=== PATIENT | female | born 1950 | race Caucasian/White ===

== ENCOUNTER 2018-05-26 11:31 | Inpatient (IN) | payer MEDICARE, SELFPAY ==
[2018-05-26] VITALS (50 sets, daily range): BP systolic 70–136; BP diastolic 34–89; PULSE 75–126; RESP 10–103; TEMP 35–36.6; O2SAT 93–100; BMI 30.7; BMI 31.6
--- NOTE | 2018-05-26 11:57 | RAD_ITS ---
STUDY: X-RAY CHEST REASON FOR EXAM: Female, 67 years old. Cough and fever TECHNIQUE: Single AP portable view of the chest. COMPARISON: 09/08/16 FINDINGS: EKG leads overlie the chest. Stable appearance of a tracheostomy tube. Left subclavian central venous catheter tip in the mid SVC. The lungs are clear and expanded. There is no demonstrated pleural abnormality. Normal size heart. Normal mediastinum and al. Normal visualized pulmonary arteries. Normal visualized aortic arch and descending thoracic aorta. There are diffuse degenerative changes of the visualized thoracic spine. Normal visualized ribs, clavicles, and shoulders. There is no demonstrated abnormality of the visualized soft tissue structures of the upper abdomen. RAD/Chest 1 View (Portable) IMPRESSION: No acute pulmonary process Electronically Signed: Brian Faye MD at 13:37 EDT , Service support ,
--- NOTE | 2018-05-26 11:57 | EKG12_ITS ---
Test Reason : ALTERED LOC Blood Pressure : / mmHG Vent. Rate : 109 BPM Atrial Rate : 109 BPM P-R Int : 160 ms QRS Dur : 080 ms QT Int : 332 ms P-R-T Axes : 041 035 033 degrees QTc Int : 447 ms Sinus tachycardia Otherwise normal ECG Confirmed by CAS CARCAMO, ZULEIKA ([id number]), senior technical editor KYLE SLATER ([id number] on 05/28/2018 1:26:43 PM Referred By: STEFAN Confirmed By:ZULEIKA CARDOZO MD
--- NOTE | 2018-05-26 12:06 | ED.DCSUM_ITS ---
- ER Visit Summary Date of Service: 05/26/18 Chief Complaint: Altered mental status History of Present Illness: The patient is a 67 F with history of spinal cord injury with trach in place who presents for 1 month of worsening confusion, acutely worse today. Patient was being evaluated for ringing in her ears at Dr. Ruby's office, and daughter noted the patient could not sign her name. She is normally able to do this without any difficulty. She was brought in for evaluation. Patient denies any specific complaints other than chronic cough and shortness of breath. Patient is currently on 2 antibiotics for a UTI, but daughter forgot the medication list and is unsure exactly what they are. Physical Examination: Vital signs: hypothermic at 95, hypotensive at 85/35, no hypoxia on room air General: well nourished, ill-appearing, laying in bed, trach in place Skin: Cool, dry, dependent mottling, skin breakdown on buttocks and upper legs HEENT: normocephalic and atraumatic; PERRL, EOMI, dry mucous membranes Cardiovascular: regular rate and rhythm without murmurs, no significant pitting peripheral edema Respiratory: Mild increased work of breathing, diffuse mild coarseness bilaterally, trach in place Abdominal: Abdomen is soft, nontender with normoactive bowel sounds, no guarding or rebound, no masses, suprapubic catheter in place, dark brown soft stool in adult diaper MSK: generalized weakness, no deformities Neuro: somnolent, answers questions appropriately. Paraplegic Test Results: Abnormal Lab Results 05/26/18 05/26/18 05/26/18 12:15 12:25 12:25 WBC 27.1 H RBC 5.99 H Hgb 16.8 H Hct 49.8 H MCV 83.1 MCH 28.0 MCHC 33.7 RDW 16.3 H RDW Differential 49.0 H Plt Count 516 H MPV 10.8 Immature Gran % (Auto) 0.900 Neut % (Auto) 91.6 H Lymph % (Auto) 3.2 L [place] % (Auto) 4.1 Eos % (Auto) 0.1 Baso % (Auto) 0.1 Absolute Neuts (auto) 24.8 H Absolute Lymphs (auto) 0.88 Total Counted Not Reportable Differential Comment SCANNED Platelet Estimate MOD INC Plt Morphology Comment LARGE PT INR APTT Specimen Type Sample Site O2 % VBG pH VBG pO2 VBG O2 Sat (Calc) VBG O2 Content VBG Base Excess POC Mix VBG pCO2 Pt Tmp Respiration Rate O2 Delivery Device Tidal Volume POC PEEP Blood Gas Notified Whom Blood Gas Notified Time Sodium 133 L Potassium 3.5 Chloride 90 L Carbon Dioxide 27.0 Anion Gap 16 H BUN 113 H* Creatinine 1.96 H Estim Creat Clear Calc 23.72 Est GFR (MDRD) Af Amer 33 L Est GFR (MDRD) Non-Af 27 L BUN/Creatinine Ratio 57.7 H Glucose 187 H Lactic Acid Calcium 8.9 Total Bilirubin 0.80 AST 15 ALT 19 Alkaline Phosphatase 306 H Total Creatine Kinase 17 L Troponin I < 0.015 Total Protein 6.9 Albumin 2.2 L Globulin 4.7 H Albumin/Globulin Ratio 0.5 L TSH 2.60 Cortisol Urine Color Urine Clarity Urine pH Ur Specific [place] Urine Protein Urine Glucose (UA) Urine Ketones Urine Occult Blood Urine Nitrite Urine Bilirubin Urine Urobilinogen Ur Leukocyte Esterase Urine RBC Urine WBC Ur Squamous Epith Cells Ur Transition Epith Cell Urine Bacteria Hyaline Casts Urine Mucus POC Glucose 213 H 05/26/18 05/26/18 05/26/18 12:25 12:25 12:25 WBC RBC Hgb Hct MCV MCH MCHC RDW RDW Differential Plt Count MPV Immature Gran % (Auto) Neut % (Auto) Lymph % (Auto) [place] % (Auto) Eos % (Auto) Baso % (Auto) Absolute Neuts (auto) Absolute Lymphs (auto) Total Counted Differential Comment Platelet Estimate Plt Morphology Comment PT 15.8 H INR 1.3 APTT 31.6 Specimen Type Sample Site O2 % VBG pH VBG pO2 VBG O2 Sat (Calc) VBG O2 Content VBG Base Excess POC Mix VBG pCO2 Pt Tmp Respiration Rate O2 Delivery Device Tidal Volume POC PEEP Blood Gas Notified Whom Blood Gas Notified Time Sodium Potassium Chloride Carbon Dioxide Anion Gap BUN Creatinine Estim Creat Clear Calc Est GFR (MDRD) Af Amer Est GFR (MDRD) Non-Af BUN/Creatinine Ratio Glucose Lactic Acid 5.6 H* Calcium Total Bilirubin AST ALT Alkaline Phosphatase Total Creatine Kinase Troponin I Total Protein Albumin Globulin Albumin/Globulin Ratio TSH Cortisol 51.90 H Urine Color Urine Clarity Urine pH Ur Specific [place] Urine Protein Urine Glucose (UA) Urine Ketones Urine Occult Blood Urine Nitrite Urine Bilirubin Urine Urobilinogen Ur Leukocyte Esterase Urine RBC Urine WBC Ur Squamous Epith Cells Ur Transition Epith Cell Urine Bacteria Hyaline Casts Urine Mucus POC Glucose 05/26/18 05/26/18 12:29 14:04 WBC RBC Hgb Hct MCV MCH MCHC RDW RDW Differential Plt Count MPV Immature Gran % (Auto) Neut % (Auto) Lymph % (Auto) [place] % (Auto) Eos % (Auto) Baso % (Auto) Absolute Neuts (auto) Absolute Lymphs (auto) Total Counted Differential Comment Platelet Estimate Plt Morphology Comment PT INR APTT Specimen Type HARPREET Sample Site L Radial O2 % 50 VBG pH 7.30 L VBG pO2 23 L VBG O2 Sat (Calc) 32 L VBG O2 Content 28 VBG Base Excess 0 POC Mix VBG pCO2 Pt Tmp 53.3 H Respiration Rate 12 O2 Delivery Device Vent Tidal Volume 500 POC PEEP 5 Blood Gas Notified Whom ED Blood Gas Notified Time 1220 Sodium Potassium Chloride Carbon Dioxide Anion Gap BUN Creatinine Estim Creat Clear Calc Est GFR (MDRD) Af Amer Est GFR (MDRD) Non-Af BUN/Creatinine Ratio Glucose Lactic Acid Calcium Total Bilirubin AST ALT Alkaline Phosphatase Total Creatine Kinase Troponin I Total Protein Albumin Globulin Albumin/Globulin Ratio TSH Cortisol Urine Color [place] Urine Clarity Cloudy Urine pH 6.0 Ur Specific [place] 1.015 Urine Protein 100 H Urine Glucose (UA) Normal Urine Ketones Negative Urine Occult Blood 250 H Urine Nitrite Negative Urine Bilirubin 3 H Urine Urobilinogen 1 H Ur Leukocyte Esterase 500 H Urine RBC 10-25 SEEN Urine WBC 25-50 SEEN Ur Squamous Epith Cells 0-5 SEEN Ur Transition Epith Cell 0-5 SEEN Urine Bacteria 2+ Hyaline Casts 0-5 SEEN Urine Mucus 0 SEEN POC Glucose Clinical Impression(s) from Imaging Studies Chest X-Ray 05/26/18 11:57 IMPRESSION: No acute pulmonary process Electronically Signed: Brian Faye MD at 13:37 EDT , Service support , Emergency Department Course and Treatment: Patient presents ill-appearing, hypotensive, hypothermic on initial temperature, concerning for sepsis. Rectal temperature was obtained and was 96.6. Lab work obtained, including sepsis workup, TSH and baseline cortisol in case of underlying endocrine insufficiency requiring stress dose steroids. Patient was started empirically on vancomycin and Zosyn. She was given 30ml/kg of IV fluids secondary to septic shock. She initially had responsiveness to IV fluids but became hypotensive again, and thus was given the full 30 ml/kg of fluid. Labs remarkable for leukocytosis of 27, creatinine of 1.96 and elevated BUN and, consistent with prerenal azotemia. Lactate elevated at 5.6. Venous blood gas showed CO2 of 53, making hypercarbic narcosis very unlikely as the patient's because of altered mental status. Chest x-ray showed no pneumonia. Urine was positive for infection. Patient required levophed for return of hypotension. Patient did not have sufficient peripheral access to start levaphed peripherally. Central line was placed after obtaining verbal consent in this emergent situation from daughter and patient. Timeout was performed. Using sterile te chnique, attempted to start a right subclavian --this site was chosen due to patient's trach with associated collar covering the IJ and patient's skin breakdown with infection in the femoral regions. Attempts were unsuccessful secondary to patient's anatomy with immobile shoulder joint not allowing proper positioning for cannulation of the subclavian. The internal jugular was the only accessible site, and thus patient's trach collar was removed and her trach was closely monitored and manually kept in place by an assistant to the president. Using ultrasound guidance, there was successful placement of a right internal jugular central line on the first attempt. Placement was confirmed with chest x-ray and there was no pneumothorax evident. Levophed was started through the central line. Patient was admitted to the ICU after discussion with Dr. Hale and Dr. Jordan. Critical care time of 45 minutes exclusive of separately billable procedures for emergent evaluation and stabilization, coordination of care, frequent reassessments, interpretations of chest x-ray, blood gas, EKG, lab work, and discussions with family, specialist and hospitalist. Treatment Plan: [] Disposition: [] Impression: Septic shock, altered mental status, UTI, central line placement, acute renal insufficiency This note was generated with [employer] dictation software. It may contain incorrect words, spelling, and punctuation that were not noted in review of the chart prior to signing ED Disposition - Plan for ED Patient: Disposition: Acute Care Hospital [facility] Chief Complaint: Alt LOC
[2018-05-26 12:35] LABS: Blood Gas Specimen Type VEN; FI02 50; O2 Delivery Device Vent; PEEP 5; RR 12; SITE L Radial; Time Given 1220; VBG BASE EXCESS 0 mmol/L (-1.0-3.5); VBG Bicarbonate 26 mmol/L (22-26); VBG Oxygen Content 28 mmol/L (23-33); VBG PO2 23 mmHg (25-40); VBG SO2 32 % (50-70); VBG pCO2 53.3 mmHg (41-51); Vt 500
--- NOTE | 2018-05-26 12:38 | CPS ---
unable to obtain a quality pulse ox waveform at this time.
[2018-05-26] MEDS: 0.9% Normal Saline 1,000 ML IV.SOLN. 1000 ML IV (12:45)
--- NOTE | 2018-05-26 12:49 | ED.RN ---
trach upon arrival
[2018-05-26 12:51] LABS: International Normalized Ratio 1.3; Prothrombin Time (Protime)PT. 15.8 SECONDS (11.7-14.9)
[2018-05-26 12:52] LABS: Absolute Lymphocyte Count 0.88 X10^3/ul (0.83-4.51); Absolute Neutrophil Count 24.8 X10^3/uL (2.0-7.7); Basophil# 0.04 X10^3/uL; Basophil% 0.1 % (0-1); Eosinophil# 0.03 X10^3/uL; Eosinophils% 0.1 % (0-5); Hematocrit 49.8 % (37-47); Hemoglobin 16.8 g/dl (12.0-15.0); Lymphocyte # 0.88 X10^3/ul (4.0); Lymphocyte % 3.2 % (19-41); Mean Corp Hgb Conc 33.7 g/gl (32-36); Mean Corpuscular Volume 83.1 fL (81-99); Mean Platelet Vol. 10.8 fl (6.2-12.0); Monocyte# 1.11 X10^3/uL; Monocyte% 4.1 % (0-10); Neutrophil # 24.82 X10^3/uL (2.7-7.7); Neutrophil % 91.6 % (47-70); Partial Thromboplast Time 31.6 Seconds (24.1-36.2); Platelet Count 516 K/mm3 (150-450); RBC Distribution Width CV 16.3 % (11.6-14.6); Red Blood Count 5.99 M/mm3 (4.2-5.4); White Blood Count 27.1 K/mm3 (4.4-11.0)
[2018-05-26 12:53] LABS: Differential Indicated SCAN CRITERIA MET; POSITIVE COUNT NO; POSITIVE DIFFERENTIAL YES; POSITIVE MORPHOLOGY NO
[2018-05-26 13:12] LABS: Differential Comment SCANNED; Lactic Acid 5.6 mmol/L (0.4-2.0); Platelet Estimate MOD INC (ADEQ); Platelet Morphology LARGE
[2018-05-26 13:15] LABS: Bedside Glucose 213 mg/dL (70-110)
[2018-05-26 13:22] LABS: ALB/GLOB Ratio 0.5 RATIO (0.9-2.4); AST(SGOT) 15 U/L (15-37); Alanine Aminotransfer ALT/SGPT 19 U/L (13-56); Albumin, Serum 2.2 g/dL (3.2-5.0); Alkaline Phosphatase 306 U/L (45-117); Anion Gap 16 (5-15); BUN 113 mg/dL (7-18); BUN/Creat Ratio 57.7 RATIO (10-20); CPK Total, Creatine Kinase 17 U/L (26-192); Calcium,Total 8.9 mg/dL (8.5-10.1); Chloride 90 mmol/L (98-107); Creatinine, Serum 1.96 mg/dL (0.55-1.02); EST Glomerular Filtration Rate 27 mL/min (>60); Est Glom Filt Rate - Afr Amer 33 mL/min (>60); Estimated Creatinine Clearance 23.72 ml/min; Globulin 4.7 g/dL (2.2-4.2); Glucose 187 mg/dL (74-106); Potassium 3.5 mmol/L (3.5-5.1); Protein, Total 6.9 g/dL (6.4-8.2); Sodium Level 133 mmol/L (136-145)
--- NOTE | 2018-05-26 13:27 | ED.RN ---
LACTIC 5.[address] CALL[address] FROM THE LAB. DR AVILES AWARE
[2018-05-26] MEDS: 0.9% Normal Saline 1,000 ML 500 ML IV ×2 (13:49→15:10)
[2018-05-26 14:08] LABS: Mucous, Urine 0 SEEN /hpf (<or=2+)
[2018-05-26 14:11] LABS: Color, Urine Amber (Yellow); Glucose, Dipstick Normal (Normal); Ketone-Dipstick Negative (Negative); Leukocyte Esterase-Dipstick 500 /ul (Negative); Nitrite-Dipstick Negative (Negative); Occult Blood-Urine 250 /ul (Negative); Protein-Dipstick 100 mg/dl (Negative); Specific Gravity, Urine 1.015 (1.002-1.030); Urine Bilirubin Dipstick 3 mg/dL (Negative); Urine Clarity Cloudy (Clear); Urine Urobilinogen 1 mg/dl (Normal)
[2018-05-26 14:18] LABS: Red Blood Cells-Urine 10-25 SEEN /hpf (0-5); Squamous Epithelial Cells - UA 0-5 SEEN /hpf (5-10); Transitional Epithelial - Ur 0-5 SEEN /hpf (0-5); White Blood Cells 25-50 SEEN /hpf (0-5)
[2018-05-26 14:19] LABS: Bacteria 2+ /hpf (None Seen); Hyaline Cast 0-5 SEEN /lpf (0-5)
--- NOTE | 2018-05-26 14:20 | HP.PCM_ITS ---
Problem List (1) Altered mental status Status: Acute History of Present Illness Date of Admission: 05/26/18 Chief Complaint: Altered mental status The patient is a 67 year old F with an extensive past medical history as listed below. She is a [facility] of a [facility]. She was admitted on 05/26/2018 by the ED with a complaint of altered mental status for the past month. According to her daughter, patient has had repeated UTIs and has been on 2 antibiotics recently. She does not know the name of these antibiotics. Mother has been confused over the past month and is gradually worsened until today when she could even sign her name on her documents. Daughter therefore decided to bring her in. She could not tell with her mother had had any fever or chills, any cough or chest pain, shortness of breath, abdominal pain, any diarrhea vomiting. Patient was a bit confused but was able to attest to the fact that she did not have any fever, any chills, any shortness of breath or chest pain, any abdominal pain, diarrhea vomiting. Patient has a venting placed on account of chronic respiratory failure because of which is likely due to pulmonary fibrosis from [facility] documentation. She is on trach collar during the day and on the vent at night. On admission in the ED, she was found to have a low temperature with temperature of 95 Fahrenheit and blood pressure was 84/34 with respiratory rate of 36 and 6 pulse rate was 89. Labs done shows sodium of 133, BUN of 113 and creatinine of 1.96. Anion gap was 16 and lactic acid was 5.6. CBC showed white cell count of 27.1 and hemoglobin of 16.8 and platelets of 516. Chest x- ray showed lungs clear and expanded with no acute cardiopulmonary process. She is being admitted to be managed for septic shock likely due to UTI. [] Past Medical History Past Medical History (Chronic Problems): Chronic Problems Left ischial pressure sore (Chronic) Benign essential hypertension (Chronic) Depression (Chronic) Hypertension (Chronic) Chronic acquired lymphedema (Chronic) Paraplegia (Chronic) History of ulcer of lower limb (Chronic) Right ischial pressure sore, stage 4 (Chronic) Patient needs follow at [facility]-two years ago she was supposed to follow up with Dr. Zheng- if patient wants agressive treatment with resolution of the wound, she needs to go there combined respiratory failure (Chronic) Dysphagia (Chronic) Restrictive airway disease (Chronic) ADHD (attention deficit hyperactivity disorder) (Chronic) Sleep apnea (Chronic) Leg muscle spasm (Chronic) Incontinence of feces (Chronic) Incontinence of urine (Chronic) History of benign neoplasm of spinal cord (Chronic) Hypercholesterolemia (Chronic) Paraplegia following spinal cord injury (Chronic) Pulmonary fibrosis (Chronic) Acute respiratory failure (Chronic) Allergies methylphenidate HCl [From Concerta] Allergy (Verified 05/26/18 11:35) Anaphylaxis WHEN COMBINED WITH ALBUTERAL SULFATE CAUSES DELERIUM. oxycodone HCl [From Percocet] Allergy (Verified 05/26/18 11:35) Other delerium zolpidem tartrate [From Ambien] Allergy (Verified 05/26/18 11:35) Other delerium WITH PERCOCET. ciprofloxacin [From Cipro] Adverse Reaction (Verified 05/26/18 11:35) Low blood pressure BAD INTERACTION WITH TIZANIDINE fluticasone propionate [From Advair Diskus] Adverse Reaction (Verified 05/26/18 11:35) Other DROWSY methylphenidate [From Concerta] Adverse Reaction (Verified 05/26/18 11:35) Other piroxicam [From Feldene] Adverse Reaction (Verified 05/26/18 11:35) Nausea salmeterol xinafoate [From Advair Diskus] Adverse Reaction (Verified 05/26/18 11:35) Other DROWSY Home Medications: Ambulatory Orders Medication Instructions Recorded Bisacodyl [Bisac-Evac] 10 mg RC DAILY PRN 08/31/16 Albuterol Aerosols [Ventolin 2.5 mg INHALATION Q4H PRN PRN 05/26/18 Aerosols] Apixaban [Eliquis] 2.5 mg PO BID 05/26/18 Aripiprazole [Abilify] 1 mg PO DAILY 05/26/18 Aspirin [Aspirin, Baby] 81 mg PO DAILY@0800 05/26/18 Baclofen [Lioresal] 20 mg PO TID 05/26/18 Calcium Carbonate/Vitamin D3 1 tab PO DAILY 05/26/18 [Calcium 500-Vit D3 200 Tablet] Chlorhexidine 15 ml PO BID 05/26/18 Enoxaparin [Lovenox] 40 mg SC DAILY@1000 05/26/18 Ferrous Sulfate 325 mg PO DAILY 05/26/18 Furosemide [Lasix] 80 mg PO BID 05/26/18 Guaifenesin [Guaifenesin ER] 1,200 mg PO BID 05/26/18 Ipratropium/Albuterol Sulfate 3 ml INHALATION Q6H 05/26/18 [Duoneb] Lactobacillus Acidophilus 1 each PO BID 05/26/18 [Acidophilus Lactobacilli] Metolazone [Zaroxolyn] 2.5 mg PO DAILY 05/26/18 Mirtazapine [Remeron] 7.5 mg PO QHS 05/26/18 Multivit-Min/Iron Fum/Folic AC 1 tab PO DAILY 05/26/18 [Geuux-Hatbdtd-Efumhvqo Tablet] Omeprazole 20 mg PO DAILY 05/26/18 Polyethylene Glycol 3350 [Miralax] 17 gm PO BID 05/26/18 Potassium Chloride [K-Dur] 20 meq PO DAILY 05/26/18 Sennosides/Docusate Sodium 1 each PO DAILY 05/26/18 [Sennosides-Docusate Sodium Tab] Venlafaxine XR [Effexor Xr] 150 mg PO BID 05/26/18 Surgical History: appendectomy, - - Lumbar back surgery ?2. Excision right ischial pressure sore with partial ostectomy for osteomyelitis - 01/13. placement of suprapubic catheter. Psychiatric History: No pertinent psych hx [employer] History: No pertinent [employer] history Lives: Jail Smoking Status: Never smoker Tobacco Use: Non-smoker Alcohol: None Drugs: None - *Family History Paternal History Items: No pertinent history, - - No pulmonary disease Maternal History Items: No pertinent history, - - No pulmonary disease Review of Systems Constitutional: Reports: Weight Change - daughter says she has lost ~ 20 pounds over the past month. Denies: Chills, Fever, Malaise, Weakness Eyes: Denies: Blurred vision HEENT: Denies: Head Aches, Sinus Congestion, Sinus Drainage Cardiovascular: Denies: Chest Pain, Palpitations Respiratory: Denies: Cough, Shortness of Breath, Shortness of breath at rest, Sputum production Gastrointestinal: Denies: Abdominal Pain, Nausea, Vomiting Genitourinary: Reports: - - has a suprapubic catheter. Denies: Dysuria Musculoskeletal: Denies: Joint Pain, Joint Tenderness Skin: Denies: Rash, Wounds Neurological: Reports: Balance problems, Confusion Psychiatric: Reports: Depression. Denies: Anxiety Hematologic/ Lymphatic: Denies: Easy Bruising, Easy Bleeding VTE Information - Inpt Only VTE Present on Admission: No VTE Mechan Device Prophylaxis: SCD's Patient Problems: Active and Suspected Problems Altered mental status (Acute) - Physical Exam General: Confused, Lethargic HEENT: Atraumatic, PERRLA, EOMI, Normocephalic Oral: Dry Mucosa Neck: Supple, No JVD, Negative Carotid Bruits, - - has a tracheostomy in place, attached to ventilator Lungs: - - lung bases are clear to auscultation Cardiovascular: Normal S1, Normal S2, No murmurs, Tachycardic Abdomen: Bowel Sounds Present, Soft, Non Tender, Non-Distended, Obese, - - suprapubic catheter in place; very offensive odour at catheter site, and it is oozing urine and some slight pus. Skin: - - Erythema over suprapubic area, and under abdominal pannus Musculoskeletal: No Tenderness to Palpation of Joints or Extremities Lymphatic: No Cervical, Supraclavicular, or Inguinal Adenopathy Neurological: - - patient confused, able to nod in response to questions, but cannot verbalise. Psych/Mental Status: - - confused Vital Signs Temp Pulse Resp BP Pulse Ox 96.6 F L 85 16 85/61 L 99 05/26/18 12:09 05/26/18 14:00 05/26/18 14:00 05/26/18 14:00 05/26/18 14:00 Oxygen Flow Rate (L/min) 6 Oxygen Delivery Method Mechanical Ventilator Weight: 179 lb Body Mass Index (BMI) 30.7 Finger Stick Blood Glucose 213 Laboratory Tests Past 24 Hrs 05/26/18 05/26/18 05/26/18 12:25 12:25 12:25 WBC 27.1 H RBC 5.99 H Hgb 16.8 H Hct 49.8 H MCV 83.1 MCH 28.0 MCHC 33.7 RDW 16.3 H RDW Differential 49.0 H Plt Count 516 H MPV 10.8 Immature Gran % (Auto) 0.900 Neut % (Auto) 91.6 H Lymph % (Auto) 3.2 L [place] % (Auto) 4.1 Eos % (Auto) 0.1 Baso % (Auto) 0.1 Absolute Neuts (auto) 24.8 H Absolute Lymphs (auto) 0.88 Total Counted Not Reportable Differential Comment SCANNED Platelet Estimate MOD INC Plt Morphology Comment LARGE PT 15.8 H INR 1.3 APTT 31.6 Specimen Type Sample Site O2 % VBG pH VBG pO2 VBG O2 Sat (Calc) VBG O2 Content VBG Base Excess POC Mix VBG pCO2 Pt Tmp Respiration Rate O2 Delivery Device Tidal Volume POC PEEP Blood Gas Notified Whom Blood Gas Notified Time Sodium 133 L Potassium 3.5 Chloride 90 L Carbon Dioxide 27.0 Anion Gap 16 H BUN 113 H* Creatinine 1.96 H Estim Creat Clear Calc 23.72 Est GFR (MDRD) Af Amer 33 L Est GFR (MDRD) Non-Af 27 L BUN/Creatinine Ratio 57.7 H Glucose 187 H Lactic Acid Calcium 8.9 Total Bilirubin 0.80 AST 15 ALT 19 Alkaline Phosphatase 306 H Total Creatine Kinase 17 L Troponin I < 0.015 Total Protein 6.9 Albumin 2.2 L Globulin 4.7 H Albumin/Globulin Ratio 0.5 L TSH 2.60 Cortisol Urine Color Urine Clarity Urine pH Ur Specific Rice Urine Protein Urine Glucose (UA) Urine Ketones Urine Occult Blood Urine Nitrite Urine Bilirubin Urine Urobilinogen Ur Leukocyte Esterase Urine RBC Urine WBC Ur Squamous Epith Cells Ur Transition Epith Cell Urine Bacteria Hyaline Casts Urine Mucus 05/26/18 05/26/18 05/26/18 12:25 12:25 12:29 WBC RBC Hgb Hct MCV MCH MCHC RDW RDW Differential Plt Count MPV Immature Gran % (Auto) Neut % (Auto) Lymph % (Auto) Independence % (Auto) Eos % (Auto) Baso % (Auto) Absolute Neuts (auto) Absolute Lymphs (auto) Total Counted Differential Comment Platelet Estimate Plt Morphology Comment PT INR APTT Specimen Type HARPREET Sample Site L Radial O2 % 50 VBG pH 7.30 L VBG pO2 23 L VBG O2 Sat (Calc) 32 L VBG O2 Content 28 VBG Base Excess 0 POC Mix VBG pCO2 Pt Tmp 53.3 H Respiration Rate 12 O2 Delivery Device Vent Tidal Volume 500 POC PEEP 5 Blood Gas Notified Whom ED Blood Gas Notified Time 1220 Sodium Potassium Chloride Carbon Dioxide Anion Gap BUN Creatinine Estim Creat Clear Calc Est GFR (MDRD) Af Amer Est GFR (MDRD) Non-Af BUN/Creatinine Ratio Glucose Lactic Acid 5.6 H* Calcium Total Bilirubin AST ALT Alkaline Phosphatase Total Creatine Kinase Troponin I Total Protein Albumin Globulin Albumin/Globulin Ratio TSH Cortisol 51.90 H Urine Color Urine Clarity Urine pH Ur Specific Rice Urine Protein Urine Glucose (UA) Urine Ketones Urine Occult Blood Urine Nitrite Urine Bilirubin Urine Urobilinogen Ur Leukocyte Esterase Urine RBC Urine WBC Ur Squamous Epith Cells Ur Transition Epith Cell Urine Bacteria Hyaline Casts Urine Mucus 05/26/18 14:04 WBC RBC Hgb Hct MCV MCH MCHC RDW RDW Differential Plt Count MPV Immature Gran % (Auto) Neut % (Auto) Lymph % (Auto) Independence % (Auto) Eos % (Auto) Baso % (Auto) Absolute Neuts (auto) Absolute Lymphs (auto) Total Counted Differential Comment Platelet Estimate Plt Morphology Comment PT INR APTT Specimen Type Sample Site O2 % VBG pH VBG pO2 VBG O2 Sat (Calc) VBG O2 Content VBG Base Excess POC Mix VBG pCO2 Pt Tmp Respiration Rate O2 Delivery Device Tidal Volume POC PEEP Blood Gas Notified Whom Blood Gas Notified Time Sodium Potassium Chloride Carbon Dioxide Anion Gap BUN Creatinine Estim Creat Clear Calc Est GFR (MDRD) Af Amer Est GFR (MDRD) Non-Af BUN/Creatinine Ratio Glucose Lactic Acid Calcium Total Bilirubin AST ALT Alkaline Phosphatase Total Creatine Kinase Troponin I Total Protein Albumin Globulin Albumin/Globulin Ratio TSH Cortisol Urine Color Elysia Urine Clarity Cloudy Urine pH 6.0 Ur Specific Rice 1.015 Urine Protein 100 H Urine Glucose (UA) Normal Urine Ketones Negative Urine Occult Blood 250 H Urine Nitrite Negative Urine Bilirubin 3 H Urine Urobilinogen 1 H Ur Leukocyte Esterase 500 H Urine RBC 10-25 SEEN Urine WBC 25-50 SEEN Ur Squamous Epith Cells 0-5 SEEN Ur Transition Epith Cell 0-5 SEEN Urine Bacteria 2+ Hyaline Casts 0-5 SEEN Urine Mucus 0 SEEN POC Glucose 05/26/18 12:15 POC Glucose 213 H Diagnostic Data Chest X-Ray 05/26/18 11:57 IMPRESSION: No acute pulmonary process Electronically Signed: Brian Faye MD at 13:37 EDT , Service support , Assessment/Plan All Active Problems Altered mental status (Acute) Aspiration pneumonia (Acute) Pseudomonas urinary tract infection (Acute) MRSA pneumonia (Acute) Sepsis (Acute) Shortness of breath (Acute) Ulcer of heel (Acute) Fever (Acute) Acute and chronic respiratory failure (Acute) 67-year-old female admitted from the [facility] with complaint of worsening confusion for 1 month and recurrent UTIs. 1. Acute metabolic encephalopathy due to septic shock from UTI * Getting confused for over a month and is progressively worsened. * Will hold baclofen. * Management as per 2. * 2. Septic shock due to UTI * blood pressure went down into 60s on review in ED; right hand was cold to touch and blue. * SIRS criteria is 3/4 (tachypnea, leucocytosis, hypothermia) * elevated lactic acid of 5.6; UA pending at time of review * subclavian line passed in ED * Patient was rehydrated in the ED with 30 cc/kg report according to sepsis protocol but still remained hypotensive. She was started on IV Levophed in the ED. * To ICU. Category Development Analyst consult. * Continue Levophed and IV fluids. 2D echo. * Start IV vancomycin and IV Zosyn. * blood cultures ordered; will order urine culture also * will get ABG * 3. MANUEL likely prerenal due to septic shock * Cr is 1.96, BUN ias 116 * Sinus less than 1. * Will monitor for resolution with hydration. * 4. Lactic acidosis: Likely due to hypoperfusion from septic shock. will repeat per sepsis protocol 5. Hyponatremia: Na is 133; likely a hypotonic, hypovolemic hyponatremia due to dehydration. Hydrate with IVF and monitor 6. Chronic respiratory failure: tracheostomy In Place. Currently on the Ventilator. Pulmonology and Category Development Analyst Consulted. On breathing treatments with albuterol. * 7. Thrombocytosis: 516. This is likely reactive from sepsis. Will monitor. 8. Depression:on mirtazapine 9. HF; EF unknown * on lasix 80mg bid and metolazone at home; held o/a of septic shock. * 2D echo ordered DVT prophylaxis: On apixaban. GI Prophylaxis: PPI Code status: Full code * Daughter was asked extensively about patient's CODE STATUS in light of her debilitated state and comorbidities.She insists the mother is full code. There is a focal documented in the [facility] papers that indicates patient was to be full code. This was clarified with patient again and she stated that she wanted to be full code. Total [id number] time 18 minutes. Code Visit Inpatient E&M: 17336 Init Hosp L3 Procedures: 88464 Advncd Care Plan 30 Min
--- NOTE | 2018-05-26 14:34 | ED.RN ---
Addendum entered by Elizabeth Perez 05/26/18 14:38: PT'S DAUGHTER IS IN THE ROOM AND REPORTED THAT PT HAS HISTORY OF RAYNAUD'S. RIGHT HAND IS LESS PURPLE AND RESOLVING, STILL COLD TO THE TOUCH. DR. AVILES INFORMED OF SAME. Original Note: DR. AVILES INFORMED THIS NURSE THAT NEW ORDERS IN MAR AND PT'S FINGERS ARE NOW COLD & PURPLE, DR. AVILES DISCUSSED WITH PT THE PLACEMENT OF CENTRAL LINE.
--- NOTE | 2018-05-26 15:09 | ECHOD_ITS ---
[id number] ECHO^ECHOD^Echo Complete [id number] TAG_START [facility] Echocardiogram [address] [place], [place] [address] Ordering Physician: Brittney Jordan TAG_ENDED TAG_START Name: SHELLEY HILTON Study Date: 05/27/2018 10:42 AM BP: 85/61 mmHg Patient Location: ICU^ICU03^1 BSA: 1.9 m2 : 1950 Gender: Female Height: 64 in Age: 67 yrs Weight: 179 lb History: HTN, Congenital lymphedema, Paraplegia, BETITO, Neoplasm of spinal cord, HLD, Pulmonary fibrosis, Acute Resp Failure, MRSA Pneumonia TAG_ENDED Reason For Study: PALPITATIONS Procedure This was a 2D Doppler, Color Flow transthoracic echocardiogram. Poor image quality due to pt in supine position and breathing issues due to respiratory failure and pulmonary disease. The study was technically difficult. Limited views were obtained. Exam performed portable in ICU/CCU. Left Ventricle Based upon the 2D echocardiographic images obtained there appears to be normal left ventricular size, wall motion, and hyperdynamic systolic function. Unable to assess diastolic dysfunction. TAG_START TAG_ENDED Right Ventricle Based upon the 2D echocardiographic images obtained there appears to be grossly normal right ventricular size and systolic function. Atria Normal left atrium. Normal right atrium. No doppler evidence for ASD. Mitral Valve Mitral valve not well visualized. Tricuspid Valve The tricuspid valve is not well visualized. Aortic Valve The aortic valve is not well visualized. Mild focal aortic valve calcification. Pulmonic Valve The pulmonic valve is not well visualized. Trivial pulmonic valve insufficiency. Great Vessels The aortic root is not well visualized. Pericardium/Pleural No pericardial effusion. MMode/2D Measurements & Calculations Ao root diam: 3.6 cm Doppler Measurements & Calculations PA V2 max: 88.4 cm/sec Interpretation Summary The study was technically difficult. Limited views were obtained. Based upon the 2D echocardiographic images obtained there appears to be normal left ventricular size, wall motion, and hyperdynamic systolic function. Mild focal aortic valve calcification. Trivial pulmonic valve insufficiency. Unable to assess diastolic dysfunction. TAG_START TAG_ENDED Ordering Physician: Brittney Jordan Performed By: Dania Yu RDCS, RVT
--- NOTE | 2018-05-26 16:20 | RAD_ITS ---
STUDY: X-RAY CHEST REASON FOR EXAM: Female, 67 years old. Line placement TECHNIQUE: Single AP portable view of the chest. COMPARISON: 05/26/2018 FINDINGS: Since the previous study, a right IJ central venous catheter is in place, tip is in the distal SVC. EKG leads overlie the chest. Stable appearance of a tracheostomy tube. Chronic interstitial changes noted in both lung sheets with stable blunting of the right costophrenic angle. There is no demonstrated pleural abnormality. Normal size heart. Normal mediastinum and al. Normal visualized pulmonary arteries. Normal visualized aortic arch and descending thoracic aorta. There are diffuse degenerative changes of the visualized thoracic spine. There is degenerative osteoarthritis of the bilateral shoulders. There is no demonstrated abnormality of the visualized soft tissue structures of the upper abdomen. RAD/Chest 1 View (Portable) IMPRESSION: Right IJ central venous catheter tip in the distal SVC. Lung sheets show no interval change since the previous study. Electronically Signed: Brian Faye MD at 17:03 EDT , Service support ,
[2018-05-26 16:33] LABS: Reflex Lactate? Y
[2018-05-26 16:56] LABS: Lactic Acid 2.7 mmol/L (0.4-2.0)
--- NOTE | 2018-05-26 16:57 | ED.RN ---
lactic 2.7 called from the lab dr escalante aware
--- NOTE | 2018-05-26 19:00 | NURSING ---
admitted to icu #3 from ed, non-verbal ,trach to vent %50 fio2, supra pubic catheter draining foul smelling luci urine with sediment, drainage bag changed, incont mod amt soft brown stool coccyx extremely reddened with multi open areas,
[2018-05-26] MEDS: 0.9% Normal Saline 1,000 ML 150 ML IV (19:35)
--- NOTE | 2018-05-26 20:13 | PCM.RX.CS ---
Consult Pharmacy has been consulted to manage selected antiobiotic: Vancomycin Type of Consult: New start Suspected Infection: Sepsis Prior Doses of Antibiotics Received/Current Regimen: VANCOMYCIN 1500MG IV X1 IN ED 05/26 @1349 Labs: Sodium 133 mmol/L (136-145) L 05/26/18 12:25 Potassium 3.5 mmol/L (3.5-5.1) 05/26/18 12:25 Chloride 90 mmol/L (98-107) L 05/26/18 12:25 Carbon Dioxide 27.0 mmol/L (21.0-32.0) 05/26/18 12:25 Anion Gap 16 (5-15) H 05/26/18 12:25 BUN 113 mg/dL (7-18) H* 05/26/18 12:25 Creatinine 1.96 mg/dL (0.55-1.02) H 05/26/18 12:25 Est GFR (MDRD) Af Amer 33 mL/min (>60) L 05/26/18 12:25 Est GFR (MDRD) Non-Af 27 mL/min (>60) L 05/26/18 12:25 BUN/Creatinine Ratio 57.7 RATIO (10-20) H 05/26/18 12:25 Glucose 187 mg/dL (74-106) H 05/26/18 12:25 Weight used for dosin.6 kg Estimated Creatinine Clearance: 24 ML/MIN Goal Trough: 15-20 mcg/mL Pharmacy Plan for Drug Dosing: PLAN/RECOMMENDATIONS 1. vancomycin 750mg IV Q24hr to start 05/27 @1400 2. Trough scheduled 05/28/18 @1330, prior to 3rd total dose of vancomycin 3. Pharmacy Service will continue to monitor and adjust dosing as required.
[2018-05-26 20:14] LABS: Reflex Lactate? Y
[2018-05-26 21:26] LABS: Allen Test POS; Base Excess -1 mmol/L (-2 to +2); Bicarbonate 24.4 mmol/L (22-26); Blood Gas Specimen Type ART; FI02 50; Mode A-C; O2 Delivery Device Vent; PEEP 5; PO2 24 mmHG (75-100); RR 40; SITE R Radial; SO2 41 % (95-99); Time Given 2115; Total Carbon Dioxide 26 mmol/L; Vt 400; pCO2 42.5 mmHg (35-45); pH 7.37 (7.35-7.45)
[2018-05-26] MEDS: Chlorhexidine 15 ML PO (21:40)
[2018-05-26 22:43] LABS: Absolute Lymphocyte Count 0.55 X10^3/ul (0.83-4.51); Absolute Neutrophil Count 26.8 X10^3/uL (2.0-7.7); Basophil# 0.03 X10^3/uL; Basophil% 0.1 % (0-1); Eosinophil# 0.01 X10^3/uL; Hematocrit 44.2 % (37-47); Hemoglobin 15.2 g/dl (12.0-15.0); Lymphocyte # 0.55 X10^3/ul (4.0); Lymphocyte % 1.9 % (19-41); Mean Corp Hgb Conc 34.4 g/gl (32-36); Mean Corpuscular Hgb 27.9 pg (27.0-32.0); Mean Corpuscular Volume 81.3 fL (81-99); Mean Platelet Vol. 11.1 fl (6.2-12.0); Monocyte# 1.37 X10^3/uL; Monocyte% 4.7 % (0-10); Neutrophil # 26.81 X10^3/uL (2.7-7.7); Neutrophil % 92.8 % (47-70); Platelet Count 537 K/mm3 (150-450); RBC Distribution Width CV 16.3 % (11.6-14.6); RBC Distribution Width SD 48.3 fl (35.1-43.9); Red Blood Count 5.44 M/mm3 (4.2-5.4); White Blood Count 28.9 K/mm3 (4.4-11.0)
[2018-05-26 22:44] LABS: Differential Indicated SCAN CRITERIA MET; POSITIVE COUNT NO; POSITIVE DIFFERENTIAL YES; POSITIVE MORPHOLOGY NO
[2018-05-26 22:45] LABS: International Normalized Ratio 1.3; Prothrombin Time (Protime)PT. 16.1 SECONDS (11.7-14.9)
[2018-05-26 22:46] LABS: Partial Thromboplast Time 36.3 Seconds (24.1-36.2)
[2018-05-26 22:59] LABS: Anion Gap 13 (5-15); BUN 99 mg/dL (7-18); BUN/Creat Ratio 66.9 RATIO (10-20); Calcium,Total 7.7 mg/dL (8.5-10.1); Chloride 98 mmol/L (98-107); Creatinine, Serum 1.48 mg/dL (0.55-1.02); EST Glomerular Filtration Rate 37 mL/min (>60); Est Glom Filt Rate - Afr Amer 45 mL/min (>60); Estimated Creatinine Clearance 28.77 ml/min; Glucose 189 mg/dL (74-106); Potassium 2.5 mmol/L (3.5-5.1); Sodium Level 135 mmol/L (136-145)
[2018-05-26 23:04] LABS: Differential Comment SCANNED
[2018-05-26] MEDS: Heparin Injection (Vial) 5,000 UNIT/ML VIAL 5000 UNIT IV (23:25)
[2018-05-26] MEDS: HEPARIN/D5w 25,000 UNITS 25,000 UNITS/250 ML IV.SOLN. 11 UNITS IV (23:25)
[2018-05-27] VITALS (61 sets, daily range): BP systolic 78–136; BP diastolic 39–96; PULSE 100–122; RESP 10–39; TEMP 36–36.7; O2SAT 92–100
[2018-05-27 00:06] LABS: Magnesium 2.1 mg/dL (1.6-2.6)
[2018-05-27] MEDS: Ipratropium/Albuterol Sulfate 3 ML AMPUL.NEB INHALATION ×3 (01:03→13:09)
[2018-05-27] MEDS: LORazepam 2 MG/ML Syringe 0.5 MG IV (04:05)
[2018-05-27] MEDS: 0.9% Normal Saline 1,000 ML 150 ML IV (04:10)
[2018-05-27 05:06] LABS: Absolute Lymphocyte Count 0.41 X10^3/ul (0.83-4.51); Absolute Neutrophil Count 28.9 X10^3/uL (2.0-7.7); Basophil# 0.02 X10^3/uL; Basophil% 0.1 % (0-1); Eosinophil# 0.01 X10^3/uL; Hematocrit 42.8 % (37-47); Hemoglobin 14.8 g/dl (12.0-15.0); Lymphocyte # 0.41 X10^3/ul (4.0); Lymphocyte % 1.3 % (19-41); Mean Corp Hgb Conc 34.6 g/gl (32-36); Mean Corpuscular Hgb 27.5 pg (27.0-32.0); Mean Corpuscular Volume 79.4 fL (81-99); Mean Platelet Vol. 10.6 fl (6.2-12.0); Monocyte% 4.5 % (0-10); Neutrophil # 28.86 X10^3/uL (2.7-7.7); Neutrophil % 93.5 % (47-70); Platelet Count 523 K/mm3 (150-450); RBC Distribution Width CV 16.2 % (11.6-14.6); RBC Distribution Width SD 46.3 fl (35.1-43.9); Red Blood Count 5.39 M/mm3 (4.2-5.4)
[2018-05-27 05:10] LABS: Anion Gap 14 (5-15); BUN 102 mg/dL (7-18); BUN/Creat Ratio 66.7 RATIO (10-20); Calcium,Total 7.5 mg/dL (8.5-10.1); Chloride 101 mmol/L (98-107); Creatinine, Serum 1.53 mg/dL (0.55-1.02); EST Glomerular Filtration Rate 36 mL/min (>60); Est Glom Filt Rate - Afr Amer 43 mL/min (>60); Estimated Creatinine Clearance 27.83 ml/min; Glucose 173 mg/dL (74-106); Potassium 3.2 mmol/L (3.5-5.1); Sodium Level 137 mmol/L (136-145)
[2018-05-27 05:28] LABS: Differential Indicated SCAN CRITERIA MET; POSITIVE COUNT YES; POSITIVE DIFFERENTIAL YES; POSITIVE MORPHOLOGY NO; White Blood Count 30.9 K/mm3 (4.4-11.0)
[2018-05-27 05:42] LABS: Differential Comment SCANNED
[2018-05-27 06:13] LABS: Partial Thromboplast Time > 250.0 Seconds (24.1-36.2)
[2018-05-27] MEDS: CHLORHEXIDINE GLUC 2% CLOTH 1 EACH TOWELETTE TOPICAL (06:20)
--- NOTE | 2018-05-27 07:13 | PCM.CON.CC ---
Reason for Consult Date of Consultation: 05/27/18 Reason for Consultation: Septic shock History of Present Illness: The patient is a 67-year-old female, with a history as outlined below, who presented to the emergency department on May 26 with gradually worsening encephalopathy. The patient was admitted to the hospital in September 2016 for prolonged period with acute on chronic respiratory failure. During that hospitalization, the patient underwent trach and PEG tube placement. The patient has baseline paraplegia secondary to syrinx, along with diaphragmatic weakness, chronic respiratory failure and issues with recurrent aspiration. Prior surface echocardiogram dated October 2015 revealed normal LV size and function with an ejection fraction of 65%. Agitated saline contrast study did reveal the presence of a small right to left interatrial shunt. Right ventricular systolic pressure was estimated to be 38 mmHg. On presentation to the emergency department, the patient was noted to be hypothermic and hypotensive. Laboratory evaluation revealed a hemoconcentrated CBC with an elevated white blood cell count to 27,000, hemoglobin of 16 and platelet count of 516,000. Chemistry profile revealed a sodium of 133, chloride of 90, elevated anion gap of 16 and a BUN and creatinine of 113 and 1.96, respectively. Serum lactate was elevated 5.6. Alkaline phosphatase was increased to 306. TSH was within normal limits. Troponin was negative. Urinalysis revealed positive leukocyte esterase, negative nitrites, 25-50 white blood cells and 2+ urine bacteria. Initial plain film chest x-ray revealed no acute cardiopulmonary process. Due to the patient's hemodynamic instability, a central venous catheter was placed. The patient received supplemental IV fluid hydration and was started on broad-spectrum antibiotics. She was subsequently transferred to the medical intensive care unit for ongoing management. Following admission to the ICU, the patient was initiated on levophed to maintain hemodynamic stability. She remains on vancomycin and cefepime. It does appear that the patient is on Eliquis as an outpatient. However, given her current n.p.o. status, she was transitioned to a heparin drip last evening. She remains on Levophed at 8 mcg. The patient currently resides at [facility]. A sputum culture collected on May 11 from the nursing facility was positive for pseudomonas aeruginosa and normal upper respiratory fabricio. The Pseudomonas species was noted to be multidrug-resistant. She also had a urine culture collected on May 11 which was positive for greater than 100,000 colony-forming units of E. coli, which was an ESBL organism. Per infectious diseases documentation received from [facility] [place], the patient was admitted in December 2017 with a nonhealing pressure ulcer with tunneling over the left hip and sacrococcygeal area. Subsequent MRI revealed evidence of acute osteomyelitis of the left ischial tuberosity. It is unclear what treatment was undertaken at that time. Nursing staff did call and speak with the patient senior care facility. They reported, that for reasons unclear to me, the patient's PEG tube was removed sometime in April. She has lost approximately 20 pounds unintentionally over the last several months due to poor p.o. intake. She was treated recently with Levaquin for presumptive pneumonia and Macrobid for a urinary tract infection. A nurse practitioner at her senior care facility is the only individual following the patient for her underlying wounds. She is not actively being followed by wound care clinic. Past Medical History Past Medical History (Chronic Problems): Chronic Problems Left ischial pressure sore (Chronic) Benign essential hypertension (Chronic) Depression (Chronic) Hypertension (Chronic) Chronic acquired lymphedema (Chronic) Paraplegia (Chronic) History of ulcer of lower limb (Chronic) Right ischial pressure sore, stage 4 (Chronic) Patient needs follow at [facility]-two years ago she was supposed to follow up with Dr. Zheng- if patient wants agressive treatment with resolution of the wound, she needs to go there combined respiratory failure (Chronic) Dysphagia (Chronic) Restrictive airway disease (Chronic) ADHD (attention deficit hyperactivity disorder) (Chronic) Sleep apnea (Chronic) Leg muscle spasm (Chronic) Incontinence of feces (Chronic) Incontinence of urine (Chronic) History of benign neoplasm of spinal cord (Chronic) Hypercholesterolemia (Chronic) Paraplegia following spinal cord injury (Chronic) Pulmonary fibrosis (Chronic) Acute respiratory failure (Chronic) Allergies methylphenidate HCl [From Concerta] Allergy (Verified 05/26/18 11:35) Anaphylaxis WHEN COMBINED WITH ALBUTERAL SULFATE CAUSES DELERIUM. oxycodone HCl [From Percocet] Allergy (Verified 05/26/18 11:35) Other delerium piperacillin Allergy (Verified 05/26/18 21:07) Other tazobactam [From Zosyn] Allergy (Verified 05/26/18 21:07) Other zolpidem tartrate [From Ambien] Allergy (Verified 05/26/18 11:35) Other delerium WITH PERCOCET. ciprofloxacin [From Cipro] Adverse Reaction (Verified 05/26/18 11:35) Low blood pressure BAD INTERACTION WITH TIZANIDINE fluticasone propionate [From Advair Diskus] Adverse Reaction (Verified 05/26/18 11:35) Other DROWSY methylphenidate [From Concerta] Adverse Reaction (Verified 05/26/18 11:35) Other piroxicam [From Feldene] Adverse Reaction (Verified 05/26/18 11:35) Nausea salmeterol xinafoate [From Advair Diskus] Adverse Reaction (Verified 05/26/18 11:35) Other DROWSY Home Medications: Ambulatory Orders Medication Instructions Recorded Bisacodyl [Bisac-Evac] 10 mg RC DAILY PRN 08/31/16 Albuterol Aerosols [Ventolin 2.5 mg INHALATION Q4H PRN PRN 05/26/18 Aerosols] Apixaban [Eliquis] 2.5 mg PO BID 05/26/18 Aripiprazole [Abilify] 1 mg PO DAILY 05/26/18 Aspirin [Aspirin, Baby] 81 mg PO DAILY@0800 05/26/18 Baclofen [Lioresal] 20 mg PO TID 05/26/18 Calcium Carbonate/Vitamin D3 1 tab PO DAILY 05/26/18 [Calcium 500-Vit D3 200 Tablet] Chlorhexidine 15 ml PO BID 05/26/18 Enoxaparin [Lovenox] 40 mg SC DAILY@1000 05/26/18 Ferrous Sulfate 325 mg PO DAILY 05/26/18 Furosemide [Lasix] 80 mg PO BID 05/26/18 Guaifenesin [Guaifenesin ER] 1,200 mg PO BID 05/26/18 Ipratropium/Albuterol Sulfate 3 ml INHALATION Q6H 05/26/18 [Duoneb] Lactobacillus Acidophilus 1 each PO BID 05/26/18 [Acidophilus Lactobacilli] Metolazone [Zaroxolyn] 2.5 mg PO DAILY 05/26/18 Mirtazapine [Remeron] 7.5 mg PO QHS 05/26/18 Multivit-Min/Iron Fum/Folic AC 1 tab PO DAILY 05/26/18 [Ywjox-Lurkyxa-Tpwofhzb Tablet] Omeprazole 20 mg PO DAILY 05/26/18 Polyethylene Glycol 3350 [Miralax] 17 gm PO BID 05/26/18 Potassium Chloride [K-Dur] 20 meq PO DAILY 05/26/18 Sennosides/Docusate Sodium 1 each PO DAILY 05/26/18 [Sennosides-Docusate Sodium Tab] Venlafaxine XR [Effexor Xr] 150 mg PO BID 05/26/18 Surgical History: appendectomy, - - Lumbar back surgery ?2. Excision right ischial pressure sore with partial ostectomy for osteomyelitis - 01/13. placement of suprapubic catheter. 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 Patient Problems: Active and Suspected Problems Septic shock (Acute) Chronic anticoagulation (Acute) MANUEL (acute kidney injury) (Acute) Altered mental status (Acute) Hypokalemia (Acute) Objective: The patient's most recent lab work, culture data and imaging studies have all been personally reviewed. Blood and urine cultures are currently pending. - Physical Exam General: Alert, - - Chronically ill and debilitated in appearance. HEENT: Atraumatic, PERRLA, Normocephalic Oral: Dry Mucosa Neck: Supple, No Nodes, Trachea Midline, - - Cuffed Shiley tracheostomy tube in place Lungs: No wheeze, No rales, Diminished, Rhonchi, Tachypneic Cardiovascular: Normal S1, Normal S2, No murmurs, Tachycardic Abdomen: Soft, Non Tender, Hypoactive Bowel Sounds, - - Scabbing noted over prior PEG tube site. Extremities: No clubbing, Cool, Diminished Peripheral Pulses, Edema, - - Cyanotic appearing digits Skin: - - Significant decubitus ulceration and skin breakdown, present on admission. Musculoskeletal: Muscle Wasting Lymphatic: No Cervical, Supraclavicular, or Inguinal Adenopathy Neurological: - - Baseline paraplegia Psych/Mental Status: Agitated, Anxious, Restless Vital Signs Temp Pulse Resp BP Pulse Ox 96.8 F L 121 H 12 94/56 L 98 05/27/18 07:00 05/27/18 07:00 05/27/18 07:00 05/27/18 07:00 05/27/18 07:00 Oxygen Flow Rate (L/min) 6 Oxygen Delivery Method Mechanical Ventilator Weight: 172 lb 9.951 oz Body Mass Index (BMI) 31.6 Finger Stick Blood Glucose 213 Intake and Output for Last 24 Hours 05/25/18 05/26/18 05/27/18 23:59 23:59 23:59 Intake Total 820 / 820 912 / 912 Output Total 1150 / 1150 250 / 250 Balance -330 / -330 662 / 662 Laboratory Tests Past 24 Hrs 05/26/18 05/26/18 05/26/18 12:25 12:25 12:25 WBC 27.1 H RBC 5.99 H Hgb 16.8 H Hct 49.8 H MCV 83.1 MCH 28.0 MCHC 33.7 RDW 16.3 H RDW Differential 49.0 H Plt Count 516 H MPV 10.8 Immature Gran % (Auto) 0.900 Neut % (Auto) 91.6 H Lymph % (Auto) 3.2 L [place] % (Auto) 4.1 Eos % (Auto) 0.1 Baso % (Auto) 0.1 Absolute Neuts (auto) 24.8 H Absolute Lymphs (auto) 0.88 Total Counted Not Reportable Differential Comment SCANNED Diff Path Review Platelet Estimate MOD INC Plt Morphology Comment LARGE PT 15.8 H INR 1.3 APTT 31.6 Specimen Type Sample Site pH Bicarbonate Actual POC Total CO2 Base Excess O2 Saturation O2 % ABG pCO2 ABG pO2 Eloy Test VBG pH VBG pO2 VBG O2 Sat (Calc) VBG O2 Content VBG Base Excess POC Mix VBG pCO2 Pt Tmp Respiration Rate O2 Delivery Device Vent Mode Tidal Volume POC PEEP Blood Gas Notified Whom Blood Gas Notified Time Sodium 133 L Potassium 3.5 Chloride 90 L Carbon Dioxide 27.0 Anion Gap 16 H BUN 113 H* Creatinine 1.96 H Estim Creat Clear Calc 23.72 Est GFR (MDRD) Af Amer 33 L Est GFR (MDRD) Non-Af 27 L BUN/Creatinine Ratio 57.7 H Glucose 187 H Lactic Acid Calcium 8.9 Magnesium Total Bilirubin 0.80 AST 15 ALT 19 Alkaline Phosphatase 306 H Total Creatine Kinase 17 L Troponin I < 0.015 Total Protein 6.9 Albumin 2.2 L Globulin 4.7 H Albumin/Globulin Ratio 0.5 L TSH 2.60 Cortisol Urine Color Urine Clarity Urine pH Ur Specific [place] Urine Protein Urine Glucose (UA) Urine Ketones Urine Occult Blood Urine Nitrite Urine Bilirubin Urine Urobilinogen Ur Leukocyte Esterase Urine RBC Urine WBC Ur Squamous Epith Cells Ur Transition Epith Cell Urine Bacteria Hyaline Casts Urine Mucus 05/26/18 05/26/18 05/26/18 12:25 12:25 12:29 WBC RBC Hgb Hct MCV MCH MCHC RDW RDW Differential Plt Count MPV Immature Gran % (Auto) Neut % (Auto) Lymph % (Auto) [place] % (Auto) Eos % (Auto) Baso % (Auto) Absolute Neuts (auto) Absolute Lymphs (auto) Total Counted Differential Comment Diff Path Review Platelet Estimate Plt Morphology Comment PT INR APTT Specimen Type HARPREET Sample Site L Radial pH Bicarbonate Actual POC Total CO2 Base Excess O2 Saturation O2 % 50 ABG pCO2 ABG pO2 Eloy Test VBG pH 7.30 L VBG pO2 23 L VBG O2 Sat (Calc) 32 L VBG O2 Content 28 VBG Base Excess 0 POC Mix VBG pCO2 Pt Tmp 53.3 H Respiration Rate 12 O2 Delivery Device Vent Vent Mode Tidal Volume 500 POC PEEP 5 Blood Gas Notified Whom ED Blood Gas Notified Time 1220 Sodium Potassium Chloride Carbon Dioxide Anion Gap BUN Creatinine Estim Creat Clear Calc Est GFR (MDRD) Af Amer Est GFR (MDRD) Non-Af BUN/Creatinine Ratio Glucose Lactic Acid 5.6 H* Calcium Magnesium Total Bilirubin AST ALT Alkaline Phosphatase Total Creatine Kinase Troponin I Total Protein Albumin Globulin Albumin/Globulin Ratio TSH Cortisol 51.90 H Urine Color Urine Clarity Urine pH Ur Specific [place] Urine Protein Urine Glucose (UA) Urine Ketones Urine Occult Blood Urine Nitrite Urine Bilirubin Urine Urobilinogen Ur Leukocyte Esterase Urine RBC Urine WBC Ur Squamous Epith Cells Ur Transition Epith Cell Urine Bacteria Hyaline Casts Urine Mucus 05/26/18 05/26/18 05/26/18 14:04 16:10 21:20 WBC RBC Hgb Hct MCV MCH MCHC RDW RDW Differential Plt Count MPV Immature Gran % (Auto) Neut % (Auto) Lymph % (Auto) [place] % (Auto) Eos % (Auto) Baso % (Auto) Absolute Neuts (auto) Absolute Lymphs (auto) Total Counted Differential Comment Diff Path Review Platelet Estimate Plt Morphology Comment PT INR APTT Specimen Type ART Sample Site R Radial pH 7.37 Bicarbonate Actual 24.4 POC Total CO2 26 Base Excess -1 O2 Saturation 41 L O2 % 50 ABG pCO2 42.5 ABG pO2 24 L* Eloy Test POS VBG pH VBG pO2 VBG O2 Sat (Calc) VBG O2 Content VBG Base Excess POC Mix VBG pCO2 Pt Tmp Respiration Rate 40 O2 Delivery Device Vent Vent Mode A-C Tidal Volume 400 POC PEEP 5 Blood Gas Notified Whom HOSP Blood Gas Notified Time 2114 Sodium Potassium Chloride Carbon Dioxide Anion Gap BUN Creatinine Estim Creat Clear Calc Est GFR (MDRD) Af Amer Est GFR (MDRD) Non-Af BUN/Creatinine Ratio Glucose Lactic Acid 2.7 H Calcium Magnesium Total Bilirubin AST ALT Alkaline Phosphatase Total Creatine Kinase Troponin I Total Protein Albumin Globulin Albumin/Globulin Ratio TSH Cortisol Urine Color Elysia Urine Clarity Cloudy Urine pH 6.0 Ur Specific [place] 1.015 Urine Protein 100 H Urine Glucose (UA) Normal Urine Ketones Negative Urine Occult Blood 250 H Urine Nitrite Negative Urine Bilirubin 3 H Urine Urobilinogen 1 H Ur Leukocyte Esterase 500 H Urine RBC 10-25 SEEN Urine WBC 25-50 SEEN Ur Squamous Epith Cells 0-5 SEEN Ur Transition Epith Cell 0-5 SEEN Urine Bacteria 2+ Hyaline Casts 0-5 SEEN Urine Mucus 0 SEEN 05/26/18 05/26/18 05/26/18 21:38 22:10 22:10 WBC 28.9 H RBC 5.44 H Hgb 15.2 H Hct 44.2 MCV 81.3 MCH 27.9 MCHC 34.4 RDW 16.3 H RDW Differential 48.3 H Plt Count 537 H MPV 11.1 Immature Gran % (Auto) 0.500 Neut % (Auto) 92.8 H Lymph % (Auto) 1.9 L [place] % (Auto) 4.7 Eos % (Auto) 0.0 Baso % (Auto) 0.1 Absolute Neuts (auto) 26.8 H Absolute Lymphs (auto) 0.55 L Total Counted Not Reportable Differential Comment SCANNED Diff Path Review Platelet Estimate Plt Morphology Comment PT INR APTT Specimen Type ART Sample Site R Brachial pH Bicarbonate Actual POC Total CO2 Base Excess O2 Saturation O2 % 50 ABG pCO2 ABG pO2 Eloy Test VBG pH 7.37 VBG pO2 24 L VBG O2 Sat (Calc) 41 L VBG O2 Content 26 VBG Base Excess -1 POC Mix VBG pCO2 Pt Tmp 43.0 Respiration Rate 10 O2 Delivery Device Vent Vent Mode Tidal Volume 400 POC PEEP 5 Blood Gas Notified Whom [facility] Blood Gas Notified Time 2130 Sodium 135 L Potassium 2.5 L* Chloride 98 Carbon Dioxide 24.0 Anion Gap 13 BUN 99 H Creatinine 1.48 H Estim Creat Clear Calc 28.77 Est GFR (MDRD) Af Amer 45 L Est GFR (MDRD) Non-Af 37 L BUN/Creatinine Ratio 66.9 H Glucose 189 H Lactic Acid Calcium 7.7 L Magnesium Total Bilirubin AST ALT Alkaline Phosphatase Total Creatine Kinase Troponin I Total Protein Albumin Globulin Albumin/Globulin Ratio TSH Cortisol Urine Color Urine Clarity Urine pH Ur Specific [place] Urine Protein Urine Glucose (UA) Urine Ketones Urine Occult Blood Urine Nitrite Urine Bilirubin Urine Urobilinogen Ur Leukocyte Esterase Urine RBC Urine WBC Ur Squamous Epith Cells Ur Transition Epith Cell Urine Bacteria Hyaline Casts Urine Mucus 05/26/18 05/26/18 05/27/18 22:10 22:10 04:45 WBC 30.9 H* RBC 5.39 Hgb 14.8 Hct 42.8 MCV 79.4 L MCH 27.5 MCHC 34.6 RDW 16.2 H RDW Differential 46.3 H Plt Count 523 H MPV 10.6 Immature Gran % (Auto) 0.600 Neut % (Auto) 93.5 H Lymph % (Auto) 1.3 L [place] % (Auto) 4.5 Eos % (Auto) 0.0 Baso % (Auto) 0.1 Absolute Neuts (auto) 28.9 H Absolute Lymphs (auto) 0.41 L Total Counted Not Reportable Differential Comment SCANNED Diff Path Review May foll Platelet Estimate Plt Morphology Comment PT 16.1 H INR 1.3 APTT 36.3 H Specimen Type Sample Site pH Bicarbonate Actual POC Total CO2 Base Excess O2 Saturation O2 % ABG pCO2 ABG pO2 Eloy Test VBG pH VBG pO2 VBG O2 Sat (Calc) VBG O2 Content VBG Base Excess POC Mix VBG pCO2 Pt Tmp Respiration Rate O2 Delivery Device Vent Mode Tidal Volume POC PEEP Blood Gas Notified Whom Blood Gas Notified Time Sodium Potassium Chloride Carbon Dioxide Anion Gap BUN Creatinine Estim Creat Clear Calc Est GFR (MDRD) Af Amer Est GFR (MDRD) Non-Af BUN/Creatinine Ratio Glucose Lactic Acid Calcium Magnesium 2.1 Total Bilirubin AST ALT Alkaline Phosphatase Total Creatine Kinase Troponin I Total Protein Albumin Globulin Albumin/Globulin Ratio TSH Cortisol Urine Color Urine Clarity Urine pH Ur Specific [place] Urine Protein Urine Glucose (UA) Urine Ketones Urine Occult Blood Urine Nitrite Urine Bilirubin Urine Urobilinogen Ur Leukocyte Esterase Urine RBC Urine WBC Ur Squamous Epith Cells Ur Transition Epith Cell Urine Bacteria Hyaline Casts Urine Mucus 05/27/18 05/27/18 05/27/18 04:45 04:45 05:30 WBC RBC Hgb Hct MCV MCH MCHC RDW RDW Differential Plt Count MPV Immature Gran % (Auto) Neut % (Auto) Lymph % (Auto) [place] % (Auto) Eos % (Auto) Baso % (Auto) Absolute Neuts (auto) Absolute Lymphs (auto) Total Counted Differential Comment Diff Path Review Platelet Estimate Plt Morphology Comment PT INR APTT Cancelled > 250.0 H* Specimen Type Sample Site pH Bicarbonate Actual POC Total CO2 Base Excess O2 Saturation O2 % ABG pCO2 ABG pO2 [place]oy Test VBG pH VBG pO2 VBG O2 Sat (Calc) VBG O2 Content VBG Base Excess POC Mix VBG pCO2 Pt Tmp Respiration Rate O2 Delivery Device Vent Mode Tidal Volume POC PEEP Blood Gas Notified Whom Blood Gas Notified Time Sodium 137 Potassium 3.2 L Chloride 101 Carbon Dioxide 22.0 Anion Gap 14 BUN 102 H* Creatinine 1.53 H Estim Creat Clear Calc 27.83 Est GFR (MDRD) Af Amer 43 L Est GFR (MDRD) Non-Af 36 L BUN/Creatinine Ratio 66.7 H Glucose 173 H Lactic Acid Calcium 7.5 L Magnesium Total Bilirubin AST ALT Alkaline Phosphatase Total Creatine Kinase Troponin I Total Protein Albumin Globulin Albumin/Globulin Ratio TSH Cortisol Urine Color Urine Clarity Urine pH Ur Specific [place] Urine Protein Urine Glucose (UA) Urine Ketones Urine Occult Blood Urine Nitrite Urine Bilirubin Urine Urobilinogen Ur Leukocyte Esterase Urine RBC Urine WBC Ur Squamous Epith Cells Ur Transition Epith Cell Urine Bacteria Hyaline Casts Urine Mucus POC Glucose 05/26/18 12:15 POC Glucose 213 H Clinical Impression(s) from Imaging Studies Chest X-Ray 05/26/18 11:57 IMPRESSION: No acute pulmonary process Electronically Signed: Brian Faye MD at 13:37 EDT , Service support , Chest X-Ray 05/26/18 16:20 IMPRESSION: Right IJ central venous catheter tip in the distal SVC. Lung sheets show no interval change since the previous study. Electronically Signed: Brian Faye MD at 17:03 EDT , Service support , Assessment/Plan Active and Suspected Problems Septic shock (Acute) Chronic anticoagulation (Acute) MANUEL (acute kidney injury) (Acute) Altered mental status (Acute) Hypokalemia (Acute) RECOMMENDATIONS: 1. Continue Levophed to maintain a mean arterial pressure at or above 65 mmHg. 2. Continue trach collar during the day and placed on ventilator nightly. Utilize outpatient trilogy settings with a Vt of 450 and rate of 14. 3. Obtain blood, urine and sputum cultures. 4. Continue broad-spectrum antimicrobials for now. 5. Place patient in contact precautions, given recent ESBL E. coli 6. Obtain infectious diseases consultation. 7. Wound care consultation is pending. 8. Discontinue heparin drip, as the patient was on Eliquis only for prophylaxis at the nursing facility. 9. Start subcutaneous heparin for DVT prophylaxis 10. Electrolyte repletion as needed. 11. Patient to remain NPO, pending evaluation by speech therapy. IMPRESSIONS: 1. Septic shock Multiple potential sources of infection, including urine, sputum and soft tissue. Recommend continuing broad-spectrum antibiotics at this time. Cultures to be collected. The patient also requires placement and contact precautions, given recent ESBL E. coli culture. The patient also had a sputum culture completed at the beginning of May which was positive for multidrug resistant Pseudomonas. We will plan to continue gentle supplemental IV fluid hydration with half-normal saline plus potassium, given n.p.o. status. Levophed will be continued to maintain a mean arterial pressure at or above 65 mmHg. 2. Acute kidney injury Likely prerenal in etiology in the setting of #1. Anticipate improvement with volume expansion and stabilization of hemodynamics. The patient currently has a suprapubic catheter in place. Continue to monitor urine output. No current indication for renal replacement therapy at this time. 3. Hypokalemia Continue with electrolyte repletion as ordered. We will continue potassium containing supplemental IV fluids as well. 4. Chronic respiratory failure The patient has chronic respiratory failure. Per discussion with the nursing facility, the patient is on a trach collar throughout the day and is ventilated at night. She utilizes a trilogy with a tidal volume of 450 and a rate of 14 with the equivalent of a 6 L/min supplemental oxygen bleed. Changes will be made to the patient's current ventilator orders to reflect what she utilizes as an outpatient. Would hold off on placing [place] valve at this time. 5. History of obstructive sleep apnea/alveolar hypoventilation with prior BiPAP noncompliance Continue current supportive measures as noted above with trach collar throughout the day and full ventilatory support at night. Would also recommend that the patient be placed on full mechanical ventilatory support with any naps throughout the day. 6. Baseline diaphragmatic weakness/restrictive airway disease/paraplegia/muscle spasms/paraplegia/history of Raynaud's/unintentional weight loss Complicates care, management, recovery and prognosis. It is unclear to me as to why the patient's PEG tube was removed in the first place. Her senior care facility reports that she has lost approximately 20 pounds over the last several months. Nutrition is currently following. Would recommend that speech therapy evaluate the patient prior to even considering advancement of her diet. TIME: 80 minutes of critical care time, independent of procedures, was spent addressing the patient's septic shock, acute kidney injury, hypokalemia, chronic respiratory failure, significant decubitus ulcerations, review of all data and collaboration with the care team. ([id number]) Code Visit Procedures: 17641 Critial Care Addl 30 Min 9xxxx: [id number] Critical care first hour
--- NOTE | 2018-05-27 07:23 | CON.PCM_ITS ---
Reason for Consult Date of Consultation: 05/27/18 Reason for Consultation: Septic shock History of Present Illness: The patient is a 67-year-old female, with a history as outlined below, who presented to the emergency department on May 26 with gradually worsening encephalopathy. The patient was admitted to the hospital in September 2016 for prolonged period with acute on chronic respiratory failure. During that hospitalization, the patient underwent trach and PEG tube placement. The patient has baseline paraplegia secondary to syrinx, along with diaphragmatic weakness, chronic respiratory failure and issues with recurrent aspiration. Prior surface echocardiogram dated October 2015 revealed normal LV size and function with an ejection fraction of 65%. Agitated saline contrast study did reveal the presence of a small right to left interatrial shunt. Right ventricular systolic pressure was estimated to be 38 mmHg. On presentation to the emergency department, the patient was noted to be hypothermic and hypotensive. Laboratory evaluation revealed a hemoconcentrated CBC with an elevated white blood cell count to 27,000, hemoglobin of 16 and platelet count of 516,000. Chemistry profile revealed a sodium of 133, chloride of 90, elevated anion gap of 16 and a BUN and creatinine of 113 and 1.96, respectively. Serum lactate was elevated 5.6. Alkaline phosphatase was increased to 306. TSH was within normal limits. Troponin was negative. Urinalysis revealed positive leukocyte esterase, negative nitrites, 25-50 white blood cells and 2+ urine bacteria. Initial plain film chest x-ray revealed no acute cardiopulmonary process. Due to the patient's hemodynamic instability, a central venous catheter was placed. The patient received supplemental IV fluid hydration and was started on broad-spectrum antibiotics. She was subsequently transferred to the medical intensive care unit for ongoing management. Following admission to the ICU, the patient was initiated on levophed to maintain hemodynamic stability. She remains on vancomycin and cefepime. It does appear that the patient is on Eliquis as an outpatient. However, given her current n.p.o. status, she was transitioned to a heparin drip last evening. She remains on Levophed at 8 mcg. The patient currently resides at [facility]. A sputum culture collected on May 11 from the nursing facility was positive for pseudomonas aeruginosa and normal upper respiratory fabricio. The Pseudomonas species was noted to be multidrug-resistant. She also had a urine culture collected on May 11 which was positive for greater than 100,000 colony- forming units of E. coli, which was an ESBL organism. Per infectious diseases documentation received from [facility], the patient was admitted in December 2017 with a nonhealing pressure ulcer with tunneling over the left hip and sacrococcygeal area. Subsequent MRI revealed evidence of acute osteomyelitis of the left ischial tuberosity. It is unclear what treatment was undertaken at that time. Nursing staff did call and speak with the patient [facility] facility. They reported, that for reasons unclear to me, the patient's PEG tube was removed sometime in April. She has lost approximately 20 pounds unintentionally over the last several months due to poor p.o. intake. She was treated recently with Levaquin for presumptive pneumonia and Macrobid for a urinary tract infection. A nurse practitioner at her [facility] facility is the only individual following the patient for her underlying wounds. She is not actively being followed by wound care clinic. Past Medical History Past Medical History (Chronic Problems): Chronic Problems Left ischial pressure sore (Chronic) Benign essential hypertension (Chronic) Depression (Chronic) Hypertension (Chronic) Chronic acquired lymphedema (Chronic) Paraplegia (Chronic) History of ulcer of lower limb (Chronic) Right ischial pressure sore, stage 4 (Chronic) Patient needs follow at [facility]-two years ago she was supposed to follow up with Dr. Zheng- if patient wants agressive treatment with resolution of the wound, she needs to go there combined respiratory failure (Chronic) Dysphagia (Chronic) Restrictive airway disease (Chronic) ADHD (attention deficit hyperactivity disorder) (Chronic) Sleep apnea (Chronic) Leg muscle spasm (Chronic) Incontinence of feces (Chronic) Incontinence of urine (Chronic) History of benign neoplasm of spinal cord (Chronic) Hypercholesterolemia (Chronic) Paraplegia following spinal cord injury (Chronic) Pulmonary fibrosis (Chronic) Acute respiratory failure (Chronic) Allergies methylphenidate HCl [From Concerta] Allergy (Verified 05/26/18 11:35) Anaphylaxis WHEN COMBINED WITH ALBUTERAL SULFATE CAUSES DELERIUM. oxycodone HCl [From Percocet] Allergy (Verified 05/26/18 11:35) Other delerium piperacillin Allergy (Verified 05/26/18 21:07) Other tazobactam [From Zosyn] Allergy (Verified 05/26/18 21:07) Other zolpidem tartrate [From Ambien] Allergy (Verified 05/26/18 11:35) Other delerium WITH PERCOCET. ciprofloxacin [From Cipro] Adverse Reaction (Verified 05/26/18 11:35) Low blood pressure BAD INTERACTION WITH TIZANIDINE fluticasone propionate [From Advair Diskus] Adverse Reaction (Verified 05/26/18 11:35) Other DROWSY methylphenidate [From Concerta] Adverse Reaction (Verified 05/26/18 11:35) Other piroxicam [From Feldene] Adverse Reaction (Verified 05/26/18 11:35) Nausea salmeterol xinafoate [From Advair Diskus] Adverse Reaction (Verified 05/26/18 11:35) Other DROWSY Home Medications: Ambulatory Orders Medication Instructions Recorded Bisacodyl [Bisac-Evac] 10 mg RC DAILY PRN 08/31/16 Albuterol Aerosols [Ventolin 2.5 mg INHALATION Q4H PRN PRN 05/26/18 Aerosols] Apixaban [Eliquis] 2.5 mg PO BID 05/26/18 Aripiprazole [Abilify] 1 mg PO DAILY 05/26/18 Aspirin [Aspirin, Baby] 81 mg PO DAILY@0800 05/26/18 Baclofen [Lioresal] 20 mg PO TID 05/26/18 Calcium Carbonate/Vitamin D3 1 tab PO DAILY 05/26/18 [Calcium 500-Vit D3 200 Tablet] Chlorhexidine 15 ml PO BID 05/26/18 Enoxaparin [Lovenox] 40 mg SC DAILY@1000 05/26/18 Ferrous Sulfate 325 mg PO DAILY 05/26/18 Furosemide [Lasix] 80 mg PO BID 05/26/18 Guaifenesin [Guaifenesin ER] 1,200 mg PO BID 05/26/18 Ipratropium/Albuterol Sulfate 3 ml INHALATION Q6H 05/26/18 [Duoneb] Lactobacillus Acidophilus 1 each PO BID 05/26/18 [Acidophilus Lactobacilli] Metolazone [Zaroxolyn] 2.5 mg PO DAILY 05/26/18 Mirtazapine [Remeron] 7.5 mg PO QHS 05/26/18 Multivit-Min/Iron Fum/Folic AC 1 tab PO DAILY 05/26/18 [Pdryf-Cjathab-Havxgpgq Tablet] Omeprazole 20 mg PO DAILY 05/26/18 Polyethylene Glycol 3350 [Miralax] 17 gm PO BID 05/26/18 Potassium Chloride [K-Dur] 20 meq PO DAILY 05/26/18 Sennosides/Docusate Sodium 1 each PO DAILY 05/26/18 [Sennosides-Docusate Sodium Tab] Venlafaxine XR [Effexor Xr] 150 mg PO BID 05/26/18 Surgical History: appendectomy, - - Lumbar back surgery ?2. Excision right ischial pressure sore with partial ostectomy for osteomyelitis - 01/13. placement of suprapubic catheter. 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 Patient Problems: Active and Suspected Problems Septic shock (Acute) Chronic anticoagulation (Acute) MANUEL (acute kidney injury) (Acute) Altered mental status (Acute) Hypokalemia (Acute) Objective: The patient's most recent lab work, culture data and imaging studies have all been personally reviewed. Blood and urine cultures are currently pending. - Physical Exam General: Alert, - - Chronically ill and debilitated in appearance. HEENT: Atraumatic, PERRLA, Normocephalic Oral: Dry Mucosa Neck: Supple, No Nodes, Trachea Midline, - - Cuffed Shiley tracheostomy tube in place Lungs: No wheeze, No rales, Diminished, Rhonchi, Tachypneic Cardiovascular: Normal S1, Normal S2, No murmurs, Tachycardic Abdomen: Soft, Non Tender, Hypoactive Bowel Sounds, - - Scabbing noted over prior PEG tube site. Extremities: No clubbing, Cool, Diminished Peripheral Pulses, Edema, - - Cyanotic appearing digits Skin: - - Significant decubitus ulceration and skin breakdown, present on admission. Musculoskeletal: Muscle Wasting Lymphatic: No Cervical, Supraclavicular, or Inguinal Adenopathy Neurological: - - Baseline paraplegia Psych/Mental Status: Agitated, Anxious, Restless Vital Signs Temp Pulse Resp BP Pulse Ox 96.8 F L 121 H 12 94/56 L 98 05/27/18 07:00 05/27/18 07:00 05/27/18 07:00 05/27/18 07:00 05/27/18 07:00 Oxygen Flow Rate (L/min) 6 Oxygen Delivery Method Mechanical Ventilator Weight: 172 lb 9.951 oz Body Mass Index (BMI) 31.6 Finger Stick Blood Glucose 213 Intake and Output for Last 24 Hours 05/25/18 05/26/18 05/27/18 23:59 23:59 23:59 Intake Total 820 / 820 912 / 912 Output Total 1150 / 1150 250 / 250 Balance -330 / -330 662 / 662 Laboratory Tests Past 24 Hrs 05/26/18 05/26/18 05/26/18 12:25 12:25 12:25 WBC 27.1 H RBC 5.99 H Hgb 16.8 H Hct 49.8 H MCV 83.1 MCH 28.0 MCHC 33.7 RDW 16.3 H RDW Differential 49.0 H Plt Count 516 H MPV 10.8 Immature Gran % (Auto) 0.900 Neut % (Auto) 91.6 H Lymph % (Auto) 3.2 L [place] % (Auto) 4.1 Eos % (Auto) 0.1 Baso % (Auto) 0.1 Absolute Neuts (auto) 24.8 H Absolute Lymphs (auto) 0.88 Total Counted Not Reportable Differential Comment SCANNED Diff Path Review Platelet Estimate MOD INC Plt Morphology Comment LARGE PT 15.8 H INR 1.3 APTT 31.6 Specimen Type Sample Site pH Bicarbonate Actual POC Total CO2 Base Excess O2 Saturation O2 % ABG pCO2 ABG pO2 Eloy Test VBG pH VBG pO2 VBG O2 Sat (Calc) VBG O2 Content VBG Base Excess POC Mix VBG pCO2 Pt Tmp Respiration Rate O2 Delivery Device Vent Mode Tidal Volume POC PEEP Blood Gas Notified Whom Blood Gas Notified Time Sodium 133 L Potassium 3.5 Chloride 90 L Carbon Dioxide 27.0 Anion Gap 16 H BUN 113 H* Creatinine 1.96 H Estim Creat Clear Calc 23.72 Est GFR (MDRD) Af Amer 33 L Est GFR (MDRD) Non-Af 27 L BUN/Creatinine Ratio 57.7 H Glucose 187 H Lactic Acid Calcium 8.9 Magnesium Total Bilirubin 0.80 AST 15 ALT 19 Alkaline Phosphatase 306 H Total Creatine Kinase 17 L Troponin I < 0.015 Total Protein 6.9 Albumin 2.2 L Globulin 4.7 H Albumin/Globulin Ratio 0.5 L TSH 2.60 Cortisol Urine Color Urine Clarity Urine pH Ur Specific [place] Urine Protein Urine Glucose (UA) Urine Ketones Urine Occult Blood Urine Nitrite Urine Bilirubin Urine Urobilinogen Ur Leukocyte Esterase Urine RBC Urine WBC Ur Squamous Epith Cells Ur Transition Epith Cell Urine Bacteria Hyaline Casts Urine Mucus 05/26/18 05/26/18 05/26/18 12:25 12:25 12:29 WBC RBC Hgb Hct MCV MCH MCHC RDW RDW Differential Plt Count MPV Immature Gran % (Auto) Neut % (Auto) Lymph % (Auto) [place] % (Auto) Eos % (Auto) Baso % (Auto) Absolute Neuts (auto) Absolute Lymphs (auto) Total Counted Differential Comment Diff Path Review Platelet Estimate Plt Morphology Comment PT INR APTT Specimen Type HARPREET Sample Site L Radial pH Bicarbonate Actual POC Total CO2 Base Excess O2 Saturation O2 % 50 ABG pCO2 ABG pO2 Eloy Test VBG pH 7.30 L VBG pO2 23 L VBG O2 Sat (Calc) 32 L VBG O2 Content 28 VBG Base Excess 0 POC Mix VBG pCO2 Pt Tmp 53.3 H Respiration Rate 12 O2 Delivery Device Vent Vent Mode Tidal Volume 500 POC PEEP 5 Blood Gas Notified Whom ED Blood Gas Notified Time 1220 Sodium Potassium Chloride Carbon Dioxide Anion Gap BUN Creatinine Estim Creat Clear Calc Est GFR (MDRD) Af Amer Est GFR (MDRD) Non-Af BUN/Creatinine Ratio Glucose Lactic Acid 5.6 H* Calcium Magnesium Total Bilirubin AST ALT Alkaline Phosphatase Total Creatine Kinase Troponin I Total Protein Albumin Globulin Albumin/Globulin Ratio TSH Cortisol 51.90 H Urine Color Urine Clarity Urine pH Ur Specific [place] Urine Protein Urine Glucose (UA) Urine Ketones Urine Occult Blood Urine Nitrite Urine Bilirubin Urine Urobilinogen Ur Leukocyte Esterase Urine RBC Urine WBC Ur Squamous Epith Cells Ur Transition Epith Cell Urine Bacteria Hyaline Casts Urine Mucus 05/26/18 05/26/18 05/26/18 14:04 16:10 21:20 WBC RBC Hgb Hct MCV MCH MCHC RDW RDW Differential Plt Count MPV Immature Gran % (Auto) Neut % (Auto) Lymph % (Auto) [place] % (Auto) Eos % (Auto) Baso % (Auto) Absolute Neuts (auto) Absolute Lymphs (auto) Total Counted Differential Comment Diff Path Review Platelet Estimate Plt Morphology Comment PT INR APTT Specimen Type ART Sample Site R Radial pH 7.37 Bicarbonate Actual 24.4 POC Total CO2 26 Base Excess -1 O2 Saturation 41 L O2 % 50 ABG pCO2 42.5 ABG pO2 24 L* Eloy Test POS VBG pH VBG pO2 VBG O2 Sat (Calc) VBG O2 Content VBG Base Excess POC Mix VBG pCO2 Pt Tmp Respiration Rate 40 O2 Delivery Device Vent Vent Mode A-C Tidal Volume 400 POC PEEP 5 Blood Gas Notified Whom HOSP Blood Gas Notified Time 2114 Sodium Potassium Chloride Carbon Dioxide Anion Gap BUN Creatinine Estim Creat Clear Calc Est GFR (MDRD) Af Amer Est GFR (MDRD) Non-Af BUN/Creatinine Ratio Glucose Lactic Acid 2.7 H Calcium Magnesium Total Bilirubin AST ALT Alkaline Phosphatase Total Creatine Kinase Troponin I Total Protein Albumin Globulin Albumin/Globulin Ratio TSH Cortisol Urine Color Elysia Urine Clarity Cloudy Urine pH 6.0 Ur Specific [place] 1.015 Urine Protein 100 H Urine Glucose (UA) Normal Urine Ketones Negative Urine Occult Blood 250 H Urine Nitrite Negative Urine Bilirubin 3 H Urine Urobilinogen 1 H Ur Leukocyte Esterase 500 H Urine RBC 10-25 SEEN Urine WBC 25-50 SEEN Ur Squamous Epith Cells 0-5 SEEN Ur Transition Epith Cell 0-5 SEEN Urine Bacteria 2+ Hyaline Casts 0-5 SEEN Urine Mucus 0 SEEN 05/26/18 05/26/18 05/26/18 21:38 22:10 22:10 WBC 28.9 H RBC 5.44 H Hgb 15.2 H Hct 44.2 MCV 81.3 MCH 27.9 MCHC 34.4 RDW 16.3 H RDW Differential 48.3 H Plt Count 537 H MPV 11.1 Immature Gran % (Auto) 0.500 Neut % (Auto) 92.8 H Lymph % (Auto) 1.9 L [place] % (Auto) 4.7 Eos % (Auto) 0.0 Baso % (Auto) 0.1 Absolute Neuts (auto) 26.8 H Absolute Lymphs (auto) 0.55 L Total Counted Not Reportable Differential Comment SCANNED Diff Path Review Platelet Estimate Plt Morphology Comment PT INR APTT Specimen Type ART Sample Site R Brachial pH Bicarbonate Actual POC Total CO2 Base Excess O2 Saturation O2 % 50 ABG pCO2 ABG pO2 Eloy Test VBG pH 7.37 VBG pO2 24 L VBG O2 Sat (Calc) 41 L VBG O2 Content 26 VBG Base Excess -1 POC Mix VBG pCO2 Pt Tmp 43.0 Respiration Rate 10 O2 Delivery Device Vent Vent Mode Tidal Volume 400 POC PEEP 5 Blood Gas Notified Whom [facility] Blood Gas Notified Time 2130 Sodium 135 L Potassium 2.5 L* Chloride 98 Carbon Dioxide 24.0 Anion Gap 13 BUN 99 H Creatinine 1.48 H Estim Creat Clear Calc 28.77 Est GFR (MDRD) Af Amer 45 L Est GFR (MDRD) Non-Af 37 L BUN/Creatinine Ratio 66.9 H Glucose 189 H Lactic Acid Calcium 7.7 L Magnesium Total Bilirubin AST ALT Alkaline Phosphatase Total Creatine Kinase Troponin I Total Protein Albumin Globulin Albumin/Globulin Ratio TSH Cortisol Urine Color Urine Clarity Urine pH Ur Specific [place] Urine Protein Urine Glucose (UA) Urine Ketones Urine Occult Blood Urine Nitrite Urine Bilirubin Urine Urobilinogen Ur Leukocyte Esterase Urine RBC Urine WBC Ur Squamous Epith Cells Ur Transition Epith Cell Urine Bacteria Hyaline Casts Urine Mucus 05/26/18 05/26/18 05/27/18 22:10 22:10 04:45 WBC 30.9 H* RBC 5.39 Hgb 14.8 Hct 42.8 MCV 79.4 L MCH 27.5 MCHC 34.6 RDW 16.2 H RDW Differential 46.3 H Plt Count 523 H MPV 10.6 Immature Gran % (Auto) 0.600 Neut % (Auto) 93.5 H Lymph % (Auto) 1.3 L [place] % (Auto) 4.5 Eos % (Auto) 0.0 Baso % (Auto) 0.1 Absolute Neuts (auto) 28.9 H Absolute Lymphs (auto) 0.41 L Total Counted Not Reportable Differential Comment SCANNED Diff Path Review May foll Platelet Estimate Plt Morphology Comment PT 16.1 H INR 1.3 APTT 36.3 H Specimen Type Sample Site pH Bicarbonate Actual POC Total CO2 Base Excess O2 Saturation O2 % ABG pCO2 ABG pO2 Eloy Test VBG pH VBG pO2 VBG O2 Sat (Calc) VBG O2 Content VBG Base Excess POC Mix VBG pCO2 Pt Tmp Respiration Rate O2 Delivery Device Vent Mode Tidal Volume POC PEEP Blood Gas Notified Whom Blood Gas Notified Time Sodium Potassium Chloride Carbon Dioxide Anion Gap BUN Creatinine Estim Creat Clear Calc Est GFR (MDRD) Af Amer Est GFR (MDRD) Non-Af BUN/Creatinine Ratio Glucose Lactic Acid Calcium Magnesium 2.1 Total Bilirubin AST ALT Alkaline Phosphatase Total Creatine Kinase Troponin I Total Protein Albumin Globulin Albumin/Globulin Ratio TSH Cortisol Urine Color Urine Clarity Urine pH Ur Specific [place] Urine Protein Urine Glucose (UA) Urine Ketones Urine Occult Blood Urine Nitrite Urine Bilirubin Urine Urobilinogen Ur Leukocyte Esterase Urine RBC Urine WBC Ur Squamous Epith Cells Ur Transition Epith Cell Urine Bacteria Hyaline Casts Urine Mucus 05/27/18 05/27/18 05/27/18 04:45 04:45 05:30 WBC RBC Hgb Hct MCV MCH MCHC RDW RDW Differential Plt Count MPV Immature Gran % (Auto) Neut % (Auto) Lymph % (Auto) [place] % (Auto) Eos % (Auto) Baso % (Auto) Absolute Neuts (auto) Absolute Lymphs (auto) Total Counted Differential Comment Diff Path Review Platelet Estimate Plt Morphology Comment PT INR APTT Cancelled > 250.0 H* Specimen Type Sample Site pH Bicarbonate Actual POC Total CO2 Base Excess O2 Saturation O2 % ABG pCO2 ABG pO2 [place] Test VBG pH VBG pO2 VBG O2 Sat (Calc) VBG O2 Content VBG Base Excess POC Mix VBG pCO2 Pt Tmp Respiration Rate O2 Delivery Device Vent Mode Tidal Volume POC PEEP Blood Gas Notified Whom Blood Gas Notified Time Sodium 137 Potassium 3.2 L Chloride 101 Carbon Dioxide 22.0 Anion Gap 14 BUN 102 H* Creatinine 1.53 H Estim Creat Clear Calc 27.83 Est GFR (MDRD) Af Amer 43 L Est GFR (MDRD) Non-Af 36 L BUN/Creatinine Ratio 66.7 H Glucose 173 H Lactic Acid Calcium 7.5 L Magnesium Total Bilirubin AST ALT Alkaline Phosphatase Total Creatine Kinase Troponin I Total Protein Albumin Globulin Albumin/Globulin Ratio TSH Cortisol Urine Color Urine Clarity Urine pH Ur Specific [place] Urine Protein Urine Glucose (UA) Urine Ketones Urine Occult Blood Urine Nitrite Urine Bilirubin Urine Urobilinogen Ur Leukocyte Esterase Urine RBC Urine WBC Ur Squamous Epith Cells Ur Transition Epith Cell Urine Bacteria Hyaline Casts Urine Mucus POC Glucose 05/26/18 12:15 POC Glucose 213 H Clinical Impression(s) from Imaging Studies Chest X-Ray 05/26/18 11:57 IMPRESSION: No acute pulmonary process Electronically Signed: Brian Faye MD at 13:37 EDT , Service support , Chest X-Ray 05/26/18 16:20 IMPRESSION: Right IJ central venous catheter tip in the distal SVC. Lung sheets show no interval change since the previous study. Electronically Signed: Brian Faye MD at 17:03 EDT , Service support , Assessment/Plan Active and Suspected Problems Septic shock (Acute) Chronic anticoagulation (Acute) MANUEL (acute kidney injury) (Acute) Altered mental status (Acute) Hypokalemia (Acute) RECOMMENDATIONS: 1. Continue Levophed to maintain a mean arterial pressure at or above 65 mmHg. 2. Continue trach collar during the day and placed on ventilator nightly. Utilize outpatient trilogy settings with a Vt of 450 and rate of 14. 3. Obtain blood, urine and sputum cultures. 4. Continue broad-spectrum antimicrobials for now. 5. Place patient in contact precautions, given recent ESBL E. coli 6. Obtain infectious diseases consultation. 7. Wound care consultation is pending. 8. Discontinue heparin drip, as the patient was on Eliquis only for prophylaxis at the nursing facility. 9. Start subcutaneous heparin for DVT prophylaxis 10. Electrolyte repletion as needed. 11. Patient to remain NPO, pending evaluation by speech therapy. IMPRESSIONS: 1. Septic shock Multiple potential sources of infection, including urine, sputum and soft tissue. Recommend continuing broad-spectrum antibiotics at this time. Cultures to be collected. The patient also requires placement and contact precautions, given recent ESBL E. coli culture. The patient also had a sputum culture completed at the beginning of May which was positive for multidrug resistant Pseudomonas. We will plan to continue gentle supplemental IV fluid hydration with half-normal saline plus potassium, given n.p.o. status. Levophed will be continued to maintain a mean arterial pressure at or above 65 mmHg. 2. Acute kidney injury Likely prerenal in etiology in the setting of #1. Anticipate improvement with volume expansion and stabilization of hemodynamics. The patient currently has a suprapubic catheter in place. Continue to monitor urine output. No current indication for renal replacement therapy at this time. 3. Hypokalemia Continue with electrolyte repletion as ordered. We will continue potassium containing supplemental IV fluids as well. 4. Chronic respiratory failure The patient has chronic respiratory failure. Per discussion with the nursing facility, the patient is on a trach collar throughout the day and is ventilated at night. She utilizes a trilogy with a tidal volume of 450 and a rate of 14 with the equivalent of a 6 L/min supplemental oxygen bleed. Changes will be made to the patient's current ventilator orders to reflect what she utilizes as an outpatient. Would hold off on placing Passy-Shelia valve at this time. 5. History of obstructive sleep apnea/alveolar hypoventilation with prior BiPAP noncompliance Continue current supportive measures as noted above with trach collar throughout the day and full ventilatory support at night. Would also recommend that the patient be placed on full mechanical ventilatory support with any naps throughout the day. 6. Baseline diaphragmatic weakness/restrictive airway disease/paraplegia/muscle spasms/paraplegia/history of Raynaud's/unintentional weight loss Complicates care, management, recovery and prognosis. It is unclear to me as to why the patient's PEG tube was removed in the first place. Her [facility] facility reports that she has lost approximately 20 pounds over the last several months. Nutrition is currently following. Would recommend that speech therapy evaluate the patient prior to even considering advancement of her diet. TIME: 80 minutes of critical care time, independent of procedures, was spent addressing the patient's septic shock, acute kidney injury, hypokalemia, chronic respiratory failure, significant decubitus ulcerations, review of all data and collaboration with the care team. ([id number]) Code Visit Procedures: 04439 Critial Care Addl 30 Min 9xxxx: [id number] Critical care first hour
--- NOTE | 2018-05-27 08:07 | PCM.PN.HOSP ---
Patient Problems: Active and Suspected Problems Altered mental status (Acute) Hypokalemia (Acute) MANUEL (acute kidney injury) (Acute) Chronic anticoagulation (Acute) Subjective: Patient is a 67-year-old white female with known history of paraplegia secondary to syrinx, chronic respiratory failure with trach and PEG but has been reversed, recurrent aspirations previously on mechanical soft, suprapubic catheter, evidence of ulcer, chronic acquired lymphedema, restrictive airway disease, ADHD, sleep apnea, incontinence of feces in urine, hyperlipidemia, pulmonary fibrosis who presented to the hospital yesterday evening seem to be in sepsis secondary to urinary cause and was placed on Levophed Patient still has a leukocytosis lactic acid levels have come down, nurse reports patient being agitated overnight, and was given some Ativan. Review of the laboratory shows patient hypokalemic, still in acute renal failure. Patient is still confused and on vent currently and is unable to give any complaints. Still on Levophed drip Vitals/I&O's: Vital Signs Temp Pulse Resp BP Pulse Ox 96.8 F L 121 H 12 94/56 L 98 05/27/18 07:00 05/27/18 07:00 05/27/18 07:00 05/27/18 07:00 05/27/18 07:00 Oxygen Flow Rate (L/min) 6 Oxygen Delivery Method Mechanical Ventilator Weight: 78.3 kg Body Mass Index (BMI) 31.6 Finger Stick Blood Glucose 213 Intake and Output for Last 24 Hours 05/25/18 05/26/18 05/27/18 23:59 23:59 23:59 Intake Total 820 / 820 912 / 912 Output Total 1150 / 1150 250 / 250 Balance -330 / -330 662 / 662 General: Alert, Confused, Non-Cooperative HEENT: Atraumatic, PERRLA, EOMI - Tracking physician Oral: - - Visualize as patient will not open mouth Neck: No Nodes, Trachea Midline, - - Positive trach, vent, central line placed right side Lungs: Diminished - Inspiratory effort course breath sounds, Rhonchi, - - No use accessory muscles Cardiovascular: Normal S1, Normal S2, Murmur, Tachycardic Abdomen: Soft, Non Tender, Non-Distended, - - Old PEG scar of suprapubic catheter Extremities: Cool, Edema, - - Positive hemosiderin staining Skin: Ulcer/ Wound, - - There is reports decubitus ulcer Lymphatic: No Cervical, Supraclavicular, or Inguinal Adenopathy Neurological: Cranial nerves II-XII grossly intact - Fully assess patient seems to be this was talking earlier hospital stay Psych/Mental Status: - - Cannot fully assess Laboratory Results 05/26/18 12:15: POC Glucose 213 H 05/26/18 12:25: Sodium 133 L, Potassium 3.5, Chloride 90 L, Carbon Dioxide 27.0, Anion Gap 16 H, BUN 113 H*, Creatinine 1.96 H, Estim Creat Clear Calc 23.72, Est GFR (MDRD) Af Amer 33 L, Est GFR (MDRD) Non-Af 27 L, BUN/Creatinine Ratio 57.7 H, Glucose 187 H, Calcium 8.9, Total Bilirubin 0.80, AST 15, ALT 19, Alkaline Phosphatase 306 H, Total Creatine Kinase 17 L, Troponin I < 0.015, Total Protein 6.9, Albumin 2.2 L, Globulin 4.7 H, Albumin/Globulin Ratio 0.5 L, TSH 2.60 05/26/18 12:25: WBC 27.1 H, RBC 5.99 H, Hgb 16.8 H, Hct 49.8 H, MCV 83.1, MCH 28.0, MCHC 33.7, RDW 16.3 H, RDW Differential 49.0 H, Plt Count 516 H, MPV 10.8, Immature Gran % (Auto) 0.900, Neut % (Auto) 91.6 H, Lymph % (Auto) 3.2 L, [place] % (Auto) 4.1, Eos % (Auto) 0.1, Baso % (Auto) 0.1, Absolute Neuts (auto) 24.8 H, Absolute Lymphs (auto) 0.88, Total Counted Not Reportable, Differential Comment SCANNED, Platelet Estimate MOD INC, Plt Morphology Comment LARGE 05/26/18 12:25: PT 15.8 H, INR 1.3, APTT 31.6 05/26/18 12:25: Lactic Acid 5.6 H* 05/26/18 12:25: Cortisol 51.90 H 05/26/18 12:29: Specimen Type HARPREET, Sample Site L Radial, O2 % 50, VBG pH 7.30 L, VBG pO2 23 L, VBG O2 Sat (Calc) 32 L, VBG O2 Content 28, VBG Base Excess 0, POC Mix VBG pCO2 Pt Tmp 53.3 H, Respiration Rate 12, O2 Delivery Device Vent, Tidal Volume 500, POC PEEP 5, Blood Gas Notified Whom , Blood Gas Notified Time 12205/26/18 14:04: Urine Color Elysia, Urine Clarity Cloudy, Urine pH 6.0, Ur Specific [place] 1.015, Urine Protein 100 H, Urine Glucose (UA) Normal, Urine Ketones Negative, Urine Occult Blood 250 H, Urine Nitrite Negative, Urine Bilirubin 3 H, Urine Urobilinogen 1 H, Ur Leukocyte Esterase 500 H, Urine RBC 10-25 SEEN, Urine WBC 25-50 SEEN, Ur Squamous Epith Cells 0-5 SEEN, Ur Transition Epith Cell 0-5 SEEN, Urine Bacteria 2+, Hyaline Casts 0-5 SEEN, Urine Mucus 0 SEEN 05/26/18 16:10: Lactic Acid 2.7 H 05/26/18 21:20: Specimen Type ART, Sample Site R Radial, pH 7.37, Bicarbonate Actual 24.4, POC Total CO2 26, Base Excess -1, O2 Saturation 41 L, O2 % 50, ABG pCO2 42.5, ABG pO2 24 L*, [place]oy Test POS, Respiration Rate 40, O2 Delivery Device Vent, Vent Mode A-C, Tidal Volume 400, POC PEEP 5, Blood Gas Notified Whom [facility] , Blood Gas Notified Time 211405/26/18 21:38: Specimen Type ART, Sample Site R Brachial, O2 % 50, VBG pH 7.37, VBG pO2 24 L, VBG O2 Sat (Calc) 41 L, VBG O2 Content 26, VBG Base Excess -1, POC Mix VBG pCO2 Pt Tmp 43.0, Respiration Rate 10, O2 Delivery Device Vent, Tidal Volume 400, POC PEEP 5, Blood Gas Notified Whom [facility] , Blood Gas Notified Time 212905/26/18 22:10: Sodium 135 L, Potassium 2.5 L*, Chloride 98, Carbon Dioxide 24.0, Anion Gap 13, BUN 99 H, Creatinine 1.48 H, Estim Creat Clear Calc 28.77, Est GFR (MDRD) Af Amer 45 L, Est GFR (MDRD) Non-Af 37 L, BUN/Creatinine Ratio 66.9 H, Glucose 189 H, Calcium 7.7 L 05/26/18 22:10: WBC 28.9 H, RBC 5.44 H, Hgb 15.2 H, Hct 44.2, MCV 81.3, MCH 27.9, MCHC 34.4, RDW 16.3 H, RDW Differential 48.3 H, Plt Count 537 H, MPV 11.1, Immature Gran % (Auto) 0.500, Neut % (Auto) 92.8 H, Lymph % (Auto) 1.9 L, [place] % (Auto) 4.7, Eos % (Auto) 0.0, Baso % (Auto) 0.1, Absolute Neuts (auto) 26.8 H, Absolute Lymphs (auto) 0.55 L, Total Counted Not Reportable, Differential Comment SCANNED 05/26/18 22:10: PT 16.1 H, INR 1.3, APTT 36.3 H 05/26/18 22:10: Magnesium 2.1 05/27/18 04:45: WBC 30.9 H*, RBC 5.39, Hgb 14.8, Hct 42.8, MCV 79.4 L, MCH 27.5, MCHC 34.6, RDW 16.2 H, RDW Differential 46.3 H, Plt Count 523 H, MPV 10.6, Immature Gran % (Auto) 0.600, Neut % (Auto) 93.5 H, Lymph % (Auto) 1.3 L, [place] % (Auto) 4.5, Eos % (Auto) 0.0, Baso % (Auto) 0.1, Absolute Neuts (auto) 28.9 H, Absolute Lymphs (auto) 0.41 L, Total Counted Not Reportable, Differential Comment SCANNED, Diff Path Review December05/27/18 04:45: Sodium 137, Potassium 3.2 L, Chloride 101, Carbon Dioxide 22.0, Anion Gap 14, BUN 102 H*, Creatinine 1.53 H, Estim Creat Clear Calc 27.83, Est GFR (MDRD) Af Amer 43 L, Est GFR (MDRD) Non-Af 36 L, BUN/Creatinine Ratio 66.7 H, Glucose 173 H, Calcium 7.5 L 05/27/18 04:45: APTT Cancelled 05/27/18 05:30: APTT > 250.0 H* Current Medications Albuterol Sulfate (Ventolin Aerosols) 2.5 mg INHALATION Q4H PRN PRN PRN Reason: SOB &/OR WHEEZING Albuterol/Ipratropium (Duoneb) 3 ml INHALATION Q6HWA.RT [facility] Last Admin: 05/27/18 06:31 Dose: 3 ml Aripiprazole (Abilify) 1 mg PO DAILY [facility] Aspirin (Aspirin, Baby) 81 mg PO DAILY@0800 [facility] Bisacodyl (Dulcolax) 10 mg RECTAL DAILY PRN PRN Reason: Constipation Calcium/Vitamin D (Os-Eliot 500mg + D) [facility] Chlorhexidine Gluconate () 15 ml PO BID [facility] Last Admin: 05/26/18 21:40 Dose: 15 ml Chlorhexidine Gluconate () 1 each TOPICAL DAILY [facility] Last Admin: 05/27/18 06:20 Dose: 1 each Ferrous Sulfate (Ferrous Sulfate) [facility] Guaifenesin (Mucinex) 1,200 mg PO BID [facility] Last Admin: 05/26/18 21:42 Dose: Not Given Haloperidol Lactate (Haldol) 1 mg IM Q4H PRN PRN PRN Reason: AGITATION Heparin Sodium (Porcine) (Heparin Na) 0 unit IV UD PRN; Protocol Norepinephrine Bitartrate 8 mg (/ Dextrose) 258 mls @ 9.68 mls/hr IV .[id number] [facility] Last Admin: 05/27/18 06:20 Dose: 9.68 mls/hr Sodium Chloride () 1,000 mls @ 150 mls/hr IV .[id number] [facility] Last Admin: 05/27/18 04:10 Dose: 150 mls/hr Cefepime HCl 2 gm/ Sodium (Chloride) 100 mls @ 200 mls/hr IV DAILY [facility] Last Admin: 05/26/18 21:41 Dose: 200 mls/hr Vancomycin IV Pharmacy to Dose (1 ea/ Sodium Chloride) 500 mls @ 250 mls/hr IV PRN PRN; Protocol PRN Reason: Rx to Dose Vancomycin HCl 750 mg/ Sodium (Chloride) 265 mls @ 250 mls/hr IV Q24H [facility] Heparin Sodium/Dextrose () 25,000 units in 250 mls @ 11 mls/hr IV .[id number] [facility]; Protocol Last Admin: 05/26/18 23:25 Dose: 11 mls/hr Pantoprazole Sodium 40 mg/ (Sodium Chloride) 110 mls @ 330 mls/hr IV Q12 [facility] Magnesium Sulfate 2 gm/ Sodium (Chloride) 104 mls @ 52 mls/hr IV X1 ONE Stop: 05/27/18 09:56 Potassium Chloride (Kcl 10meq/100ml) 10 meq in 100 mls @ 100 mls/hr IV BOLUS Q1H [facility] Stop: 05/27/18 11:59 Lactobacillus Acidophilus (Acidophilus) 1 tablet PO BID [facility] Last Admin: 05/26/18 21:40 Dose: Not Given Magnesium Hydroxide (Milk Of Magnesia) 30 ml PO DAILY PRN PRN PRN Reason: Constipation Mirtazapine (Remeron) 7.5 mg PO QHS [facility] Last Admin: 05/26/18 21:41 Dose: Not Given Multivitamins/Minerals (Multivitamin With Minerals) 1 tablet PO DAILY@0800 [facility] Polyethylene Glycol (Miralax) 17 gm PO BID [facility] Last Admin: 05/26/18 21:40 Dose: Not Given Senna/Docusate Sodium (Senokot-S, Brit-Colace) 1 tablet PO DAILY [facility] Sodium Chloride () 5 - 30 ml IV UD PRN PRN Reason: SALINE FLUSH Venlafaxine HCl (Effexor Xr) 150 mg PO BID [facility] Last Admin: 05/26/18 22:01 Dose: Not Given Medical Necessity - Tobacco Use Smoking Status: Never smoker Tobacco Use: Non-smoker Assessment/Plan All Active Problems Altered mental status (Acute) Hypokalemia (Acute) MANUEL (acute kidney injury) (Acute) Chronic anticoagulation (Acute) Aspiration pneumonia (Acute) Pseudomonas urinary tract infection (Acute) MRSA pneumonia (Acute) Sepsis (Acute) Shortness of breath (Acute) Ulcer of heel (Acute) Fever (Acute) Acute and chronic respiratory failure (Acute) Altered mental status (Acute) There is a metabolic encephalopathy secondary medical conditions., Will give patient as needed Haldol for agitation and delirium however hopefully correcting underlying problems patient's mental status will return back to baseline. Hypokalemia (Acute) We will give 40 mEq of potassium IV with 2 g mag sulfate monitor repeat laboratories in the a.m. Sepsis (Acute) Patient seems to be in septic shock currently on Levophed, on vancomycin and Maxipime due to allergy with Zosyn. Monitor recommendations of pulmonary critical care. Still awaiting culture results the patient also has a large decubitus ulcer. We will have wound care evaluate. Acute and chronic respiratory failure (Acute) He has multiple reasons for shortness of breath including paraplegia, With diaphragmatic weakness and restrictive airway disease. Patient is currently on the vent will need to be monitored and will repeat chest x-ray in the a.m. Urinary tract infection Patient has had chronic urinary tract infection and seems to have a leaking suprapubic catheter, nurse will try to change, if not urology may need to be consulted. Continue vancomycin and Maxipime as patient has had a history of Pseudomonas and MRSA in the past Chronic anticoagulation Patient appears to be on Eliquis as an outpatient, currently on heparin, prior echocardiogram in October 2015 revealed normal ejection fraction of 65%, and small right to the left intra-atrial shunt with right ventricular pressures to be 38 mmHg. New echocardiogram is currently pending. Acute kidney injury Improving probably secondary to septic shock continue to monitor DVT prophylaxis currently on heparin CODE STATUS full GI prophylaxis on IV PPI Nutrition currently n.p.o., patient was previously on a soft mechanical diet according to nursing staff monitor may need to reconsider feeding tube temporarily or permanently palpation does. CODE STATUS full Disposition patient will be maintained in the ICU while on drips and vented Chart is dictated with automotive service manager software. Errors may occur in dictation that may change providers meaning. This note was generated with [employer] dictation software. It may contain incorrect words, spelling, and punctuation that were not noted in checking the note before signing. Code Visit Inpatient E&M: [id number] [facility] L3
--- NOTE | 2018-05-27 08:11 | PN_ITS ---
Patient Problems: Active and Suspected Problems Altered mental status (Acute) Hypokalemia (Acute) MANUEL (acute kidney injury) (Acute) Chronic anticoagulation (Acute) Subjective: Patient is a 67-year-old white female with known history of paraplegia secondary to syrinx, chronic respiratory failure with trach and PEG but has been reversed, recurrent aspirations previously on mechanical soft, suprapubic catheter, evidence of ulcer, chronic acquired lymphedema, restrictive airway disease, ADHD, sleep apnea, incontinence of feces in urine, hyperlipidemia, pulmonary fibrosis who presented to the hospital yesterday evening seem to be in sepsis secondary to urinary cause and was placed on Levophed Patient still has a leukocytosis lactic acid levels have come down, nurse reports patient being agitated overnight, and was given some Ativan. Review of the laboratory shows patient hypokalemic, still in acute renal failure. Patient is still confused and on vent currently and is unable to give any complaints. Still on Levophed drip Vitals/I&O's: Vital Signs Temp Pulse Resp BP Pulse Ox 96.8 F L 121 H 12 94/56 L 98 05/27/18 07:00 05/27/18 07:00 05/27/18 07:00 05/27/18 07:00 05/27/18 07:00 Oxygen Flow Rate (L/min) 6 Oxygen Delivery Method Mechanical Ventilator Weight: 78.3 kg Body Mass Index (BMI) 31.6 Finger Stick Blood Glucose 213 Intake and Output for Last 24 Hours 05/25/18 05/26/18 05/27/18 23:59 23:59 23:59 Intake Total 820 / 820 912 / 912 Output Total 1150 / 1150 250 / 250 Balance -330 / -330 662 / 662 General: Alert, Confused, Non-Cooperative HEENT: Atraumatic, PERRLA, EOMI - Tracking physician Oral: - - Visualize as patient will not open mouth Neck: No Nodes, Trachea Midline, - - Positive trach, vent, central line placed right side Lungs: Diminished - Inspiratory effort course breath sounds, Rhonchi, - - No use accessory muscles Cardiovascular: Normal S1, Normal S2, Murmur, Tachycardic Abdomen: Soft, Non Tender, Non-Distended, - - Old PEG scar of suprapubic catheter Extremities: Cool, Edema, - - Positive hemosiderin staining Skin: Ulcer/ Wound, - - There is reports decubitus ulcer Lymphatic: No Cervical, Supraclavicular, or Inguinal Adenopathy Neurological: Cranial nerves II-XII grossly intact - Fully assess patient seems to be this was talking earlier hospital stay Psych/Mental Status: - - Cannot fully assess Laboratory Results 05/26/18 12:15: POC Glucose 213 H 05/26/18 12:25: Sodium 133 L, Potassium 3.5, Chloride 90 L, Carbon Dioxide 27.0, Anion Gap 16 H, BUN 113 H*, Creatinine 1.96 H, Estim Creat Clear Calc 23.72, Est GFR (MDRD) Af Amer 33 L, Est GFR (MDRD) Non-Af 27 L, BUN/Creatinine Ratio 57.7 H , Glucose 187 H, Calcium 8.9, Total Bilirubin 0.80, AST 15, ALT 19, Alkaline Phosphatase 306 H, Total Creatine Kinase 17 L, Troponin I < 0.015, Total Protein 6.9, Albumin 2.2 L, Globulin 4.7 H, Albumin/Globulin Ratio 0.5 L, TSH 2.60 05/26/18 12:25: WBC 27.1 H, RBC 5.99 H, Hgb 16.8 H, Hct 49.8 H, MCV 83.1, MCH 28.0, MCHC 33.7, RDW 16.3 H, RDW Differential 49.0 H, Plt Count 516 H, MPV 10.8, Immature Gran % (Auto) 0.900, Neut % (Auto) 91.6 H, Lymph % (Auto) 3.2 L, [place] % (Auto) 4.1, Eos % (Auto) 0.1, Baso % (Auto) 0.1, Absolute Neuts (auto) 24.8 H, Absolute Lymphs (auto) 0.88, Total Counted Not Reportable, Differential Comment SCANNED, Platelet Estimate MOD INC, Plt Morphology Comment LARGE 05/26/18 12:25: PT 15.8 H, INR 1.3, APTT 31.6 05/26/18 12:25: Lactic Acid 5.6 H* 05/26/18 12:25: Cortisol 51.90 H 05/26/18 12:29: Specimen Type HARPREET, Sample Site L Radial, O2 % 50, VBG pH 7.30 L, VBG pO2 23 L, VBG O2 Sat (Calc) 32 L, VBG O2 Content 28, VBG Base Excess 0, POC Mix VBG pCO2 Pt Tmp 53.3 H, Respiration Rate 12, O2 Delivery Device Vent, Tidal Volume 500, POC PEEP 5, Blood Gas Notified Whom , Blood Gas Notified Time 12205/26/18 14:04: Urine Color Elysia, Urine Clarity Cloudy, Urine pH 6.0, Ur Specific [place] 1.015, Urine Protein 100 H, Urine Glucose (UA) Normal, Urine Ketones Negative, Urine Occult Blood 250 H, Urine Nitrite Negative, Urine Bilirubin 3 H, Urine Urobilinogen 1 H, Ur Leukocyte Esterase 500 H, Urine RBC 10-25 SEEN, Urine WBC 25-50 SEEN, Ur Squamous Epith Cells 0-5 SEEN, Ur Transition Epith Cell 0-5 SEEN, Urine Bacteria 2+, Hyaline Casts 0-5 SEEN, Urine Mucus 0 SEEN 05/26/18 16:10: Lactic Acid 2.7 H 05/26/18 21:20: Specimen Type ART, Sample Site R Radial, pH 7.37, Bicarbonate Actual 24.4, POC Total CO2 26, Base Excess -1, O2 Saturation 41 L, O2 % 50, ABG pCO2 42.5, ABG pO2 24 L*, [place] Test POS, Respiration Rate 40, O2 Delivery Device Vent, Vent Mode A-C, Tidal Volume 400, POC PEEP 5, Blood Gas Notified Whom [facility] , Blood Gas Notified Time 211405/26/18 21:38: Specimen Type ART, Sample Site R Brachial, O2 % 50, VBG pH 7.37, VBG pO2 24 L, VBG O2 Sat (Calc) 41 L, VBG O2 Content 26, VBG Base Excess -1, POC Mix VBG pCO2 Pt Tmp 43.0, Respiration Rate 10, O2 Delivery Device Vent, Tidal Volume 400, POC PEEP 5, Blood Gas Notified Whom [facility] , Blood Gas Notified Time 212905/26/18 22:10: Sodium 135 L, Potassium 2.5 L*, Chloride 98, Carbon Dioxide 24.0, Anion Gap 13, BUN 99 H, Creatinine 1.48 H, Estim Creat Clear Calc 28.77, Est GFR (MDRD) Af Amer 45 L, Est GFR (MDRD) Non-Af 37 L, BUN/Creatinine Ratio 66.9 H, Glucose 189 H, Calcium 7.7 L 05/26/18 22:10: WBC 28.9 H, RBC 5.44 H, Hgb 15.2 H, Hct 44.2, MCV 81.3, MCH 27.9, MCHC 34.4, RDW 16.3 H, RDW Differential 48.3 H, Plt Count 537 H, MPV 11.1, Immature Gran % (Auto) 0.500, Neut % (Auto) 92.8 H, Lymph % (Auto) 1.9 L, [place] % (Auto) 4.7, Eos % (Auto) 0.0, Baso % (Auto) 0.1, Absolute Neuts (auto) 26.8 H, Absolute Lymphs (auto) 0.55 L, Total Counted Not Reportable, Differential Comment SCANNED 05/26/18 22:10: PT 16.1 H, INR 1.3, APTT 36.3 H 05/26/18 22:10: Magnesium 2.1 05/27/18 04:45: WBC 30.9 H*, RBC 5.39, Hgb 14.8, Hct 42.8, MCV 79.4 L, MCH 27.5, MCHC 34.6, RDW 16.2 H, RDW Differential 46.3 H, Plt Count 523 H, MPV 10.6, Immature Gran % (Auto) 0.600, Neut % (Auto) 93.5 H, Lymph % (Auto) 1.3 L, [place] % (Auto) 4.5, Eos % (Auto) 0.0, Baso % (Auto) 0.1, Absolute Neuts (auto) 28.9 H, Absolute Lymphs (auto) 0.41 L, Total Counted Not Reportable, Differential Comment SCANNED, Diff Path Review December05/27/18 04:45: Sodium 137, Potassium 3.2 L, Chloride 101, Carbon Dioxide 22.0, Anion Gap 14, BUN 102 H*, Creatinine 1.53 H, Estim Creat Clear Calc 27.83, Est GFR (MDRD) Af Amer 43 L, Est GFR (MDRD) Non-Af 36 L, BUN/Creatinine Ratio 66.7 H , Glucose 173 H, Calcium 7.5 L 05/27/18 04:45: APTT Cancelled 05/27/18 05:30: APTT > 250.0 H* Current Medications Albuterol Sulfate (Ventolin Aerosols) 2.5 mg INHALATION Q4H PRN PRN PRN Reason: SOB &/OR WHEEZING Albuterol/Ipratropium (Duoneb) 3 ml INHALATION Q6HWA.RT [facility] Last Admin: 05/27/18 06:31 Dose: 3 ml Aripiprazole (Abilify) 1 mg PO DAILY [facility] Aspirin (Aspirin, Baby) 81 mg PO DAILY@0800 [facility] Bisacodyl (Dulcolax) 10 mg RECTAL DAILY PRN PRN Reason: Constipation Calcium/Vitamin D (Os-Eliot 500mg + D) [facility] Chlorhexidine Gluconate () 15 ml PO BID [facility] Last Admin: 05/26/18 21:40 Dose: 15 ml Chlorhexidine Gluconate () 1 each TOPICAL DAILY [facility] Last Admin: 05/27/18 06:20 Dose: 1 each Ferrous Sulfate (Ferrous Sulfate) [facility] Guaifenesin (Mucinex) 1,200 mg PO BID [facility] Last Admin: 05/26/18 21:42 Dose: Not Given Haloperidol Lactate (Haldol) 1 mg IM Q4H PRN PRN PRN Reason: AGITATION Heparin Sodium (Porcine) (Heparin Na) 0 unit IV UD PRN; Protocol Norepinephrine Bitartrate 8 mg (/ Dextrose) 258 mls @ 9.68 mls/hr IV .[id number] [facility] Last Admin: 05/27/18 06:20 Dose: 9.68 mls/hr Sodium Chloride () 1,000 mls @ 150 mls/hr IV .[id number] [facility] Last Admin: 05/27/18 04:10 Dose: 150 mls/hr Cefepime HCl 2 gm/ Sodium (Chloride) 100 mls @ 200 mls/hr IV DAILY [facility] Last Admin: 05/26/18 21:41 Dose: 200 mls/hr Vancomycin IV Pharmacy to Dose (1 ea/ Sodium Chloride) 500 mls @ 250 mls/hr IV PRN PRN; Protocol PRN Reason: Rx to Dose Vancomycin HCl 750 mg/ Sodium (Chloride) 265 mls @ 250 mls/hr IV Q24H [facility] Heparin Sodium/Dextrose () 25,000 units in 250 mls @ 11 mls/hr IV .[id number] [facility]; Protocol Last Admin: 05/26/18 23:25 Dose: 11 mls/hr Pantoprazole Sodium 40 mg/ (Sodium Chloride) 110 mls @ 330 mls/hr IV Q12 [facility] Magnesium Sulfate 2 gm/ Sodium (Chloride) 104 mls @ 52 mls/hr IV X1 ONE Stop: 05/27/18 09:56 Potassium Chloride (Kcl 10meq/100ml) 10 meq in 100 mls @ 100 mls/hr IV BOLUS Q1H [facility] Stop: 05/27/18 11:59 Lactobacillus Acidophilus (Acidophilus) 1 tablet PO BID [facility] Last Admin: 05/26/18 21:40 Dose: Not Given Magnesium Hydroxide (Milk Of Magnesia) 30 ml PO DAILY PRN PRN PRN Reason: Constipation Mirtazapine (Remeron) 7.5 mg PO QHS [facility] Last Admin: 05/26/18 21:41 Dose: Not Given Multivitamins/Minerals (Multivitamin With Minerals) 1 tablet PO DAILY@0800 [facility] Polyethylene Glycol (Miralax) 17 gm PO BID [facility] Last Admin: 05/26/18 21:40 Dose: Not Given Senna/Docusate Sodium (Senokot-S, Brit-Colace) 1 tablet PO DAILY [facility] Sodium Chloride () 5 - 30 ml IV UD PRN PRN Reason: SALINE FLUSH Venlafaxine HCl (Effexor Xr) 150 mg PO BID [facility] Last Admin: 05/26/18 22:01 Dose: Not Given Medical Necessity - Tobacco Use Smoking Status: Never smoker Tobacco Use: Non-smoker Assessment/Plan All Active Problems Altered mental status (Acute) Hypokalemia (Acute) MANUEL (acute kidney injury) (Acute) Chronic anticoagulation (Acute) Aspiration pneumonia (Acute) Pseudomonas urinary tract infection (Acute) MRSA pneumonia (Acute) Sepsis (Acute) Shortness of breath (Acute) Ulcer of heel (Acute) Fever (Acute) Acute and chronic respiratory failure (Acute) Altered mental status (Acute) There is a metabolic encephalopathy secondary medical conditions., Will give patient as needed Haldol for agitation and delirium however hopefully correcting underlying problems patient's mental status will return back to baseline. Hypokalemia (Acute) We will give 40 mEq of potassium IV with 2 g mag sulfate monitor repeat laboratories in the a.m. Sepsis (Acute) Patient seems to be in septic shock currently on Levophed, on vancomycin and Maxipime due to allergy with Zosyn. Monitor recommendations of pulmonary critical care. Still awaiting culture results the patient also has a large decubitus ulcer. We will have wound care evaluate. Acute and chronic respiratory failure (Acute) He has multiple reasons for shortness of breath including paraplegia, With diaphragmatic weakness and restrictive airway disease. Patient is currently on the vent will need to be monitored and will repeat chest x-ray in the a.m. Urinary tract infection Patient has had chronic urinary tract infection and seems to have a leaking suprapubic catheter, nurse will try to change, if not urology may need to be consulted. Continue vancomycin and Maxipime as patient has had a history of Pseudomonas and MRSA in the past Chronic anticoagulation Patient appears to be on Eliquis as an outpatient, currently on heparin, prior echocardiogram in October 2015 revealed normal ejection fraction of 65%, and small right to the left intra-atrial shunt with right ventricular pressures to be 38 mmHg. New echocardiogram is currently pending. Acute kidney injury Improving probably secondary to septic shock continue to monitor DVT prophylaxis currently on heparin CODE STATUS full GI prophylaxis on IV PPI Nutrition currently n.p.o., patient was previously on a soft mechanical diet according to nursing staff monitor may need to reconsider feeding tube temporarily or permanently palpation does. CODE STATUS full Disposition patient will be maintained in the ICU while on drips and vented Chart is dictated with veneer sample maker software. Errors may occur in dictation that may change providers meaning. This note was generated with Easia[employer] dictation software. It may contain incorrect words, spelling, and punctuation that were not noted in checking the note before signing. Code Visit Inpatient E&M: [id number] [facility] L3
--- NOTE | 2018-05-27 08:52 | CPS ---
Patient changed to 40% trach collar per Dr. Hale
--- NOTE | 2018-05-27 10:17 | NURSING ---
wound photo: sacrum
--- NOTE | 2018-05-27 10:17 | NURSING ---
wound photo: bilateral ischium/upper posterior thighs
--- NOTE | 2018-05-27 10:38 | CON.PCM_ITS ---
Problem List (1) Septic shock Status: Acute Reason for Consult: septic shock Consulted by: Dr. 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 Found to be in septic shock, admitted to icu on pressors. Vanc and cefepime started. 05/11 Ucx with ESBL ec jose francisco, treated with nitrofurantoin. 05/11 sputum cx with PsA, R to imipenem, treated with levaquin which it was sensitive to. Lactate improved, cr better. In icu, unable to answer questions. ROS unobtainable due to mental status. - Medical History Past Medical History (Chronic Problems): Chronic Problems Left ischial pressure sore (Chronic) Benign essential hypertension (Chronic) Depression (Chronic) Hypertension (Chronic) Chronic acquired lymphedema (Chronic) Paraplegia (Chronic) History of ulcer of lower limb (Chronic) Right ischial pressure sore, stage 4 (Chronic) Patient needs follow at [facility]-two years ago she was supposed to follow up with Dr. Zheng- if patient wants agressive treatment with resolution of the wound, she needs to go there combined respiratory failure (Chronic) Dysphagia (Chronic) Restrictive airway disease (Chronic) ADHD (attention deficit hyperactivity disorder) (Chronic) Sleep apnea (Chronic) Leg muscle spasm (Chronic) Incontinence of feces (Chronic) Incontinence of urine (Chronic) History of benign neoplasm of spinal cord (Chronic) Hypercholesterolemia (Chronic) Paraplegia following spinal cord injury (Chronic) Pulmonary fibrosis (Chronic) Acute respiratory failure (Chronic) Allergies/Adverse Reactions: Allergies methylphenidate HCl [From Concerta] Allergy (Verified 05/26/18 11:35) Anaphylaxis WHEN COMBINED WITH ALBUTERAL SULFATE CAUSES DELERIUM. oxycodone HCl [From Percocet] Allergy (Verified 05/26/18 11:35) Other delerium piperacillin Allergy (Verified 05/26/18 21:07) Other tazobactam [From Zosyn] Allergy (Verified 05/26/18 21:07) Other zolpidem tartrate [From Ambien] Allergy (Verified 05/26/18 11:35) Other delerium WITH PERCOCET. ciprofloxacin [From Cipro] Adverse Reaction (Verified 05/26/18 11:35) Low blood pressure BAD INTERACTION WITH TIZANIDINE fluticasone propionate [From Advair Diskus] Adverse Reaction (Verified 05/26/18 11:35) Other DROWSY methylphenidate [From Concerta] Adverse Reaction (Verified 05/26/18 11:35) Other piroxicam [From Feldene] Adverse Reaction (Verified 05/26/18 11:35) Nausea salmeterol xinafoate [From Advair Diskus] Adverse Reaction (Verified 05/26/18 11:35) Other DROWSY Home Medications: Ambulatory Orders Medication Instructions Recorded Bisacodyl [Bisac-Evac] 10 mg RC DAILY PRN 08/31/16 Albuterol Aerosols [Ventolin 2.5 mg INHALATION Q4H PRN PRN 05/26/18 Aerosols] Apixaban [Eliquis] 2.5 mg PO BID 05/26/18 Aripiprazole [Abilify] 1 mg PO DAILY 05/26/18 Aspirin [Aspirin, Baby] 81 mg PO DAILY@0800 05/26/18 Baclofen [Lioresal] 20 mg PO TID 05/26/18 Calcium Carbonate/Vitamin D3 1 tab PO DAILY 05/26/18 [Calcium 500-Vit D3 200 Tablet] Chlorhexidine 15 ml PO BID 05/26/18 Enoxaparin [Lovenox] 40 mg SC DAILY@1000 05/26/18 Ferrous Sulfate 325 mg PO DAILY 05/26/18 Furosemide [Lasix] 80 mg PO BID 05/26/18 Guaifenesin [Guaifenesin ER] 1,200 mg PO BID 05/26/18 Ipratropium/Albuterol Sulfate 3 ml INHALATION Q6H 05/26/18 [Duoneb] Lactobacillus Acidophilus 1 each PO BID 05/26/18 [Acidophilus Lactobacilli] Metolazone [Zaroxolyn] 2.5 mg PO DAILY 05/26/18 Mirtazapine [Remeron] 7.5 mg PO QHS 05/26/18 Multivit-Min/Iron Fum/Folic AC 1 tab PO DAILY 05/26/18 [Frilu-Rvxqyyo-Iplxtrto Tablet] Omeprazole 20 mg PO DAILY 05/26/18 Polyethylene Glycol 3350 [Miralax] 17 gm PO BID 05/26/18 Potassium Chloride [K-Dur] 20 meq PO DAILY 05/26/18 Sennosides/Docusate Sodium 1 each PO DAILY 05/26/18 [Sennosides-Docusate Sodium Tab] Venlafaxine XR [Effexor Xr] 150 mg PO BID 05/26/18 - Social History Tobacco Use: non-smoker Vital Signs Temp Pulse Resp BP Pulse Ox 96.8 F L 121 H 12 114/96 H 95 05/27/18 07:00 05/27/18 07:00 05/27/18 07:00 05/27/18 09:45 05/27/18 08:50 Oxygen Flow Rate (L/min) 6 Oxygen Delivery Method Trach Collar Weight: 78.3 kg Body Mass Index (BMI) 31.6 Finger Stick Blood Glucose 213 Laboratory Tests Past 24 Hrs 05/26/18 05/26/18 05/26/18 12:25 12:25 12:25 WBC 27.1 H RBC 5.99 H Hgb 16.8 H Hct 49.8 H MCV 83.1 MCH 28.0 MCHC 33.7 RDW 16.3 H RDW Differential 49.0 H Plt Count 516 H MPV 10.8 Immature Gran % (Auto) 0.900 Neut % (Auto) 91.6 H Lymph % (Auto) 3.2 L [place] % (Auto) 4.1 Eos % (Auto) 0.1 Baso % (Auto) 0.1 Absolute Neuts (auto) 24.8 H Absolute Lymphs (auto) 0.88 Total Counted Not Reportable Differential Comment SCANNED Diff Path Review Platelet Estimate MOD INC Plt Morphology Comment LARGE PT 15.8 H INR 1.3 APTT 31.6 Specimen Type Sample Site pH Bicarbonate Actual POC Total CO2 Base Excess O2 Saturation O2 % ABG pCO2 ABG pO2 Eloy Test VBG pH VBG pO2 VBG O2 Sat (Calc) VBG O2 Content VBG Base Excess POC Mix VBG pCO2 Pt Tmp Respiration Rate O2 Delivery Device Vent Mode Tidal Volume POC PEEP Blood Gas Notified Whom Blood Gas Notified Time Sodium 133 L Potassium 3.5 Chloride 90 L Carbon Dioxide 27.0 Anion Gap 16 H BUN 113 H* Creatinine 1.96 H Estim Creat Clear Calc 23.72 Est GFR (MDRD) Af Amer 33 L Est GFR (MDRD) Non-Af 27 L BUN/Creatinine Ratio 57.7 H Glucose 187 H Lactic Acid Calcium 8.9 Magnesium Total Bilirubin 0.80 AST 15 ALT 19 Alkaline Phosphatase 306 H Total Creatine Kinase 17 L Troponin I < 0.015 Total Protein 6.9 Albumin 2.2 L Globulin 4.7 H Albumin/Globulin Ratio 0.5 L TSH 2.60 Cortisol Urine Color Urine Clarity Urine pH Ur Specific [place] Urine Protein Urine Glucose (UA) Urine Ketones Urine Occult Blood Urine Nitrite Urine Bilirubin Urine Urobilinogen Ur Leukocyte Esterase Urine RBC Urine WBC Ur Squamous Epith Cells Ur Transition Epith Cell Urine Bacteria Hyaline Casts Urine Mucus S.aureus Protein A PCR MRSA (PCR) 05/26/18 05/26/18 05/26/18 12:25 12:25 12:29 WBC RBC Hgb Hct MCV MCH MCHC RDW RDW Differential Plt Count MPV Immature Gran % (Auto) Neut % (Auto) Lymph % (Auto) [place] % (Auto) Eos % (Auto) Baso % (Auto) Absolute Neuts (auto) Absolute Lymphs (auto) Total Counted Differential Comment Diff Path Review Platelet Estimate Plt Morphology Comment PT INR APTT Specimen Type HARPREET Sample Site L Radial pH Bicarbonate Actual POC Total CO2 Base Excess O2 Saturation O2 % 50 ABG pCO2 ABG pO2 Eloy Test VBG pH 7.30 L VBG pO2 23 L VBG O2 Sat (Calc) 32 L VBG O2 Content 28 VBG Base Excess 0 POC Mix VBG pCO2 Pt Tmp 53.3 H Respiration Rate 12 O2 Delivery Device Vent Vent Mode Tidal Volume 500 POC PEEP 5 Blood Gas Notified Whom ED Blood Gas Notified Time 1220 Sodium Potassium Chloride Carbon Dioxide Anion Gap BUN Creatinine Estim Creat Clear Calc Est GFR (MDRD) Af Amer Est GFR (MDRD) Non-Af BUN/Creatinine Ratio Glucose Lactic Acid 5.6 H* Calcium Magnesium Total Bilirubin AST ALT Alkaline Phosphatase Total Creatine Kinase Troponin I Total Protein Albumin Globulin Albumin/Globulin Ratio TSH Cortisol 51.90 H Urine Color Urine Clarity Urine pH Ur Specific [place] Urine Protein Urine Glucose (UA) Urine Ketones Urine Occult Blood Urine Nitrite Urine Bilirubin Urine Urobilinogen Ur Leukocyte Esterase Urine RBC Urine WBC Ur Squamous Epith Cells Ur Transition Epith Cell Urine Bacteria Hyaline Casts Urine Mucus S.aureus Protein A PCR MRSA (PCR) 05/26/18 05/26/18 05/26/18 14:04 16:10 21:20 WBC RBC Hgb Hct MCV MCH MCHC RDW RDW Differential Plt Count MPV Immature Gran % (Auto) Neut % (Auto) Lymph % (Auto) [place] % (Auto) Eos % (Auto) Baso % (Auto) Absolute Neuts (auto) Absolute Lymphs (auto) Total Counted Differential Comment Diff Path Review Platelet Estimate Plt Morphology Comment PT INR APTT Specimen Type ART Sample Site R Radial pH 7.37 Bicarbonate Actual 24.4 POC Total CO2 26 Base Excess -1 O2 Saturation 41 L O2 % 50 ABG pCO2 42.5 ABG pO2 24 L* Eloy Test POS VBG pH VBG pO2 VBG O2 Sat (Calc) VBG O2 Content VBG Base Excess POC Mix VBG pCO2 Pt Tmp Respiration Rate 40 O2 Delivery Device Vent Vent Mode A-C Tidal Volume 400 POC PEEP 5 Blood Gas Notified Whom [facility] Blood Gas Notified Time 2114 Sodium Potassium Chloride Carbon Dioxide Anion Gap BUN Creatinine Estim Creat Clear Calc Est GFR (MDRD) Af Amer Est GFR (MDRD) Non-Af BUN/Creatinine Ratio Glucose Lactic Acid 2.7 H Calcium Magnesium Total Bilirubin AST ALT Alkaline Phosphatase Total Creatine Kinase Troponin I Total Protein Albumin Globulin Albumin/Globulin Ratio TSH Cortisol Urine Color Elysia Urine Clarity Cloudy Urine pH 6.0 Ur Specific [place] 1.015 Urine Protein 100 H Urine Glucose (UA) Normal Urine Ketones Negative Urine Occult Blood 250 H Urine Nitrite Negative Urine Bilirubin 3 H Urine Urobilinogen 1 H Ur Leukocyte Esterase 500 H Urine RBC 10-25 SEEN Urine WBC 25-50 SEEN Ur Squamous Epith Cells 0-5 SEEN Ur Transition Epith Cell 0-5 SEEN Urine Bacteria 2+ Hyaline Casts 0-5 SEEN Urine Mucus 0 SEEN S.aureus Protein A PCR MRSA (PCR) 05/26/18 05/26/18 05/26/18 21:38 22:10 22:10 WBC 28.9 H RBC 5.44 H Hgb 15.2 H Hct 44.2 MCV 81.3 MCH 27.9 MCHC 34.4 RDW 16.3 H RDW Differential 48.3 H Plt Count 537 H MPV 11.1 Immature Gran % (Auto) 0.500 Neut % (Auto) 92.8 H Lymph % (Auto) 1.9 L [place] % (Auto) 4.7 Eos % (Auto) 0.0 Baso % (Auto) 0.1 Absolute Neuts (auto) 26.8 H Absolute Lymphs (auto) 0.55 L Total Counted Not Reportable Differential Comment SCANNED Diff Path Review Platelet Estimate Plt Morphology Comment PT INR APTT Specimen Type ART Sample Site R Brachial pH Bicarbonate Actual POC Total CO2 Base Excess O2 Saturation O2 % 50 ABG pCO2 ABG pO2 Eloy Test VBG pH 7.37 VBG pO2 24 L VBG O2 Sat (Calc) 41 L VBG O2 Content 26 VBG Base Excess -1 POC Mix VBG pCO2 Pt Tmp 43.0 Respiration Rate 10 O2 Delivery Device Vent Vent Mode Tidal Volume 400 POC PEEP 5 Blood Gas Notified Whom HOSP Blood Gas Notified Time 2130 Sodium 135 L Potassium 2.5 L* Chloride 98 Carbon Dioxide 24.0 Anion Gap 13 BUN 99 H Creatinine 1.48 H Estim Creat Clear Calc 28.77 Est GFR (MDRD) Af Amer 45 L Est GFR (MDRD) Non-Af 37 L BUN/Creatinine Ratio 66.9 H Glucose 189 H Lactic Acid Calcium 7.7 L Magnesium Total Bilirubin AST ALT Alkaline Phosphatase Total Creatine Kinase Troponin I Total Protein Albumin Globulin Albumin/Globulin Ratio TSH Cortisol Urine Color Urine Clarity Urine pH Ur Specific [place] Urine Protein Urine Glucose (UA) Urine Ketones Urine Occult Blood Urine Nitrite Urine Bilirubin Urine Urobilinogen Ur Leukocyte Esterase Urine RBC Urine WBC Ur Squamous Epith Cells Ur Transition Epith Cell Urine Bacteria Hyaline Casts Urine Mucus S.aureus Protein A PCR MRSA (PCR) 05/26/18 05/26/18 05/27/18 22:10 22:10 04:45 WBC 30.9 H* RBC 5.39 Hgb 14.8 Hct 42.8 MCV 79.4 L MCH 27.5 MCHC 34.6 RDW 16.2 H RDW Differential 46.3 H Plt Count 523 H MPV 10.6 Immature Gran % (Auto) 0.600 Neut % (Auto) 93.5 H Lymph % (Auto) 1.3 L [place] % (Auto) 4.5 Eos % (Auto) 0.0 Baso % (Auto) 0.1 Absolute Neuts (auto) 28.9 H Absolute Lymphs (auto) 0.41 L Total Counted Not Reportable Differential Comment SCANNED Diff Path Review May foll Platelet Estimate Plt Morphology Comment PT 16.1 H INR 1.3 APTT 36.3 H Specimen Type Sample Site pH Bicarbonate Actual POC Total CO2 Base Excess O2 Saturation O2 % ABG pCO2 ABG pO2 Eloy Test VBG pH VBG pO2 VBG O2 Sat (Calc) VBG O2 Content VBG Base Excess POC Mix VBG pCO2 Pt Tmp Respiration Rate O2 Delivery Device Vent Mode Tidal Volume POC PEEP Blood Gas Notified Whom Blood Gas Notified Time Sodium Potassium Chloride Carbon Dioxide Anion Gap BUN Creatinine Estim Creat Clear Calc Est GFR (MDRD) Af Amer Est GFR (MDRD) Non-Af BUN/Creatinine Ratio Glucose Lactic Acid Calcium Magnesium 2.1 Total Bilirubin AST ALT Alkaline Phosphatase Total Creatine Kinase Troponin I Total Protein Albumin Globulin Albumin/Globulin Ratio TSH Cortisol Urine Color Urine Clarity Urine pH Ur Specific [place] Urine Protein Urine Glucose (UA) Urine Ketones Urine Occult Blood Urine Nitrite Urine Bilirubin Urine Urobilinogen Ur Leukocyte Esterase Urine RBC Urine WBC Ur Squamous Epith Cells Ur Transition Epith Cell Urine Bacteria Hyaline Casts Urine Mucus S.aureus Protein A PCR MRSA (PCR) 05/27/18 05/27/18 05/27/18 04:45 04:45 05:30 WBC RBC Hgb Hct MCV MCH MCHC RDW RDW Differential Plt Count MPV Immature Gran % (Auto) Neut % (Auto) Lymph % (Auto) [place] % (Auto) Eos % (Auto) Baso % (Auto) Absolute Neuts (auto) Absolute Lymphs (auto) Total Counted Differential Comment Diff Path Review Platelet Estimate Plt Morphology Comment PT INR APTT Cancelled > 250.0 H* Specimen Type Sample Site pH Bicarbonate Actual POC Total CO2 Base Excess O2 Saturation O2 % ABG pCO2 ABG pO2 Eloy Test VBG pH VBG pO2 VBG O2 Sat (Calc) VBG O2 Content VBG Base Excess POC Mix VBG pCO2 Pt Tmp Respiration Rate O2 Delivery Device Vent Mode Tidal Volume POC PEEP Blood Gas Notified Whom Blood Gas Notified Time Sodium 137 Potassium 3.2 L Chloride 101 Carbon Dioxide 22.0 Anion Gap 14 BUN 102 H* Creatinine 1.53 H Estim Creat Clear Calc 27.83 Est GFR (MDRD) Af Amer 43 L Est GFR (MDRD) Non-Af 36 L BUN/Creatinine Ratio 66.7 H Glucose 173 H Lactic Acid Calcium 7.5 L Magnesium Total Bilirubin AST ALT Alkaline Phosphatase Total Creatine Kinase Troponin I Total Protein Albumin Globulin Albumin/Globulin Ratio TSH Cortisol Urine Color Urine Clarity Urine pH Ur Specific [place] Urine Protein Urine Glucose (UA) Urine Ketones Urine Occult Blood Urine Nitrite Urine Bilirubin Urine Urobilinogen Ur Leukocyte Esterase Urine RBC Urine WBC Ur Squamous Epith Cells Ur Transition Epith Cell Urine Bacteria Hyaline Casts Urine Mucus S.aureus Protein A PCR MRSA (PCR) 05/27/18 09:15 WBC RBC Hgb Hct MCV MCH MCHC RDW RDW Differential Plt Count MPV Immature Gran % (Auto) Neut % (Auto) Lymph % (Auto) [place] % (Auto) Eos % (Auto) Baso % (Auto) Absolute Neuts (auto) Absolute Lymphs (auto) Total Counted Differential Comment Diff Path Review Platelet Estimate Plt Morphology Comment PT INR APTT Specimen Type Sample Site pH Bicarbonate Actual POC Total CO2 Base Excess O2 Saturation O2 % ABG pCO2 ABG pO2 Eloy Test VBG pH VBG pO2 VBG O2 Sat (Calc) VBG O2 Content VBG Base Excess POC Mix VBG pCO2 Pt Tmp Respiration Rate O2 Delivery Device Vent Mode Tidal Volume POC PEEP Blood Gas Notified Whom Blood Gas Notified Time Sodium Potassium Chloride Carbon Dioxide Anion Gap BUN Creatinine Estim Creat Clear Calc Est GFR (MDRD) Af Amer Est GFR (MDRD) Non-Af BUN/Creatinine Ratio Glucose Lactic Acid Calcium Magnesium Total Bilirubin AST ALT Alkaline Phosphatase Total Creatine Kinase Troponin I Total Protein Albumin Globulin Albumin/Globulin Ratio TSH Cortisol Urine Color Urine Clarity Urine pH Ur Specific [place] Urine Protein Urine Glucose (UA) Urine Ketones Urine Occult Blood Urine Nitrite Urine Bilirubin Urine Urobilinogen Ur Leukocyte Esterase Urine RBC Urine WBC Ur Squamous Epith Cells Ur Transition Epith Cell Urine Bacteria Hyaline Casts Urine Mucus S.aureus Protein A PCR Pending MRSA (PCR) Pending - Other Studies Radiology: [] reviewed Other Studies: [] Route of nutrition/ use of supplements: [] Nutritional Intake: [] IV Site: [] Donahue Catheter: [] - Physical Exam General: - - ill appearing HEENT: Atraumatic, PERRLA, EOMI Neck: Supple, No Nodes, - - R neck temp cvc Lungs: Clear to auscultation, Normal air movement Cardiovascular: Tachycardic Abdomen: Soft, Non Tender, Non-Distended Extremities: Edema Skin: No rashes IV Site: Central Line, without redness Musculoskeletal: No Tenderness to Palpation of Joints or Extremities - Assessment/Plan Antibiotics: [] Assessment/Plan: [] Active and Suspected Problems Chronic anticoagulation (Acute) MANUEL (acute kidney injury) (Acute) Altered mental status (Acute) Hypokalemia (Acute) Septic shock with MANUEL - 05/11 Ucx with ESBL ecoli, treated with nitrofurantoin. 05/11 sputum cx with PsA, R to imipenem, treated with levaquin which it was sensitive to. CXR clear, low suspicion for pneumonia. Has sacral wounds, but no active purulence or redness per wound care nurse. Wound cx sent. Will continue vanc given h/o MRSA. Change cefepime to meropenem to cover for possible ESBL. If condition worsens, would give dose of gentamicin, but hop efully can avoid that given her MANUEL and overall improvement. Will follow, thank you, d/w Dr. Hale
[2018-05-27] MEDS: 0.9% NaCl Peripheral Flush Adult/Peds IV ×2 (11:07→11:11)
--- NOTE | 2018-05-27 11:43 | CASEMGMT ---
Addendum entered by Ruthann Malone 05/27/18 12:51: RUTH called daughter again, spoke w/her. She confirms the discharge plan is for pt to return to [facility] at discharge. RUTH faxed updates to [facility], will continue to follow. LORE Ring, PIEROGI MAKER Original Note: RUTH reviewed chart, pt is here from [facility]([phone]). RUTH called daughter, however her voicemail is full. RUTH called [facility], spoke w/Elizabeth, pt has been at [facility] since she left the [facility] in December 12, 2016. Precert would not be needed for pt to return, they will decide when pt returns if they want to skill her and get a precert. RUTH let Elizabeth know that once this RUTH is able to speak w/pt's daughter and confirms that pt will return there, will send updates. RUTH also asked about POA papers, as we do not have them here. Elizabeth will fax them here if she has them on file. RUTH will continue to follow, will continue to try the daughter and will let RN know if daughter comes in to let this SW know. LORE Ring, PIEROGI MAKER
--- NOTE | 2018-05-27 12:13 | CASEMGMT ---
LW/POA forms are not on the chart. SW spoke w/[place] [facility] [place] and asked them to fax the POA/LW forms here if they have them on file. LORE Ring, ASSOCIATE DRAFTER
[2018-05-27] MEDS: Chlorhexidine 15 ML PO ×2 (12:34→20:50)
[2018-05-27] MEDS: Potassium Chloride 40 MEQ in 0.45% Normal Saline 1,000 ML 150 MEQ IV ×2 (12:34→22:41)
--- NOTE | 2018-05-27 13:26 | CHAPLAIN ---
patient was sleeping; per request by RN this front end loader operator did not attempt visit at this time so patient could rest and remain calm; RN requested attempt to visit at a later time
[2018-05-27 13:33] LABS: Pathologist Review Reviewed
[2018-05-27 13:41] LABS: M R Staph aureus DNA By PCR POSITIVE (Negative); Probe Check PASS; Staph aureus DNA By PCR POSITIVE (Negative)
[2018-05-27] MEDS: Heparin Injection (Vial) 5,000 UNIT/ML VIAL 5000 UNIT SC ×2 (16:29→22:41)
[2018-05-27 18:36] LABS: Bedside Glucose 144 mg/dL (70-110)
[2018-05-27 22:56] LABS: Bedside Glucose 131 mg/dL (70-110)
[2018-05-28] VITALS (84 sets, daily range): BP systolic 75–249; BP diastolic 26–176; PULSE 92–112; RESP 14–32; TEMP 36.1–36.9; O2SAT 89–100
[2018-05-28] MEDS: Ipratropium/Albuterol Sulfate 3 ML AMPUL.NEB INHALATION ×4 (00:15→18:59)
[2018-05-28] MEDS: Haloperidol Lactate 5 MG/ML Vial 1 MG IV (03:22)
[2018-05-28] MEDS: CHLORHEXIDINE GLUC 2% CLOTH 1 EACH TOWELETTE TOPICAL (03:22)
[2018-05-28] MEDS: 0.9% NaCl Peripheral Flush Adult/Peds IV ×2 (03:22→18:33)
[2018-05-28 04:10] LABS: ALB/GLOB Ratio 0.4 RATIO (0.9-2.4); AST(SGOT) 19 U/L (15-37); Alanine Aminotransfer ALT/SGPT 11 U/L (13-56); Albumin, Serum 1.5 g/dL (3.2-5.0); Alkaline Phosphatase 136 U/L (45-117); Anion Gap 12 (5-15); BUN 100 mg/dL (7-18); BUN/Creat Ratio 71.4 RATIO (10-20); Calcium,Total 7.6 mg/dL (8.5-10.1); Chloride 104 mmol/L (98-107); EST Glomerular Filtration Rate 40 mL/min (>60); Est Glom Filt Rate - Afr Amer 48 mL/min (>60); Estimated Creatinine Clearance 30.42 ml/min; Globulin 3.6 g/dL (2.2-4.2); Glucose 104 mg/dL (74-106); Lactic Acid 1.4 mmol/L (0.4-2.0); Magnesium 2.6 mg/dL (1.6-2.6); Phosphorus 3.7 mg/dL (2.5-4.9); Potassium 4.3 mmol/L (3.5-5.1); Protein, Total 5.1 g/dL (6.4-8.2); Sodium Level 138 mmol/L (136-145)
[2018-05-28 04:18] LABS: Absolute Lymphocyte Count 0.62 X10^3/ul (0.83-4.51); Absolute Neutrophil Count 20.5 X10^3/uL (2.0-7.7); Basophil# 0.02 X10^3/uL; Basophil% 0.1 % (0-1); Eosinophil# 0.02 X10^3/uL; Eosinophils% 0.1 % (0-5); Hematocrit 38.8 % (37-47); Hemoglobin 13.1 g/dl (12.0-15.0); Lymphocyte # 0.62 X10^3/ul (4.0); Lymphocyte % 2.8 % (19-41); Mean Corp Hgb Conc 33.8 g/gl (32-36); Mean Corpuscular Hgb 27.4 pg (27.0-32.0); Mean Corpuscular Volume 81.2 fL (81-99); Mean Platelet Vol. 10.6 fl (6.2-12.0); Monocyte# 1.23 X10^3/uL; Monocyte% 5.5 % (0-10); Neutrophil # 20.47 X10^3/uL (2.7-7.7); Neutrophil % 90.9 % (47-70); Platelet Count 387 K/mm3 (150-450); RBC Distribution Width CV 16.6 % (11.6-14.6); RBC Distribution Width SD 48.8 fl (35.1-43.9); Red Blood Count 4.78 M/mm3 (4.2-5.4); White Blood Count 22.5 K/mm3 (4.4-11.0)
[2018-05-28 04:19] LABS: POSITIVE COUNT NO; POSITIVE DIFFERENTIAL YES; POSITIVE MORPHOLOGY NO
[2018-05-28 04:20] LABS: Differential Indicated SCAN CRITERIA MET
--- NOTE | 2018-05-28 05:20 | RAD_ITS ---
STUDY: X-RAY CHEST REASON FOR EXAM: Female, 67 years old. Respiratory distress. TECHNIQUE: Single AP portable view of the chest. COMPARISON: Comparison is made with prior study dated May 26, 2018. FINDINGS: A right-sided internal jugular venous catheter is seen with the tip at the junction of superior vena cava and right atrium. EKG electrodes are present. A tracheostomy tube is in situ. The tip is at 3.4 cm proximal to the aakash. Stable increased markings at the lung bases. Stable blunting of both costophrenic angles. Normal size heart. Normal mediastinum and al. Normal visualized pulmonary arteries. There is atherosclerotic tortuosity of the aortic arch and descending thoracic aorta. There are diffuse degenerative changes of the visualized thoracic spine. Normal visualized ribs, clavicles, and shoulders. There is no demonstrated abnormality of the visualized soft tissue structures of the upper abdomen. RAD/Chest 1 View (Portable) IMPRESSION: Stable examination. Electronically Signed: Delbert Moura MD at 9:29 EDT Tel [phone], Service support ,
--- NOTE | 2018-05-28 06:22 | PCM.PN.INT ---
Subjective: The patient was seen and examined at the bedside this morning. Events from the last 24 hours have been reviewed. The patient is currently afebrile, but remains tachycardic and still requiring Levophed to maintain hemodynamic stability. The patient was noted overnight to be relatively intolerant of ventilatory support. She was also noted at one point to become extremely agitated and anxious, with systolic blood pressures that exceeded 230 mmHg. Per nursing, the patient was administered IV Haldol, which led to improvement in the patients agitation, but led to a drop in the patient's hemodynamics. White blood cell count is improving. The patient is currently overall net +3.6 L for the admission. Objective: The patient's most recent lab work, culture data and imaging studies have all been personally reviewed. Sputum, sacral wound, blood and urine cultures are pending. The surface echocardiogram was technically difficult with limited views obtained. However, there does appear to be normal left ventricular size and function. General: No apparent distress, Lethargic HEENT: Atraumatic, PERRLA, Normocephalic Oral: Dry Mucosa Neck: Supple, No Nodes, Trachea Midline, - - Tracheostomy site is C/D/I Lungs: No wheeze, No rales, Diminished, Rhonchi Cardiovascular: Normal S1, Normal S2, No murmurs, Tachycardic Abdomen: Soft, Non Tender, - - Scabbing at prior PEG tube site Extremities: No clubbing, Cool, Diminished Peripheral Pulses, Edema, - - Dusky, cyanotic appearing distal extremities Skin: - - No significant change from that previously documented. Musculoskeletal: No Tenderness to Palpation of Joints or Extremities Lymphatic: No Cervical, Supraclavicular, or Inguinal Adenopathy Neurological: - - Baseline paraplegia Psych/Mental Status: Flat Affect Vital Signs Temp Pulse Resp BP Pulse Ox 98.2 F 109 H 25 H 107/40 L 93 05/28/18 06:00 05/28/18 06:00 05/28/18 06:00 05/28/18 06:00 05/28/18 06:00 Oxygen Flow Rate (L/min) 6 Oxygen Delivery Method Trach Collar Weight: 175 lb 11.335 oz Body Mass Index (BMI) 31.6 Finger Stick Blood Glucose 213 Intake and Output for Last 24 Hours 05/26/18 05/27/18 05/28/18 23:59 23:59 23:59 Intake Total 820 / 820 3208 / 3208 1293 / 1293 Output Total 1150 / 1150 575 / 575 200 / 200 Balance -330 / -330 2633 / 2633 1093 / 1093 Labs (Last 48 Hours) 05/26/18 05/26/18 05/26/18 12:15 12:25 12:25 WBC 27.1 H RBC 5.99 H Hgb 16.8 H Hct 49.8 H MCV 83.1 MCH 28.0 MCHC 33.7 RDW 16.3 H RDW Differential 49.0 H Plt Count 516 H MPV 10.8 Immature Gran % (Auto) 0.900 Neut % (Auto) 91.6 H Lymph % (Auto) 3.2 L Nance % (Auto) 4.1 Eos % (Auto) 0.1 Baso % (Auto) 0.1 Absolute Neuts (auto) 24.8 H Absolute Lymphs (auto) 0.88 Total Counted Not Reportable Differential Comment SCANNED Diff Path Review Platelet Estimate MOD INC Plt Morphology Comment LARGE PT INR APTT Specimen Type Sample Site pH Bicarbonate Actual POC Total CO2 Base Excess O2 Saturation O2 % ABG pCO2 ABG pO2 Eloy Test VBG pH VBG pO2 VBG O2 Sat (Calc) VBG O2 Content VBG Base Excess POC Mix VBG pCO2 Pt Tmp Respiration Rate O2 Delivery Device Vent Mode Tidal Volume POC PEEP Blood Gas Notified Whom Blood Gas Notified Time Sodium 133 L Potassium 3.5 Chloride 90 L Carbon Dioxide 27.0 Anion Gap 16 H BUN 113 H* Creatinine 1.96 H Estim Creat Clear Calc 23.72 Est GFR (MDRD) Af Amer 33 L Est GFR (MDRD) Non-Af 27 L BUN/Creatinine Ratio 57.7 H Glucose 187 H Lactic Acid Calcium 8.9 Ionized Calcium Phosphorus Magnesium Total Bilirubin 0.80 AST 15 ALT 19 Alkaline Phosphatase 306 H Total Creatine Kinase 17 L Troponin I < 0.015 Total Protein 6.9 Albumin 2.2 L Globulin 4.7 H Albumin/Globulin Ratio 0.5 L TSH 2.60 Cortisol Urine Color Urine Clarity Urine pH Ur Specific [place] Urine Protein Urine Glucose (UA) Urine Ketones Urine Occult Blood Urine Nitrite Urine Bilirubin Urine Urobilinogen Ur Leukocyte Esterase Urine RBC Urine WBC Ur Squamous Epith Cells Ur Transition Epith Cell Urine Bacteria Hyaline Casts Urine Mucus S.aureus Protein A PCR MRSA (PCR) POC Glucose 213 H 10/24/18 10/24/18 10/24/18 12:25 12:25 12:25 WBC RBC Hgb Hct MCV MCH MCHC RDW RDW Differential Plt Count MPV Immature Gran % (Auto) Neut % (Auto) Lymph % (Auto) Nance % (Auto) Eos % (Auto) Baso % (Auto) Absolute Neuts (auto) Absolute Lymphs (auto) Total Counted Differential Comment Diff Path Review Platelet Estimate Plt Morphology Comment PT 15.8 H INR 1.3 APTT 31.6 Specimen Type Sample Site pH Bicarbonate Actual POC Total CO2 Base Excess O2 Saturation O2 % ABG pCO2 ABG pO2 Eloy Test VBG pH VBG pO2 VBG O2 Sat (Calc) VBG O2 Content VBG Base Excess POC Mix VBG pCO2 Pt Tmp Respiration Rate O2 Delivery Device Vent Mode Tidal Volume POC PEEP Blood Gas Notified Whom Blood Gas Notified Time Sodium Potassium Chloride Carbon Dioxide Anion Gap BUN Creatinine Estim Creat Clear Calc Est GFR (MDRD) Af Amer Est GFR (MDRD) Non-Af BUN/Creatinine Ratio Glucose Lactic Acid 5.6 H* Calcium Ionized Calcium Phosphorus Magnesium Total Bilirubin AST ALT Alkaline Phosphatase Total Creatine Kinase Troponin I Total Protein Albumin Globulin Albumin/Globulin Ratio TSH Cortisol 51.90 H Urine Color Urine Clarity Urine pH Ur Specific [place] Urine Protein Urine Glucose (UA) Urine Ketones Urine Occult Blood Urine Nitrite Urine Bilirubin Urine Urobilinogen Ur Leukocyte Esterase Urine RBC Urine WBC Ur Squamous Epith Cells Ur Transition Epith Cell Urine Bacteria Hyaline Casts Urine Mucus S.aureus Protein A PCR MRSA (PCR) POC Glucose 05/26/18 05/26/18 05/26/18 12:29 14:04 16:10 WBC RBC Hgb Hct MCV MCH MCHC RDW RDW Differential Plt Count MPV Immature Gran % (Auto) Neut % (Auto) Lymph % (Auto) Nance % (Auto) Eos % (Auto) Baso % (Auto) Absolute Neuts (auto) Absolute Lymphs (auto) Total Counted Differential Comment Diff Path Review Platelet Estimate Plt Morphology Comment PT INR APTT Specimen Type HARPREET Sample Site L Radial pH Bicarbonate Actual POC Total CO2 Base Excess O2 Saturation O2 % 50 ABG pCO2 ABG pO2 Eloy Test VBG pH 7.30 L VBG pO2 23 L VBG O2 Sat (Calc) 32 L VBG O2 Content 28 VBG Base Excess 0 POC Mix VBG pCO2 Pt Tmp 53.3 H Respiration Rate 12 O2 Delivery Device Vent Vent Mode Tidal Volume 500 POC PEEP 5 Blood Gas Notified Whom ED Blood Gas Notified Time 1220 Sodium Potassium Chloride Carbon Dioxide Anion Gap BUN Creatinine Estim Creat Clear Calc Est GFR (MDRD) Af Amer Est GFR (MDRD) Non-Af BUN/Creatinine Ratio Glucose Lactic Acid 2.7 H Calcium Ionized Calcium Phosphorus Magnesium Total Bilirubin AST ALT Alkaline Phosphatase Total Creatine Kinase Troponin I Total Protein Albumin Globulin Albumin/Globulin Ratio TSH Cortisol Urine Color Elysia Urine Clarity Cloudy Urine pH 6.0 Ur Specific [place] 1.015 Urine Protein 100 H Urine Glucose (UA) Normal Urine Ketones Negative Urine Occult Blood 250 H Urine Nitrite Negative Urine Bilirubin 3 H Urine Urobilinogen 1 H Ur Leukocyte Esterase 500 H Urine RBC 10-25 SEEN Urine WBC 25-50 SEEN Ur Squamous Epith Cells 0-5 SEEN Ur Transition Epith Cell 0-5 SEEN Urine Bacteria 2+ Hyaline Casts 0-5 SEEN Urine Mucus 0 SEEN S.aureus Protein A PCR MRSA (PCR) POC Glucose 05/26/18 05/26/18 05/26/18 21:20 21:38 22:10 WBC RBC Hgb Hct MCV MCH MCHC RDW RDW Differential Plt Count MPV Immature Gran % (Auto) Neut % (Auto) Lymph % (Auto) Nance % (Auto) Eos % (Auto) Baso % (Auto) Absolute Neuts (auto) Absolute Lymphs (auto) Total Counted Differential Comment Diff Path Review Platelet Estimate Plt Morphology Comment PT INR APTT Specimen Type ART ART Sample Site R Radial R Brachial pH 7.37 Bicarbonate Actual 24.4 POC Total CO2 26 Base Excess -1 O2 Saturation 41 L O2 % 50 50 ABG pCO2 42.5 ABG pO2 24 L* Eloy Test POS VBG pH 7.37 VBG pO2 24 L VBG O2 Sat (Calc) 41 L VBG O2 Content 26 VBG Base Excess -1 POC Mix VBG pCO2 Pt Tmp 43.0 Respiration Rate 40 10 O2 Delivery Device Vent Vent Vent Mode A-C Tidal Volume 400 400 POC PEEP 5 5 Blood Gas Notified Whom HOSP HOSP Blood Gas Notified Time 2114 2129 Sodium 135 L Potassium 2.5 L* Chloride 98 Carbon Dioxide 24.0 Anion Gap 13 BUN 99 H Creatinine 1.48 H Estim Creat Clear Calc 28.77 Est GFR (MDRD) Af Amer 45 L Est GFR (MDRD) Non-Af 37 L BUN/Creatinine Ratio 66.9 H Glucose 189 H Lactic Acid Calcium 7.7 L Ionized Calcium Phosphorus Magnesium Total Bilirubin AST ALT Alkaline Phosphatase Total Creatine Kinase Troponin I Total Protein Albumin Globulin Albumin/Globulin Ratio TSH Cortisol Urine Color Urine Clarity Urine pH Ur Specific [place] Urine Protein Urine Glucose (UA) Urine Ketones Urine Occult Blood Urine Nitrite Urine Bilirubin Urine Urobilinogen Ur Leukocyte Esterase Urine RBC Urine WBC Ur Squamous Epith Cells Ur Transition Epith Cell Urine Bacteria Hyaline Casts Urine Mucus S.aureus Protein A PCR MRSA (PCR) POC Glucose 05/26/18 05/26/18 05/26/18 22:10 22:10 22:10 WBC 28.9 H RBC 5.44 H Hgb 15.2 H Hct 44.2 MCV 81.3 MCH 27.9 MCHC 34.4 RDW 16.3 H RDW Differential 48.3 H Plt Count 537 H MPV 11.1 Immature Gran % (Auto) 0.500 Neut % (Auto) 92.8 H Lymph % (Auto) 1.9 L Nance % (Auto) 4.7 Eos % (Auto) 0.0 Baso % (Auto) 0.1 Absolute Neuts (auto) 26.8 H Absolute Lymphs (auto) 0.55 L Total Counted Not Reportable Differential Comment SCANNED Diff Path Review Platelet Estimate Plt Morphology Comment PT 16.1 H INR 1.3 APTT 36.3 H Specimen Type Sample Site pH Bicarbonate Actual POC Total CO2 Base Excess O2 Saturation O2 % ABG pCO2 ABG pO2 Eloy Test VBG pH VBG pO2 VBG O2 Sat (Calc) VBG O2 Content VBG Base Excess POC Mix VBG pCO2 Pt Tmp Respiration Rate O2 Delivery Device Vent Mode Tidal Volume POC PEEP Blood Gas Notified Whom Blood Gas Notified Time Sodium Potassium Chloride Carbon Dioxide Anion Gap BUN Creatinine Estim Creat Clear Calc Est GFR (MDRD) Af Amer Est GFR (MDRD) Non-Af BUN/Creatinine Ratio Glucose Lactic Acid Calcium Ionized Calcium Phosphorus Magnesium 2.1 Total Bilirubin AST ALT Alkaline Phosphatase Total Creatine Kinase Troponin I Total Protein Albumin Globulin Albumin/Globulin Ratio TSH Cortisol Urine Color Urine Clarity Urine pH Ur Specific [place] Urine Protein Urine Glucose (UA) Urine Ketones Urine Occult Blood Urine Nitrite Urine Bilirubin Urine Urobilinogen Ur Leukocyte Esterase Urine RBC Urine WBC Ur Squamous Epith Cells Ur Transition Epith Cell Urine Bacteria Hyaline Casts Urine Mucus S.aureus Protein A PCR MRSA (PCR) POC Glucose 05/27/18 05/27/18 05/27/18 04:45 04:45 04:45 WBC 30.9 H* RBC 5.39 Hgb 14.8 Hct 42.8 MCV 79.4 L MCH 27.5 MCHC 34.6 RDW 16.2 H RDW Differential 46.3 H Plt Count 523 H MPV 10.6 Immature Gran % (Auto) 0.600 Neut % (Auto) 93.5 H Lymph % (Auto) 1.3 L Nance % (Auto) 4.5 Eos % (Auto) 0.0 Baso % (Auto) 0.1 Absolute Neuts (auto) 28.9 H Absolute Lymphs (auto) 0.41 L Total Counted Not Reportable Differential Comment SCANNED Diff Path Review Reviewed Platelet Estimate Plt Morphology Comment PT INR APTT Cancelled Specimen Type Sample Site pH Bicarbonate Actual POC Total CO2 Base Excess O2 Saturation O2 % ABG pCO2 ABG pO2 Eloy Test VBG pH VBG pO2 VBG O2 Sat (Calc) VBG O2 Content VBG Base Excess POC Mix VBG pCO2 Pt Tmp Respiration Rate O2 Delivery Device Vent Mode Tidal Volume POC PEEP Blood Gas Notified Whom Blood Gas Notified Time Sodium 137 Potassium 3.2 L Chloride 101 Carbon Dioxide 22.0 Anion Gap 14 BUN 102 H* Creatinine 1.53 H Estim Creat Clear Calc 27.83 Est GFR (MDRD) Af Amer 43 L Est GFR (MDRD) Non-Af 36 L BUN/Creatinine Ratio 66.7 H Glucose 173 H Lactic Acid Calcium 7.5 L Ionized Calcium Phosphorus Magnesium Total Bilirubin AST ALT Alkaline Phosphatase Total Creatine Kinase Troponin I Total Protein Albumin Globulin Albumin/Globulin Ratio TSH Cortisol Urine Color Urine Clarity Urine pH Ur Specific [place] Urine Protein Urine Glucose (UA) Urine Ketones Urine Occult Blood Urine Nitrite Urine Bilirubin Urine Urobilinogen Ur Leukocyte Esterase Urine RBC Urine WBC Ur Squamous Epith Cells Ur Transition Epith Cell Urine Bacteria Hyaline Casts Urine Mucus S.aureus Protein A PCR MRSA (PCR) POC Glucose 05/27/18 05/27/18 05/27/18 05:30 09:15 10:50 WBC RBC Hgb Hct MCV MCH MCHC RDW RDW Differential Plt Count MPV Immature Gran % (Auto) Neut % (Auto) Lymph % (Auto) Nance % (Auto) Eos % (Auto) Baso % (Auto) Absolute Neuts (auto) Absolute Lymphs (auto) Total Counted Differential Comment Diff Path Review Platelet Estimate Plt Morphology Comment PT INR APTT > 250.0 H* Specimen Type Sample Site pH Bicarbonate Actual POC Total CO2 Base Excess O2 Saturation O2 % ABG pCO2 ABG pO2 Eloy Test VBG pH VBG pO2 VBG O2 Sat (Calc) VBG O2 Content VBG Base Excess POC Mix VBG pCO2 Pt Tmp Respiration Rate O2 Delivery Device Vent Mode Tidal Volume POC PEEP Blood Gas Notified Whom Blood Gas Notified Time Sodium Potassium Chloride Carbon Dioxide Anion Gap BUN Creatinine Estim Creat Clear Calc Est GFR (MDRD) Af Amer Est GFR (MDRD) Non-Af BUN/Creatinine Ratio Glucose Lactic Acid Calcium Ionized Calcium Pending Phosphorus Magnesium Total Bilirubin AST ALT Alkaline Phosphatase Total Creatine Kinase Troponin I Total Protein Albumin Globulin Albumin/Globulin Ratio TSH Cortisol Urine Color Urine Clarity Urine pH Ur Specific [place] Urine Protein Urine Glucose (UA) Urine Ketones Urine Occult Blood Urine Nitrite Urine Bilirubin Urine Urobilinogen Ur Leukocyte Esterase Urine RBC Urine WBC Ur Squamous Epith Cells Ur Transition Epith Cell Urine Bacteria Hyaline Casts Urine Mucus S.aureus Protein A PCR POSITIVE H MRSA (PCR) POSITIVE H POC Glucose 05/27/18 05/27/18 05/28/18 18:29 22:48 03:30 WBC 22.5 H RBC 4.78 Hgb 13.1 Hct 38.8 MCV 81.2 MCH 27.4 MCHC 33.8 RDW 16.6 H RDW Differential 48.8 H Plt Count 387 MPV 10.6 Immature Gran % (Auto) 0.600 Neut % (Auto) 90.9 H Lymph % (Auto) 2.8 L Nance % (Auto) 5.5 Eos % (Auto) 0.1 Baso % (Auto) 0.1 Absolute Neuts (auto) 20.5 H Absolute Lymphs (auto) 0.62 L Total Counted Not Reportable Differential Comment Diff Path Review Platelet Estimate Plt Morphology Comment PT INR APTT Specimen Type Sample Site pH Bicarbonate Actual POC Total CO2 Base Excess O2 Saturation O2 % ABG pCO2 ABG pO2 Eloy Test VBG pH VBG pO2 VBG O2 Sat (Calc) VBG O2 Content VBG Base Excess POC Mix VBG pCO2 Pt Tmp Respiration Rate O2 Delivery Device Vent Mode Tidal Volume POC PEEP Blood Gas Notified Whom Blood Gas Notified Time Sodium Potassium Chloride Carbon Dioxide Anion Gap BUN Creatinine Estim Creat Clear Calc Est GFR (MDRD) Af Amer Est GFR (MDRD) Non-Af BUN/Creatinine Ratio Glucose Lactic Acid Calcium Ionized Calcium Phosphorus Magnesium Total Bilirubin AST ALT Alkaline Phosphatase Total Creatine Kinase Troponin I Total Protein Albumin Globulin Albumin/Globulin Ratio TSH Cortisol Urine Color Urine Clarity Urine pH Ur Specific [place] Urine Protein Urine Glucose (UA) Urine Ketones Urine Occult Blood Urine Nitrite Urine Bilirubin Urine Urobilinogen Ur Leukocyte Esterase Urine RBC Urine WBC Ur Squamous Epith Cells Ur Transition Epith Cell Urine Bacteria Hyaline Casts Urine Mucus S.aureus Protein A PCR MRSA (PCR) POC Glucose 144 H 131 H 05/28/18 05/28/18 05/28/18 03:30 03:30 03:30 WBC RBC Hgb Hct MCV MCH MCHC RDW RDW Differential Plt Count MPV Immature Gran % (Auto) Neut % (Auto) Lymph % (Auto) Nance % (Auto) Eos % (Auto) Baso % (Auto) Absolute Neuts (auto) Absolute Lymphs (auto) Total Counted Differential Comment Diff Path Review Platelet Estimate Plt Morphology Comment PT INR APTT Specimen Type Sample Site pH Bicarbonate Actual POC Total CO2 Base Excess O2 Saturation O2 % ABG pCO2 ABG pO2 Eloy Test VBG pH VBG pO2 VBG O2 Sat (Calc) VBG O2 Content VBG Base Excess POC Mix VBG pCO2 Pt Tmp Respiration Rate O2 Delivery Device Vent Mode Tidal Volume POC PEEP Blood Gas Notified Whom Blood Gas Notified Time Sodium 138 Potassium 4.3 Chloride 104 Carbon Dioxide 22.0 Anion Gap 12 BUN 100 H Creatinine 1.40 H Estim Creat Clear Calc 30.42 Est GFR (MDRD) Af Amer 48 L Est GFR (MDRD) Non-Af 40 L BUN/Creatinine Ratio 71.4 H Glucose 104 Lactic Acid 1.4 Calcium 7.6 L Ionized Calcium Pending Phosphorus 3.7 Magnesium 2.6 Total Bilirubin 0.60 AST 19 ALT 11 L Alkaline Phosphatase 136 H Total Creatine Kinase Troponin I Total Protein 5.1 L Albumin 1.5 L Globulin 3.6 Albumin/Globulin Ratio 0.4 L TSH Cortisol Urine Color Urine Clarity Urine pH Ur Specific [place] Urine Protein Urine Glucose (UA) Urine Ketones Urine Occult Blood Urine Nitrite Urine Bilirubin Urine Urobilinogen Ur Leukocyte Esterase Urine RBC Urine WBC Ur Squamous Epith Cells Ur Transition Epith Cell Urine Bacteria Hyaline Casts Urine Mucus S.aureus Protein A PCR MRSA (PCR) POC Glucose Microbiology 05/26/18 14:04 Urine, Catheterized Urine Culture - Preliminary GNR lactose forming machine tender GNR lactose forming machine tender#2 Clinical Impression(s) from Imaging Studies Chest X-Ray 05/26/18 11:57 IMPRESSION: No acute pulmonary process Electronically Signed: Brian Faye MD at 13:37 EDT , Service support , Chest X-Ray 05/26/18 16:20 IMPRESSION: Right IJ central venous catheter tip in the distal SVC. Lung sheets show no interval change since the previous study. Electronically Signed: Brian Faye MD at 17:03 EDT , Service support , Medical Necessity - Tobacco Use Smoking Status: Never smoker Tobacco Use: Non-smoker Assessment/Plan All Active Problems Septic shock (Acute) Chronic anticoagulation (Acute) MANUEL (acute kidney injury) (Acute) Sepsis (Acute) Altered mental status (Acute) Aspiration pneumonia (Acute) Pseudomonas urinary tract infection (Acute) Hypokalemia (Acute) MRSA pneumonia (Acute) Shortness of breath (Acute) Ulcer of heel (Acute) Fever (Acute) Acute and chronic respiratory failure (Acute) RECOMMENDATIONS: 1. Continue Levophed to maintain a mean arterial pressure at or above 65 mmHg. 2. Continue trach collar during the day and placed on ventilator nightly. Utilize outpatient trilogy settings with a Vt of 450 and rate of 14. 3. Continue broad-spectrum antimicrobials per infectious diseases recommendations 4. Electrolyte repletion as needed. 5. Discontinue Haldol 6. Patient to remain NPO, pending evaluation by speech therapy. 7. Continue dextrose containing supplemental IV fluids, until nutritional status can be advanced. 8. Obtain arterial blood gas. IMPRESSIONS: 1. Septic shock Multiple potential sources of infection, including urine, sputum and soft tissue. Recommend continuing broad-spectrum antibiotics at this time. Cultures are currently pending. Infectious diseases is following. The patient did have recent cultures at the beginning of months with ESBL E. coli isolated from her urine and multidrug-resistant Pseudomonas isolated from a sputum culture. We will plan to continue gentle supplemental IV fluid hydration with half-normal saline plus potassium, given n.p.o. status. Levophed will be continued to maintain a mean arterial pressure at or above 65 mmHg. 2. Acute kidney injury Likely prerenal in etiology in the setting of #1. Anticipate improvement with volume expansion and stabilization of hemodynamics. The patient currently has a suprapubic catheter in place. Continue to monitor urine output. No current indication for renal replacement therapy at this time. 3. Chronic respiratory failure The patient has chronic respiratory failure. Per discussion with the nursing facility, the patient is on a trach collar throughout the day and is ventilated at night. She utilizes a trilogy with a tidal volume of 450 and a rate of 14 with the equivalent of a 6 L/min supplemental oxygen bleed. Changes will be made to the patient's current ventilator orders to reflect what she utilizes as an outpatient. 4. History of obstructive sleep apnea/alveolar hypoventilation with prior BiPAP noncompliance Continue current supportive measures as noted above with trach collar throughout the day and full ventilatory support at night. Would also recommend that the patient be placed on full mechanical ventilatory support with any naps throughout the day. 5. Baseline diaphragmatic weakness/restrictive airway disease/paraplegia/muscle spasms/paraplegia/history of Raynaud's/unintentional weight loss Complicates care, management, recovery and prognosis. It is unclear to me as to why the patient's PEG tube was removed in the first place. Her shelter facility reports that she has lost approximately 20 pounds over the last several months. Nutrition is currently following. Would recommend that speech therapy evaluate the patient prior to even considering advancement of her diet. TIME: 40 minutes of critical care time, independent of procedures, was spent addressing the patient's septic shock, acute kidney injury, hypokalemia, chronic respiratory failure, significant decubitus ulcerations, review of all data and collaboration with the care team. ([id number]) Code Visit [id number]: [id number] Critical care first hour
[2018-05-28] MEDS: Heparin Injection (Vial) 5,000 UNIT/ML VIAL 5000 UNIT SC ×3 (06:39→23:01)
[2018-05-28 06:56] LABS: Bedside Glucose 76 mg/dL (70-110)
--- NOTE | 2018-05-28 08:00 | NURSING ---
Pt unable to follow commands, unable to do CAM
[2018-05-28] MEDS: Potassium Chloride 40 MEQ in Dext 5%-0.45% NS 1,000 ML 150 MEQ IV ×3 (09:15→23:29)
--- NOTE | 2018-05-28 11:22 | CASEMGMT ---
As per physician, it is anticipated pt will be here through the weekend. RUTH called [facility]([phone]) and let Nina know that it is anticipated pt will be here through the weekend, though will have instructions for staff should pt be ready to return on the weekend. As per Nina, pt is fine to return on the weekend. RUTH faxed clinical updates to Nina at [facility], and placed green sheet on the chart w/transport form in event something changes and pt can return to SNF on the weekend. LORE Ring, SENIOR SHAREPOINT ARCHITECT
[2018-05-28 12:20] LABS: Bedside Glucose 140 mg/dL (70-110)
--- NOTE | 2018-05-28 12:50 | PCM.PN.ID ---
Patient Problems: Active and Suspected Problems Septic shock (Acute) Chronic anticoagulation (Acute) MANUEL (acute kidney injury) (Acute) Altered mental status (Acute) Hypokalemia (Acute) Subjective: Some SOB, no abd pain, no fever. - Physical Exam General: No apparent distress Lungs: Diminished Cardiovascular: Tachycardic Abdomen: Soft, Non Tender, Non-Distended Skin: Ulcer/ Wound Vital Signs Temp Pulse Resp BP Pulse Ox 97.8 F 109 H 26 H 116/74 96 05/28/18 09:45 05/28/18 10:00 05/28/18 10:00 05/28/18 10:00 05/28/18 10:00 Oxygen Flow Rate (L/min) 4 Oxygen Delivery Method Trach Collar Weight: 79.7 kg Body Mass Index (BMI) 31.6 Finger Stick Blood Glucose 213 Intake and Output for Last 24 Hours 05/26/18 05/27/18 05/28/18 23:59 23:59 23:59 Intake Total 820 / 820 3208 / 3208 1715 / 1715 Output Total 1150 / 1150 575 / 575 400 / 400 Balance -330 / -330 2633 / 2633 1315 / 1315 Microbiology Past 72 Hours 05/27/18 09:15 Gram Stain - Final Wound - Sacral Wound Culture - Preliminary Staphylococcus aureus Gram negative efrain 05/27/18 09:40 Gram Stain - Final Sputum, Tracheal Aspirate Respiratory Culture - Preliminary GNR Poss Pseudomonas sp 05/26/18 14:04 Urine Culture - Preliminary Urine, Catheterized GNR lactose non licensed nuclear plant operator GNR lactose non licensed nuclear plant operator#2 Laboratory Tests Past 24 Hrs 05/26/18 05/27/18 05/27/18 21:38 04:45 09:15 WBC RBC Hgb Hct MCV MCH MCHC RDW RDW Differential Plt Count MPV Immature Gran % (Auto) Neut % (Auto) Lymph % (Auto) [place] % (Auto) Eos % (Auto) Baso % (Auto) Absolute Neuts (auto) Absolute Lymphs (auto) Total Counted Differential Comment Diff Path Review Reviewed Specimen Type Cancelled Sample Site Cancelled O2 % Cancelled VBG pH Cancelled VBG pH (Temp Correct) Cancelled VBG pCO2 (Temp Corrct Cancelled VBG pO2 Cancelled VBG O2 Sat (Calc) Cancelled VBG O2 Content Cancelled VBG Base Excess Cancelled POC Mix VBG pCO2 Pt Tmp Cancelled Respiration Rate Cancelled O2 Delivery Device Cancelled Liter Flow Cancelled Minute Volume Cancelled Tidal Volume Cancelled POC PEEP Cancelled POC Pressure Suppt Cancelled EPAP Cancelled IPAP Cancelled Blood Gas Notified Whom Cancelled Blood Gas Notified Time Cancelled Sodium Potassium Chloride Carbon Dioxide Anion Gap BUN Creatinine Estim Creat Clear Calc Est GFR (MDRD) Af Amer Est GFR (MDRD) Non-Af BUN/Creatinine Ratio Glucose Lactic Acid Calcium Ionized Calcium Phosphorus Magnesium Total Bilirubin AST ALT Alkaline Phosphatase Total Protein Albumin Globulin Albumin/Globulin Ratio S.aureus Protein A PCR POSITIVE H MRSA (PCR) POSITIVE H 05/28/18 05/28/18 05/28/18 03:30 03:30 03:30 WBC 22.5 H RBC 4.78 Hgb 13.1 Hct 38.8 MCV 81.2 MCH 27.4 MCHC 33.8 RDW 16.6 H RDW Differential 48.8 H Plt Count 387 MPV 10.6 Immature Gran % (Auto) 0.600 Neut % (Auto) 90.9 H Lymph % (Auto) 2.8 L [place] % (Auto) 5.5 Eos % (Auto) 0.1 Baso % (Auto) 0.1 Absolute Neuts (auto) 20.5 H Absolute Lymphs (auto) 0.62 L Total Counted Not Reportable Differential Comment Diff Path Review Specimen Type Sample Site O2 % VBG pH VBG pH (Temp Correct) VBG pCO2 (Temp Corrct VBG pO2 VBG O2 Sat (Calc) VBG O2 Content VBG Base Excess POC Mix VBG pCO2 Pt Tmp Respiration Rate O2 Delivery Device Liter Flow Minute Volume Tidal Volume POC PEEP POC Pressure Suppt EPAP IPAP Blood Gas Notified Whom Blood Gas Notified Time Sodium 138 Potassium 4.3 Chloride 104 Carbon Dioxide 22.0 Anion Gap 12 BUN 100 H Creatinine 1.40 H Estim Creat Clear Calc 30.42 Est GFR (MDRD) Af Amer 48 L Est GFR (MDRD) Non-Af 40 L BUN/Creatinine Ratio 71.4 H Glucose 104 Lactic Acid 1.4 Calcium 7.6 L Ionized Calcium Phosphorus 3.7 Magnesium 2.6 Total Bilirubin 0.60 AST 19 ALT 11 L Alkaline Phosphatase 136 H Total Protein 5.1 L Albumin 1.5 L Globulin 3.6 Albumin/Globulin Ratio 0.4 L S.aureus Protein A PCR MRSA (PCR) 05/28/18 03:30 WBC RBC Hgb Hct MCV MCH MCHC RDW RDW Differential Plt Count MPV Immature Gran % (Auto) Neut % (Auto) Lymph % (Auto) [place] % (Auto) Eos % (Auto) Baso % (Auto) Absolute Neuts (auto) Absolute Lymphs (auto) Total Counted Differential Comment Diff Path Review Specimen Type Sample Site O2 % VBG pH VBG pH (Temp Correct) VBG pCO2 (Temp Corrct VBG pO2 VBG O2 Sat (Calc) VBG O2 Content VBG Base Excess POC Mix VBG pCO2 Pt Tmp Respiration Rate O2 Delivery Device Liter Flow Minute Volume Tidal Volume POC PEEP POC Pressure Suppt EPAP IPAP Blood Gas Notified Whom Blood Gas Notified Time Sodium Potassium Chloride Carbon Dioxide Anion Gap BUN Creatinine Estim Creat Clear Calc Est GFR (MDRD) Af Amer Est GFR (MDRD) Non-Af BUN/Creatinine Ratio Glucose Lactic Acid Calcium Ionized Calcium Pending Phosphorus Magnesium Total Bilirubin AST ALT Alkaline Phosphatase Total Protein Albumin Globulin Albumin/Globulin Ratio S.aureus Protein A PCR MRSA (PCR) POC Glucose 05/28/18 05/28/18 05/27/18 12:09 06:37 22:48 POC Glucose 140 H 76 131 H 05/27/18 18:29 POC Glucose 144 H Medical Necessity - Tobacco Use Smoking Status: Never smoker Tobacco Use: Non-smoker Route of nutrition/ use of supplements: [] Nutritional Intake: [] IV Site: [] Donahue Catheter: [] - Assessment/Plan Antibiotics: [] Assessment/Plan: [] Active and Suspected Problems Chronic anticoagulation (Acute) MANUEL (acute kidney injury) (Acute) Altered mental status (Acute) Hypokalemia (Acute) Septic shock with MANUEL - 05/11 Ucx with ESBL ecoli, treated with nitrofurantoin. 05/11 sputum cx with PsA, R to imipenem, treated with levaquin which it was sensitive to. CXR clear, low suspicion for pneumonia. Sputum though with some purulence and pseudomonas-like. Has sacral wounds, but no active purulence or redness per wound care nurse. Wound cx sent. Will continue vanc given h/o MRSA. Changed cefepime to meropenem to cover for possible ESBL. If condition worsens, would give dose of gentamicin, but hopefully can avoid that given her MANUEL and overall improvement. Adding levaquin would be another option depending on sputum susceptibility results. Will follow
[2018-05-28 14:35] LABS: Vancomycin, Trough Level 18.3 ug/mL (5.0-15.0)
--- NOTE | 2018-05-28 14:45 | PCM.PN.HOSP ---
Patient Problems: Active and Suspected Problems Septic shock (Acute) Chronic anticoagulation (Acute) MANUEL (acute kidney injury) (Acute) Altered mental status (Acute) Hypokalemia (Acute) Subjective: Patient is a 67-year-old white female with known history of paraplegia secondary to syrinx, chronic respiratory failure with trach and PEG but has been reversed, recurrent aspirations previously on mechanical soft, suprapubic catheter, evidence of ulcer, chronic acquired lymphedema, restrictive airway disease, ADHD, sleep apnea, incontinence of feces in urine, hyperlipidemia, pulmonary fibrosis who presented to the hospital yesterday evening seem to be in sepsis secondary to urinary cause and was placed on Levophed Patient having severe variable blood pressure, blood pressure went up to the 200s, and then suddenly dropped requiring, patient is still again on Levophed patient remains afebrile tachycardic, spoke to infectious disease patient's antibiotics were changed to Merrem, will hold off on Gentamicin and continue vancomycin. Worry about kidney function. Awaiting sputum cultures which look to have Pseudomonas. Patient is still not able to Communicate, review of systems cannot be done Vitals/I&O's: Vital Signs Temp Pulse Resp BP Pulse Ox 98.4 F 96 14 106/48 L 98 05/28/18 12:00 05/28/18 13:01 05/28/18 13:01 05/28/18 13:10 05/28/18 13:01 Oxygen Flow Rate (L/min) 4 Oxygen Delivery Method Mechanical Ventilator Weight: 79.7 kg Body Mass Index (BMI) 31.6 Finger Stick Blood Glucose 213 Intake and Output for Last 24 Hours 05/26/18 05/27/18 05/28/18 23:59 23:59 23:59 Intake Total 820 / 820 3208 / 3208 2865 / 2865 Output Total 1150 / 1150 575 / 575 635 / 635 Balance -330 / -330 2633 / 2633 2230 / 2230 General: Confused, Disoriented, Non-Cooperative HEENT: Atraumatic, PERRLA, EOMI Oral: No Gingival or Mucosal Lesions/ Ulcerations, Dry Mucosa Neck: No JVD, Trachea Midline, - - Positive central line Lungs: No wheeze, Diminished - With coarse breath sounds, Rhonchi Cardiovascular: Normal S1, Normal S2, Tachycardic Abdomen: Soft, Non-Distended, - Extremities: Cool, Edema Skin: - - Decubitus ulcer see wound care notes Musculoskeletal: Cachexia, Muscle Wasting Lymphatic: No Cervical, Supraclavicular, or Inguinal Adenopathy Neurological: - - Fully assess neurological status secondary to current state Psych/Mental Status: Agitated, Flat Affect, - - Vented Microbiology Past 72 Hours 05/27/18 09:15 Wound - Sacral Gram Stain - Final 05/27/18 09:15 Wound - Sacral Wound Culture - Preliminary Staphylococcus aureus Gram negative efrain 05/27/18 09:40 Sputum, Tracheal Aspirate Gram Stain - Final 05/27/18 09:40 Sputum, Tracheal Aspirate Respiratory Culture - Preliminary GNR Poss Pseudomonas sp 05/26/18 14:04 Urine, Catheterized Urine Culture - Preliminary GNR lactose white shoe ragger GNR lactose white shoe ragger#2 Laboratory Results 05/26/18 21:38: Specimen Type Cancelled, Sample Site Cancelled, O2 % Cancelled, VBG pH Cancelled, VBG pH (Temp Correct) Cancelled, VBG pCO2 (Temp Corrct Cancelled, VBG pO2 Cancelled, VBG O2 Sat (Calc) Cancelled, VBG O2 Content Cancelled, VBG Base Excess Cancelled, POC Mix VBG pCO2 Pt Tmp Cancelled, Respiration Rate Cancelled, O2 Delivery Device Cancelled, Liter Flow Cancelled, Minute Volume Cancelled, Tidal Volume Cancelled, POC PEEP Cancelled, POC Pressure Suppt Cancelled, EPAP Cancelled, IPAP Cancelled, Blood Gas Notified Whom Cancelled, Blood Gas Notified Time Cancelled 05/27/18 18:29: POC Glucose 144 H 05/27/18 22:48: POC Glucose 131 H 05/28/18 03:30: WBC 22.5 H, RBC 4.78, Hgb 13.1, Hct 38.8, MCV 81.2, MCH 27.4, MCHC 33.8, RDW 16.6 H, RDW Differential 48.8 H, Plt Count 387, MPV 10.6, Immature Gran % (Auto) 0.600, Neut % (Auto) 90.9 H, Lymph % (Auto) 2.8 L, [place] % (Auto) 5.5, Eos % (Auto) 0.1, Baso % (Auto) 0.1, Absolute Neuts (auto) 20.5 H, Absolute Lymphs (auto) 0.62 L, Total Counted Not Reportable, Differential Comment 05/28/18 03:30: Sodium 138, Potassium 4.3, Chloride 104, Carbon Dioxide 22.0, Anion Gap 12, BUN 100 H, Creatinine 1.40 H, Estim Creat Clear Calc 30.42, Est GFR (MDRD) Af Amer 48 L, Est GFR (MDRD) Non-Af 40 L, BUN/Creatinine Ratio 71.4 H, Glucose 104, Calcium 7.6 L, Phosphorus 3.7, Magnesium 2.6, Total Bilirubin 0.60, AST 19, ALT 11 L, Alkaline Phosphatase 136 H, Total Protein 5.1 L, Albumin 1.5 L, Globulin 3.6, Albumin/Globulin Ratio 0.4 L 05/28/18 03:30: Lactic Acid 1.4 05/28/18 03:30: Ionized Calcium Pending 05/28/18 06:37: POC Glucose 76 05/28/18 12:09: POC Glucose 140 H 05/28/18 13:45: Vancomycin Trough 18.3 H Current Medications Albuterol Sulfate (Ventolin Aerosols) 2.5 mg INHALATION Q4H PRN PRN PRN Reason: SOB &/OR WHEEZING Albuterol/Ipratropium (Duoneb) 3 ml INHALATION Q6HWA.RT [facility], [facility]1983 Last Admin: 05/28/18 13:00 Dose: 3 ml Bisacodyl (Dulcolax) 10 mg RECTAL DAILY PRN PRN Reason: Constipation Chlorhexidine Gluconate () 15 ml PO BID [facility], [facility]1983 Last Admin: 05/27/18 20:50 Dose: 15 ml Chlorhexidine Gluconate () 1 each TOPICAL DAILY [facility], [facility]1983 Last Admin: 05/28/18 03:22 Dose: 1 each Heparin Sodium (Porcine) (Heparin Na) 5,000 unit SC Q8 [facility], [facility]1983 Last Admin: 05/28/18 06:39 Dose: 5,000 unit Vancomycin IV Pharmacy to Dose (1 ea/ Sodium Chloride) 500 mls @ 250 mls/hr IV PRN PRN; Protocol PRN Reason: Rx to Dose Vancomycin HCl 750 mg/ Sodium (Chloride) 265 mls @ 250 mls/hr IV Q24H [facility]1983 Last Admin: 05/27/18 14:15 Dose: 250 mls/hr Pantoprazole Sodium 40 mg/ (Sodium Chloride) 110 mls @ 330 mls/hr IV Q12 [facility]1983 Last Admin: 05/28/18 10:35 Dose: 330 mls/hr Norepinephrine Bitartrate 8 mg (/ Dextrose) 258 mls @ 9.68 mls/hr IV .[id number] [facility] Last Admin: 05/28/18 14:00 Dose: Not Given Meropenem 500 mg/ Sodium (Chloride) 60 mls @ 100 mls/hr IV Q8 [facility] Last Admin: 05/28/18 06:40 Dose: 100 mls/hr Potassium Chloride 40 meq/ (Dextrose/Sodium Chloride) 1,020 mls @ 150 mls/hr IV .[id number] [facility] Last Admin: 05/28/18 13:59 Dose: Not Given Insulin Human Lispro (Humalog Kwikpen (Bkc)) 0 unit SC Q6 [facility]; Protocol Last Admin: 05/28/18 06:40 Dose: Not Given Sodium Chloride () 5 - 30 ml IV UD PRN PRN Reason: SALINE FLUSH Last Admin: 05/28/18 03:22 Dose: 10 ml Medical Necessity - Tobacco Use Smoking Status: Never smoker Tobacco Use: Non-smoker Assessment/Plan All Active Problems Septic shock (Acute) Chronic anticoagulation (Acute) MANUEL (acute kidney injury) (Acute) Sepsis (Acute) Altered mental status (Acute) Aspiration pneumonia (Acute) Pseudomonas urinary tract infection (Acute) Hypokalemia (Acute) MRSA pneumonia (Acute) Shortness of breath (Acute) Ulcer of heel (Acute) Fever (Acute) Acute and chronic respiratory failure (Acute) Altered mental status (Acute) There is a metabolic encephalopathy secondary medical conditions. Since agitation seems to be labile While on the vent, Haldol discontinued as there is a dramatic shift in blood pressure. Continue supportive care, will nutrition, given that patient unable to eat, may have to consider feeding tube. Hypokalemia (Acute) Repleted, we need to monitor. Sepsis (Acute) Patient is still in septic shock, currently on Merrem and vancomycin, and Levophed. I have spoken with ID, will try, service gentamicin to preserve kidney function, Donahue catheter has been replaced to prevent leakage, patient seems to have Pseudomonas in sputum, and staph aureus and gram-negative rods sacral wound. Monitor recommendations of pulmonary critical care. Wound care consulted Acute and chronic respiratory failure (Acute) Multiple reasons for shortness of breath including paraplegia, With diaphragmatic weakness and restrictive airway disease. repeat chest x-ray in the a.m. Urinary tract infection Patient has had chronic urinary tract infection and seems to have a leaking suprapubic catheter, has been changed, continue current antibiotics Chronic anticoagulation Patient appears to be on Eliquis as an outpatient, currently on cutanea heparin, prior echocardiogram in October 2015 revealed normal ejection fraction of 65%, and small right to the left intra-atrial shunt with right ventricular pressures to be 38 mmHg. Recent echocardiogram shows a poor study, normal left ventricular size wall motion, however unable to look at diastolic dysfunction Acute kidney injury Continues to improve with volume expansion and pressors. Monitor. DVT prophylaxis currently on heparin CODE STATUS full GI prophylaxis on IV PPI Nutrition currently n.p.o., may require feeding tube if patient's mental status does not improve. CODE STATUS full Disposition patient will be maintained in the ICU while on drips and vented Chart is dictated with complaint evaluation supervisor software. Errors may occur in dictation that may change providers meaning. This note was generated with [employer] dictation software. It may contain incorrect words, spelling, and punctuation that were not noted in checking the note before signing. Code Visit Inpatient E&M: 92762 Subs Hosp L2
--- NOTE | 2018-05-28 14:49 | PN_ITS ---
Patient Problems: Active and Suspected Problems Septic shock (Acute) Chronic anticoagulation (Acute) MANUEL (acute kidney injury) (Acute) Altered mental status (Acute) Hypokalemia (Acute) Subjective: Patient is a 67-year-old white female with known history of paraplegia secondary to syrinx, chronic respiratory failure with trach and PEG but has been reversed, recurrent aspirations previously on mechanical soft, suprapubic catheter, evidence of ulcer, chronic acquired lymphedema, restrictive airway disease, ADHD, sleep apnea, incontinence of feces in urine, hyperlipidemia, pulmonary fibrosis who presented to the hospital yesterday evening seem to be in sepsis secondary to urinary cause and was placed on Levophed Patient having severe variable blood pressure, blood pressure went up to the 200s, and then suddenly dropped requiring, patient is still again on Levophed patient remains afebrile tachycardic, spoke to infectious disease patient's antibiotics were changed to Merrem, will hold off on Gentamicin and continue vancomycin. Worry about kidney function. Awaiting sputum cultures which look to have Pseudomonas. Patient is still not able to Communicate, review of systems cannot be done Vitals/I&O's: Vital Signs Temp Pulse Resp BP Pulse Ox 98.4 F 96 14 106/48 L 98 05/28/18 12:00 05/28/18 13:01 05/28/18 13:01 05/28/18 13:10 05/28/18 13:01 Oxygen Flow Rate (L/min) 4 Oxygen Delivery Method Mechanical Ventilator Weight: 79.7 kg Body Mass Index (BMI) 31.6 Finger Stick Blood Glucose 213 Intake and Output for Last 24 Hours 05/26/18 05/27/18 05/28/18 23:59 23:59 23:59 Intake Total 820 / 820 3208 / 3208 2865 / 2865 Output Total 1150 / 1150 575 / 575 635 / 635 Balance -330 / -330 2633 / 2633 2230 / 2230 General: Confused, Disoriented, Non-Cooperative HEENT: Atraumatic, PERRLA, EOMI Oral: No Gingival or Mucosal Lesions/ Ulcerations, Dry Mucosa Neck: No JVD, Trachea Midline, - - Positive central line Lungs: No wheeze, Diminished - With coarse breath sounds, Rhonchi Cardiovascular: Normal S1, Normal S2, Tachycardic Abdomen: Soft, Non-Distended, - Extremities: Cool, Edema Skin: - - Decubitus ulcer see wound care notes Musculoskeletal: Cachexia, Muscle Wasting Lymphatic: No Cervical, Supraclavicular, or Inguinal Adenopathy Neurological: - - Fully assess neurological status secondary to current state Psych/Mental Status: Agitated, Flat Affect, - - Vented Microbiology Past 72 Hours 05/27/18 09:15 Wound - Sacral Gram Stain - Final 05/27/18 09:15 Wound - Sacral Wound Culture - Preliminary Staphylococcus aureus Gram negative efrain 05/27/18 09:40 Sputum, Tracheal Aspirate Gram Stain - Final 05/27/18 09:40 Sputum, Tracheal Aspirate Respiratory Culture - Preliminary GNR Poss Pseudomonas sp 05/26/18 14:04 Urine, Catheterized Urine Culture - Preliminary GNR lactose company manager GNR lactose company manager#2 Laboratory Results 05/26/18 21:38: Specimen Type Cancelled, Sample Site Cancelled, O2 % Cancelled, VBG pH Cancelled, VBG pH (Temp Correct) Cancelled, VBG pCO2 (Temp Corrct Cancelled, VBG pO2 Cancelled, VBG O2 Sat (Calc) Cancelled, VBG O2 Content Can celled, VBG Base Excess Cancelled, POC Mix VBG pCO2 Pt Tmp Cancelled, Respiration Rate Cancelled, O2 Delivery Device Cancelled, Liter Flow Cancelled, Minute Volume Cancelled, Tidal Volume Cancelled, POC PEEP Cancelled, POC Pressure Suppt Cancelled, EPAP Cancelled, IPAP Cancelled, Blood Gas Notified Whom Cancelled, Blood Gas Notified Time Cancelled 05/27/18 18:29: POC Glucose 144 H 05/27/18 22:48: POC Glucose 131 H 05/28/18 03:30: WBC 22.5 H, RBC 4.78, Hgb 13.1, Hct 38.8, MCV 81.2, MCH 27.4, MCHC 33.8, RDW 16.6 H, RDW Differential 48.8 H, Plt Count 387, MPV 10.6, Immature Gran % (Auto) 0.600, Neut % (Auto) 90.9 H, Lymph % (Auto) 2.8 L, [place] % (Auto) 5.5, Eos % (Auto) 0.1, Baso % (Auto) 0.1, Absolute Neuts (auto) 20.5 H, Absolute Lymphs (auto) 0.62 L, Total Counted Not Reportable, Differential Comment 05/28/18 03:30: Sodium 138, Potassium 4.3, Chloride 104, Carbon Dioxide 22.0, Anion Gap 12, BUN 100 H, Creatinine 1.40 H, Estim Creat Clear Calc 30.42, Est GFR (MDRD) Af Amer 48 L, Est GFR (MDRD) Non-Af 40 L, BUN/Creatinine Ratio 71.4 H , Glucose 104, Calcium 7.6 L, Phosphorus 3.7, Magnesium 2.6, Total Bilirubin 0.60, AST 19, ALT 11 L, Alkaline Phosphatase 136 H, Total Protein 5.1 L, Albumin 1.5 L, Globulin 3.6, Albumin/Globulin Ratio 0.4 L 05/28/18 03:30: Lactic Acid 1.4 05/28/18 03:30: Ionized Calcium Pending 05/28/18 06:37: POC Glucose 76 05/28/18 12:09: POC Glucose 140 H 05/28/18 13:45: Vancomycin Trough 18.3 H Current Medications Albuterol Sulfate (Ventolin Aerosols) 2.5 mg INHALATION Q4H PRN PRN PRN Reason: SOB &/OR WHEEZING Albuterol/Ipratropium (Duoneb) 3 ml INHALATION Q6HWA.RT [facility] Last Admin: 05/28/18 13:00 Dose: 3 ml Bisacodyl (Dulcolax) 10 mg RECTAL DAILY PRN PRN Reason: Constipation Chlorhexidine Gluconate () 15 ml PO BID [facility] Last Admin: 05/27/18 20:50 Dose: 15 ml Chlorhexidine Gluconate () 1 each TOPICAL DAILY [facility] Last Admin: 05/28/18 03:22 Dose: 1 each Heparin Sodium (Porcine) (Heparin Na) 5,000 unit SC Q8 [facility] Last Admin: 05/28/18 06:39 Dose: 5,000 unit Vancomycin IV Pharmacy to Dose (1 ea/ Sodium Chloride) 500 mls @ 250 mls/hr IV PRN PRN; Protocol PRN Reason: Rx to Dose Vancomycin HCl 750 mg/ Sodium (Chloride) 265 mls @ 250 mls/hr IV Q24H [facility] Last Admin: 05/27/18 14:15 Dose: 250 mls/hr Pantoprazole Sodium 40 mg/ (Sodium Chloride) 110 mls @ 330 mls/hr IV Q12 [facility] Last Admin: 05/28/18 10:35 Dose: 330 mls/hr Norepinephrine Bitartrate 8 mg (/ Dextrose) 258 mls @ 9.68 mls/hr IV .[id number] [facility] Last Admin: 05/28/18 14:00 Dose: Not Given Meropenem 500 mg/ Sodium (Chloride) 60 mls @ 100 mls/hr IV Q8 [facility] Last Admin: 05/28/18 06:40 Dose: 100 mls/hr Potassium Chloride 40 meq/ (Dextrose/Sodium Chloride) 1,020 mls @ 150 mls/hr IV .[id number] [facility] Last Admin: 05/28/18 13:59 Dose: Not Given Insulin Human Lispro (Humalog Kwikpen (Bkc)) 0 unit SC Q6 [facility]; Protocol Last Admin: 05/28/18 06:40 Dose: Not Given Sodium Chloride () 5 - 30 ml IV UD PRN PRN Reason: SALINE FLUSH Last Admin: 05/28/18 03:22 Dose: 10 ml Medical Necessity - Tobacco Use Smoking Status: Never smoker Tobacco Use: Non-smoker Assessment/Plan All Active Problems Septic shock (Acute) Chronic anticoagulation (Acute) MANUEL (acute kidney injury) (Acute) Sepsis (Acute) Altered mental status (Acute) Aspiration pneumonia (Acute) Pseudomonas urinary tract infection (Acute) Hypokalemia (Acute) MRSA pneumonia (Acute) Shortness of breath (Acute) Ulcer of heel (Acute) Fever (Acute) Acute and chronic respiratory failure (Acute) Altered mental status (Acute) There is a metabolic encephalopathy secondary medical conditions. Since agitation seems to be labile While on the vent, Haldol discontinued as there is a dramatic shift in blood pressure. Continue supportive care, will nutrition, given that patient unable to eat, may have to consider feeding tube. Hypokalemia (Acute) Repleted, we need to monitor. Sepsis (Acute) Patient is still in septic shock, currently on Merrem and vancomycin, and Levophed. I have spoken with ID, will try, service gentamicin to preserve kidney function, Donahue catheter has been replaced to prevent leakage, patient seems to have Pseudomonas in sputum, and staph aureus and gram-negative rods sacral wound. Monitor recommendations of pulmonary critical care. Wound care consulted Acute and chronic respiratory failure (Acute) Multiple reasons for shortness of breath including paraplegia, With diaphragmatic weakness and restrictive airway disease. repeat chest x-ray in the a.m. Urinary tract infection Patient has had chronic urinary tract infection and seems to have a leaking suprapubic catheter, has been changed, continue current antibiotics Chronic anticoagulation Patient appears to be on Eliquis as an outpatient, currently on cutanea heparin, prior echocardiogram in October 2015 revealed normal ejection fraction of 65%, and small right to the left intra-atrial shunt with right ventricular pressures to be 38 mmHg. Recent echocardiogram shows a poor study, normal left ventricular size wall motion, however unable to look at diastolic dysfunction Acute kidney injury Continues to improve with volume expansion and pressors. Monitor. DVT prophylaxis currently on heparin CODE STATUS full GI prophylaxis on IV PPI Nutrition currently n.p.o., may require feeding tube if patient's mental status does not improve. CODE STATUS full Disposition patient will be maintained in the ICU while on drips and vented Chart is dictated with explosives worker software. Errors may occur in dictation that may change providers meaning. This note was generated with [employer] dictation software. It may contain incorrect words, spelling, and punctuation that were not noted in checking the note before signing. Code Visit Inpatient E&M: 39096 Subs Hosp L2
--- NOTE | 2018-05-28 16:02 | PCM.RX.CS ---
Consult Pharmacy has been consulted to manage selected antiobiotic: Vancomycin Type of Consult: Follow-up Suspected Infection: Sepsis Prior Doses of Antibiotics Received/Current Regimen: Patient on 750mg iv q24h. Labs: Sodium 138 mmol/L (136-145) 05/28/18 03:30 Potassium 4.3 mmol/L (3.5-5.1) 05/28/18 03:30 Chloride 104 mmol/L (98-107) 05/28/18 03:30 Carbon Dioxide 22.0 mmol/L (21.0-32.0) 05/28/18 03:30 Anion Gap 12 (5-15) 05/28/18 03:30 BUN 100 mg/dL (7-18) H 05/28/18 03:30 Creatinine 1.40 mg/dL (0.55-1.02) H 05/28/18 03:30 Est GFR (MDRD) Af Amer 48 mL/min (>60) L 05/28/18 03:30 Est GFR (MDRD) Non-Af 40 mL/min (>60) L 05/28/18 03:30 BUN/Creatinine Ratio 71.4 RATIO (10-20) H 05/28/18 03:30 Glucose 104 mg/dL (74-106) 05/28/18 03:30 Vancomycin Trough 18.3 ug/mL (5.0-15.0) H 05/28/18 13:45 Microbiology: Microbiology 05/27/18 09:15 Wound - Sacral Gram Stain - Final 05/27/18 09:15 Wound - Sacral Wound Culture - Preliminary Staphylococcus aureus Gram negative efrain 05/27/18 09:40 Sputum, Tracheal Aspirate Gram Stain - Final 05/27/18 09:40 Sputum, Tracheal Aspirate Respiratory Culture - Preliminary GNR Poss Pseudomonas sp 05/26/18 14:04 Urine, Catheterized Urine Culture - Preliminary GNR lactose welder assistant GNR lactose welder assistant#2 Weight used for dosin.6 kg Estimated Creatinine Clearance: 30 ml/min Goal Trough: 15-20 mcg/mL Pharmacy Plan for Drug Dosing: Vancomycin trough 05.28.18 was 18.3 (goal 15-20 mcg/ml). Renal function Cr 1.4 and CrCl ~30 ml/min. Will continue same dose and get repeat trough level on 05.30.18 before 1400 dose. Pharmacy Service will continue to monitor and adjust dosing as required. Follow-Up Labs: Trough Vancomycin - 10.28.18 @1330 before 1400 dose
[2018-05-28] MEDS: Chlorhexidine 15 ML PO ×2 (16:05→23:00)
--- NOTE | 2018-05-28 16:06 | PHA.PHARE_ITS ---
Consult Pharmacy has been consulted to manage selected antiobiotic: Vancomycin Type of Consult: Follow-up Suspected Infection: Sepsis Prior Doses of Antibiotics Received/Current Regimen: Patient on 750mg iv q24h. Labs: Sodium 138 mmol/L (136-145) 05/28/18 03:30 Potassium 4.3 mmol/L (3.5-5.1) 05/28/18 03:30 Chloride 104 mmol/L (98-107) 05/28/18 03:30 Carbon Dioxide 22.0 mmol/L (21.0-32.0) 05/28/18 03:30 Anion Gap 12 (5-15) 05/28/18 03:30 BUN 100 mg/dL (7-18) H 05/28/18 03:30 Creatinine 1.40 mg/dL (0.55-1.02) H 05/28/18 03:30 Est GFR (MDRD) Af Amer 48 mL/min (>60) L 05/28/18 03:30 Est GFR (MDRD) Non-Af 40 mL/min (>60) L 05/28/18 03:30 BUN/Creatinine Ratio 71.4 RATIO (10-20) H 05/28/18 03:30 Glucose 104 mg/dL (74-106) 05/28/18 03:30 Vancomycin Trough 18.3 ug/mL (5.0-15.0) H 05/28/18 13:45 Microbiology: Microbiology 05/27/18 09:15 Wound - Sacral Gram Stain - Final 05/27/18 09:15 Wound - Sacral Wound Culture - Preliminary Staphylococcus aureus Gram negative efrain 05/27/18 09:40 Sputum, Tracheal Aspirate Gram Stain - Final 05/27/18 09:40 Sputum, Tracheal Aspirate Respiratory Culture - Preliminary GNR Poss Pseudomonas sp 05/26/18 14:04 Urine, Catheterized Urine Culture - Preliminary GNR lactose communication center operator GNR lactose communication center operator#2 Weight used for dosin.6 kg Estimated Creatinine Clearance: 30 ml/min Goal Trough: 15-20 mcg/mL Pharmacy Plan for Drug Dosing: Vancomycin trough 05.28.18 was 18.3 (goal 15-20 mcg/ml). Renal function Cr 1.4 and CrCl ~30 ml/min. Will continue same dose and get repeat trough level on 05.30.18 before 1400 dose. Pharmacy Service will continue to monitor and adjust dosing as required. Follow-Up Labs: Trough Vancomycin - 10.28.18 @1330 before 1400 dose
--- NOTE | 2018-05-28 17:57 | NURSING ---
Teaching deferred until acute condition resolving
[2018-05-28 18:36] LABS: Base Excess -5 mmol/L (-2 to +2); Bicarbonate 18.4 mmol/L (22-26); Blood Gas Specimen Type ART; FI02 30; Mode A-C; O2 Delivery Device Vent; PEEP 5; PO2 75 mmHG (75-100); RR 14; SITE L Radial; SO2 96 % (95-99); Time Given 1630; Total Carbon Dioxide 19 mmol/L; Vt 450; pCO2 23.8 mmHg (35-45)
[2018-05-28 18:40] LABS: Bedside Glucose 149 mg/dL (70-110)
[2018-05-28 23:46] LABS: Bedside Glucose 144 mg/dL (70-110)
[2018-05-29] VITALS (56 sets, daily range): BP systolic 86–130; BP diastolic 38–92; PULSE 100–113; RESP 14–35; TEMP 36.1–37.2; O2SAT 90–100
[2018-05-29] MEDS: CHLORHEXIDINE GLUC 2% CLOTH 1 EACH TOWELETTE TOPICAL (05:48)
[2018-05-29] MEDS: Heparin Injection (Vial) 5,000 UNIT/ML VIAL 5000 UNIT SC ×3 (05:48→21:35)
--- NOTE | 2018-05-29 05:50 | PCM.PN.INT ---
Subjective: The patient was seen and examined at the bedside this morning. Events from the last 24 hours have been reviewed. Speech therapy evaluated the patient yesterday and recommended that she remain n.p.o. until further evaluation can be completed over their concern for high risk of aspiration. No overnight events were noted by the nursing staff. The patient is more alert this morning. Despite being afebrile with improving leukocytosis, the patient remains on Levophed at 10 mcg. She is currently overall net +7.6 L for the admission. Objective: The patient's most recent lab work, culture data and imaging studies have all been personally reviewed. The surface echocardiogram was technically difficult with limited views obtained. However, there does appear to be normal left ventricular size and function. Tracheal aspirate revealed evidence of possible Pseudomonas. Wound culture was positive for staph aureus and a gram-negative efrain. Preliminary urine culture was positive for a gram-negative efrain. General: Alert, No apparent distress, - - Tolerating full mechanical ventilatory support currently. More alert than yesterday. HEENT: Atraumatic, PERRLA, Normocephalic Oral: No Gingival or Mucosal Lesions/ Ulcerations Neck: Supple, No Nodes, Trachea Midline, - - Tracheostomy site is C/D/I Lungs: No rhonchi, No wheeze, No rales, Diminished Cardiovascular: Normal S1, Normal S2, No murmurs, Tachycardic Abdomen: Soft, Non Tender, Non-Distended, - - Scabbing at previous PEG site Extremities: No clubbing, Cool, Cyanosis, Diminished Peripheral Pulses Skin: - - No significant change from previous. Musculoskeletal: No Tenderness to Palpation of Joints or Extremities Lymphatic: No Cervical, Supraclavicular, or Inguinal Adenopathy Neurological: - - Baseline paraplegia Psych/Mental Status: Flat Affect Vital Signs Temp Pulse Resp BP Pulse Ox 98.8 F 105 H 17 94/55 L 94 05/29/18 04:00 05/29/18 04:35 05/29/18 04:35 05/29/18 04:00 05/29/18 04:35 Oxygen Flow Rate (L/min) 4 Oxygen Delivery Method Mechanical Ventilator Weight: 186 lb 1.122 oz Body Mass Index (BMI) 31.6 Finger Stick Blood Glucose 213 Intake and Output for Last 24 Hours 05/27/18 05/28/18 05/29/18 23:59 23:59 23:59 Intake Total 3208 / 3208 5751 / 5751 Output Total 575 / 575 1335 / 1335 Balance 2633 / 2633 4416 / 4416 Labs (Last 48 Hours) 05/26/18 05/27/18 05/27/18 21:38 04:45 05:30 WBC RBC Hgb Hct MCV MCH MCHC RDW RDW Differential Plt Count MPV Immature Gran % (Auto) Neut % (Auto) Lymph % (Auto) Rusk % (Auto) Eos % (Auto) Baso % (Auto) Absolute Neuts (auto) Absolute Lymphs (auto) Total Counted Differential Comment Diff Path Review Reviewed APTT > 250.0 H* Specimen Type Cancelled Sample Site Cancelled pH Bicarbonate Actual POC Total CO2 Base Excess O2 Saturation O2 % Cancelled ABG pCO2 ABG pO2 Eloy Test VBG pH Cancelled VBG pH (Temp Correct) Cancelled VBG pCO2 (Temp Corrct Cancelled VBG pO2 Cancelled VBG O2 Sat (Calc) Cancelled VBG O2 Content Cancelled VBG Base Excess Cancelled POC Mix VBG pCO2 Pt Tmp Cancelled Respiration Rate Cancelled O2 Delivery Device Cancelled Liter Flow Cancelled Minute Volume Cancelled Vent Mode Tidal Volume Cancelled POC PEEP Cancelled POC Pressure Suppt Cancelled EPAP Cancelled IPAP Cancelled Blood Gas Notified Whom Cancelled Blood Gas Notified Time Cancelled Sodium Potassium Chloride Carbon Dioxide Anion Gap BUN Creatinine Estim Creat Clear Calc Est GFR (MDRD) Af Amer Est GFR (MDRD) Non-Af BUN/Creatinine Ratio Glucose Lactic Acid Calcium Ionized Calcium Phosphorus Magnesium Total Bilirubin AST ALT Alkaline Phosphatase Total Protein Albumin Globulin Albumin/Globulin Ratio Vancomycin Trough S.aureus Protein A PCR MRSA (PCR) POC Glucose 05/27/18 05/27/18 05/27/18 09:15 10:50 18:29 WBC RBC Hgb Hct MCV MCH MCHC RDW RDW Differential Plt Count MPV Immature Gran % (Auto) Neut % (Auto) Lymph % (Auto) Rusk % (Auto) Eos % (Auto) Baso % (Auto) Absolute Neuts (auto) Absolute Lymphs (auto) Total Counted Differential Comment Diff Path Review APTT Specimen Type Sample Site pH Bicarbonate Actual POC Total CO2 Base Excess O2 Saturation O2 % ABG pCO2 ABG pO2 Eloy Test VBG pH VBG pH (Temp Correct) VBG pCO2 (Temp Corrct VBG pO2 VBG O2 Sat (Calc) VBG O2 Content VBG Base Excess POC Mix VBG pCO2 Pt Tmp Respiration Rate O2 Delivery Device Liter Flow Minute Volume Vent Mode Tidal Volume POC PEEP POC Pressure Suppt EPAP IPAP Blood Gas Notified Whom Blood Gas Notified Time Sodium Potassium Chloride Carbon Dioxide Anion Gap BUN Creatinine Estim Creat Clear Calc Est GFR (MDRD) Af Amer Est GFR (MDRD) Non-Af BUN/Creatinine Ratio Glucose Lactic Acid Calcium Ionized Calcium Pending Phosphorus Magnesium Total Bilirubin AST ALT Alkaline Phosphatase Total Protein Albumin Globulin Albumin/Globulin Ratio Vancomycin Trough S.aureus Protein A PCR POSITIVE H MRSA (PCR) POSITIVE H POC Glucose 144 H 05/27/18 05/28/18 05/28/18 22:48 03:30 03:30 WBC 22.5 H RBC 4.78 Hgb 13.1 Hct 38.8 MCV 81.2 MCH 27.4 MCHC 33.8 RDW 16.6 H RDW Differential 48.8 H Plt Count 387 MPV 10.6 Immature Gran % (Auto) 0.600 Neut % (Auto) 90.9 H Lymph % (Auto) 2.8 L Rusk % (Auto) 5.5 Eos % (Auto) 0.1 Baso % (Auto) 0.1 Absolute Neuts (auto) 20.5 H Absolute Lymphs (auto) 0.62 L Total Counted Not Reportable Differential Comment Diff Path Review APTT Specimen Type Sample Site pH Bicarbonate Actual POC Total CO2 Base Excess O2 Saturation O2 % ABG pCO2 ABG pO2 Eloy Test VBG pH VBG pH (Temp Correct) VBG pCO2 (Temp Corrct VBG pO2 VBG O2 Sat (Calc) VBG O2 Content VBG Base Excess POC Mix VBG pCO2 Pt Tmp Respiration Rate O2 Delivery Device Liter Flow Minute Volume Vent Mode Tidal Volume POC PEEP POC Pressure Suppt EPAP IPAP Blood Gas Notified Whom Blood Gas Notified Time Sodium 138 Potassium 4.3 Chloride 104 Carbon Dioxide 22.0 Anion Gap 12 BUN 100 H Creatinine 1.40 H Estim Creat Clear Calc 30.42 Est GFR (MDRD) Af Amer 48 L Est GFR (MDRD) Non-Af 40 L BUN/Creatinine Ratio 71.4 H Glucose 104 Lactic Acid Calcium 7.6 L Ionized Calcium Phosphorus 3.7 Magnesium 2.6 Total Bilirubin 0.60 AST 19 ALT 11 L Alkaline Phosphatase 136 H Total Protein 5.1 L Albumin 1.5 L Globulin 3.6 Albumin/Globulin Ratio 0.4 L Vancomycin Trough S.aureus Protein A PCR MRSA (PCR) POC Glucose 131 H 05/28/18 05/28/18 05/28/18 03:30 03:30 06:37 WBC RBC Hgb Hct MCV MCH MCHC RDW RDW Differential Plt Count MPV Immature Gran % (Auto) Neut % (Auto) Lymph % (Auto) Rusk % (Auto) Eos % (Auto) Baso % (Auto) Absolute Neuts (auto) Absolute Lymphs (auto) Total Counted Differential Comment Diff Path Review APTT Specimen Type Sample Site pH Bicarbonate Actual POC Total CO2 Base Excess O2 Saturation O2 % ABG pCO2 ABG pO2 Eloy Test VBG pH VBG pH (Temp Correct) VBG pCO2 (Temp Corrct VBG pO2 VBG O2 Sat (Calc) VBG O2 Content VBG Base Excess POC Mix VBG pCO2 Pt Tmp Respiration Rate O2 Delivery Device Liter Flow Minute Volume Vent Mode Tidal Volume POC PEEP POC Pressure Suppt EPAP IPAP Blood Gas Notified Whom Blood Gas Notified Time Sodium Potassium Chloride Carbon Dioxide Anion Gap BUN Creatinine Estim Creat Clear Calc Est GFR (MDRD) Af Amer Est GFR (MDRD) Non-Af BUN/Creatinine Ratio Glucose Lactic Acid 1.4 Calcium Ionized Calcium Pending Phosphorus Magnesium Total Bilirubin AST ALT Alkaline Phosphatase Total Protein Albumin Globulin Albumin/Globulin Ratio Vancomycin Trough S.aureus Protein A PCR MRSA (PCR) POC Glucose 76 05/28/18 05/28/18 05/28/18 12:09 13:45 16:40 WBC RBC Hgb Hct MCV MCH MCHC RDW RDW Differential Plt Count MPV Immature Gran % (Auto) Neut % (Auto) Lymph % (Auto) Rusk % (Auto) Eos % (Auto) Baso % (Auto) Absolute Neuts (auto) Absolute Lymphs (auto) Total Counted Differential Comment Diff Path Review APTT Specimen Type ART Sample Site L Radial pH 7.50 H Bicarbonate Actual 18.4 L POC Total CO2 19 Base Excess -5 L O2 Saturation 96 O2 % 30 ABG pCO2 23.8 L ABG pO2 75 Eloy Test NA VBG pH VBG pH (Temp Correct) VBG pCO2 (Temp Corrct VBG pO2 VBG O2 Sat (Calc) VBG O2 Content VBG Base Excess POC Mix VBG pCO2 Pt Tmp Respiration Rate 14 O2 Delivery Device Vent Liter Flow Minute Volume 12.00 Vent Mode A-C Tidal Volume 450 POC PEEP 5 POC Pressure Suppt EPAP IPAP Blood Gas Notified Whom ICU MD Blood Gas Notified Time 1630 Sodium Potassium Chloride Carbon Dioxide Anion Gap BUN Creatinine Estim Creat Clear Calc Est GFR (MDRD) Af Amer Est GFR (MDRD) Non-Af BUN/Creatinine Ratio Glucose Lactic Acid Calcium Ionized Calcium Phosphorus Magnesium Total Bilirubin AST ALT Alkaline Phosphatase Total Protein Albumin Globulin Albumin/Globulin Ratio Vancomycin Trough 18.3 H S.aureus Protein A PCR MRSA (PCR) POC Glucose 140 H 05/28/18 05/28/18 18:04 23:20 WBC RBC Hgb Hct MCV MCH MCHC RDW RDW Differential Plt Count MPV Immature Gran % (Auto) Neut % (Auto) Lymph % (Auto) Rusk % (Auto) Eos % (Auto) Baso % (Auto) Absolute Neuts (auto) Absolute Lymphs (auto) Total Counted Differential Comment Diff Path Review APTT Specimen Type Sample Site pH Bicarbonate Actual POC Total CO2 Base Excess O2 Saturation O2 % ABG pCO2 ABG pO2 Eloy Test VBG pH VBG pH (Temp Correct) VBG pCO2 (Temp Corrct VBG pO2 VBG O2 Sat (Calc) VBG O2 Content VBG Base Excess POC Mix VBG pCO2 Pt Tmp Respiration Rate O2 Delivery Device Liter Flow Minute Volume Vent Mode Tidal Volume POC PEEP POC Pressure Suppt EPAP IPAP Blood Gas Notified Whom Blood Gas Notified Time Sodium Potassium Chloride Carbon Dioxide Anion Gap BUN Creatinine Estim Creat Clear Calc Est GFR (MDRD) Af Amer Est GFR (MDRD) Non-Af BUN/Creatinine Ratio Glucose Lactic Acid Calcium Ionized Calcium Phosphorus Magnesium Total Bilirubin AST ALT Alkaline Phosphatase Total Protein Albumin Globulin Albumin/Globulin Ratio Vancomycin Trough S.aureus Protein A PCR MRSA (PCR) POC Glucose 149 H 144 H Microbiology 05/27/18 09:15 Wound - Sacral Gram Stain - Final 05/27/18 09:15 Wound - Sacral Wound Culture - Preliminary Staphylococcus aureus Gram negative efrain 05/27/18 09:40 Sputum, Tracheal Aspirate Gram Stain - Final 05/27/18 09:40 Sputum, Tracheal Aspirate Respiratory Culture - Preliminary GNR Poss Pseudomonas sp 05/26/18 14:04 Urine, Catheterized Urine Culture - Preliminary GNR lactose cutter plastics rolls GNR lactose cutter plastics rolls#2 Clinical Impression(s) from Imaging Studies Chest X-Ray 05/26/18 11:57 IMPRESSION: No acute pulmonary process Electronically Signed: Brian Faye MD at 13:37 EDT , Service support , Chest X-Ray 05/26/18 16:20 IMPRESSION: Right IJ central venous catheter tip in the distal SVC. Lung sheets show no interval change since the previous study. Electronically Signed: Brian Faye MD at 17:03 EDT , Service support , Chest X-Ray 05/28/18 05:20 IMPRESSION: Stable examination. Electronically Signed: Delbert Moura MD at 9:29 EDT Tel [phone], Service support , Medical Necessity - Tobacco Use Smoking Status: Never smoker Tobacco Use: Non-smoker Assessment/Plan All Active Problems Septic shock (Acute) Chronic anticoagulation (Acute) MANUEL (acute kidney injury) (Acute) Sepsis (Acute) Altered mental status (Acute) Aspiration pneumonia (Acute) Pseudomonas urinary tract infection (Acute) Hypokalemia (Acute) MRSA pneumonia (Acute) Shortness of breath (Acute) Ulcer of heel (Acute) Fever (Acute) Acute and chronic respiratory failure (Acute) RECOMMENDATIONS: 1. Continue Levophed to maintain a mean arterial pressure at or above 65 mmHg. 2. Continue trach collar during the day and placed on ventilator nightly. Utilize outpatient trilogy settings with a Vt of 450 and rate of 14. 3. Continue broad-spectrum antimicrobials per infectious diseases recommendations 4. Electrolyte repletion as needed. 5. Patient to remain NPO, pending re-evaluation by speech therapy. 6. Continue dextrose containing supplemental IV fluids, until nutritional status can be advanced. IMPRESSIONS: 1. Septic shock Multiple potential sources of infection, including urine, sputum and soft tissue. Recommend continuing broad-spectrum antibiotics at this time. Cultures are currently pending. Infectious diseases is following. The patient did have recent cultures at the beginning of months with ESBL E. coli isolated from her urine and multidrug-resistant Pseudomonas isolated from a sputum culture. We will plan to continue gentle supplemental IV fluid hydration with half-normal saline plus potassium, given n.p.o. status. Levophed will be continued to maintain a mean arterial pressure at or above 65 mmHg. 2. Acute kidney injury Likely prerenal in etiology in the setting of #1. Anticipate improvement with volume expansion and stabilization of hemodynamics. The patient currently has a suprapubic catheter in place. Continue to monitor urine output. No current indication for renal replacement therapy at this time. 3. Chronic respiratory failure The patient has chronic respiratory failure. Per discussion with the nursing facility, the patient is on a trach collar throughout the day and is ventilated at night. She utilizes a trilogy with a tidal volume of 450 and a rate of 14 with the equivalent of a 6 L/min supplemental oxygen bleed. Changes will be made to the patient's current ventilator orders to reflect what she utilizes as an outpatient. 4. History of obstructive sleep apnea/alveolar hypoventilation with prior BiPAP noncompliance Continue current supportive measures as noted above with trach collar throughout the day and full ventilatory support at night. Would also recommend that the patient be placed on full mechanical ventilatory support with any naps throughout the day. 5. Baseline diaphragmatic weakness/restrictive airway disease/paraplegia/muscle spasms/paraplegia/history of Raynaud's/unintentional weight loss Complicates care, management, recovery and prognosis. It is unclear to me as to why the patient's PEG tube was removed in the first place. Her long-term facility reports that she has lost approximately 20 pounds over the last several months. Nutrition is currently following. Would recommend that speech therapy evaluate the patient prior to even considering advancement of her diet. TIME: 38 minutes of critical care time, independent of procedures, was spent addressing the patient's septic shock, acute kidney injury, hypokalemia, chronic respiratory failure, significant decubitus ulcerations, review of all data and collaboration with the care team. ([id number]) Code Visit [id number]: [id number] Critical care first hour
[2018-05-29 05:51] LABS: Bedside Glucose 150 mg/dL (70-110)
[2018-05-29] MEDS: Insulin Lispro 100 UNIT/ML INSULN.PEN SC ×3 (05:53→18:30)
--- NOTE | 2018-05-29 05:53 | PN_ITS ---
Subjective: The patient was seen and examined at the bedside this morning. Events from the last 24 hours have been reviewed. Speech therapy evaluated the patient yesterday and recommended that she remain n.p.o. until further evaluation can be completed over their concern for high risk of aspiration. No overnight events were noted by the nursing staff. The patient is more alert this morning. Despite being afebrile with improving leukocytosis, the patient remains on Levophed at 10 mcg. She is currently overall net +7.6 L for the admission. Objective: The patient's most recent lab work, culture data and imaging studies have all been personally reviewed. The surface echocardiogram was technically difficult with limited views obtained. However, there does appear to be normal left ventricular size and function. Tracheal aspirate revealed evidence of possible Pseudomonas. Wound culture was positive for staph aureus and a gram-negative efrain. Preliminary urine culture was positive for a gram-negative efrain. General: Alert, No apparent distress, - - Tolerating full mechanical ventilatory support currently. More alert than yesterday. HEENT: Atraumatic, PERRLA, Normocephalic Oral: No Gingival or Mucosal Lesions/ Ulcerations Neck: Supple, No Nodes, Trachea Midline, - - Tracheostomy site is C/D/I Lungs: No rhonchi, No wheeze, No rales, Diminished Cardiovascular: Normal S1, Normal S2, No murmurs, Tachycardic Abdomen: Soft, Non Tender, Non-Distended, - - Scabbing at previous PEG site Extremities: No clubbing, Cool, Cyanosis, Diminished Peripheral Pulses Skin: - - No significant change from previous. Musculoskeletal: No Tenderness to Palpation of Joints or Extremities Lymphatic: No Cervical, Supraclavicular, or Inguinal Adenopathy Neurological: - - Baseline paraplegia Psych/Mental Status: Flat Affect Vital Signs Temp Pulse Resp BP Pulse Ox 98.8 F 105 H 17 94/55 L 94 05/29/18 04:00 05/29/18 04:35 05/29/18 04:35 05/29/18 04:00 05/29/18 04:35 Oxygen Flow Rate (L/min) 4 Oxygen Delivery Method Mechanical Ventilator Weight: 186 lb 1.122 oz Body Mass Index (BMI) 31.6 Finger Stick Blood Glucose 213 Intake and Output for Last 24 Hours 05/27/18 05/28/18 05/29/18 23:59 23:59 23:59 Intake Total 3208 / 3208 5751 / 5751 Output Total 575 / 575 1335 / 1335 Balance 2633 / 2633 4416 / 4416 Labs (Last 48 Hours) 05/26/18 05/27/18 05/27/18 21:38 04:45 05:30 WBC RBC Hgb Hct MCV MCH MCHC RDW RDW Differential Plt Count MPV Immature Gran % (Auto) Neut % (Auto) Lymph % (Auto) Bent % (Auto) Eos % (Auto) Baso % (Auto) Absolute Neuts (auto) Absolute Lymphs (auto) Total Counted Differential Comment Diff Path Review Reviewed APTT > 250.0 H* Specimen Type Cancelled Sample Site Cancelled pH Bicarbonate Actual POC Total CO2 Base Excess O2 Saturation O2 % Cancelled ABG pCO2 ABG pO2 Eloy Test VBG pH Cancelled VBG pH (Temp Correct) Cancelled VBG pCO2 (Temp Corrct Cancelled VBG pO2 Cancelled VBG O2 Sat (Calc) Cancelled VBG O2 Content Cancelled VBG Base Excess Cancelled POC Mix VBG pCO2 Pt Tmp Cancelled Respiration Rate Cancelled O2 Delivery Device Cancelled Liter Flow Cancelled Minute Volume Cancelled Vent Mode Tidal Volume Cancelled POC PEEP Cancelled POC Pressure Suppt Cancelled EPAP Cancelled IPAP Cancelled Blood Gas Notified Whom Cancelled Blood Gas Notified Time Cancelled Sodium Potassium Chloride Carbon Dioxide Anion Gap BUN Creatinine Estim Creat Clear Calc Est GFR (MDRD) Af Amer Est GFR (MDRD) Non-Af BUN/Creatinine Ratio Glucose Lactic Acid Calcium Ionized Calcium Phosphorus Magnesium Total Bilirubin AST ALT Alkaline Phosphatase Total Protein Albumin Globulin Albumin/Globulin Ratio Vancomycin Trough S.aureus Protein A PCR MRSA (PCR) POC Glucose 05/27/18 05/27/18 05/27/18 09:15 10:50 18:29 WBC RBC Hgb Hct MCV MCH MCHC RDW RDW Differential Plt Count MPV Immature Gran % (Auto) Neut % (Auto) Lymph % (Auto) Bent % (Auto) Eos % (Auto) Baso % (Auto) Absolute Neuts (auto) Absolute Lymphs (auto) Total Counted Differential Comment Diff Path Review APTT Specimen Type Sample Site pH Bicarbonate Actual POC Total CO2 Base Excess O2 Saturation O2 % ABG pCO2 ABG pO2 Eloy Test VBG pH VBG pH (Temp Correct) VBG pCO2 (Temp Corrct VBG pO2 VBG O2 Sat (Calc) VBG O2 Content VBG Base Excess POC Mix VBG pCO2 Pt Tmp Respiration Rate O2 Delivery Device Liter Flow Minute Volume Vent Mode Tidal Volume POC PEEP POC Pressure Suppt EPAP IPAP Blood Gas Notified Whom Blood Gas Notified Time Sodium Potassium Chloride Carbon Dioxide Anion Gap BUN Creatinine Estim Creat Clear Calc Est GFR (MDRD) Af Amer Est GFR (MDRD) Non-Af BUN/Creatinine Ratio Glucose Lactic Acid Calcium Ionized Calcium Pending Phosphorus Magnesium Total Bilirubin AST ALT Alkaline Phosphatase Total Protein Albumin Globulin Albumin/Globulin Ratio Vancomycin Trough S.aureus Protein A PCR POSITIVE H MRSA (PCR) POSITIVE H POC Glucose 144 H 05/27/18 05/28/18 05/28/18 22:48 03:30 03:30 WBC 22.5 H RBC 4.78 Hgb 13.1 Hct 38.8 MCV 81.2 MCH 27.4 MCHC 33.8 RDW 16.6 H RDW Differential 48.8 H Plt Count 387 MPV 10.6 Immature Gran % (Auto) 0.600 Neut % (Auto) 90.9 H Lymph % (Auto) 2.8 L Bent % (Auto) 5.5 Eos % (Auto) 0.1 Baso % (Auto) 0.1 Absolute Neuts (auto) 20.5 H Absolute Lymphs (auto) 0.62 L Total Counted Not Reportable Differential Comment Diff Path Review APTT Specimen Type Sample Site pH Bicarbonate Actual POC Total CO2 Base Excess O2 Saturation O2 % ABG pCO2 ABG pO2 Eloy Test VBG pH VBG pH (Temp Correct) VBG pCO2 (Temp Corrct VBG pO2 VBG O2 Sat (Calc) VBG O2 Content VBG Base Excess POC Mix VBG pCO2 Pt Tmp Respiration Rate O2 Delivery Device Liter Flow Minute Volume Vent Mode Tidal Volume POC PEEP POC Pressure Suppt EPAP IPAP Blood Gas Notified Whom Blood Gas Notified Time Sodium 138 Potassium 4.3 Chloride 104 Carbon Dioxide 22.0 Anion Gap 12 BUN 100 H Creatinine 1.40 H Estim Creat Clear Calc 30.42 Est GFR (MDRD) Af Amer 48 L Est GFR (MDRD) Non-Af 40 L BUN/Creatinine Ratio 71.4 H Glucose 104 Lactic Acid Calcium 7.6 L Ionized Calcium Phosphorus 3.7 Magnesium 2.6 Total Bilirubin 0.60 AST 19 ALT 11 L Alkaline Phosphatase 136 H Total Protein 5.1 L Albumin 1.5 L Globulin 3.6 Albumin/Globulin Ratio 0.4 L Vancomycin Trough S.aureus Protein A PCR MRSA (PCR) POC Glucose 131 H 05/28/18 05/28/18 05/28/18 03:30 03:30 06:37 WBC RBC Hgb Hct MCV MCH MCHC RDW RDW Differential Plt Count MPV Immature Gran % (Auto) Neut % (Auto) Lymph % (Auto) Bent % (Auto) Eos % (Auto) Baso % (Auto) Absolute Neuts (auto) Absolute Lymphs (auto) Total Counted Differential Comment Diff Path Review APTT Specimen Type Sample Site pH Bicarbonate Actual POC Total CO2 Base Excess O2 Saturation O2 % ABG pCO2 ABG pO2 Eloy Test VBG pH VBG pH (Temp Correct) VBG pCO2 (Temp Corrct VBG pO2 VBG O2 Sat (Calc) VBG O2 Content VBG Base Excess POC Mix VBG pCO2 Pt Tmp Respiration Rate O2 Delivery Device Liter Flow Minute Volume Vent Mode Tidal Volume POC PEEP POC Pressure Suppt EPAP IPAP Blood Gas Notified Whom Blood Gas Notified Time Sodium Potassium Chloride Carbon Dioxide Anion Gap BUN Creatinine Estim Creat Clear Calc Est GFR (MDRD) Af Amer Est GFR (MDRD) Non-Af BUN/Creatinine Ratio Glucose Lactic Acid 1.4 Calcium Ionized Calcium Pending Phosphorus Magnesium Total Bilirubin AST ALT Alkaline Phosphatase Total Protein Albumin Globulin Albumin/Globulin Ratio Vancomycin Trough S.aureus Protein A PCR MRSA (PCR) POC Glucose 76 05/28/18 05/28/18 05/28/18 12:09 13:45 16:40 WBC RBC Hgb Hct MCV MCH MCHC RDW RDW Differential Plt Count MPV Immature Gran % (Auto) Neut % (Auto) Lymph % (Auto) Bent % (Auto) Eos % (Auto) Baso % (Auto) Absolute Neuts (auto) Absolute Lymphs (auto) Total Counted Differential Comment Diff Path Review APTT Specimen Type ART Sample Site L Radial pH 7.50 H Bicarbonate Actual 18.4 L POC Total CO2 19 Base Excess -5 L O2 Saturation 96 O2 % 30 ABG pCO2 23.8 L ABG pO2 75 Eloy Test NA VBG pH VBG pH (Temp Correct) VBG pCO2 (Temp Corrct VBG pO2 VBG O2 Sat (Calc) VBG O2 Content VBG Base Excess POC Mix VBG pCO2 Pt Tmp Respiration Rate 14 O2 Delivery Device Vent Liter Flow Minute Volume 12.00 Vent Mode A-C Tidal Volume 450 POC PEEP 5 POC Pressure Suppt EPAP IPAP Blood Gas Notified Whom ICU MD Blood Gas Notified Time 1630 Sodium Potassium Chloride Carbon Dioxide Anion Gap BUN Creatinine Estim Creat Clear Calc Est GFR (MDRD) Af Amer Est GFR (MDRD) Non-Af BUN/Creatinine Ratio Glucose Lactic Acid Calcium Ionized Calcium Phosphorus Magnesium Total Bilirubin AST ALT Alkaline Phosphatase Total Protein Albumin Globulin Albumin/Globulin Ratio Vancomycin Trough 18.3 H S.aureus Protein A PCR MRSA (PCR) POC Glucose 140 H 05/28/18 05/28/18 18:04 23:20 WBC RBC Hgb Hct MCV MCH MCHC RDW RDW Differential Plt Count MPV Immature Gran % (Auto) Neut % (Auto) Lymph % (Auto) Bent % (Auto) Eos % (Auto) Baso % (Auto) Absolute Neuts (auto) Absolute Lymphs (auto) Total Counted Differential Comment Diff Path Review APTT Specimen Type Sample Site pH Bicarbonate Actual POC Total CO2 Base Excess O2 Saturation O2 % ABG pCO2 ABG pO2 Eloy Test VBG pH VBG pH (Temp Correct) VBG pCO2 (Temp Corrct VBG pO2 VBG O2 Sat (Calc) VBG O2 Content VBG Base Excess POC Mix VBG pCO2 Pt Tmp Respiration Rate O2 Delivery Device Liter Flow Minute Volume Vent Mode Tidal Volume POC PEEP POC Pressure Suppt EPAP IPAP Blood Gas Notified Whom Blood Gas Notified Time Sodium Potassium Chloride Carbon Dioxide Anion Gap BUN Creatinine Estim Creat Clear Calc Est GFR (MDRD) Af Amer Est GFR (MDRD) Non-Af BUN/Creatinine Ratio Glucose Lactic Acid Calcium Ionized Calcium Phosphorus Magnesium Total Bilirubin AST ALT Alkaline Phosphatase Total Protein Albumin Globulin Albumin/Globulin Ratio Vancomycin Trough S.aureus Protein A PCR MRSA (PCR) POC Glucose 149 H 144 H Microbiology 05/27/18 09:15 Wound - Sacral Gram Stain - Final 05/27/18 09:15 Wound - Sacral Wound Culture - Preliminary Staphylococcus aureus Gram negative efrain 05/27/18 09:40 Sputum, Tracheal Aspirate Gram Stain - Final 05/27/18 09:40 Sputum, Tracheal Aspirate Respiratory Culture - Preliminary GNR Poss Pseudomonas sp 05/26/18 14:04 Urine, Catheterized Urine Culture - Preliminary GNR lactose real estate closer GNR lactose real estate closer#2 Clinical Impression(s) from Imaging Studies Chest X-Ray 05/26/18 11:57 IMPRESSION: No acute pulmonary process Electronically Signed: Brian Faye MD at 13:37 EDT , Service support , Chest X-Ray 05/26/18 16:20 IMPRESSION: Right IJ central venous catheter tip in the distal SVC. Lung sheets show no interval change since the previous study. Electronically Signed: Brian Faye MD at 17:03 EDT , Service support , Chest X-Ray 05/28/18 05:20 IMPRESSION: Stable examination. Electronically Signed: Delbert Moura MD at 9:29 EDT Tel [phone], Service support , Medical Necessity - Tobacco Use Smoking Status: Never smoker Tobacco Use: Non-smoker Assessment/Plan All Active Problems Septic shock (Acute) Chronic anticoagulation (Acute) MANUEL (acute kidney injury) (Acute) Sepsis (Acute) Altered mental status (Acute) Aspiration pneumonia (Acute) Pseudomonas urinary tract infection (Acute) Hypokalemia (Acute) MRSA pneumonia (Acute) Shortness of breath (Acute) Ulcer of heel (Acute) Fever (Acute) Acute and chronic respiratory failure (Acute) RECOMMENDATIONS: 1. Continue Levophed to maintain a mean arterial pressure at or above 65 mmHg. 2. Continue trach collar during the day and placed on ventilator nightly. Utilize outpatient trilogy settings with a Vt of 450 and rate of 14. 3. Continue broad-spectrum antimicrobials per infectious diseases recommendations 4. Electrolyte repletion as needed. 5. Patient to remain NPO, pending re-evaluation by speech therapy. 6. Continue dextrose containing supplemental IV fluids, until nutritional status can be advanced. IMPRESSIONS: 1. Septic shock Multiple potential sources of infection, including urine, sputum and soft tissue. Recommend continuing broad-spectrum antibiotics at this time. Cultures are currently pending. Infectious diseases is following. The patient did have recent cultures at the beginning of months with ESBL E. coli isolated from her urine and multidrug-resistant Pseudomonas isolated from a sputum culture. We will plan to continue gentle supplemental IV fluid hydration with half-normal saline plus potassium, given n.p.o. status. Levophed will be continued to maintain a mean arterial pressure at or above 65 mmHg. 2. Acute kidney injury Likely prerenal in etiology in the setting of #1. Anticipate improvement with volume expansion and stabilization of hemodynamics. The patient currently has a suprapubic catheter in place. Continue to monitor urine output. No current indication for renal replacement therapy at this time. 3. Chronic respiratory failure The patient has chronic respiratory failure. Per discussion with the nursing facility, the patient is on a trach collar throughout the day and is ventilated at night. She utilizes a trilogy with a tidal volume of 450 and a rate of 14 with the equivalent of a 6 L/min supplemental oxygen bleed. Changes will be made to the patient's current ventilator orders to reflect what she utilizes as an outpatient. 4. History of obstructive sleep apnea/alveolar hypoventilation with prior BiPAP noncompliance Continue current supportive measures as noted above with trach collar throughout the day and full ventilatory support at night. Would also recommend that the patient be placed on full mechanical ventilatory support with any naps throughout the day. 5. Baseline diaphragmatic weakness/restrictive airway disease/paraplegia/muscle spasms/paraplegia/history of Raynaud's/unintentional weight loss Complicates care, management, recovery and prognosis. It is unclear to me as to why the patient's PEG tube was removed in the first place. [facility] reports that she has lost approximately 20 pounds over the last several months. Nutrition is currently following. Would recommend that speech therapy evaluate the patient prior to even considering advancement of her diet. TIME: 38 minutes of critical care time, independent of procedures, was spent addressing the patient's septic shock, acute kidney injury, hypokalemia, chronic respiratory failure, significant decubitus ulcerations, review of all data and collaboration with the care team. ([id number]) Code Visit [id number]: [id number] Critical care first hour
[2018-05-29] MEDS: 0.9% NaCl Peripheral Flush Adult/Peds IV ×2 (05:54→20:55)
--- NOTE | 2018-05-29 05:55 | RAD_ITS ---
STUDY: X-RAY CHEST REASON FOR EXAM: Female, 67 years old. Shortness of breath TECHNIQUE: 1 view COMPARISON: May 27, 2018 FINDINGS: A tracheostomy tube remains in place. A central line through the right internal jugular vein has its tip at the cavoatrial junction. There is no acute pneumonia or failure. The heart is within normal limits in size. There is blunting of the left costophrenic angle.. Normal visualized thoracic spine. Normal visualized ribs, clavicles, and shoulders. There is no demonstrated abnormality of the visualized soft tissue structures of the upper abdomen. RAD/Chest 1 View (Portable) IMPRESSION: No acute findings in the lungs. Blunting of the left costophrenic angle. Electronically Signed: Adrien Ma MD at 7:16 EDT Tel , Service support ,
[2018-05-29] MEDS: Potassium Chloride 40 MEQ in Dext 5%-0.45% NS 1,000 ML 150 MEQ IV ×3 (06:44→20:47)
[2018-05-29] MEDS: Alteplase 2 MG/2 ML Vial IV (06:44)
[2018-05-29] MEDS: Ipratropium/Albuterol Sulfate 3 ML AMPUL.NEB INHALATION ×3 (06:55→19:05)
[2018-05-29 08:41] LABS: Absolute Lymphocyte Count 1.17 X10^3/ul (0.83-4.51); Absolute Neutrophil Count 15.5 X10^3/uL (2.0-7.7); Basophil# 0.02 X10^3/uL; Basophil% 0.1 % (0-1); Eosinophil# 0.18 X10^3/uL; Hematocrit 33.3 % (37-47); Hemoglobin 11.1 g/dl (12.0-15.0); Lymphocyte # 1.17 X10^3/ul (4.0); Lymphocyte % 6.3 % (19-41); Mean Corp Hgb Conc 33.3 g/gl (32-36); Mean Corpuscular Hgb 27.3 pg (27.0-32.0); Monocyte# 1.48 X10^3/uL; Neutrophil % 83.4 % (47-70); Platelet Count 264 K/mm3 (150-450); RBC Distribution Width CV 16.8 % (11.6-14.6); RBC Distribution Width SD 50.3 fl (35.1-43.9); Red Blood Count 4.06 M/mm3 (4.2-5.4); White Blood Count 18.6 K/mm3 (4.4-11.0)
[2018-05-29 08:47] LABS: POSITIVE COUNT NO; POSITIVE DIFFERENTIAL NO; POSITIVE MORPHOLOGY NO
[2018-05-29 08:50] LABS: ALB/GLOB Ratio 0.4 RATIO (0.9-2.4); AST(SGOT) 13 U/L (15-37); Alanine Aminotransfer ALT/SGPT 9 U/L (13-56); Albumin, Serum 1.3 g/dL (3.2-5.0); Alkaline Phosphatase 110 U/L (45-117); Anion Gap 10 (5-15); BUN 76 mg/dL (7-18); BUN/Creat Ratio 70.4 RATIO (10-20); Calcium,Total 7.4 mg/dL (8.5-10.1); Chloride 108 mmol/L (98-107); Creatinine, Serum 1.08 mg/dL (0.55-1.02); EST Glomerular Filtration Rate 54 mL/min (>60); Est Glom Filt Rate - Afr Amer 65 mL/min (>60); Estimated Creatinine Clearance 39.43 ml/min; Globulin 3.4 g/dL (2.2-4.2); Glucose 151 mg/dL (74-106); Magnesium 2.2 mg/dL (1.6-2.6); Protein, Total 4.7 g/dL (6.4-8.2); Sodium Level 138 mmol/L (136-145)
[2018-05-29 08:51] LABS: Phosphorus 2.5 mg/dL (2.5-4.9)
[2018-05-29] MEDS: Chlorhexidine 15 ML PO ×2 (09:55→21:35)
--- NOTE | 2018-05-29 11:22 | CPS ---
Changed Pt to 28% venturi mask.
--- NOTE | 2018-05-29 13:29 | PCM.PN.HOSP ---
Patient Problems: Active and Suspected Problems Septic shock (Acute) Chronic anticoagulation (Acute) MANUEL (acute kidney injury) (Acute) Altered mental status (Acute) Hypokalemia (Acute) Subjective: Patient is a 67-year-old white female with known history of paraplegia secondary to syrinx, chronic respiratory failure with trach and PEG but has been reversed, recurrent aspirations previously on mechanical soft, suprapubic catheter, evidence of ulcer, chronic acquired lymphedema, restrictive airway disease, ADHD, sleep apnea, incontinence of feces in urine, hyperlipidemia, pulmonary fibrosis who presented to the hospital yesterday evening seem to be in sepsis secondary to urinary cause and was placed on Levophed Unfortunately patient is still requiring Levophed to keep blood pressure up. He is still not able to swallow, have initiated TPN, spoke to Dr. Hale given patient's history of prior PEG tube placement may need to transfer to this facility has gastroenterology for PEG tube placement. Patient is white count is continued to go down. I would like to speak to family before initiation of feeding tubes however family was here left. Patient unable to give any complaints at this time due to mental status and severity of medical problems Vitals/I&O's: Vital Signs Temp Pulse Resp BP Pulse Ox 97.0 F L 112 H 28 H 111/42 L 93 05/29/18 12:15 05/29/18 13:00 05/29/18 13:00 05/29/18 13:00 05/29/18 13:00 Oxygen Flow Rate (L/min) 4 Oxygen Delivery Method Trach Collar Weight: 84.4 kg Body Mass Index (BMI) 31.6 Finger Stick Blood Glucose 213 Intake and Output for Last 24 Hours 05/27/18 05/28/18 05/29/18 23:59 23:59 23:59 Intake Total 3208 / 3208 5751 / 5751 2484 / 2484 Output Total 575 / 575 1335 / 1335 750 / 750 Balance 2633 / 2633 4416 / 4416 1734 / 1734 General: Confused, Disoriented, Non-Cooperative HEENT: Atraumatic, PERRLA, EOMI Oral: No Gingival or Mucosal Lesions/ Ulcerations, Dry Mucosa Neck: No JVD, Trachea Midline, - - Positive trach tube, and central line Lungs: No rhonchi, No wheeze, Diminished - Breath sounds Cardiovascular: Normal S1, Normal S2, Tachycardic Abdomen: Soft, Non Tender, Non-Distended, - - Scab over previous PEG Extremities: No clubbing, Cool, Cyanosis, Edema, - - Color change of the lower extremities Skin: Ulcer/ Wound - Wound care, - - Multiple areas es please see wound care notes Musculoskeletal: No Tenderness to Palpation of Joints or Extremities, Cachexia Lymphatic: No Cervical, Supraclavicular, or Inguinal Adenopathy Neurological: - - She is a paraplegic with chronic trach Psych/Mental Status: Flat Affect Microbiology Past 72 Hours 05/27/18 09:15 Wound - Sacral Gram Stain - Final 05/27/18 09:15 Wound - Sacral Wound Culture - Preliminary Staphylococcus aureus Gram negative efrain GNR lactose vp cardiovascular service line 05/27/18 09:15 Wound - Sacral Anaerobic Culture - Preliminary Checking for anaerobes, further studies to follow. 05/27/18 09:40 Sputum, Tracheal Aspirate Gram Stain - Final 05/27/18 09:40 Sputum, Tracheal Aspirate Respiratory Culture - Preliminary Burkholderia cepacia Staphylococcus aureus Gram positive organism 05/26/18 14:04 Urine, Catheterized Urine Culture - Preliminary Escherichia coli#2 Escherichia coli Laboratory Results 05/27/18 09:15: S.aureus Protein A PCR POSITIVE H, MRSA (PCR) POSITIVE H 05/27/18 10:50: Ionized Calcium 4.8 05/28/18 13:45: Vancomycin Trough 18.3 H 05/28/18 16:40: Specimen Type ART, Sample Site L Radial, pH 7.50 H, Bicarbonate Actual 18.4 L, POC Total CO2 19, Base Excess -5 L, O2 Saturation 96, O2 % 30, ABG pCO2 23.8 L, ABG pO2 75, Eloy Test NA, Respiration Rate 14, O2 Delivery Device Vent, Minute Volume 12.00, Vent Mode A-C, Tidal Volume 450, POC PEEP 5, Blood Gas Notified Whom ICU , Blood Gas Notified Time 1630 05/28/18 18:04: POC Glucose 149 H 05/28/18 23:20: POC Glucose 144 H 05/29/18 05:37: POC Glucose 150 H 05/29/18 08:15: WBC 18.6 H, RBC 4.06 L, Hgb 11.1 L, Hct 33.3 L, MCV 82.0, MCH 27.3, MCHC 33.3, RDW 16.8 H, RDW Differential 50.3 H, Plt Count 264, MPV 10.0, Immature Gran % (Auto) 1.200 H, Neut % (Auto) 83.4 H, Lymph % (Auto) 6.3 L, [place] % (Auto) 8.0, Eos % (Auto) 1.0, Baso % (Auto) 0.1, Absolute Neuts (auto) 15.5 H, Absolute Lymphs (auto) 1.17, Total Counted Not Reportable 05/29/18 08:15: Sodium 138, Potassium 4.0, Chloride 108 H, Carbon Dioxide 20.0 L, Anion Gap 10, BUN 76 H, Creatinine 1.08 H, Estim Creat Clear Calc 39.43, Est GFR (MDRD) Af Amer 65, Est GFR (MDRD) Non-Af 54 L, BUN/Creatinine Ratio 70.4 H, Glucose 151 H, Calcium 7.4 L, Magnesium 2.2, Total Bilirubin 0.50, AST 13 L, ALT 9 L, Alkaline Phosphatase 110, Total Protein 4.7 L, Albumin 1.3 L, Globulin 3.4, Albumin/Globulin Ratio 0.4 L 05/29/18 08:15: Phosphorus 2.5 Current Medications Albuterol Sulfate (Ventolin Aerosols) 2.5 mg INHALATION Q4H PRN PRN PRN Reason: SOB &/OR WHEEZING Albuterol/Ipratropium (Duoneb) 3 ml INHALATION Q6HWA.RT [facility] Last Admin: 05/29/18 06:55 Dose: 3 ml Bisacodyl (Dulcolax) 10 mg RECTAL DAILY PRN PRN Reason: Constipation Chlorhexidine Gluconate () 15 ml PO BID [facility] Last Admin: 05/29/18 09:55 Dose: 15 ml Chlorhexidine Gluconate () 1 each TOPICAL DAILY [facility] Last Admin: 05/29/18 05:48 Dose: 1 each Heparin Sodium (Porcine) (Heparin Na) 5,000 unit SC Q8 [facility] Last Admin: 05/29/18 05:48 Dose: 5,000 unit Vancomycin IV Pharmacy to Dose (1 ea/ Sodium Chloride) 500 mls @ 250 mls/hr IV PRN PRN; Protocol PRN Reason: Rx to Dose Vancomycin HCl 750 mg/ Sodium (Chloride) 265 mls @ 250 mls/hr IV Q24H [facility] Last Admin: 05/28/18 15:54 Dose: 250 mls/hr Pantoprazole Sodium 40 mg/ (Sodium Chloride) 110 mls @ 330 mls/hr IV Q12 [facility] Last Admin: 05/29/18 10:03 Dose: 330 mls/hr Norepinephrine Bitartrate 8 mg (/ Dextrose) 258 mls @ 9.68 mls/hr IV .[id number] [facility] Last Admin: 05/29/18 06:44 Dose: 9.68 mls/hr Meropenem 500 mg/ Sodium (Chloride) 60 mls @ 100 mls/hr IV Q8 [facility] Last Admin: 05/29/18 05:54 Dose: 100 mls/hr Potassium Chloride 40 meq/ (Dextrose/Sodium Chloride) 1,020 mls @ 150 mls/hr IV .[id number] [facility] Last Admin: 05/29/18 06:44 Dose: 150 mls/hr Sodium Chloride () 250 mls @ 15 mls/hr IV .[id number] PRN PRN Reason: SALINE FLUSH Last Admin: 05/28/18 23:30 Dose: 15 mls/hr Insulin Human Lispro (Humalog Kwikpen (Bkc)) 0 unit SC Q6 [facility]; Protocol Last Admin: 05/29/18 12:09 Dose: 1 u Nystatin (Mycostatin Powder) 1 applic TOPICAL BID [facility]; Protocol Last Admin: 05/29/18 12:09 Dose: Not Given Sodium Chloride () 5 - 30 ml IV UD PRN PRN Reason: SALINE FLUSH Last Admin: 05/29/18 05:54 Dose: 30 ml Medical Necessity - Tobacco Use Smoking Status: Never smoker Tobacco Use: Non-smoker Assessment/Plan All Active Problems Septic shock (Acute) Chronic anticoagulation (Acute) MANUEL (acute kidney injury) (Acute) Sepsis (Acute) Altered mental status (Acute) Aspiration pneumonia (Acute) Pseudomonas urinary tract infection (Acute) Hypokalemia (Acute) MRSA pneumonia (Acute) Shortness of breath (Acute) Ulcer of heel (Acute) Fever (Acute) Acute and chronic respiratory failure (Acute) Altered mental status (Acute) There is a metabolic encephalopathy secondary medical conditions. Patient is very lethargic still decent medical illnesses, will start TPN for nutrition then discontinue IV fluids. Will need to have a discussion with the family whether PEG tube or feeding tube which should be initiated again. May have to transfer her for this as unclear if surgeons will want to do this after patient already had previous PEG tube Hypokalemia (Acute) Repleted, we need to monitor. Sepsis (Acute) Patient is still in septic shock, currently on Merrem and vancomycin, and Levophed. Patient's leukocytosis continues to fall, patient has ESBL, that is sensitive to meropenem, will continue current medications, will hold off on gentamicin, monitor response. Appreciate ID and pulmonaryWound care consulted Acute and chronic respiratory failure (Acute) Multiple reasons for shortness of breath including paraplegia, With diaphragmatic weakness and restrictive airway disease. Currently on and off again the ventilation as per pulmonary Urinary tract infection Patient has had chronic urinary tract infection and seems to have a leaking suprapubic catheter, has been changed, continue current antibiotics positive for ESBL and is sensitive to Chronic anticoagulation Patient appears to be on Eliquis as an outpatient, currently on subcutaneous heparin, Recent echocardiogram shows a poor study, normal left ventricular size wall motion, however unable to look at diastolic dysfunction Acute kidney injury Patient positive approximately 7 L, kidney function continues to improve, will hold off on giving any more fluids DVT prophylaxis currently on heparin CODE STATUS full GI prophylaxis on IV PPI Nutrition currently n.p.o., unfortunately patient has failed speech and swallow again, have not been able to talk to family about nutrition/feeding tube, will initiate TPN and discontinue. CODE STATUS full Disposition patient will be maintained in the ICU while on drips and vented Chart is dictated with engine boss software. Errors may occur in dictation that may change providers meaning. This note was generated with [employer] dictation software. It may contain incorrect words, spelling, and punctuation that were not noted in checking the note before signing. Code Visit Inpatient E&M: 92191 Init Hosp L3
--- NOTE | 2018-05-29 13:34 | PN_ITS ---
Patient Problems: Active and Suspected Problems Septic shock (Acute) Chronic anticoagulation (Acute) MANUEL (acute kidney injury) (Acute) Altered mental status (Acute) Hypokalemia (Acute) Subjective: Patient is a 67-year-old white female with known history of paraplegia secondary to syrinx, chronic respiratory failure with trach and PEG but has been reversed, recurrent aspirations previously on mechanical soft, suprapubic catheter, evidence of ulcer, chronic acquired lymphedema, restrictive airway disease, ADHD, sleep apnea, incontinence of feces in urine, hyperlipidemia, pulmonary fibrosis who presented to the hospital yesterday evening seem to be in sepsis secondary to urinary cause and was placed on Levophed Unfortunately patient is still requiring Levophed to keep blood pressure up. He is still not able to swallow, have initiated TPN, spoke to Dr. Hale given patient's history of prior PEG tube placement may need to transfer to this facility has gastroenterology for PEG tube placement. Patient is white count is continued to go down. I would like to speak to family before initiation of feeding tubes however family was here left. Patient unable to give any complaints at this time due to mental status and severity of medical problems Vitals/I&O's: Vital Signs Temp Pulse Resp BP Pulse Ox 97.0 F L 112 H 28 H 111/42 L 93 05/29/18 12:15 05/29/18 13:00 05/29/18 13:00 05/29/18 13:00 05/29/18 13:00 Oxygen Flow Rate (L/min) 4 Oxygen Delivery Method Trach Collar Weight: 84.4 kg Body Mass Index (BMI) 31.6 Finger Stick Blood Glucose 213 Intake and Output for Last 24 Hours 05/27/18 05/28/18 05/29/18 23:59 23:59 23:59 Intake Total 3208 / 3208 5751 / 5751 2484 / 2484 Output Total 575 / 575 1335 / 1335 750 / 750 Balance 2633 / 2633 4416 / 4416 1734 / 1734 General: Confused, Disoriented, Non-Cooperative HEENT: Atraumatic, PERRLA, EOMI Oral: No Gingival or Mucosal Lesions/ Ulcerations, Dry Mucosa Neck: No JVD, Trachea Midline, - - Positive trach tube, and central line Lungs: No rhonchi, No wheeze, Diminished - Breath sounds Cardiovascular: Normal S1, Normal S2, Tachycardic Abdomen: Soft, Non Tender, Non-Distended, - - Scab over previous PEG Extremities: No clubbing, Cool, Cyanosis, Edema, - - Color change of the lower extremities Skin: Ulcer/ Wound - Wound care, - - Multiple areas es please see wound care notes Musculoskeletal: No Tenderness to Palpation of Joints or Extremities, Cachexia Lymphatic: No Cervical, Supraclavicular, or Inguinal Adenopathy Neurological: - - She is a paraplegic with chronic trach Psych/Mental Status: Flat Affect Microbiology Past 72 Hours 05/27/18 09:15 Wound - Sacral Gram Stain - Final 05/27/18 09:15 Wound - Sacral Wound Culture - Preliminary Staphylococcus aureus Gram negative efrain GNR lactose box nailer 05/27/18 09:15 Wound - Sacral Anaerobic Culture - Preliminary Checking for anaerobes, further studies to follow. 05/27/18 09:40 Sputum, Tracheal Aspirate Gram Stain - Final 05/27/18 09:40 Sputum, Tracheal Aspirate Respiratory Culture - Preliminary Burkholderia cepacia Staphylococcus aureus Gram positive organism 05/26/18 14:04 Urine, Catheterized Urine Culture - Preliminary Escherichia coli#2 Escherichia coli Laboratory Results 05/27/18 09:15: S.aureus Protein A PCR POSITIVE H, MRSA (PCR) POSITIVE H 05/27/18 10:50: Ionized Calcium 4.8 05/28/18 13:45: Vancomycin Trough 18.3 H 05/28/18 16:40: Specimen Type ART, Sample Site L Radial, pH 7.50 H, Bicarbonate Actual 18.4 L, POC Total CO2 19, Base Excess -5 L, O2 Saturation 96, O2 % 30, ABG pCO2 23.8 L, ABG pO2 75, Eloy Test NA, Respiration Rate 14, O2 Delivery Device Vent, Minute Volume 12.00, Vent Mode A-C, Tidal Volume 450, POC PEEP 5, Blood Gas Notified Whom ICU , Blood Gas Notified Time 1630 05/28/18 18:04: POC Glucose 149 H 05/28/18 23:20: POC Glucose 144 H 05/29/18 05:37: POC Glucose 150 H 05/29/18 08:15: WBC 18.6 H, RBC 4.06 L, Hgb 11.1 L, Hct 33.3 L, MCV 82.0, MCH 2 7.3, MCHC 33.3, RDW 16.8 H, RDW Differential 50.3 H, Plt Count 264, MPV 10.0, Immature Gran % (Auto) 1.200 H, Neut % (Auto) 83.4 H, Lymph % (Auto) 6.3 L, [place] % (Auto) 8.0, Eos % (Auto) 1.0, Baso % (Auto) 0.1, Absolute Neuts (auto) 15.5 H, Absolute Lymphs (auto) 1.17, Total Counted Not Reportable 05/29/18 08:15: Sodium 138, Potassium 4.0, Chloride 108 H, Carbon Dioxide 20.0 L , Anion Gap 10, BUN 76 H, Creatinine 1.08 H, Estim Creat Clear Calc 39.43, Est GFR (MDRD) Af Amer 65, Est GFR (MDRD) Non-Af 54 L, BUN/Creatinine Ratio 70.4 H, Glucose 151 H, Calcium 7.4 L, Magnesium 2.2, Total Bilirubin 0.50, AST 13 L, ALT 9 L, Alkaline Phosphatase 110, Total Protein 4.7 L, Albumin 1.3 L, Globulin 3.4, Albumin/Globulin Ratio 0.4 L 05/29/18 08:15: Phosphorus 2.5 Current Medications Albuterol Sulfate (Ventolin Aerosols) 2.5 mg INHALATION Q4H PRN PRN PRN Reason: SOB &/OR WHEEZING Albuterol/Ipratropium (Duoneb) 3 ml INHALATION Q6HWA.RT [facility] Last Admin: 05/29/18 06:55 Dose: 3 ml Bisacodyl (Dulcolax) 10 mg RECTAL DAILY PRN PRN Reason: Constipation Chlorhexidine Gluconate () 15 ml PO BID [facility] Last Admin: 05/29/18 09:55 Dose: 15 ml Chlorhexidine Gluconate () 1 each TOPICAL DAILY [facility] Last Admin: 05/29/18 05:48 Dose: 1 each Heparin Sodium (Porcine) (Heparin Na) 5,000 unit SC Q8 [facility] Last Admin: 05/29/18 05:48 Dose: 5,000 unit Vancomycin IV Pharmacy to Dose (1 ea/ Sodium Chloride) 500 mls @ 250 mls/hr IV PRN PRN; Protocol PRN Reason: Rx to Dose Vancomycin HCl 750 mg/ Sodium (Chloride) 265 mls @ 250 mls/hr IV Q24H [facility] Last Admin: 05/28/18 15:54 Dose: 250 mls/hr Pantoprazole Sodium 40 mg/ (Sodium Chloride) 110 mls @ 330 mls/hr IV Q12 [facility] Last Admin: 05/29/18 10:03 Dose: 330 mls/hr Norepinephrine Bitartrate 8 mg (/ Dextrose) 258 mls @ 9.68 mls/hr IV .[id number] [facility] Last Admin: 05/29/18 06:44 Dose: 9.68 mls/hr Meropenem 500 mg/ Sodium (Chloride) 60 mls @ 100 mls/hr IV Q8 [facility] Last Admin: 05/29/18 05:54 Dose: 100 mls/hr Potassium Chloride 40 meq/ (Dextrose/Sodium Chloride) 1,020 mls @ 150 mls/hr IV .[id number] [facility] Last Admin: 05/29/18 06:44 Dose: 150 mls/hr Sodium Chloride () 250 mls @ 15 mls/hr IV .[id number] PRN PRN Reason: SALINE FLUSH Last Admin: 05/28/18 23:30 Dose: 15 mls/hr Insulin Human Lispro (Humalog Kwikpen (Bkc)) 0 unit SC Q6 [facility]; Protocol Last Admin: 05/29/18 12:09 Dose: 1 u Nystatin (Mycostatin Powder) 1 applic TOPICAL BID [facility]; Protocol Last Admin: 05/29/18 12:09 Dose: Not Given Sodium Chloride () 5 - 30 ml IV UD PRN PRN Reason: SALINE FLUSH Last Admin: 05/29/18 05:54 Dose: 30 ml Medical Necessity - Tobacco Use Smoking Status: Never smoker Tobacco Use: Non-smoker Assessment/Plan All Active Problems Septic shock (Acute) Chronic anticoagulation (Acute) MANUEL (acute kidney injury) (Acute) Sepsis (Acute) Altered mental status (Acute) Aspiration pneumonia (Acute) Pseudomonas urinary tract infection (Acute) Hypokalemia (Acute) MRSA pneumonia (Acute) Shortness of breath (Acute) Ulcer of heel (Acute) Fever (Acute) Acute and chronic respiratory failure (Acute) Altered mental status (Acute) There is a metabolic encephalopathy secondary medical conditions. Patient is very lethargic still decent medical illnesses, will start TPN for nutrition then discontinue IV fluids. Will need to have a discussion with the family whether PEG tube or feeding tube which should be initiated again. May have to transfer her for this as unclear if surgeons will want to do this after patient already had previous PEG tube Hypokalemia (Acute) Repleted, we need to monitor. Sepsis (Acute) Patient is still in septic shock, currently on Merrem and vancomycin, and Levophed. Patient's leukocytosis continues to fall, patient has ESBL, that is sensitive to meropenem, will continue current medications, will hold off on gentamicin, monitor response. Appreciate ID and pulmonaryWound care consulted Acute and chronic respiratory failure (Acute) Multiple reasons for shortness of breath including paraplegia, With diaphragmatic weakness and restrictive airway disease. Currently on and off again the ventilation as per pulmonary Urinary tract infection Patient has had chronic urinary tract infection and seems to have a leaking suprapubic catheter, has been changed, continue current antibiotics positive for ESBL and is sensitive to Chronic anticoagulation Patient appears to be on Eliquis as an outpatient, currently on subcutaneous heparin, Recent echocardiogram shows a poor study, normal left ventricular size wall motion, however unable to look at diastolic dysfunction Acute kidney injury Patient positive approximately 7 L, kidney function continues to improve, will hold off on giving any more fluids DVT prophylaxis currently on heparin CODE STATUS full GI prophylaxis on IV PPI Nutrition currently n.p.o., unfortunately patient has failed speech and swallow again, have not been able to talk to family about nutrition/feeding tube, will initiate TPN and discontinue. CODE STATUS full Disposition patient will be maintained in the ICU while on drips and vented Chart is dictated with scoop filler software. Errors may occur in dictation that may change providers meaning. This note was generated with [employer] dictation software. It may contain incorrect words, spelling, and punctuation that were not noted in checking the note before signing. Code Visit Inpatient E&M: 46373 Init Hosp L3
[2018-05-29 14:31] LABS: Bedside Glucose 159 mg/dL (70-110)
[2018-05-29] MEDS: Nystatin Powder 15gm Bottle 1 APPLIC TOPICAL ×2 (15:00→21:36)
[2018-05-29 18:41] LABS: Bedside Glucose 169 mg/dL (70-110)
[2018-05-30] VITALS (64 sets, daily range): BP systolic 71–136; BP diastolic 20–100; PULSE 102–141; RESP 14–29; TEMP 36.6–37.6; O2SAT 30–99
[2018-05-30] MEDS: Insulin Lispro 100 UNIT/ML INSULN.PEN SC ×2 (00:12→12:15)
[2018-05-30 00:26] LABS: Bedside Glucose 157 mg/dL (70-110)
[2018-05-30] MEDS: CHLORHEXIDINE GLUC 2% CLOTH 1 EACH TOWELETTE TOPICAL (01:20)
[2018-05-30] MEDS: Ipratropium/Albuterol Sulfate 3 ML AMPUL.NEB INHALATION ×4 (01:50→18:35)
[2018-05-30] MEDS: Potassium Chloride 40 MEQ in Dext 5%-0.45% NS 1,000 ML 150 MEQ IV (03:32)
[2018-05-30] MEDS: 0.9% NaCl Peripheral Flush Adult/Peds IV (03:37)
[2018-05-30 04:16] LABS: Absolute Lymphocyte Count 1.36 X10^3/ul (0.83-4.51); Absolute Neutrophil Count 19.2 X10^3/uL (2.0-7.7); Eosinophils% 1.1 % (0-5); Hematocrit 33.4 % (37-47); Lymphocyte # 1.36 X10^3/ul (4.0); Lymphocyte % 6.1 % (19-41); Mean Corp Hgb Conc 32.9 g/gl (32-36); Mean Corpuscular Hgb 27.5 pg (27.0-32.0); Mean Corpuscular Volume 83.5 fL (81-99); Mean Platelet Vol. 9.9 fl (6.2-12.0); Monocyte% 5.3 % (0-10); Neutrophil # 19.16 X10^3/uL (2.7-7.7); Neutrophil % 85.5 % (47-70); POSITIVE COUNT YES; POSITIVE DIFFERENTIAL NO; POSITIVE MORPHOLOGY YES; Platelet Count 243 K/mm3 (150-450); RBC Distribution Width CV 16.9 % (11.6-14.6); RBC Distribution Width SD 51.5 fl (35.1-43.9); White Blood Count 22.4 K/mm3 (4.4-11.0)
[2018-05-30 04:17] LABS: Basophil# 0.01 X10^3/uL; Eosinophil# 0.25 X10^3/uL; Monocyte# 1.18 X10^3/uL
[2018-05-30 04:42] LABS: ALB/GLOB Ratio 0.4 RATIO (0.9-2.4); AST(SGOT) 8 U/L (15-37); Alanine Aminotransfer ALT/SGPT 8 U/L (13-56); Albumin, Serum 1.3 g/dL (3.2-5.0); Alkaline Phosphatase 109 U/L (45-117); Anion Gap 9 (5-15); BUN 56 mg/dL (7-18); BUN/Creat Ratio 70.2 RATIO (10-20); Calcium,Total 7.6 mg/dL (8.5-10.1); Chloride 110 mmol/L (98-107); EST Glomerular Filtration Rate 76 mL/min (>60); Est Glom Filt Rate - Afr Amer 92 mL/min (>60); Estimated Creatinine Clearance 53.23 ml/min; Globulin 3.3 g/dL (2.2-4.2); Glucose 166 mg/dL (74-106); Potassium 3.9 mmol/L (3.5-5.1); Protein, Total 4.6 g/dL (6.4-8.2); Sodium Level 140 mmol/L (136-145)
[2018-05-30] MEDS: Heparin Injection (Vial) 5,000 UNIT/ML VIAL 5000 UNIT SC ×3 (04:56→21:26)
[2018-05-30 05:16] LABS: Bedside Glucose 132 mg/dL (70-110)
--- NOTE | 2018-05-30 05:56 | PCM.PN.INT ---
Subjective: The patient was seen and examined at the bedside this morning. Events from the last 24 hours have been reviewed. Although the patient is afebrile, she remains on Levophed at 12 mcg to maintain hemodynamic stability. She is currently overall net +10 L for the admission. 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 The patient's diet has been unable to be advanced by speech therapy over concerns that she may aspirate. I did speak with general surgery this morning, who indicated that they would be able to reinsert the patient's PEG tube during her hospitalization. Objective: The patient's most recent lab work, culture data and imaging studies have all been personally reviewed. 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 Wound culture was positive for staph aureus and a gram-negative efrain. Urine culture was positive for E. coli. General: Alert, Cooperative, No apparent distress, - - Currently tolerating assist control. CAM is negative. HEENT: Atraumatic, PERRLA, Normocephalic Oral: No Gingival or Mucosal Lesions/ Ulcerations Neck: Supple, No Nodes, Trachea Midline, - - Tracheostomy site is C/D/I Lungs: No wheeze, No rales, Diminished, Rhonchi Cardiovascular: Normal S1, Normal S2, No murmurs, Tachycardic Abdomen: Soft, Non Tender, Hypoactive Bowel Sounds, - - Scabbing at prior PEG tube insertion site. Suprapubic catheter in place Extremities: No clubbing, Cool, Diminished Peripheral Pulses, Edema Skin: - - No significant change from that previously documented. Musculoskeletal: No Tenderness to Palpation of Joints or Extremities Lymphatic: No Cervical, Supraclavicular, or Inguinal Adenopathy Neurological: - - Baseline paraplegia Psych/Mental Status: Flat Affect Vital Signs Temp Pulse Resp BP Pulse Ox 97.8 F 109 H 19 H 99/56 L 94 05/30/18 04:00 05/30/18 05:00 05/30/18 05:41 05/30/18 05:00 05/30/18 05:41 Oxygen Flow Rate (L/min) 4 Oxygen Delivery Method Mechanical Ventilator Weight: 187 lb 9.814 oz Body Mass Index (BMI) 31.6 Finger Stick Blood Glucose 132 Intake and Output for Last 24 Hours 05/28/18 05/29/18 05/30/18 23:59 23:59 23:59 Intake Total 5751 / 5751 5112 / 5112 1158 / 1158 Output Total 1335 / 1335 1999 800 / 800 Balance 4416 / 4416 3112 / 3112 358 / 358 Labs (Last 48 Hours) 05/26/18 05/27/18 05/27/18 21:38 09:15 10:50 WBC RBC Hgb Hct MCV MCH MCHC RDW RDW Differential Plt Count MPV Immature Gran % (Auto) Neut % (Auto) Lymph % (Auto) [place] % (Auto) Eos % (Auto) Baso % (Auto) Absolute Neuts (auto) Absolute Lymphs (auto) Total Counted Diff Path Review Specimen Type Cancelled Sample Site Cancelled pH Bicarbonate Actual POC Total CO2 Base Excess O2 Saturation O2 % Cancelled ABG pCO2 ABG pO2 Eloy Test VBG pH Cancelled VBG pH (Temp Correct) Cancelled VBG pCO2 (Temp Corrct Cancelled VBG pO2 Cancelled VBG O2 Sat (Calc) Cancelled VBG O2 Content Cancelled VBG Base Excess Cancelled POC Mix VBG pCO2 Pt Tmp Cancelled Respiration Rate Cancelled O2 Delivery Device Cancelled Liter Flow Cancelled Minute Volume Cancelled Vent Mode Tidal Volume Cancelled POC PEEP Cancelled POC Pressure Suppt Cancelled EPAP Cancelled IPAP Cancelled Blood Gas Notified Whom Cancelled Blood Gas Notified Time Cancelled Sodium Potassium Chloride Carbon Dioxide Anion Gap BUN Creatinine Estim Creat Clear Calc Est GFR (MDRD) Af Amer Est GFR (MDRD) Non-Af BUN/Creatinine Ratio Glucose Calcium Ionized Calcium 4.8 Phosphorus Magnesium Total Bilirubin AST ALT Alkaline Phosphatase Total Protein Albumin Globulin Albumin/Globulin Ratio Vancomycin Trough S.aureus Protein A PCR POSITIVE H MRSA (PCR) POSITIVE H POC Glucose 05/28/18 05/28/18 05/28/18 06:37 12:09 13:45 WBC RBC Hgb Hct MCV MCH MCHC RDW RDW Differential Plt Count MPV Immature Gran % (Auto) Neut % (Auto) Lymph % (Auto) [place] % (Auto) Eos % (Auto) Baso % (Auto) Absolute Neuts (auto) Absolute Lymphs (auto) Total Counted Diff Path Review Specimen Type Sample Site pH Bicarbonate Actual POC Total CO2 Base Excess O2 Saturation O2 % ABG pCO2 ABG pO2 Eloy Test VBG pH VBG pH (Temp Correct) VBG pCO2 (Temp Corrct VBG pO2 VBG O2 Sat (Calc) VBG O2 Content VBG Base Excess POC Mix VBG pCO2 Pt Tmp Respiration Rate O2 Delivery Device Liter Flow Minute Volume Vent Mode Tidal Volume POC PEEP POC Pressure Suppt EPAP IPAP Blood Gas Notified Whom Blood Gas Notified Time Sodium Potassium Chloride Carbon Dioxide Anion Gap BUN Creatinine Estim Creat Clear Calc Est GFR (MDRD) Af Amer Est GFR (MDRD) Non-Af BUN/Creatinine Ratio Glucose Calcium Ionized Calcium Phosphorus Magnesium Total Bilirubin AST ALT Alkaline Phosphatase Total Protein Albumin Globulin Albumin/Globulin Ratio Vancomycin Trough 18.3 H S.aureus Protein A PCR MRSA (PCR) POC Glucose 76 140 H 05/28/18 05/28/18 05/28/18 16:40 18:04 23:20 WBC RBC Hgb Hct MCV MCH MCHC RDW RDW Differential Plt Count MPV Immature Gran % (Auto) Neut % (Auto) Lymph % (Auto) [place] % (Auto) Eos % (Auto) Baso % (Auto) Absolute Neuts (auto) Absolute Lymphs (auto) Total Counted Diff Path Review Specimen Type ART Sample Site L Radial pH 7.50 H Bicarbonate Actual 18.4 L POC Total CO2 19 Base Excess -5 L O2 Saturation 96 O2 % 30 ABG pCO2 23.8 L ABG pO2 75 Eloy Test NA VBG pH VBG pH (Temp Correct) VBG pCO2 (Temp Corrct VBG pO2 VBG O2 Sat (Calc) VBG O2 Content VBG Base Excess POC Mix VBG pCO2 Pt Tmp Respiration Rate 14 O2 Delivery Device Vent Liter Flow Minute Volume 12.00 Vent Mode A-C Tidal Volume 450 POC PEEP 5 POC Pressure Suppt EPAP IPAP Blood Gas Notified Whom ICU MD Blood Gas Notified Time 1630 Sodium Potassium Chloride Carbon Dioxide Anion Gap BUN Creatinine Estim Creat Clear Calc Est GFR (MDRD) Af Amer Est GFR (MDRD) Non-Af BUN/Creatinine Ratio Glucose Calcium Ionized Calcium Phosphorus Magnesium Total Bilirubin AST ALT Alkaline Phosphatase Total Protein Albumin Globulin Albumin/Globulin Ratio Vancomycin Trough S.aureus Protein A PCR MRSA (PCR) POC Glucose 149 H 144 H 05/29/18 05/29/18 05/29/18 05:37 08:15 08:15 WBC 18.6 H RBC 4.06 L Hgb 11.1 L Hct 33.3 L MCV 82.0 MCH 27.3 MCHC 33.3 RDW 16.8 H RDW Differential 50.3 H Plt Count 264 MPV 10.0 Immature Gran % (Auto) 1.200 H Neut % (Auto) 83.4 H Lymph % (Auto) 6.3 L [place] % (Auto) 8.0 Eos % (Auto) 1.0 Baso % (Auto) 0.1 Absolute Neuts (auto) 15.5 H Absolute Lymphs (auto) 1.17 Total Counted Not Reportable Diff Path Review Specimen Type Sample Site pH Bicarbonate Actual POC Total CO2 Base Excess O2 Saturation O2 % ABG pCO2 ABG pO2 [place]oy Test VBG pH VBG pH (Temp Correct) VBG pCO2 (Temp Corrct VBG pO2 VBG O2 Sat (Calc) VBG O2 Content VBG Base Excess POC Mix VBG pCO2 Pt Tmp Respiration Rate O2 Delivery Device Liter Flow Minute Volume Vent Mode Tidal Volume POC PEEP POC Pressure Suppt EPAP IPAP Blood Gas Notified Whom Blood Gas Notified Time Sodium 138 Potassium 4.0 Chloride 108 H Carbon Dioxide 20.0 L Anion Gap 10 BUN 76 H Creatinine 1.08 H Estim Creat Clear Calc 39.43 Est GFR (MDRD) Af Amer 65 Est GFR (MDRD) Non-Af 54 L BUN/Creatinine Ratio 70.4 H Glucose 151 H Calcium 7.4 L Ionized Calcium Phosphorus Magnesium 2.2 Total Bilirubin 0.50 AST 13 L ALT 9 L Alkaline Phosphatase 110 Total Protein 4.7 L Albumin 1.3 L Globulin 3.4 Albumin/Globulin Ratio 0.4 L Vancomycin Trough S.aureus Protein A PCR MRSA (PCR) POC Glucose 150 H 05/29/18 05/29/18 05/29/18 08:15 12:04 18:23 WBC RBC Hgb Hct MCV MCH MCHC RDW RDW Differential Plt Count MPV Immature Gran % (Auto) Neut % (Auto) Lymph % (Auto) [place] % (Auto) Eos % (Auto) Baso % (Auto) Absolute Neuts (auto) Absolute Lymphs (auto) Total Counted Diff Path Review Specimen Type Sample Site pH Bicarbonate Actual POC Total CO2 Base Excess O2 Saturation O2 % ABG pCO2 ABG pO2 [place] Test VBG pH VBG pH (Temp Correct) VBG pCO2 (Temp Corrct VBG pO2 VBG O2 Sat (Calc) VBG O2 Content VBG Base Excess POC Mix VBG pCO2 Pt Tmp Respiration Rate O2 Delivery Device Liter Flow Minute Volume Vent Mode Tidal Volume POC PEEP POC Pressure Suppt EPAP IPAP Blood Gas Notified Whom Blood Gas Notified Time Sodium Potassium Chloride Carbon Dioxide Anion Gap BUN Creatinine Estim Creat Clear Calc Est GFR (MDRD) Af Amer Est GFR (MDRD) Non-Af BUN/Creatinine Ratio Glucose Calcium Ionized Calcium Phosphorus 2.5 Magnesium Total Bilirubin AST ALT Alkaline Phosphatase Total Protein Albumin Globulin Albumin/Globulin Ratio Vancomycin Trough S.aureus Protein A PCR MRSA (PCR) POC Glucose 159 H 169 H 05/30/18 05/30/18 05/30/18 00:09 03:45 03:45 WBC 22.4 H RBC 4.00 L Hgb 11.0 L Hct 33.4 L MCV 83.5 MCH 27.5 MCHC 32.9 RDW 16.9 H RDW Differential 51.5 H Plt Count 243 MPV 9.9 Immature Gran % (Auto) 2.000 H Neut % (Auto) 85.5 H Lymph % (Auto) 6.1 L [place] % (Auto) 5.3 Eos % (Auto) 1.1 Baso % (Auto) 0.0 Absolute Neuts (auto) 19.2 H Absolute Lymphs (auto) 1.36 Total Counted Not Reportable Diff Path Review May foll Specimen Type Sample Site pH Bicarbonate Actual POC Total CO2 Base Excess O2 Saturation O2 % ABG pCO2 ABG pO2 [place]oy Test VBG pH VBG pH (Temp Correct) VBG pCO2 (Temp Corrct VBG pO2 VBG O2 Sat (Calc) VBG O2 Content VBG Base Excess POC Mix VBG pCO2 Pt Tmp Respiration Rate O2 Delivery Device Liter Flow Minute Volume Vent Mode Tidal Volume POC PEEP POC Pressure Suppt EPAP IPAP Blood Gas Notified Whom Blood Gas Notified Time Sodium 140 Potassium 3.9 Chloride 110 H Carbon Dioxide 21.0 Anion Gap 9 BUN 56 H Creatinine 0.80 Estim Creat Clear Calc 53.23 Est GFR (MDRD) Af Amer 92 Est GFR (MDRD) Non-Af 76 BUN/Creatinine Ratio 70.2 H Glucose 166 H Calcium 7.6 L Ionized Calcium Phosphorus Magnesium 2.0 Total Bilirubin 0.60 AST 8 L ALT 8 L Alkaline Phosphatase 109 Total Protein 4.6 L Albumin 1.3 L Globulin 3.3 Albumin/Globulin Ratio 0.4 L Vancomycin Trough S.aureus Protein A PCR MRSA (PCR) POC Glucose 157 H 05/30/18 04:59 WBC RBC Hgb Hct MCV MCH MCHC RDW RDW Differential Plt Count MPV Immature Gran % (Auto) Neut % (Auto) Lymph % (Auto) [place] % (Auto) Eos % (Auto) Baso % (Auto) Absolute Neuts (auto) Absolute Lymphs (auto) Total Counted Diff Path Review Specimen Type Sample Site pH Bicarbonate Actual POC Total CO2 Base Excess O2 Saturation O2 % ABG pCO2 ABG pO2 [place] Test VBG pH VBG pH (Temp Correct) VBG pCO2 (Temp Corrct VBG pO2 VBG O2 Sat (Calc) VBG O2 Content VBG Base Excess POC Mix VBG pCO2 Pt Tmp Respiration Rate O2 Delivery Device Liter Flow Minute Volume Vent Mode Tidal Volume POC PEEP POC Pressure Suppt EPAP IPAP Blood Gas Notified Whom Blood Gas Notified Time Sodium Potassium Chloride Carbon Dioxide Anion Gap BUN Creatinine Estim Creat Clear Calc Est GFR (MDRD) Af Amer Est GFR (MDRD) Non-Af BUN/Creatinine Ratio Glucose Calcium Ionized Calcium Phosphorus Magnesium Total Bilirubin AST ALT Alkaline Phosphatase Total Protein Albumin Globulin Albumin/Globulin Ratio Vancomycin Trough S.aureus Protein A PCR MRSA (PCR) POC Glucose 132 H Microbiology 05/27/18 09:15 Wound - Sacral Gram Stain - Final 05/27/18 09:15 Wound - Sacral Wound Culture - Preliminary Staphylococcus aureus Gram negative efrain 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 05/27/18 09:40 Sputum, Tracheal Aspirate Gram Stain - Final 05/27/18 09:40 Sputum, Tracheal Aspirate Respiratory Culture - Preliminary Burkholderia cepacia Staphylococcus aureus Gram positive organism 05/26/18 14:04 Urine, Catheterized Urine Culture - Preliminary Escherichia coli#2 Escherichia coli Clinical Impression(s) from Imaging Studies Chest X-Ray 05/26/18 11:57 IMPRESSION: No acute pulmonary process Electronically Signed: Brian Faye MD at 13:37 EDT , Service support , Chest X-Ray 05/26/18 16:20 IMPRESSION: Right IJ central venous catheter tip in the distal SVC. Lung sheets show no interval change since the previous study. Electronically Signed: Brian Faye MD at 17:03 EDT , Service support , Chest X-Ray 05/28/18 05:20 IMPRESSION: Stable examination. Electronically Signed: Delbert Moura MD at 9:29 EDT Tel [phone], Service support , Chest X-Ray 05/29/18 05:55 IMPRESSION: No acute findings in the lungs. Blunting of the left costophrenic angle. Electronically Signed: Adrien Ma MD at 7:16 EDT Tel , Service support , Medical Necessity - Tobacco Use Smoking Status: Never smoker Tobacco Use: Non-smoker Assessment/Plan All Active Problems Septic shock (Acute) Chronic anticoagulation (Acute) MANUEL (acute kidney injury) (Acute) Sepsis (Acute) Altered mental status (Acute) Aspiration pneumonia (Acute) Pseudomonas urinary tract infection (Acute) Hypokalemia (Acute) MRSA pneumonia (Acute) Shortness of breath (Acute) Ulcer of heel (Acute) Fever (Acute) Acute and chronic respiratory failure (Acute) RECOMMENDATIONS: 1. Continue Levophed to maintain a mean arterial pressure at or above 65 mmHg. 2. Continue trach collar during the day and placed on ventilator nightly. Utilize outpatient trilogy settings with a Vt of 450 and rate of 14. 3. Continue broad-spectrum antimicrobials per infectious diseases recommendations. 4. Patient remains n.p.o., as she has been unable to be cleared by speech therapy. 5. Discontinue supplemental IV fluids. 6. We will place consultation to general surgery for consideration of PEG tube reinsertion. IMPRESSIONS: 1. Septic shock Multiple sources of infection, including urine, sputum and soft tissue. The patient has remained on broad-spectrum antibiotics under the direction of infectious diseases. However, she remains on levophed, despite this. Her sputum culture, unfortunately, did reveal 3+ Burkholderia cepacia, which is largely drug-resistant to all antibiotics tested, including meropenem. I did speak with ID briefly this morning with regard to the aforementioned, and they indicated that the only other potential antimicrobials to consider adding would be minocycline and tigecycline. Given the patient's overall net positive fluid status, will discontinue supplemental IV fluids. Levophed will be continued to maintain hemodynamic stability. I do have a concern for the patient's overall nutritional status, as we have been unable to feed her anything by mouth, over concerns for aspiration. I do feel that the patient has been unable to keep up with her nutritional requirements following her PEG tube removal and that she would benefit from its reinsertion. I did place a call to general surgery this morning, who is agreeable to reevaluating the patient for PEG tube reinsertion. 2. Acute kidney injury Resolved. Likely prerenal in etiology in the setting of #1. Improvement noted with volume expansion and stabilization of hemodynamics. The patient currently has a suprapubic catheter in place. Continue to monitor urine output. No current indication for renal replacement therapy at this time. 3. Chronic respiratory failure The patient has chronic respiratory failure. Per discussion with the nursing facility, the patient is on a trach collar throughout the day and is ventilated at night. She utilizes a trilogy with a tidal volume of 450 and a rate of 14 with the equivalent of a 6 L/min supplemental oxygen bleed. Changes will be made to the patient's current ventilator orders to reflect what she utilizes as an outpatient. 4. History of obstructive sleep apnea/alveolar hypoventilation with prior BiPAP noncompliance Continue current supportive measures as noted above with trach collar throughout the day and full ventilatory support at night. Would also recommend that the patient be placed on full mechanical ventilatory support with any naps throughout the day. 5. Baseline diaphragmatic weakness/restrictive airway disease/paraplegia/muscle spasms/paraplegia/history of Raynaud's/unintentional weight loss Complicates care, management, recovery and prognosis. It is unclear to me as to why the patient's PEG tube was removed in the first place. Her senior living facility reports that she has lost approximately 20 pounds over the last several months. Nutrition is currently following. TIME: 38 minutes of critical care time, independent of procedures, was spent addressing the patient's septic shock, acute kidney injury, chronic respiratory failure, significant decubitus ulcerations, review of all data and collaboration with the care team. ([id number]) Code Visit 9xxxx: [id number] Critical care first hour
[2018-05-30] MEDS: Nystatin Powder 15gm Bottle 1 APPLIC TOPICAL ×2 (09:37→21:27)
[2018-05-30] MEDS: Chlorhexidine 15 ML PO ×2 (09:38→21:28)
--- NOTE | 2018-05-30 13:04 | PCM.PN.HOSP ---
Patient Problems: Active and Suspected Problems Septic shock (Acute) Altered mental status (Acute) Subjective: Patient is a 67-year-old white female with known history of paraplegia secondary to syrinx, chronic respiratory failure with trach and PEG but has been reversed, recurrent aspirations previously on mechanical soft, suprapubic catheter, evidence of ulcer, chronic acquired lymphedema, restrictive airway disease, ADHD, sleep apnea, incontinence of feces in urine, hyperlipidemia, pulmonary fibrosis who presented to the hospital yesterday evening seem to be in sepsis secondary to urinary cause and was placed on Levophed Spoke to nursing staff, patient continues to need increasing doses of Levophed, patient also has sputum culture did grow 3+ Burkholderia cepacia broker assistant on bacteria, ID was called and no change in antibiotics as there is no treatment currently. Dr. Hale has initiated conversation about PEG tube, versus palliation with family, will speak to them in the morning. Patient is unable to communicate wants and needs, cytosis has increased, patient is continued weight loss since PEG tube has been removed approximately 20 pounds. Patient is hypoalbuminemic and has chronic wounds. We will monitor recommendations of Dr. Hale and surgery however not PEG tube initiation is possible but patient has a very poor prognosis at this point. Vitals/I&O's: Vital Signs Temp Pulse Resp BP Pulse Ox 98.0 F 129 H 25 H 96/66 96 05/30/18 12:00 05/30/18 13:00 05/30/18 13:00 05/30/18 13:00 05/30/18 13:00 Oxygen Flow Rate (L/min) 4 Oxygen Delivery Method Mechanical Ventilator Weight: 85.1 kg Body Mass Index (BMI) 31.6 Finger Stick Blood Glucose 132 Intake and Output for Last 24 Hours 05/28/18 05/29/18 05/30/18 23:59 23:59 23:59 Intake Total 5751 / 5751 5112 / 5112 1987 / 1987 Output Total 1335 / 1335 1999 / 1999 1100 / 1100 Balance 4416 / 4416 3112 / 3112 888 / 888 General: Alert, Confused, Non-Cooperative, - - On assist control on vent currently HEENT: Atraumatic, PERRLA, Normocephalic Oral: No Gingival or Mucosal Lesions/ Ulcerations, Dry Mucosa Neck: Supple, Trachea Midline, - - Positive central line on the right, positive trach Lungs: No rhonchi, No wheeze, No rales, Diminished - Diminished with some coarse breath sounds Cardiovascular: Normal S1, Normal S2, Tachycardic Abdomen: Bowel Sounds Present, Soft, - - Orthopedics Noted Extremities: Cyanosis, Diminished Peripheral Pulses, Edema, - - Distance of lower extremities Skin: Ulcer/ Wound - Large breakdown, please see notes of wound care Musculoskeletal: Tenderness Lymphatic: No Cervical, Supraclavicular, or Inguinal Adenopathy Neurological: - - Patient has paraplegia Psych/Mental Status: Flat Affect Microbiology Past 72 Hours 05/26/18 14:04 Urine, Catheterized Urine Culture - Final Escherichia coli#2 Escherichia coli 05/27/18 09:15 Wound - Sacral Gram Stain - Final 05/27/18 09:15 Wound - Sacral Wound Culture - Preliminary Meth. resistant Staph. aureus Gram negative efrain Escherichia coli 05/27/18 09:15 Wound - Sacral Anaerobic Culture - Preliminary Checking for anaerobes, further studies to follow. 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 aureus Corynebacterium striatum Laboratory Results 05/27/18 09:15: S.aureus Protein A PCR POSITIVE H, MRSA (PCR) POSITIVE H 05/27/18 10:50: Ionized Calcium 4.8 05/28/18 03:30: Ionized Calcium 4.3 L 05/29/18 12:04: POC Glucose 159 H 05/29/18 18:23: POC Glucose 169 H 05/30/18 00:09: POC Glucose 157 H 05/30/18 03:45: WBC 22.4 H, RBC 4.00 L, Hgb 11.0 L, Hct 33.4 L, MCV 83.5, MCH 27.5, MCHC 32.9, RDW 16.9 H, RDW Differential 51.5 H, Plt Count 243, MPV 9.9, Immature Gran % (Auto) 2.000 H, Neut % (Auto) 85.5 H, Lymph % (Auto) 6.1 L, [place] % (Auto) 5.3, Eos % (Auto) 1.1, Baso % (Auto) 0.0, Absolute Neuts (auto) 19.2 H, Absolute Lymphs (auto) 1.36, Total Counted Not Reportable, Diff Path Review December05/30/18 03:45: Sodium 140, Potassium 3.9, Chloride 110 H, Carbon Dioxide 21.0, Anion Gap 9, BUN 56 H, Creatinine 0.80, Estim Creat Clear Calc 53.23, Est GFR (MDRD) Af Amer 92, Est GFR (MDRD) Non-Af 76, BUN/Creatinine Ratio 70.2 H, Glucose 166 H, Calcium 7.6 L, Magnesium 2.0, Total Bilirubin 0.60, AST 8 L, ALT 8 L, Alkaline Phosphatase 109, Total Protein 4.6 L, Albumin 1.3 L, Globulin 3.3, Albumin/Globulin Ratio 0.4 L 05/30/18 04:59: POC Glucose 132 H Current Medications Albuterol Sulfate (Ventolin Aerosols) 2.5 mg INHALATION Q4H PRN PRN PRN Reason: SOB &/OR WHEEZING Albuterol/Ipratropium (Duoneb) 3 ml INHALATION Q6HWA.RT [facility] Last Admin: 05/30/18 07:13 Dose: 3 ml Bisacodyl (Dulcolax) 10 mg RECTAL DAILY PRN PRN Reason: Constipation Chlorhexidine Gluconate () 15 ml PO BID [facility] Last Admin: 05/30/18 09:38 Dose: 15 ml Chlorhexidine Gluconate () 1 each TOPICAL DAILY [facility] Last Admin: 05/30/18 01:20 Dose: 1 each Heparin Sodium (Porcine) (Heparin Na) 5,000 unit SC Q8 [facility] Last Admin: 05/30/18 04:56 Dose: 5,000 unit Vancomycin IV Pharmacy to Dose (1 ea/ Sodium Chloride) 500 mls @ 250 mls/hr IV PRN PRN; Protocol PRN Reason: Rx to Dose Vancomycin HCl 750 mg/ Sodium (Chloride) 265 mls @ 250 mls/hr IV Q24H [facility] Last Admin: 05/29/18 15:35 Dose: 250 mls/hr Pantoprazole Sodium 40 mg/ (Sodium Chloride) 110 mls @ 330 mls/hr IV Q12 [facility] Last Admin: 05/30/18 09:37 Dose: 330 mls/hr Norepinephrine Bitartrate 8 mg (/ Dextrose) 258 mls @ 9.68 mls/hr IV .[id number] [facility] Last Admin: 05/30/18 03:32 Dose: 9.68 mls/hr Meropenem 500 mg/ Sodium (Chloride) 60 mls @ 100 mls/hr IV Q8 [facility] Last Admin: 05/30/18 04:56 Dose: 100 mls/hr Sodium Chloride () 250 mls @ 15 mls/hr IV .[id number] PRN PRN Reason: SALINE FLUSH Last Admin: 05/29/18 20:47 Dose: 15 mls/hr Insulin Human Lispro (Humalog Kwikpen (Bkc)) 0 unit SC Q6 [facility]; Protocol Last Admin: 05/30/18 12:15 Dose: 1 u Nystatin (Mycostatin Powder) 1 applic TOPICAL BID [facility]; Protocol Last Admin: 05/30/18 09:37 Dose: 1 applicatio Sodium Chloride () 5 - 30 ml IV UD PRN PRN Reason: SALINE FLUSH Last Admin: 05/30/18 03:37 Dose: 20 ml Medical Necessity - Tobacco Use Smoking Status: Never smoker Tobacco Use: Non-smoker Assessment/Plan All Active Problems Septic shock (Acute) Chronic anticoagulation (Acute) MANUEL (acute kidney injury) (Acute) Sepsis (Acute) Altered mental status (Acute) Aspiration pneumonia (Acute) Pseudomonas urinary tract infection (Acute) Hypokalemia (Acute) MRSA pneumonia (Acute) Shortness of breath (Acute) Ulcer of heel (Acute) Fever (Acute) Acute and chronic respiratory failure (Acute) Altered mental status (Acute) There is a metabolic encephalopathy secondary medical conditions. Patient is very lethargic still do to medical illnesses, will start TPN for nutrition then discontinue IV fluids. Will need to have a discussion with the family whether PEG tube or palliation. Hypokalemia (Acute) Repleted continue to monitor Sepsis (Acute) Patient is still in septic shock, currently on Merrem and vancomycin, and Levophed. Fortunately there is been cultures may not be able to treat current bacteria. Has ESBL, that is sensitive to meropenem, will continue current medications. Appreciate ID and pulmonary Wound care. Acute and chronic respiratory failure (Acute) Multiple reasons for shortness of breath including paraplegia, With diaphragmatic weakness and restrictive airway disease. Currently on and off again the ventilation as per pulmonary Urinary tract infection Had a leaking suprapubic catheter exchange, has ESBL sensitive to Merrem Chronic anticoagulation Patient appears to be on Eliquis as an outpatient, currently on subcutaneous heparin, Recent echocardiogram shows a poor study, normal left ventricular size wall motion, however unable to look at diastolic dysfunction Acute kidney injury resolved DVT prophylaxis currently on heparin CODE STATUS full GI prophylaxis on IV PPI Nutrition currently n.p.o., unfortunately patient has failed speech and swallow again, have not been able to talk to family about nutrition/feeding tube will monitor family conference tomorrow. CODE STATUS full Disposition patient will be maintained in the ICU while on drips and vented overall prognosis due to multiple comorbidities and infections and functional status is poor. Chart is dictated with sr technical sales consultant software. Errors may occur in dictation that may change providers meaning. This note was generated with Active[employer]i dictation software. It may contain incorrect words, spelling, and punctuation that were not noted in checking the note before signing. Code Visit Inpatient E&M: 21864 Init Hosp L2
--- NOTE | 2018-05-30 13:08 | PN_ITS ---
Patient Problems: Active and Suspected Problems Septic shock (Acute) Altered mental status (Acute) Subjective: Patient is a 67-year-old white female with known history of paraplegia secondary to syrinx, chronic respiratory failure with trach and PEG but has been reversed, recurrent aspirations previously on mechanical soft, suprapubic catheter, evidence of ulcer, chronic acquired lymphedema, restrictive airway disease, ADHD, sleep apnea, incontinence of feces in urine, hyperlipidemia, pulmonary fibrosis who presented to the hospital yesterday evening seem to be in sepsis secondary to urinary cause and was placed on Levophed Spoke to nursing staff, patient continues to need increasing doses of Levophed, patient also has sputum culture did grow 3+ Burkholderia cepacia 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 Dr. Hale has initiated conversation about PEG tube, versus palliation with family, will speak to them in the morning. Patient is unable to communicate wants and needs, cytosis has increased, patient is continued weight loss since PEG tube has been removed approximately 20 pounds. Patient is hypoalbuminemic and has chronic wounds. We will monitor recommendations of Dr. Hale and surgery however not PEG tube initiation is possible but patient has a very poor prognosis at this point. Vitals/I&O's: Vital Signs Temp Pulse Resp BP Pulse Ox 98.0 F 129 H 25 H 96/66 96 05/30/18 12:00 05/30/18 13:00 05/30/18 13:00 05/30/18 13:00 05/30/18 13:00 Oxygen Flow Rate (L/min) 4 Oxygen Delivery Method Mechanical Ventilator Weight: 85.1 kg Body Mass Index (BMI) 31.6 Finger Stick Blood Glucose 132 Intake and Output for Last 24 Hours 05/28/18 05/29/18 05/30/18 23:59 23:59 23:59 Intake Total 5751 / 5751 5112 / 5112 1987 / 1987 Output Total 1335 / 1335 1999 / 1999 1100 / 1100 Balance 4416 / 4416 3112 / 3112 888 / 888 General: Alert, Confused, Non-Cooperative, - - On assist control on vent currently HEENT: Atraumatic, PERRLA, Normocephalic Oral: No Gingival or Mucosal Lesions/ Ulcerations, Dry Mucosa Neck: Supple, Trachea Midline, - - Positive central line on the right, positive trach Lungs: No rhonchi, No wheeze, No rales, Diminished - Diminished with some coarse breath sounds Cardiovascular: Normal S1, Normal S2, Tachycardic Abdomen: Bowel Sounds Present, Soft, - - Orthopedics Noted Extremities: Cyanosis, Diminished Peripheral Pulses, Edema, - - Distance of lower extremities Skin: Ulcer/ Wound - Large breakdown, please see notes of wound care Musculoskeletal: Tenderness Lymphatic: No Cervical, Supraclavicular, or Inguinal Adenopathy Neurological: - - Patient has paraplegia Psych/Mental Status: Flat Affect Microbiology Past 72 Hours 05/26/18 14:04 Urine, Catheterized Urine Culture - Final Escherichia coli#2 Escherichia coli 05/27/18 09:15 Wound - Sacral Gram Stain - Final 05/27/18 09:15 Wound - Sacral Wound Culture - Preliminary Meth. resistant Staph. aureus Gram negative efrain Escherichia coli 05/27/18 09:15 Wound - Sacral Anaerobic Culture - Preliminary Checking for anaerobes, further studies to follow. 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 aureus Corynebacterium striatum Laboratory Results 05/27/18 09:15: S.aureus Protein A PCR POSITIVE H, MRSA (PCR) POSITIVE H 05/27/18 10:50: Ionized Calcium 4.8 05/28/18 03:30: Ionized Calcium 4.3 L 05/29/18 12:04: POC Glucose 159 H 05/29/18 18:23: POC Glucose 169 H 05/30/18 00:09: POC Glucose 157 H 05/30/18 03:45: WBC 22.4 H, RBC 4.00 L, Hgb 11.0 L, Hct 33.4 L, MCV 83.5, MCH 27.5, MCHC 32.9, RDW 16.9 H, RDW Differential 51.5 H, Plt Count 243, MPV 9.9, Immature Gran % (Auto) 2.000 H, Neut % (Auto) 85.5 H, Lymph % (Auto) 6.1 L, [place] % (Auto) 5.3, Eos % (Auto) 1.1, Baso % (Auto) 0.0, Absolute Neuts (auto) 19.2 H, Absolute Lymphs (auto) 1.36, Total Counted Not Reportable, Diff Path Review December05/30/18 03:45: Sodium 140, Potassium 3.9, Chloride 110 H, Carbon Dioxide 21.0, Anion Gap 9, BUN 56 H, Creatinine 0.80, Estim Creat Clear Calc 53.23, Est GFR (MDRD) Af Amer 92, Est GFR (MDRD) Non-Af 76, BUN/Creatinine Ratio 70.2 H, Glucose 166 H, Calcium 7.6 L, Magnesium 2.0, Total Bilirubin 0.60, AST 8 L, ALT 8 L, Alkaline Phosphatase 109, Total Protein 4.6 L, Albumin 1.3 L, Globulin 3.3, Albumin/Globulin Ratio 0.4 L 05/30/18 04:59: POC Glucose 132 H Current Medications Albuterol Sulfate (Ventolin Aerosols) 2.5 mg INHALATION Q4H PRN PRN PRN Reason: SOB &/OR WHEEZING Albuterol/Ipratropium (Duoneb) 3 ml INHALATION Q6HWA.RT [facility] Last Admin: 05/30/18 07:13 Dose: 3 ml Bisacodyl (Dulcolax) 10 mg RECTAL DAILY PRN PRN Reason: Constipation Chlorhexidine Gluconate () 15 ml PO BID [facility] Last Admin: 05/30/18 09:38 Dose: 15 ml Chlorhexidine Gluconate () 1 each TOPICAL DAILY [facility] Last Admin: 05/30/18 01:20 Dose: 1 each Heparin Sodium (Porcine) (Heparin Na) 5,000 unit SC Q8 [facility] Last Admin: 05/30/18 04:56 Dose: 5,000 unit Vancomycin IV Pharmacy to Dose (1 ea/ Sodium Chloride) 500 mls @ 250 mls/hr IV PRN PRN; Protocol PRN Reason: Rx to Dose Vancomycin HCl 750 mg/ Sodium (Chloride) 265 mls @ 250 mls/hr IV Q24H [facility] Last Admin: 05/29/18 15:35 Dose: 250 mls/hr Pantoprazole Sodium 40 mg/ (Sodium Chloride) 110 mls @ 330 mls/hr IV Q12 [facility] Last Admin: 05/30/18 09:37 Dose: 330 mls/hr Norepinephrine Bitartrate 8 mg (/ Dextrose) 258 mls @ 9.68 mls/hr IV .[id number] [facility] Last Admin: 05/30/18 03:32 Dose: 9.68 mls/hr Meropenem 500 mg/ Sodium (Chloride) 60 mls @ 100 mls/hr IV Q8 [facility] Last Admin: 05/30/18 04:56 Dose: 100 mls/hr Sodium Chloride () 250 mls @ 15 mls/hr IV .[id number] PRN PRN Reason: SALINE FLUSH Last Admin: 05/29/18 20:47 Dose: 15 mls/hr Insulin Human Lispro (Humalog Kwikpen (Bkc)) 0 unit SC Q6 [facility]; Protocol Last Admin: 05/30/18 12:15 Dose: 1 u Nystatin (Mycostatin Powder) 1 applic TOPICAL BID [facility]; Protocol Last Admin: 05/30/18 09:37 Dose: 1 applicatio Sodium Chloride () 5 - 30 ml IV UD PRN PRN Reason: SALINE FLUSH Last Admin: 05/30/18 03:37 Dose: 20 ml Medical Necessity - Tobacco Use Smoking Status: Never smoker Tobacco Use: Non-smoker Assessment/Plan All Active Problems Septic shock (Acute) Chronic anticoagulation (Acute) MANUEL (acute kidney injury) (Acute) Sepsis (Acute) Altered mental status (Acute) Aspiration pneumonia (Acute) Pseudomonas urinary tract infection (Acute) Hypokalemia (Acute) MRSA pneumonia (Acute) Shortness of breath (Acute) Ulcer of heel (Acute) Fever (Acute) Acute and chronic respiratory failure (Acute) Altered mental status (Acute) There is a metabolic encephalopathy secondary medical conditions. Patient is very lethargic still do to medical illnesses, will start TPN for nutrition then discontinue IV fluids. Will need to have a discussion with the family whether PEG tube or palliation. Hypokalemia (Acute) Repleted continue to monitor Sepsis (Acute) Patient is still in septic shock, currently on Merrem and vancomycin, and Levophed. Fortunately there is been cultures may not be able to treat current bacteria. Has ESBL, that is sensitive to meropenem, will continue current medi cations. Appreciate ID and pulmonary Wound care. Acute and chronic respiratory failure (Acute) Multiple reasons for shortness of breath including paraplegia, With diaphrag matic weakness and restrictive airway disease. Currently on and off again the ventilation as per pulmonary Urinary tract infection Had a leaking suprapubic catheter exchange, has ESBL sensitive to Merrem Chronic anticoagulation Patient appears to be on Eliquis as an outpatient, currently on subcutaneous heparin, Recent echocardiogram shows a poor study, normal left ventricular size wall motion, however unable to look at diastolic dysfunction Acute kidney injury resolved DVT prophylaxis currently on heparin CODE STATUS full GI prophylaxis on IV PPI Nutrition currently n.p.o., unfortunately patient has failed speech and swallow again, have not been able to talk to family about nutrition/feeding tube will monitor family conference tomorrow. CODE STATUS full Disposition patient will be maintained in the ICU while on drips and vented overall prognosis due to multiple comorbidities and infections and functional status is poor. Chart is dictated with pullboat engineer software. Errors may occur in dictation that may change providers meaning. This note was generated with Stra[employer] English dictation software. It may contain incorrect words, spelling, and punctuation that were not noted in checking the note before signing. Code Visit Inpatient E&M: 70558 Init Hosp L2
[2018-05-30 13:51] LABS: Bedside Glucose 169 mg/dL (70-110)
[2018-05-30 14:32] LABS: Vancomycin, Trough Level 18.8 ug/mL (5.0-15.0)
--- NOTE | 2018-05-30 18:05 | PCM.RX.CS ---
Consult Pharmacy has been consulted to manage selected antiobiotic: Vancomycin Type of Consult: Follow-up Suspected Infection: Sepsis Prior Doses of Antibiotics Received/Current Regimen: Vancomycin 750mg IV q24h Labs: Sodium 140 mmol/L (136-145) 05/30/18 03:45 Potassium 3.9 mmol/L (3.5-5.1) 05/30/18 03:45 Chloride 110 mmol/L (98-107) H 05/30/18 03:45 Carbon Dioxide 21.0 mmol/L (21.0-32.0) 05/30/18 03:45 Anion Gap 9 (5-15) 05/30/18 03:45 BUN 56 mg/dL (7-18) H 05/30/18 03:45 Creatinine 0.80 mg/dL (0.55-1.02) 05/30/18 03:45 Est GFR (MDRD) Af Amer 92 mL/min (>60) 05/30/18 03:45 Est GFR (MDRD) Non-Af 76 mL/min (>60) 05/30/18 03:45 BUN/Creatinine Ratio 70.2 RATIO (10-20) H 05/30/18 03:45 Glucose 166 mg/dL (74-106) H 05/30/18 03:45 Vancomycin Trough 18.8 ug/mL (5.0-15.0) H 05/30/18 13:40 Microbiology: Microbiology 05/26/18 14:04 Urine, Catheterized Urine Culture - Final Escherichia coli#2 Escherichia coli 05/27/18 09:15 Wound - Sacral Gram Stain - Final 05/27/18 09:15 Wound - Sacral Wound Culture - Preliminary Meth. resistant Staph. aureus Gram negative efrain Escherichia coli 05/27/18 09:15 Wound - Sacral Anaerobic Culture - Preliminary Checking for anaerobes, further studies to follow. 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 aureus Corynebacterium striatum Weight used for dosin kg Goal Trough: 15-20 mcg/mL Pharmacy Plan for Drug Dosing: Pt's trough level was 18.7 on 05/31/18. Recommend continuing same dose of Vancomycin 750mg q24h and drawing another trough before the 1400 dose on 06/01/18 Pharmacy Service will continue to monitor and adjust dosing as required. Follow-Up Labs: Trough Vancomycin - 06/01/18 Labs to be done on [date and time ordered]: trough level on 06/01/18 at 1330
[2018-05-30 22:10] LABS: Bedside Glucose 147 mg/dL (70-110)
[2018-05-31] VITALS (50 sets, daily range): BP systolic 79–131; BP diastolic 44–96; PULSE 110–148; RESP 14–35; TEMP 36.9–37.7; O2SAT 93–100
[2018-05-31] MEDS: Morphine 2 MG/ML Syringe IV (00:54)
[2018-05-31 01:20] LABS: Bedside Glucose 146 mg/dL (70-110)
[2018-05-31] MEDS: CHLORHEXIDINE GLUC 2% CLOTH 1 EACH TOWELETTE TOPICAL (05:39)
[2018-05-31] MEDS: Heparin Injection (Vial) 5,000 UNIT/ML VIAL 5000 UNIT SC ×3 (05:39→23:17)
[2018-05-31 05:51] LABS: Bedside Glucose 149 mg/dL (70-110)
--- NOTE | 2018-05-31 06:30 | PN_ITS ---
Subjective: Patient did okay overnight. Patient remains on pressor therapy and has been in sinus arrhythmia overnight. No change in oxygenation. Small tracheal secretions have been reported. Nursing reports that patient is more interactive compared to previous engagement. General: Alert, Cooperative, No apparent distress, - - Good ventilator synchrony. Appears older than stated age. HEENT: Atraumatic, PERRLA, EOMI, Normocephalic, - - No scleral icterus or injection noted. Trach site is clean, dry and intact. Oral: Moist Mucosa, No Gingival or Mucosal Lesions/ Ulcerations Neck: Supple, No JVD, No Nodes, Trachea Midline Lungs: No wheeze, No rales, Diminished, Rhonchi, - - Symmetric expansion. No dullness to percussion. Cardiovascular: Normal S1, Normal S2, No murmurs, No rub noted, No Gallop, Tachycardic Abdomen: Bowel Sounds Present, Soft, Non Tender, Non-Distended, - - Scabbing of prior PEG insertion site. Some mild leaking noted from suprapubic catheter Extremities: No clubbing, No cyanosis, Cool, Edema - Anasarca Skin: No rashes, Ulcer/ Wound - Sacral ulcer not evaluated personally Musculoskeletal: No Tenderness to Palpation of Joints or Extremities Lymphatic: No Cervical, Supraclavicular, or Inguinal Adenopathy Neurological: - - Baseline paraplegia Psych/Mental Status: Appropriate, Flat Affect Vital Signs Temp Pulse Resp BP Pulse Ox 36.9 C 145 H 26 H 91/55 L 100 05/31/18 04:00 05/31/18 06:00 05/31/18 06:00 05/31/18 06:00 05/31/18 06:00 Oxygen Flow Rate (L/min) 30 Oxygen Delivery Method Mechanical Ventilator Weight: 85.4 kg Body Mass Index (BMI) 31.6 Finger Stick Blood Glucose 132 Intake and Output for Last 24 Hours 05/29/18 05/30/18 05/31/18 23:59 23:59 23:59 Intake Total 5112 / 5112 2667 / 2667 787.6 / 787.6 Output Total 1999 / 1999 1400 / 1400 1000 / 1000 Balance 3112 / 3112 1267 / 1267 -212.4 / -212.4 Labs (Last 48 Hours) 05/27/18 05/27/18 05/28/18 09:15 10:50 03:30 WBC RBC Hgb Hct MCV MCH MCHC RDW RDW Differential Plt Count MPV Immature Gran % (Auto) Neut % (Auto) Lymph % (Auto) Johnson % (Auto) Eos % (Auto) Baso % (Auto) Absolute Neuts (auto) Absolute Lymphs (auto) Total Counted Diff Path Review Sodium Potassium Chloride Carbon Dioxide Anion Gap BUN Creatinine Estim Creat Clear Calc Est GFR (MDRD) Af Amer Est GFR (MDRD) Non-Af BUN/Creatinine Ratio Glucose Calcium Ionized Calcium 4.8 4.3 L Phosphorus Magnesium Total Bilirubin AST ALT Alkaline Phosphatase Total Protein Albumin Globulin Albumin/Globulin Ratio Vancomycin Trough S.aureus Protein A PCR POSITIVE H MRSA (PCR) POSITIVE H POC Glucose 05/29/18 05/29/18 05/29/18 08:15 08:15 08:15 WBC 18.6 H RBC 4.06 L Hgb 11.1 L Hct 33.3 L MCV 82.0 MCH 27.3 MCHC 33.3 RDW 16.8 H RDW Differential 50.3 H Plt Count 264 MPV 10.0 Immature Gran % (Auto) 1.200 H Neut % (Auto) 83.4 H Lymph % (Auto) 6.3 L Johnson % (Auto) 8.0 Eos % (Auto) 1.0 Baso % (Auto) 0.1 Absolute Neuts (auto) 15.5 H Absolute Lymphs (auto) 1.17 Total Counted Not Reportable Diff Path Review Sodium 138 Potassium 4.0 Chloride 108 H Carbon Dioxide 20.0 L Anion Gap 10 BUN 76 H Creatinine 1.08 H Estim Creat Clear Calc 39.43 Est GFR (MDRD) Af Amer 65 Est GFR (MDRD) Non-Af 54 L BUN/Creatinine Ratio 70.4 H Glucose 151 H Calcium 7.4 L Ionized Calcium Phosphorus 2.5 Magnesium 2.2 Total Bilirubin 0.50 AST 13 L ALT 9 L Alkaline Phosphatase 110 Total Protein 4.7 L Albumin 1.3 L Globulin 3.4 Albumin/Globulin Ratio 0.4 L Vancomycin Trough S.aureus Protein A PCR MRSA (PCR) POC Glucose 05/29/18 05/29/18 05/30/18 12:04 18:23 00:09 WBC RBC Hgb Hct MCV MCH MCHC RDW RDW Differential Plt Count MPV Immature Gran % (Auto) Neut % (Auto) Lymph % (Auto) Johnson % (Auto) Eos % (Auto) Baso % (Auto) Absolute Neuts (auto) Absolute Lymphs (auto) Total Counted Diff Path Review Sodium Potassium Chloride Carbon Dioxide Anion Gap BUN Creatinine Estim Creat Clear Calc Est GFR (MDRD) Af Amer Est GFR (MDRD) Non-Af BUN/Creatinine Ratio Glucose Calcium Ionized Calcium Phosphorus Magnesium Total Bilirubin AST ALT Alkaline Phosphatase Total Protein Albumin Globulin Albumin/Globulin Ratio Vancomycin Trough S.aureus Protein A PCR MRSA (PCR) POC Glucose 159 H 169 H 157 H 05/30/18 05/30/18 05/30/18 03:45 03:45 04:59 WBC 22.4 H RBC 4.00 L Hgb 11.0 L Hct 33.4 L MCV 83.5 MCH 27.5 MCHC 32.9 RDW 16.9 H RDW Differential 51.5 H Plt Count 243 MPV 9.9 Immature Gran % (Auto) 2.000 H Neut % (Auto) 85.5 H Lymph % (Auto) 6.1 L Johnson % (Auto) 5.3 Eos % (Auto) 1.1 Baso % (Auto) 0.0 Absolute Neuts (auto) 19.2 H Absolute Lymphs (auto) 1.36 Total Counted Not Reportable Diff Path Review May foll Sodium 140 Potassium 3.9 Chloride 110 H Carbon Dioxide 21.0 Anion Gap 9 BUN 56 H Creatinine 0.80 Estim Creat Clear Calc 53.23 Est GFR (MDRD) Af Amer 92 Est GFR (MDRD) Non-Af 76 BUN/Creatinine Ratio 70.2 H Glucose 166 H Calcium 7.6 L Ionized Calcium Phosphorus Magnesium 2.0 Total Bilirubin 0.60 AST 8 L ALT 8 L Alkaline Phosphatase 109 Total Protein 4.6 L Albumin 1.3 L Globulin 3.3 Albumin/Globulin Ratio 0.4 L Vancomycin Trough S.aureus Protein A PCR MRSA (PCR) POC Glucose 132 H 05/30/18 05/30/18 05/30/18 12:13 13:40 17:34 WBC RBC Hgb Hct MCV MCH MCHC RDW RDW Differential Plt Count MPV Immature Gran % (Auto) Neut % (Auto) Lymph % (Auto) Johnson % (Auto) Eos % (Auto) Baso % (Auto) Absolute Neuts (auto) Absolute Lymphs (auto) Total Counted Diff Path Review Sodium Potassium Chloride Carbon Dioxide Anion Gap BUN Creatinine Estim Creat Clear Calc Est GFR (MDRD) Af Amer Est GFR (MDRD) Non-Af BUN/Creatinine Ratio Glucose Calcium Ionized Calcium Phosphorus Magnesium Total Bilirubin AST ALT Alkaline Phosphatase Total Protein Albumin Globulin Albumin/Globulin Ratio Vancomycin Trough 18.8 H S.aureus Protein A PCR MRSA (PCR) POC Glucose 169 H 147 H 05/31/18 05/31/18 00:47 05:40 WBC RBC Hgb Hct MCV MCH MCHC RDW RDW Differential Plt Count MPV Immature Gran % (Auto) Neut % (Auto) Lymph % (Auto) Johnson % (Auto) Eos % (Auto) Baso % (Auto) Absolute Neuts (auto) Absolute Lymphs (auto) Total Counted Diff Path Review Sodium Potassium Chloride Carbon Dioxide Anion Gap BUN Creatinine Estim Creat Clear Calc Est GFR (MDRD) Af Amer Est GFR (MDRD) Non-Af BUN/Creatinine Ratio Glucose Calcium Ionized Calcium Phosphorus Magnesium Total Bilirubin AST ALT Alkaline Phosphatase Total Protein Albumin Globulin Albumin/Globulin Ratio Vancomycin Trough S.aureus Protein A PCR MRSA (PCR) POC Glucose 146 H 149 H Microbiology 05/26/18 14:04 Urine, Catheterized Urine Culture - Final Escherichia coli#2 Escherichia coli 05/27/18 09:15 Wound - Sacral Gram Stain - Final 05/27/18 09:15 Wound - Sacral Wound Culture - Preliminary Meth. resistant Staph. aureus Gram negative efrain Escherichia coli 05/27/18 09:15 Wound - Sacral Anaerobic Culture - Preliminary Checking for anaerobes, further studies to follow. 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 Continue Levophed to maintain a mean arterial pressure at or above 65 mmHg. 2. Continue trach collar during the day and placed on ventilator nightly. Utilize outpatient trilogy settings with a Vt of 450 and rate of 14. 3. Continue broad-spectrum antimicrobials per infectious diseases recommendations. 4. Patient remains n.p.o., as she has been unable to be cleared by speech therapy. 5. Obtain random cortisol 6. Await placement of PEG IMPRESSIONS: 1. Septic shock Multiple sources of infection, including urine, sputum and soft tissue. 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 Infectious disease is following. Patient remains significantly tachycardic and has been on Levophed therapy for several days. Patient's fluid status continues to be an issue, but appears to have tolerated holding of IV fluids. Unclear if patient will tolerate diuretic therapy. Surgery has been consulted for possible PEG placement. Will obtain a random cortisol to see if stress dose steroids would be appropriate. Previous cortisol was significantly elevated. Echocardiogram was very difficult, but reported relatively normal functioning. 2. Acute kidney injury Resolved. Likely prerenal in etiology in the setting of #1. Improvement noted with volume expansion and stabilization of hemodynamics. The patient currently has a suprapubic catheter in place. Continue to monitor urine output. No current indication for renal replacement therapy at this time. 3. Chronic respiratory failure The patient has chronic respiratory failure. Per discussion with the [facility] facility, the patient is on a trach collar throughout the day and is ventilated at night. She utilizes a trilogy with a tidal volume of 450 and a rate of 14 with the equivalent of a 6 L/min supplemental oxygen bleed. Changes will be made to the patient's current ventilator orders to reflect what she utilizes as an outpatient. 4. History of obstructive sleep apnea/alveolar hypoventilation with prior BiPAP noncompliance Continue current supportive measures as noted above with trach collar throughout the day and full ventilatory support at night. Would also recommend that the patient be placed on full mechanical ventilatory support with any naps throughout the day. 5. Baseline diaphragmatic weakness/restrictive airway disease/paraplegi a/muscle spasms/paraplegia/history of Raynaud's/unintentional weight loss Complicates care, management, recovery and prognosis. Nutritional status is concerning. Patient has received significant IV fluids and albumin is only 1.3. Repeat labs are pending. Nutrition is currently following. TIME: 36 minutes of critical care time, independent of procedures, was spent addressing the patient's septic shock, chronic respiratory failure, significant decubitus ulcerations, review of all data and collaboration with the care team. (5:45 AM to 6:30 AM) Code Visit [id number]: [id number] Critical care first hour
[2018-05-31 06:41] LABS: Anion Gap 13 (5-15); BUN 48 mg/dL (7-18); BUN/Creat Ratio 67.4 RATIO (10-20); Calcium,Total 7.7 mg/dL (8.5-10.1); Chloride 112 mmol/L (98-107); Creatinine, Serum 0.71 mg/dL (0.55-1.02); EST Glomerular Filtration Rate 87 mL/min (>60); Est Glom Filt Rate - Afr Amer 105 mL/min (>60); Estimated Creatinine Clearance 42.59 ml/min; Glucose 153 mg/dL (74-106); Magnesium 1.9 mg/dL (1.6-2.6); Phosphorus 2.4 mg/dL (2.5-4.9); Potassium 3.2 mmol/L (3.5-5.1); Sodium Level 144 mmol/L (136-145)
[2018-05-31 06:46] LABS: International Normalized Ratio 1.5; Prothrombin Time (Protime)PT. 18.3 SECONDS (11.7-14.9)
[2018-05-31 07:03] LABS: Differential Indicated MANUAL DIFF; Hematocrit 35.1 % (37-47); Hemoglobin 11.8 g/dl (12.0-15.0); Mean Corp Hgb Conc 33.6 g/gl (32-36); Mean Corpuscular Hgb 27.7 pg (27.0-32.0); Mean Corpuscular Volume 82.4 fL (81-99); Mean Platelet Vol. 10.1 fl (6.2-12.0); POSITIVE COUNT YES; POSITIVE DIFFERENTIAL NO; POSITIVE MORPHOLOGY YES; Platelet Count 219 K/mm3 (150-450); RBC Distribution Width CV 16.9 % (11.6-14.6); RBC Distribution Width SD 50.4 fl (35.1-43.9); Red Blood Count 4.26 M/mm3 (4.2-5.4); White Blood Count 20.7 K/mm3 (4.4-11.0)
[2018-05-31 07:53] LABS: Lymphocyte 3 % (19-41); Monocyte 6 % (0-10); Myelocyte 4 (0-0); Neutrophil-Segmented 87 % (47-70); Platelet Estimate ADEQUATE (ADEQ); Red Cell Morphology NORM C+C NORMAL (NORM C&C); Total Cells Counted 100 (MANUAL DIFF)
[2018-05-31 07:54] LABS: Neutrophil # 18.01 X10^3/uL (2.7-7.7)
[2018-05-31 07:55] LABS: Absolute Lymphocyte Count 0.62 X10^3/ul (0.83-4.51); Lymphocyte # 0.62 X10^3/ul (4.0)
[2018-05-31] MEDS: 0.9% NaCl Peripheral Flush Adult/Peds IV (07:56)
--- NOTE | 2018-05-31 08:03 | CPS ---
setup trach collar on cool aerosol 35% at 10LPM, pt able to tolerate from [id number] then pt wanted back on the ventilator, cuff reinflated and pt put back on the vent with no issues at this time.
--- NOTE | 2018-05-31 08:48 | PCM.CONS.GEN ---
Problem List (1) Dysphagia Status: Chronic Qualifiers: Dysphagia type: oropharyngeal phase Qualified Code(s): R13.12 - Dysphagia, oropharyngeal phase (2) Paraplegia following spinal cord injury Status: Chronic Reason for Consult Date of Consultation: 05/31/18 Reason for Consultation: Feeding tube placement History of Present Illness: The patient is a 67 year old F who was admitted to the ICU with sepsis from UTI and pneumonia. Patient also has infected sacral wound. Patient was recently admitted to the hospital and had a PEG tube at one point. The PEG tube was removed but it is noted that the patient has not eating well. I was consulted to replace PEG tube. Past Medical History Past Medical History (Chronic Problems): Chronic Problems Left ischial pressure sore (Chronic) Benign essential hypertension (Chronic) Depression (Chronic) Hypertension (Chronic) Chronic acquired lymphedema (Chronic) Paraplegia (Chronic) History of ulcer of lower limb (Chronic) Right ischial pressure sore, stage 4 (Chronic) Patient needs follow at [facility]-two years ago she was supposed to follow up with Dr. Zheng- if patient wants agressive treatment with resolution of the wound, she needs to go there combined respiratory failure (Chronic) Dysphagia (Chronic) Restrictive airway disease (Chronic) ADHD (attention deficit hyperactivity disorder) (Chronic) Sleep apnea (Chronic) Leg muscle spasm (Chronic) Incontinence of feces (Chronic) Incontinence of urine (Chronic) History of benign neoplasm of spinal cord (Chronic) Hypercholesterolemia (Chronic) Paraplegia following spinal cord injury (Chronic) Pulmonary fibrosis (Chronic) Acute respiratory failure (Chronic) Allergies methylphenidate HCl [From Concerta] Allergy (Verified 05/26/18 11:35) Anaphylaxis WHEN COMBINED WITH ALBUTERAL SULFATE CAUSES DELERIUM. oxycodone HCl [From Percocet] Allergy (Verified 05/26/18 11:35) Other delerium piperacillin Allergy (Verified 05/26/18 21:07) Other tazobactam [From Zosyn] Allergy (Verified 05/26/18 21:07) Other zolpidem tartrate [From Ambien] Allergy (Verified 05/26/18 11:35) Other delerium WITH PERCOCET. ciprofloxacin [From Cipro] Adverse Reaction (Verified 05/26/18 11:35) Low blood pressure BAD INTERACTION WITH TIZANIDINE fluticasone propionate [From Advair Diskus] Adverse Reaction (Verified 05/26/18 11:35) Other DROWSY methylphenidate [From Concerta] Adverse Reaction (Verified 05/26/18 11:35) Other piroxicam [From Feldene] Adverse Reaction (Verified 05/26/18 11:35) Nausea salmeterol xinafoate [From Advair Diskus] Adverse Reaction (Verified 05/26/18 11:35) Other DROWSY Home Medications: Ambulatory Orders Medication Instructions Recorded Bisacodyl [Bisac-Evac] 10 mg RC DAILY PRN 08/31/16 Albuterol Aerosols [Ventolin 2.5 mg INHALATION Q4H PRN PRN 05/26/18 Aerosols] Apixaban [Eliquis] 2.5 mg PO BID 05/26/18 Aripiprazole [Abilify] 1 mg PO DAILY 05/26/18 Aspirin [Aspirin, Baby] 81 mg PO DAILY@0800 05/26/18 Baclofen [Lioresal] 20 mg PO TID 05/26/18 Calcium Carbonate/Vitamin D3 1 tab PO DAILY 05/26/18 [Calcium 500-Vit D3 200 Tablet] Chlorhexidine 15 ml PO BID 05/26/18 Enoxaparin [Lovenox] 40 mg SC DAILY@1000 05/26/18 Ferrous Sulfate 325 mg PO DAILY 05/26/18 Furosemide [Lasix] 80 mg PO BID 05/26/18 Guaifenesin [Guaifenesin ER] 1,200 mg PO BID 05/26/18 Ipratropium/Albuterol Sulfate 3 ml INHALATION Q6H 05/26/18 [Duoneb] Lactobacillus Acidophilus 1 each PO BID 05/26/18 [Acidophilus Lactobacilli] Metolazone [Zaroxolyn] 2.5 mg PO DAILY 05/26/18 Mirtazapine [Remeron] 7.5 mg PO QHS 05/26/18 Multivit-Min/Iron Fum/Folic AC 1 tab PO DAILY 05/26/18 [Gqvia-Zwvmsjg-Zsfyudqq Tablet] Omeprazole 20 mg PO DAILY 05/26/18 Polyethylene Glycol 3350 [Miralax] 17 gm PO BID 05/26/18 Potassium Chloride [K-Dur] 20 meq PO DAILY 05/26/18 Sennosides/Docusate Sodium 1 each PO DAILY 05/26/18 [Sennosides-Docusate Sodium Tab] Venlafaxine XR [Effexor Xr] 150 mg PO BID 05/26/18 Surgical History: appendectomy, - - Lumbar back surgery ?2. Excision right ischial pressure sore with partial ostectomy for osteomyelitis - 01/13. placement of suprapubic catheter. Psychiatric History: No pertinent psych hx [employer] History: No pertinent MANA[employer] history Lives: Retirement Smoking Status: Never smoker Tobacco Use: Non-smoker Alcohol: None Drugs: None - *Family History Paternal History Items: No pertinent history, - - No pulmonary disease Maternal History Items: No pertinent history, - - No pulmonary disease Review of Systems Constitutional: Reports: Anorexia. Denies: Fever HEENT: Reports: Difficulty Swallowing Cardiovascular: Denies: Chest Pain Respiratory: Reports: - - Trach tube on a trach vent. Denies: Cough Gastrointestinal: Reports: - - Dysphasia. Denies: Abdominal Pain Genitourinary: Reports: - - Patient has suprapubic catheter. Denies: Dysuria Patient Problems: Active and Suspected Problems Septic shock (Acute) Altered mental status (Acute) - Physical Exam General: Alert, - - Patient on trach vent HEENT: Atraumatic Neck: Supple Lungs: Normal air movement Cardiovascular: Regular rate, - - Hypotensive on pressors Abdomen: Soft, Non Tender, Non-Distended Musculoskeletal: - - Paraplegia Neurological: Cranial nerves II-XII grossly intact Psych/Mental Status: Normal Affect Vital Signs Temp Pulse Resp BP Pulse Ox 98.5 F 148 H 35 H 91/55 L 100 05/31/18 04:00 05/31/18 07:45 05/31/18 07:45 05/31/18 06:00 05/31/18 07:45 Oxygen Flow Rate (L/min) 10 Oxygen Delivery Method Trach Collar Weight: 188 lb 4.396 oz Body Mass Index (BMI) 31.6 Finger Stick Blood Glucose 132 Intake and Output for Last 24 Hours 05/29/18 05/30/18 05/31/18 23:59 23:59 23:59 Intake Total 5112 / 5112 2667 / 2667 787.6 / 787.6 Output Total 1999 1400 / 1400 1000 / 1000 Balance 3112 / 3112 1267 / 1267 -212.4 / -212.4 Microbiology Past 72 Hours 05/26/18 14:04 Urine Culture - Final Urine, Catheterized Escherichia coli#2 Escherichia coli 05/27/18 09:15 Gram Stain - Final Wound - Sacral Wound Culture - Preliminary Meth. resistant Staph. aureus Gram negative efrain Escherichia coli Anaerobic Culture - Preliminary Checking for anaerobes, further studies to follow. 05/27/18 09:40 Gram Stain - Final Sputum, Tracheal Aspirate Respiratory Culture - Preliminary Burkholderia cepacia Meth. resistant Staph. aureus Corynebacterium striatum Laboratory Tests Past 24 Hrs 05/27/18 05/28/18 05/30/18 09:15 03:30 13:40 WBC RBC Hgb Hct MCV MCH MCHC RDW RDW Differential Plt Count MPV Neut % (Auto) Absolute Neuts (auto) Absolute Lymphs (auto) Total Counted Neutrophils % (Manual) Lymphocytes % (Manual) Monocytes % (Manual) Myelocytes % Diff Path Review Platelet Estimate RBC Morphology PT INR Sodium Potassium Chloride Carbon Dioxide Anion Gap BUN Creatinine Estim Creat Clear Calc Est GFR (MDRD) Af Amer Est GFR (MDRD) Non-Af BUN/Creatinine Ratio Glucose Calcium Ionized Calcium 4.3 L Phosphorus Magnesium Cortisol Vancomycin Trough 18.8 H S.aureus Protein A PCR POSITIVE H MRSA (PCR) POSITIVE H 05/31/18 05/31/18 05/31/18 06:15 06:15 06:15 WBC 20.7 H RBC 4.26 Hgb 11.8 L Hct 35.1 L MCV 82.4 MCH 27.7 MCHC 33.6 RDW 16.9 H RDW Differential 50.4 H Plt Count 219 MPV 10.1 Neut % (Auto) Not Reportable Absolute Neuts (auto) 18.0 H Absolute Lymphs (auto) 0.62 L Total Counted 100 Neutrophils % (Manual) 87 H Lymphocytes % (Manual) 3 L Monocytes % (Manual) 6 Myelocytes % 4 H Diff Path Review May foll Platelet Estimate ADEQUATE RBC Morphology NORM C+C PT 18.3 H INR 1.5 Sodium 144 Potassium 3.2 L Chloride 112 H Carbon Dioxide 19.0 L Anion Gap 13 BUN 48 H Creatinine 0.71 Estim Creat Clear Calc 42.59 Est GFR (MDRD) Af Amer 105 Est GFR (MDRD) Non-Af 87 BUN/Creatinine Ratio 67.4 H Glucose 153 H Calcium 7.7 L Ionized Calcium Phosphorus 2.4 L Magnesium 1.9 Cortisol Vancomycin Trough S.aureus Protein A PCR MRSA (PCR) 05/31/18 08:00 WBC RBC Hgb Hct MCV MCH MCHC RDW RDW Differential Plt Count MPV Neut % (Auto) Absolute Neuts (auto) Absolute Lymphs (auto) Total Counted Neutrophils % (Manual) Lymphocytes % (Manual) Monocytes % (Manual) Myelocytes % Diff Path Review Platelet Estimate RBC Morphology PT INR Sodium Potassium Chloride Carbon Dioxide Anion Gap BUN Creatinine Estim Creat Clear Calc Est GFR (MDRD) Af Amer Est GFR (MDRD) Non-Af BUN/Creatinine Ratio Glucose Calcium Ionized Calcium Phosphorus Magnesium Cortisol Pending Vancomycin Trough S.aureus Protein A PCR MRSA (PCR) POC Glucose 05/31/18 05/31/18 05/30/18 05:40 00:47 17:34 POC Glucose 149 H 146 H 147 H 05/30/18 12:13 POC Glucose 169 H Assessment/Plan All Active Problems Septic shock (Acute) Chronic anticoagulation (Acute) MANUEL (acute kidney injury) (Acute) Sepsis (Acute) Altered mental status (Acute) Aspiration pneumonia (Acute) Pseudomonas urinary tract infection (Acute) Hypokalemia (Acute) MRSA pneumonia (Acute) Shortness of breath (Acute) Ulcer of heel (Acute) Fever (Acute) Acute and chronic respiratory failure (Acute) 67-year-old female with dysphagia and sepsis 1. Patient's family and the patient appear to want the PEG tube replaced. I explained the risks of bleeding, infection, colon injury. The patient has a slightly elevated INR 1.5. 2. Speech therapy is evaluating the patient today. As long as they concur and the family signed consent I will place PEG tube at the bedside tomorrow. Aashish Dee MD Pager: [facility] [address] [place] [address], [address] [place] [address] Office:
--- NOTE | 2018-05-31 09:56 | PCM.PN.HOSP ---
Patient Problems: Active and Suspected Problems Septic shock (Acute) UTI due to extended-spectrum beta lactamase (ESBL) producing Escherichia coli (Acute) Gram-negative pneumonia (Acute) Anasarca (Acute) Acute and chronic respiratory failure (Acute) Subjective: Non verbal due to vent. Answers yes/no questions with nodding/shaking her head, respectively. +Shortness of breath. No pain. Wishes to continue with aggressive measures. Vitals/I&O's: Vital Signs Temp Pulse Resp BP Pulse Ox 36.9 C 138 H 29 H 91/55 L 99 05/31/18 04:00 05/31/18 09:00 05/31/18 09:00 05/31/18 06:00 05/31/18 09:00 Oxygen Flow Rate (L/min) 10 Oxygen Delivery Method Trach Collar Weight: 85.4 kg Body Mass Index (BMI) 31.6 Finger Stick Blood Glucose 132 Intake and Output for Last 24 Hours 05/29/18 05/30/18 05/31/18 23:59 23:59 23:59 Intake Total 5112 / 5112 2667 / 2667 787.6 / 787.6 Output Total 1999 1400 / 1400 1000 / 1000 Balance 3112 / 3112 1267 / 1267 -212.4 / -212.4 General: Alert, - - afebrile. nontoxic. HEENT: Atraumatic, Normocephalic Oral: Moist Mucosa, No Gingival or Mucosal Lesions/ Ulcerations Neck: No Nodes, Thyroid Normal Size and Texture, - - trach in place Lungs: Diminished, - - coarse breath sounds bilaterally. Cardiovascular: Regular rate, Regular Rhythm, Normal S1, Normal S2, No murmurs Abdomen: Bowel Sounds Present, Soft, Non Tender, Non-Distended, No Hepato-splenomegaly Extremities: No cyanosis, No Calf Tenderness, Edema, - Skin: - - peau d orange appearance of LE bilaterally. venous stasis dermatitis of LE bilaterally. Musculoskeletal: Cachexia, Muscle Wasting Neurological: - - no clonus. no hyperrefexlia. Psych/Mental Status: Appropriate, Flat Affect Microbiology Past 72 Hours 05/26/18 14:04 Urine, Catheterized Urine Culture - Final Escherichia coli#2 Escherichia coli 05/27/18 09:15 Wound - Sacral Gram Stain - Final 05/27/18 09:15 Wound - Sacral Wound Culture - Preliminary Meth. resistant Staph. aureus Gram negative efrain Escherichia coli 05/27/18 09:15 Wound - Sacral Anaerobic Culture - Preliminary Checking for anaerobes, further studies to follow. 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 aureus Corynebacterium striatum Laboratory Results 05/28/18 03:30: Ionized Calcium 4.3 L 05/30/18 12:13: POC Glucose 169 H 05/30/18 13:40: Vancomycin Trough 18.8 H 05/30/18 17:34: POC Glucose 147 H 05/31/18 00:47: POC Glucose 146 H 05/31/18 05:40: POC Glucose 149 H 05/31/18 06:15: WBC 20.7 H, RBC 4.26, Hgb 11.8 L, Hct 35.1 L, MCV 82.4, MCH 27.7, MCHC 33.6, RDW 16.9 H, RDW Differential 50.4 H, Plt Count 219, MPV 10.1, Neut % (Auto) Not Reportable, Absolute Neuts (auto) 18.0 H, Absolute Lymphs (auto) 0.62 L, Total Counted 100, Neutrophils % (Manual) 87 H, Lymphocytes % (Manual) 3 L, Monocytes % (Manual) 6, Myelocytes % 4 H, Diff Path Review May , Platelet Estimate ADEQUATE, RBC Morphology NORM C+C 05/31/18 06:15: PT 18.3 H, INR 1.5 05/31/18 06:15: Sodium 144, Potassium 3.2 L, Chloride 112 H, Carbon Dioxide 19.0 L, Anion Gap 13, BUN 48 H, Creatinine 0.71, Estim Creat Clear Calc 42.59, Est GFR (MDRD) Af Amer 105, Est GFR (MDRD) Non-Af 87, BUN/Creatinine Ratio 67.4 H, Glucose 153 H, Calcium 7.7 L, Phosphorus 2.4 L, Magnesium 1.9 05/31/18 08:00: Cortisol 31.20 H Current Medications Albuterol Sulfate (Ventolin Aerosols) 2.5 mg INHALATION Q4H PRN PRN PRN Reason: SOB &/OR WHEEZING Albuterol/Ipratropium (Duoneb) 3 ml INHALATION Q6HWA.RT [facility] Last Admin: 05/31/18 07:00 Dose: Not Given Bisacodyl (Dulcolax) 10 mg RECTAL DAILY PRN PRN Reason: Constipation Chlorhexidine Gluconate () 15 ml PO BID [facility] Last Admin: 05/30/18 21:28 Dose: 15 ml Chlorhexidine Gluconate () 1 each TOPICAL DAILY [facility] Last Admin: 05/31/18 05:39 Dose: 1 each Heparin Sodium (Porcine) (Heparin Na) 5,000 unit SC Q8 [facility] Last Admin: 05/31/18 05:39 Dose: 5,000 unit Vancomycin IV Pharmacy to Dose (1 ea/ Sodium Chloride) 500 mls @ 250 mls/hr IV PRN PRN; Protocol PRN Reason: Rx to Dose Vancomycin HCl 750 mg/ Sodium (Chloride) 265 mls @ 250 mls/hr IV Q24H [facility] Last Admin: 05/30/18 15:24 Dose: 250 mls/hr Pantoprazole Sodium 40 mg/ (Sodium Chloride) 110 mls @ 330 mls/hr IV Q12 [facility] Last Admin: 05/30/18 21:26 Dose: 330 mls/hr Norepinephrine Bitartrate 8 mg (/ Dextrose) 258 mls @ 9.68 mls/hr IV .[id number] [facility] Last Admin: 05/31/18 07:45 Dose: 9.68 mls/hr Meropenem 500 mg/ Sodium (Chloride) 60 mls @ 100 mls/hr IV Q8 [facility] Last Admin: 05/31/18 05:39 Dose: 100 mls/hr Sodium Chloride () 250 mls @ 15 mls/hr IV .[id number] PRN PRN Reason: SALINE FLUSH Last Admin: 05/31/18 07:45 Dose: 15 mls/hr Tigecycline 50 mg/ Sodium (Chloride) 105 mls @ 105 mls/hr IV Q12 [facility] Last Admin: 05/30/18 23:06 Dose: 105 mls/hr Potassium Phosphate 40 mm/ (Sodium Chloride) 513.3333 mls @ 62.5 mls/hr IV X1 ONE Stop: 05/31/18 15:27 Last Admin: 05/31/18 07:45 Dose: 62.5 mls/hr Insulin Human Lispro (Humalog Kwikpen (Bkc)) 0 unit SC Q6 [facility]; Protocol Last Admin: 05/31/18 05:40 Dose: Not Given Morphine Sulfate () 1 - 2 mg IV Q4H PRN PRN PRN Reason: PAIN Last Admin: 05/31/18 00:54 Dose: 1 mg Nystatin (Mycostatin Powder) 1 applic TOPICAL BID [facility]; Protocol Last Admin: 05/30/18 21:27 Dose: 1 applicatio Sodium Chloride () 5 - 30 ml IV UD PRN PRN Reason: SALINE FLUSH Last Admin: 05/31/18 07:56 Dose: 10 ml Medical Necessity - Tobacco Use Smoking Status: Never smoker Tobacco Use: Non-smoker Assessment/Plan All Active Problems Septic shock (Acute) UTI due to extended-spectrum beta lactamase (ESBL) producing Escherichia coli (Acute) Gram-negative pneumonia (Acute) Anasarca (Acute) Chronic anticoagulation (Acute) MANUEL (acute kidney injury) (Resolved) Sepsis (Acute) Altered mental status (Resolved) Aspiration pneumonia (Acute) Pseudomonas urinary tract infection (Acute) Hypokalemia (Acute) MRSA pneumonia (Acute) Shortness of breath (Acute) Ulcer of heel (Acute) Fever (Acute) Acute and chronic respiratory failure (Acute) 1. Septic shock Due to UTI and gram-negative pneumonia Still requiring pressor support with norepinephrine No adrenal insufficiency with normal cortisol Echocardiogram from the showed normal left ventricular size, wall motion and systolic function. Complicated by the patient's anasarca 2. Gram negative and MRSA pneumonia [id number] organism with Burkholderia On meropenem tigecycline and vancomycin Infectious disease following 3. ESBL E. coli urinary tract infection On tigecycline and meropenem Infectious disease following 4. Acute hypoxic on chronic respiratory failure Secondary to pneumonia Patient already with a trach Vent management per the pulmonary service 5. Thrush Continue with nystatin 6. Dysphagia PEG tube was previously removed prior to this hospitalization Patient seen by general surgery, and the plan is to replace it on the 7. Anasarca Complicating care Abdomen is 1.3 Optimize nutritional status when able 8. DVT prophylaxis with heparin 9. Prognosis Guarded to poor Patient indicating to me that she wishes to continue with aggressive measures Consider hospice at the point when the patient deteriorates, whether that would be during this hospitalization or later point after discharge. Code Visit Inpatient E&M: 25921 Subs Hosp L3
[2018-05-31] MEDS: Chlorhexidine 15 ML PO ×2 (09:59→23:18)
--- NOTE | 2018-05-31 10:00 | PN_ITS ---
Patient Problems: Active and Suspected Problems Septic shock (Acute) UTI due to extended-spectrum beta lactamase (ESBL) producing Escherichia coli (Acute) Gram-negative pneumonia (Acute) Anasarca (Acute) Acute and chronic respiratory failure (Acute) Subjective: Non verbal due to vent. Answers yes/no questions with nodding/shaking her head, respectively. +Shortness of breath. No pain. Wishes to continue with aggressive measures. Vitals/I&O's: Vital Signs Temp Pulse Resp BP Pulse Ox 36.9 C 138 H 29 H 91/55 L 99 05/31/18 04:00 05/31/18 09:00 05/31/18 09:00 05/31/18 06:00 05/31/18 09:00 Oxygen Flow Rate (L/min) 10 Oxygen Delivery Method Trach Collar Weight: 85.4 kg Body Mass Index (BMI) 31.6 Finger Stick Blood Glucose 132 Intake and Output for Last 24 Hours 05/29/18 05/30/18 05/31/18 23:59 23:59 23:59 Intake Total 5112 / 5112 2667 / 2667 787.6 / 787.6 Output Total 1999 1400 / 1400 1000 / 1000 Balance 3112 / 3112 1267 / 1267 -212.4 / -212.4 General: Alert, - - afebrile. nontoxic. HEENT: Atraumatic, Normocephalic Oral: Moist Mucosa, No Gingival or Mucosal Lesions/ Ulcerations Neck: No Nodes, Thyroid Normal Size and Texture, - - trach in place Lungs: Diminished, - - coarse breath sounds bilaterally. Cardiovascular: Regular rate, Regular Rhythm, Normal S1, Normal S2, No murmurs Abdomen: Bowel Sounds Present, Soft, Non Tender, Non-Distended, No Hepato- splenomegaly Extremities: No cyanosis, No Calf Tenderness, Edema, - Skin: - - peau d orange appearance of LE bilaterally. venous stasis dermatitis of LE bilaterally. Musculoskeletal: Cachexia, Muscle Wasting Neurological: - - no clonus. no hyperrefexlia. Psych/Mental Status: Appropriate, Flat Affect Microbiology Past 72 Hours 05/26/18 14:04 Urine, Catheterized Urine Culture - Final Escherichia coli#2 Escherichia coli 05/27/18 09:15 Wound - Sacral Gram Stain - Final 05/27/18 09:15 Wound - Sacral Wound Culture - Preliminary Meth. resistant Staph. aureus Gram negative efrain Escherichia coli 05/27/18 09:15 Wound - Sacral Anaerobic Culture - Preliminary Checking for anaerobes, further studies to follow. 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 aureus Corynebacterium striatum Laboratory Results 05/28/18 03:30: Ionized Calcium 4.3 L 05/30/18 12:13: POC Glucose 169 H 05/30/18 13:40: Vancomycin Trough 18.8 H 05/30/18 17:34: POC Glucose 147 H 05/31/18 00:47: POC Glucose 146 H 05/31/18 05:40: POC Glucose 149 H 05/31/18 06:15: WBC 20.7 H, RBC 4.26, Hgb 11.8 L, Hct 35.1 L, MCV 82.4, MCH 27.7, MCHC 33.6, RDW 16.9 H, RDW Differential 50.4 H, Plt Count 219, MPV 10.1, Neut % (Auto) Not Reportable, Absolute Neuts (auto) 18.0 H, Absolute Lymphs (auto) 0.62 L, Total Counted 100, Neutrophils % (Manual) 87 H, Lymphocytes % (Manual) 3 L, Monocytes % (Manual) 6, Myelocytes % 4 H, Diff Path Review May , Platelet Estimate ADEQUATE, RBC Morphology NORM C+C 05/31/18 06:15: PT 18.3 H, INR 1.5 05/31/18 06:15: Sodium 144, Potassium 3.2 L, Chloride 112 H, Carbon Dioxide 19.0 L, Anion Gap 13, BUN 48 H, Creatinine 0.71, Estim Creat Clear Calc 42.59, Est GFR (MDRD) Af Amer 105, Est GFR (MDRD) Non-Af 87, BUN/Creatinine Ratio 67.4 H, Glucose 153 H, Calcium 7.7 L, Phosphorus 2.4 L, Magnesium 1.9 05/31/18 08:00: Cortisol 31.20 H Current Medications Albuterol Sulfate (Ventolin Aerosols) 2.5 mg INHALATION Q4H PRN PRN PRN Reason: SOB &/OR WHEEZING Albuterol/Ipratropium (Duoneb) 3 ml INHALATION Q6HWA.RT [facility] Last Admin: 05/31/18 07:00 Dose: Not Given Bisacodyl (Dulcolax) 10 mg RECTAL DAILY PRN PRN Reason: Constipation Chlorhexidine Gluconate () 15 ml PO BID [facility] Last Admin: 05/30/18 21:28 Dose: 15 ml Chlorhexidine Gluconate () 1 each TOPICAL DAILY [facility] Last Admin: 05/31/18 05:39 Dose: 1 each Heparin Sodium (Porcine) (Heparin Na) 5,000 unit SC Q8 [facility] Last Admin: 05/31/18 05:39 Dose: 5,000 unit Vancomycin IV Pharmacy to Dose (1 ea/ Sodium Chloride) 500 mls @ 250 mls/hr IV PRN PRN; Protocol PRN Reason: Rx to Dose Vancomycin HCl 750 mg/ Sodium (Chloride) 265 mls @ 250 mls/hr IV Q24H [facility] Last Admin: 05/30/18 15:24 Dose: 250 mls/hr Pantoprazole Sodium 40 mg/ (Sodium Chloride) 110 mls @ 330 mls/hr IV Q12 [facility] Last Admin: 05/30/18 21:26 Dose: 330 mls/hr Norepinephrine Bitartrate 8 mg (/ Dextrose) 258 mls @ 9.68 mls/hr IV .[id number] [facility] Last Admin: 05/31/18 07:45 Dose: 9.68 mls/hr Meropenem 500 mg/ Sodium (Chloride) 60 mls @ 100 mls/hr IV Q8 [facility] Last Admin: 05/31/18 05:39 Dose: 100 mls/hr Sodium Chloride () 250 mls @ 15 mls/hr IV .[id number] PRN PRN Reason: SALINE FLUSH Last Admin: 05/31/18 07:45 Dose: 15 mls/hr Tigecycline 50 mg/ Sodium (Chloride) 105 mls @ 105 mls/hr IV Q12 [facility] Last Admin: 05/30/18 23:06 Dose: 105 mls/hr Potassium Phosphate 40 mm/ (Sodium Chloride) 513.3333 mls @ 62.5 mls/hr IV X1 ONE Stop: 05/31/18 15:27 Last Admin: 05/31/18 07:45 Dose: 62.5 mls/hr Insulin Human Lispro (Humalog Kwikpen (Bkc)) 0 unit SC Q6 [facility]; Protocol Last Admin: 05/31/18 05:40 Dose: Not Given Morphine Sulfate () 1 - 2 mg IV Q4H PRN PRN PRN Reason: PAIN Last Admin: 05/31/18 00:54 Dose: 1 mg Nystatin (Mycostatin Powder) 1 applic TOPICAL BID [facility]; Protocol Last Admin: 05/30/18 21:27 Dose: 1 applicatio Sodium Chloride () 5 - 30 ml IV UD PRN PRN Reason: SALINE FLUSH Last Admin: 05/31/18 07:56 Dose: 10 ml Medical Necessity - Tobacco Use Smoking Status: Never smoker Tobacco Use: Non-smoker Assessment/Plan All Active Problems Septic shock (Acute) UTI due to extended-spectrum beta lactamase (ESBL) producing Escherichia coli (Acute) Gram-negative pneumonia (Acute) Anasarca (Acute) Chronic anticoagulation (Acute) MANUEL (acute kidney injury) (Resolved) Sepsis (Acute) Altered mental status (Resolved) Aspiration pneumonia (Acute) Pseudomonas urinary tract infection (Acute) Hypokalemia (Acute) MRSA pneumonia (Acute) Shortness of breath (Acute) Ulcer of heel (Acute) Fever (Acute) Acute and chronic respiratory failure (Acute) 1. Septic shock * Due to UTI and gram-negative pneumonia * Still requiring pressor support with norepinephrine * No adrenal insufficiency with normal cortisol * Echocardiogram from the showed normal left ventricular size, wall motion and systolic function. * Complicated by the patient's anasarca 2. Gram negative and MRSA pneumonia * [id number]-bogmlydbs organism with Burkholderia * On meropenem tigecycline and vancomycin * Infectious disease following 3. ESBL E. coli urinary tract infection * On tigecycline and meropenem * Infectious disease following 4. Acute hypoxic on chronic respiratory failure * Secondary to pneumonia * Patient already with a trach * Vent management per the pulmonary service 5. Thrush * Continue with nystatin 6. Dysphagia * PEG tube was previously removed prior to this hospitalization * Patient seen by general surgery, and the plan is to replace it on the 7. Anasarca * Complicating care * Abdomen is 1.3 * Optimize nutritional status when able 8. DVT prophylaxis with heparin 9. Prognosis * Guarded to poor * Patient indicating to me that she wishes to continue with aggressive measures * Consider hospice at the point when the patient deteriorates, whether that would be during this hospitalization or later point after discharge. Code Visit Inpatient E&M: 42772 Subs Hosp L3
--- NOTE | 2018-05-31 10:03 | CASEMGMT ---
SW accompanied physician and RN to speak with patient's daughter (Marjan) and her significant other regarding plan of care as patient is not doing well. Patient's daughter wants to proceed with aggressive treatment despite the risk. After conversation everyone left room except Marjan's significant other. SW provided emotional support to her. She said she is trying to stay strong for Marjan. Marjan keeps everything inside. RUTH faxed updates to [employer]. SW to follow for d/c planning. Solange CHRISTINA RN OR LPN
[2018-05-31] MEDS: Nystatin Powder 15gm Bottle 1 APPLIC TOPICAL ×2 (10:04→22:16)
[2018-05-31] MEDS: Insulin Lispro 100 UNIT/ML INSULN.PEN SC (11:58)
[2018-05-31 12:10] LABS: Bedside Glucose 150 mg/dL (70-110)
[2018-05-31] MEDS: Ipratropium/Albuterol Sulfate 3 ML AMPUL.NEB INHALATION ×2 (13:51→19:16)
--- NOTE | 2018-05-31 14:42 | PCM.PN.ID ---
Patient Problems: Active and Suspected Problems Anasarca (Acute) Gram-negative pneumonia (Acute) UTI due to extended-spectrum beta lactamase (ESBL) producing Escherichia coli (Acute) Septic shock (Acute) Acute and chronic respiratory failure (Acute) Subjective: Feeling about the same. No fever. Some SOB. No abd pain. - Physical Exam General: Alert, Cooperative, - - ill appearing Lungs: Diminished Cardiovascular: Tachycardic Abdomen: Soft, Non Tender, Non-Distended Extremities: Edema Skin: No rashes Vital Signs Temp Pulse Resp BP Pulse Ox 99.0 F 136 H 23 H 89/71 L 99 05/31/18 13:00 05/31/18 13:00 05/31/18 13:00 05/31/18 13:00 05/31/18 13:00 Oxygen Flow Rate (L/min) 10 Oxygen Delivery Method Mechanical Ventilator Weight: 85.4 kg Body Mass Index (BMI) 31.6 Finger Stick Blood Glucose 132 Intake and Output for Last 24 Hours 05/29/18 05/30/18 05/31/18 23:59 23:59 23:59 Intake Total 5112 / 5112 2667 / 2667 1657.6 / 1657.6 Output Total 1999 / 1999 1400 / 1400 1425 / 1425 Balance 3112 / 3112 1267 / 1267 232.6 / 232.6 Microbiology Past 72 Hours 05/27/18 09:15 Gram Stain - Final Wound - Sacral Wound Culture - Final Meth. resistant Staph. aureus Providencia stuartii Escherichia coli Anaerobic Culture - Final Prevotella melaninogenica 05/26/18 12:25 Blood Culture - Final Blood Culture (Wb) - Left Hand No growth in 5 days. 05/26/18 12:25 Blood Culture - Final Blood Culture (Wb) - Left Wrist No growth in 5 days. 05/27/18 09:40 Gram Stain - Final Sputum, Tracheal Aspirate Respiratory Culture - Final Burkholderia cepacia Meth. resistant Staph. aureus Corynebacterium striatum 05/26/18 14:04 Urine Culture - Final Urine, Catheterized Escherichia coli#2 Escherichia coli Laboratory Tests Past 24 Hrs 05/27/18 05/31/18 05/31/18 09:15 06:15 06:15 WBC 20.7 H RBC 4.26 Hgb 11.8 L Hct 35.1 L MCV 82.4 MCH 27.7 MCHC 33.6 RDW 16.9 H RDW Differential 50.4 H Plt Count 219 MPV 10.1 Neut % (Auto) Not Reportable Absolute Neuts (auto) 18.0 H Absolute Lymphs (auto) 0.62 L Total Counted 100 Neutrophils % (Manual) 87 H Lymphocytes % (Manual) 3 L Monocytes % (Manual) 6 Myelocytes % 4 H Diff Path Review May foll Platelet Estimate ADEQUATE RBC Morphology NORM C+C PT 18.3 H INR 1.5 Sodium Potassium Chloride Carbon Dioxide Anion Gap BUN Creatinine Estim Creat Clear Calc Est GFR (MDRD) Af Amer Est GFR (MDRD) Non-Af BUN/Creatinine Ratio Glucose Calcium Phosphorus Magnesium Cortisol S.aureus Protein A PCR POSITIVE H MRSA (PCR) POSITIVE H 05/31/18 05/31/18 06:15 08:00 WBC RBC Hgb Hct MCV MCH MCHC RDW RDW Differential Plt Count MPV Neut % (Auto) Absolute Neuts (auto) Absolute Lymphs (auto) Total Counted Neutrophils % (Manual) Lymphocytes % (Manual) Monocytes % (Manual) Myelocytes % Diff Path Review Platelet Estimate RBC Morphology PT INR Sodium 144 Potassium 3.2 L Chloride 112 H Carbon Dioxide 19.0 L Anion Gap 13 BUN 48 H Creatinine 0.71 Estim Creat Clear Calc 42.59 Est GFR (MDRD) Af Amer 105 Est GFR (MDRD) Non-Af 87 BUN/Creatinine Ratio 67.4 H Glucose 153 H Calcium 7.7 L Phosphorus 2.4 L Magnesium 1.9 Cortisol 31.20 H S.aureus Protein A PCR MRSA (PCR) POC Glucose 05/31/18 05/31/18 05/31/18 11:52 05:40 00:47 POC Glucose 150 H 149 H 146 H 05/30/18 17:34 POC Glucose 147 H Medical Necessity - Tobacco Use Smoking Status: Never smoker Tobacco Use: Non-smoker Route of nutrition/ use of supplements: [] Nutritional Intake: [] IV Site: [] Donahue Catheter: [] - Assessment/Plan Antibiotics: [] Assessment/Plan: [] Active and Suspected Problems Chronic anticoagulation (Acute) MANUEL (acute kidney injury) (Acute) Altered mental status (Acute) Hypokalemia (Acute) Septic shock with MANUEL - 05/11 Ucx with ESBL ecoli, treated with nitrofurantoin. 10/9 sputum cx with PsA, R to imipenem, treated with levaquin which it was sensitive to. CXR clear, low suspicion for pneumonia. Sputum grew XDR Burkholderia, MRSA, and corynebacterium. Pressors have increased and wbc rising despite vanc/meropenem and addition of tigecycline. Requested minocycline testing for the burkholderia. Will follow. Overall very poor prognosis. D/w Dr. Watts.
--- NOTE | 2018-05-31 15:01 | CHAPLAIN ---
Type of Pastoral Visit ___ Initial Visit _x__ Follow-up Visit ___ On-call Visit ___ General Patient Visit ___ Spiritual Assessment ___ Family Conference ___ Bereavement ___ Rapid Response ___ Code Blue ___ Other (describe below) Pastoral Care Referral From _x__ Patient _x__ Family _x__ Nurse ___ Physician ___ Sewing Machine Operator ___ Junior Analyst ___ Other (describe below) Sacrament/Intervention ___ Active listening ___ Anointing ___ Episcopalian ___ Bereavement ___ Communion ___ Jessica exploration ___ ___ Life review _x__ Prayer ___ Reconciliation ___ Sacrament of Sick _x__ Supportive presence ___ Wedding ___ Other (describe below) Pastoral Comments patient is able to nod her head in response to questions by developer relations manager but keeps her eyes closed most of the time; RN reports to me previously that pt condition is declining; daughter and SO of daughter is in the room upon my entrance; daughter is welcoming and offers this developer relations manager a place beside the bed to talk with pt; daughter says pt is member of [facility] in [place]; prayer and words of comfort are given to pt; daughter is offered support and opportunity for questions or concerns but does not pursue anything else with this developer relations manager; another extended family member shows up later in unit to see pt and this developer relations manager seeks permission for visitation for more family
[2018-05-31 15:19] LABS: Pathologist Review Reviewed
[2018-05-31 18:15] LABS: Bedside Glucose 121 mg/dL (70-110)
[2018-06-01] VITALS (62 sets, daily range): BP systolic 44–137; BP diastolic 0–97; PULSE 109–149; RESP 14–42; TEMP 36.9–40.8; O2SAT 92–100
[2018-06-01 00:35] LABS: Bedside Glucose 144 mg/dL (70-110)
[2018-06-01 04:45] LABS: Hematocrit 36.3 % (37-47); Hemoglobin 12.3 g/dl (12.0-15.0); International Normalized Ratio 1.7; Mean Corp Hgb Conc 33.9 g/gl (32-36); Mean Corpuscular Hgb 27.4 pg (27.0-32.0); Mean Corpuscular Volume 80.8 fL (81-99); Mean Platelet Vol. 10.8 fl (6.2-12.0); Platelet Count 201 K/mm3 (150-450); Prothrombin Time (Protime)PT. 19.8 SECONDS (11.7-14.9); Red Blood Count 4.49 M/mm3 (4.2-5.4); White Blood Count 23.2 K/mm3 (4.4-11.0)
[2018-06-01 05:02] LABS: Differential Indicated MANUAL DIFF; POSITIVE COUNT NO; POSITIVE DIFFERENTIAL YES; POSITIVE MORPHOLOGY YES
[2018-06-01 05:07] LABS: BUN 54 mg/dL (7-18); BUN/Creat Ratio 59.6 RATIO (10-20); Calcium,Total 7.5 mg/dL (8.5-10.1); Creatinine, Serum 0.91 mg/dL (0.55-1.02); EST Glomerular Filtration Rate 66 mL/min (>60); Est Glom Filt Rate - Afr Amer 79 mL/min (>60); Glucose 149 mg/dL (74-106); Magnesium 1.9 mg/dL (1.6-2.6); Phosphorus 4.6 mg/dL (2.5-4.9); Sodium Level 146 mmol/L (136-145)
[2018-06-01 05:08] LABS: Anion Gap 14 (5-15); Chloride 114 mmol/L (98-107)
[2018-06-01 05:14] LABS: Lymphocyte 11 % (19-41); Metamyelocyte 1 % (0-1); Monocyte 4 % (0-10); Neutrophil-Segmented 84 % (47-70); Platelet Estimate ADEQUATE (ADEQ); Red Cell Morphology NORM C+C NORMAL (NORM C&C); Total Cells Counted 100 (MANUAL DIFF)
[2018-06-01 05:17] LABS: Absolute Lymphocyte Count 2.55 X10^3/ul (0.83-4.51); Absolute Neutrophil Count 19.4 X10^3/uL (2.0-7.7); Lymphocyte # 2.55 X10^3/ul (4.0)
[2018-06-01] MEDS: CHLORHEXIDINE GLUC 2% CLOTH 1 EACH TOWELETTE TOPICAL (06:00)
[2018-06-01 06:45] LABS: Bedside Glucose 139 mg/dL (70-110)
[2018-06-01] MEDS: Ipratropium/Albuterol Sulfate 3 ML AMPUL.NEB INHALATION (07:06)
--- NOTE | 2018-06-01 07:16 | PN_ITS ---
Subjective: Patient did okay overnight. Patient remains on Levophed therapy and has been in sinus tachycardia with heart rates in the 130s-140s for most of the evening. No bleeding complications have been reported. Patient has become more tachypneic on the ventilator, but saturations have been acceptable. Objective: Nursing and respiratory report minimal respiratory secretions General: Alert, - - Tachypneic, but good ventilator synchrony. Appears older than stated age. 4+ anasarca noted. HEENT: Atraumatic, PERRLA, EOMI, Normocephalic, - - No scleral icterus or injection noted. Oral: Moist Mucosa, No Gingival or Mucosal Lesions/ Ulcerations Neck: Supple, No Nodes, JVD, Right, - - Tracheostomy is clean, dry and intact. Lungs: No rhonchi, No wheeze, No rales, Diminished, - - Symmetric expansion. No dullness to percussion. Cardiovascular: Normal S1, Normal S2, No murmurs, No rub noted, No Gallop, Tachycardic Abdomen: Bowel Sounds Present, Soft, Distended, Obese Extremities: No clubbing, Cyanosis - Right foot, Edema - 4+ anasarca, - - Unable to palpate pedal pulses Skin: Ulcer/ Wound Musculoskeletal: No Tenderness to Palpation of Joints or Extremities Lymphatic: No Cervical, Supraclavicular, or Inguinal Adenopathy Neurological: - - Baseline paraplegia. Harder to get to interact this morning Psych/Mental Status: Flat Affect, Restless Vital Signs Temp Pulse Resp BP Pulse Ox 36.9 C 144 H 32 H 123/97 H 99 06/01/18 04:00 06/01/18 07:00 06/01/18 07:00 06/01/18 07:00 06/01/18 07:00 Oxygen Flow Rate (L/min) 10 Oxygen Delivery Method Mechanical Ventilator Weight: 86.7 kg Body Mass Index (BMI) 31.6 Finger Stick Blood Glucose 132 Intake and Output for Last 24 Hours 05/30/18 05/31/18 06/01/18 23:59 23:59 23:59 Intake Total 2667 / 2667 2559.6 / 2559.6 813.2 / 813.2 Output Total 1400 / 1400 1700 / 1700 450 / 450 Balance 1267 / 1267 859.6 / 859.6 363.2 / 363.2 Labs (Last 48 Hours) 05/27/18 05/28/18 05/30/18 09:15 03:30 03:45 WBC RBC Hgb Hct MCV MCH MCHC RDW RDW Differential Plt Count MPV Neut % (Auto) Absolute Neuts (auto) Absolute Lymphs (auto) Total Counted Neutrophils % (Manual) Lymphocytes % (Manual) Monocytes % (Manual) Metamyelocytes % Myelocytes % Diff Path Review Reviewed Platelet Estimate RBC Morphology PT INR Sodium Potassium Chloride Carbon Dioxide Anion Gap BUN Creatinine Estim Creat Clear Calc Est GFR (MDRD) Af Amer Est GFR (MDRD) Non-Af BUN/Creatinine Ratio Glucose Calcium Ionized Calcium 4.3 L Phosphorus Magnesium Cortisol Vancomycin Trough S.aureus Protein A PCR POSITIVE H MRSA (PCR) POSITIVE H POC Glucose 05/30/18 05/30/18 05/30/18 12:13 13:40 17:34 WBC RBC Hgb Hct MCV MCH MCHC RDW RDW Differential Plt Count MPV Neut % (Auto) Absolute Neuts (auto) Absolute Lymphs (auto) Total Counted Neutrophils % (Manual) Lymphocytes % (Manual) Monocytes % (Manual) Metamyelocytes % Myelocytes % Diff Path Review Platelet Estimate RBC Morphology PT INR Sodium Potassium Chloride Carbon Dioxide Anion Gap BUN Creatinine Estim Creat Clear Calc Est GFR (MDRD) Af Amer Est GFR (MDRD) Non-Af BUN/Creatinine Ratio Glucose Calcium Ionized Calcium Phosphorus Magnesium Cortisol Vancomycin Trough 18.8 H S.aureus Protein A PCR MRSA (PCR) POC Glucose 169 H 147 H 05/31/18 05/31/18 05/31/18 00:47 05:40 06:15 WBC 20.7 H RBC 4.26 Hgb 11.8 L Hct 35.1 L MCV 82.4 MCH 27.7 MCHC 33.6 RDW 16.9 H RDW Differential 50.4 H Plt Count 219 MPV 10.1 Neut % (Auto) Not Reportable Absolute Neuts (auto) 18.0 H Absolute Lymphs (auto) 0.62 L Total Counted 100 Neutrophils % (Manual) 87 H Lymphocytes % (Manual) 3 L Monocytes % (Manual) 6 Metamyelocytes % Myelocytes % 4 H Diff Path Review May foll Platelet Estimate ADEQUATE RBC Morphology NORM C+C PT INR Sodium Potassium Chloride Carbon Dioxide Anion Gap BUN Creatinine Estim Creat Clear Calc Est GFR (MDRD) Af Amer Est GFR (MDRD) Non-Af BUN/Creatinine Ratio Glucose Calcium Ionized Calcium Phosphorus Magnesium Cortisol Vancomycin Trough S.aureus Protein A PCR MRSA (PCR) POC Glucose 146 H 149 H 05/31/18 05/31/18 05/31/18 06:15 06:15 08:00 WBC RBC Hgb Hct MCV MCH MCHC RDW RDW Differential Plt Count MPV Neut % (Auto) Absolute Neuts (auto) Absolute Lymphs (auto) Total Counted Neutrophils % (Manual) Lymphocytes % (Manual) Monocytes % (Manual) Metamyelocytes % Myelocytes % Diff Path Review Platelet Estimate RBC Morphology PT 18.3 H INR 1.5 Sodium 144 Potassium 3.2 L Chloride 112 H Carbon Dioxide 19.0 L Anion Gap 13 BUN 48 H Creatinine 0.71 Estim Creat Clear Calc 42.59 Est GFR (MDRD) Af Amer 105 Est GFR (MDRD) Non-Af 87 BUN/Creatinine Ratio 67.4 H Glucose 153 H Calcium 7.7 L Ionized Calcium Phosphorus 2.4 L Magnesium 1.9 Cortisol 31.20 H Vancomycin Trough S.aureus Protein A PCR MRSA (PCR) POC Glucose 05/31/18 05/31/18 06/01/18 11:52 18:11 00:03 WBC RBC Hgb Hct MCV MCH MCHC RDW RDW Differential Plt Count MPV Neut % (Auto) Absolute Neuts (auto) Absolute Lymphs (auto) Total Counted Neutrophils % (Manual) Lymphocytes % (Manual) Monocytes % (Manual) Metamyelocytes % Myelocytes % Diff Path Review Platelet Estimate RBC Morphology PT INR Sodium Potassium Chloride Carbon Dioxide Anion Gap BUN Creatinine Estim Creat Clear Calc Est GFR (MDRD) Af Amer Est GFR (MDRD) Non-Af BUN/Creatinine Ratio Glucose Calcium Ionized Calcium Phosphorus Magnesium Cortisol Vancomycin Trough S.aureus Protein A PCR MRSA (PCR) POC Glucose 150 H 121 H 144 H 06/01/18 06/01/18 06/01/18 04:20 04:20 04:20 WBC 23.2 H RBC 4.49 Hgb 12.3 Hct 36.3 L MCV 80.8 L MCH 27.4 MCHC 33.9 RDW 17.0 H RDW Differential 47.0 H Plt Count 201 MPV 10.8 Neut % (Auto) Not Reportable Absolute Neuts (auto) 19.4 H Absolute Lymphs (auto) 2.55 Total Counted 100 Neutrophils % (Manual) 84 H Lymphocytes % (Manual) 11 L Monocytes % (Manual) 4 Metamyelocytes % 1 Myelocytes % Diff Path Review May foll Platelet Estimate ADEQUATE RBC Morphology NORM C+C PT 19.8 H INR 1.7 Sodium 146 H Potassium 4.0 Chloride 114 H Carbon Dioxide 18.0 L Anion Gap 14 BUN 54 H Creatinine 0.91 Estim Creat Clear Calc 46.80 Est GFR (MDRD) Af Amer 79 Est GFR (MDRD) Non-Af 66 BUN/Creatinine Ratio 59.6 H Glucose 149 H Calcium 7.5 L Ionized Calcium Phosphorus 4.6 Magnesium 1.9 Cortisol Vancomycin Trough S.aureus Protein A PCR MRSA (PCR) POC Glucose 06/01/18 05:58 WBC RBC Hgb Hct MCV MCH MCHC RDW RDW Differential Plt Count MPV Neut % (Auto) Absolute Neuts (auto) Absolute Lymphs (auto) Total Counted Neutrophils % (Manual) Lymphocytes % (Manual) Monocytes % (Manual) Metamyelocytes % Myelocytes % Diff Path Review Platelet Estimate RBC Morphology PT INR Sodium Potassium Chloride Carbon Dioxide Anion Gap BUN Creatinine Estim Creat Clear Calc Est GFR (MDRD) Af Amer Est GFR (MDRD) Non-Af BUN/Creatinine Ratio Glucose Calcium Ionized Calcium Phosphorus Magnesium Cortisol Vancomycin Trough S.aureus Protein A PCR MRSA (PCR) POC Glucose 139 H Microbiology 05/27/18 09:15 Wound - Sacral Gram Stain - Final 05/27/18 09:15 Wound - Sacral Wound Culture - Final Meth. resistant Staph. aureus Providencia stuartii Escherichia coli 05/27/18 09:15 Wound - Sacral Anaerobic Culture - Final Prevotella melaninogenica 05/26/18 12:25 Blood Culture (Wb) - Left Hand Blood Culture - Final No growth in 5 days. 05/26/18 12:25 Blood Culture (Wb) - Left Wrist Blood Culture - Final No growth in 5 days. 05/27/18 09:40 Sputum, Tracheal Aspirate Gram Stain - Final 05/27/18 09:40 Sputum, Tracheal Aspirate Respiratory Culture - Final Burkholderia cepacia Meth. resistant Staph. aureus Corynebacterium striatum 05/26/18 14:04 Urine, Catheterized Urine Culture - Final Escherichia coli#2 Escherichia coli Medical Necessity - Tobacco Use Smoking Status: Never smoker Tobacco Use: Non-smoker Assessment/Plan All Active Problems Anasarca (Acute) Gram-negative pneumonia (Acute) UTI due to extended-spectrum beta lactamase (ESBL) producing Escherichia coli (Acute) Septic shock (Acute) Chronic anticoagulation (Acute) MANUEL (acute kidney injury) (Resolved) Sepsis (Acute) Altered mental status (Resolved) Aspiration pneumonia (Acute) Pseudomonas urinary tract infection (Acute) Hypokalemia (Acute) MRSA pneumonia (Acute) Shortness of breath (Acute) Ulcer of heel (Acute) Fever (Acute) Acute and chronic respiratory failure (Acute) RECOMMENDATIONS: 1. Continue Levophed to maintain a mean arterial pressure at or above 65 mmHg. 2. Utilize outpatient trilogy settings with a Vt of 450 and rate of 14. 3. Continue broad-spectrum antimicrobials per infectious diseases recomm endations. 4. Patient remains n.p.o., as she has been unable to be cleared by speech therapy. 5. Obtain ABG 6. Await placement of PEG IMPRESSIONS: 1. Septic shock Multiple sources of infection, including urine, sputum and soft tissue. 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 Infectious disease is following. Patient remains significantly tachycardic and has been on Levophed therapy for several days. Patient's cortisol level yesterday was still appropriate for high stress situation. Concern the patient is entering refractory shock. Did attempt to discuss with the family yesterday, but they appear to be in abigail denial. Patient has developed hypernatremia and hyperchloremia, likely secondary to fluid resuscitation. 2. Acute kidney injury Resolved. Likely prerenal in etiology in the setting of #1. Improvement noted with volume expansion and stabilization of hemodynamics. The patient currently has a suprapubic catheter in place. Continue to monitor urine output. No current indication for renal replacement therapy at this time. 3. Chronic respiratory failure The patient has chronic respiratory failure. Per discussion with the nursing facility, the patient is on a trach collar throughout the day and is ventilated at night. She utilizes a trilogy with a tidal volume of 450 and a rate of 14 with the equivalent of a 6 L/min supplemental oxygen bleed. Patient is very tachypneic at this time despite ventilator support. Clinical suspicion for metabolic acidosis leading to increased respiratory drive. ABG has been ordered. 4. History of obstructive sleep apnea/alveolar hypoventilation with prior BiPAP noncompliance Continue current supportive measures as noted above with trach collar throughout the day and full ventilatory support at night. Would also recommend that the patient be placed on full mechanical ventilatory support with any naps throughout the day. 5. Baseline diaphragmatic weakness/restrictive airway disease/paraplegia/muscle spasms/paraplegia/history of Raynaud's/unintentional weight loss Complicates care, management, recovery and prognosis. Nutritional status is concerning. Patient has received significant IV fluids and albumin is only 1.3. Repeat labs are pending. Nutrition is currently following. Addendum 10:20 AM: Patient with increasing cyanosis of the lower extremities and tachycardia throughout the morning. Pressor requirements were increasing as patient spiked a temperature of 105.5 ?F. Called and spoke with the daughter on the phone and requested her to come to the bedside. At approximately 10:15 AM, patient's daughter and son are at the bedside. Clinical scenario was reiterated. After review of the risks, benefits and alternatives, family has elected for pa lliative measures at this time. Patient will be given morphine and Ativan as a premedication. Pressors will then be discontinued. Patient will stay on the ventilator given she needed it when she was alive. Family understands that the prognosis is grim. TIME: 80 minutes of critical care time, independent of procedures, was spent addressing the patient's septic shock, chronic respiratory failure, significant decubitus ulcerations, review of all data and collaboration with the care team. (5:45 AM to 7:15 AM, 8:30 AM to 10:30 AM) Code Visit [id number]: [id number] Critical care first hour
[2018-06-01 07:25] LABS: Base Excess -12 mmol/L (-2 to +2); Bicarbonate 11.6 mmol/L (22-26); Blood Gas Specimen Type ART; FI02 30; Mode A-C; O2 Delivery Device Vent; PEEP 5; PO2 73 mmHG (75-100); RR 14; SITE R Radial; SO2 96 % (95-99); Time Given 714; Total Carbon Dioxide 12 mmol/L; Vt 450; pCO2 15.2 mmHg (35-45); pH 7.49 (7.35-7.45)
[2018-06-01] MEDS: Haloperidol Lactate 5 MG/ML Vial 2.5 MG IV (08:00)
--- NOTE | 2018-06-01 08:00 | NURSING ---
pt condition prevents CAM assess
--- NOTE | 2018-06-01 08:05 | NURSING ---
all ext very cold w/ delayed cap refill. unable to obtain waveform w/accurate measurement of SpO2. Dr. Watts present in pt room and aware.
--- NOTE | 2018-06-01 08:18 | NURSING ---
Called pt's daughter, Marjan, and asker her to come in burak d/t worsening pt condition. She verbalizes understanding and she will be here in approx 45 minutes.
[2018-06-01] MEDS: Lactated Ringers 500 ML 999 ML IV ×2 (08:40→09:50)
--- NOTE | 2018-06-01 08:43 | PCM.PN.HOSP ---
Patient Problems: Active and Suspected Problems Anasarca (Acute) Gram-negative pneumonia (Acute) UTI due to extended-spectrum beta lactamase (ESBL) producing Escherichia coli (Acute) Septic shock (Acute) Subjective: Fever of 105.5 ?F, rectally. Decreased blood pressures, increased levo fed. Tachycardic. Vitals/I&O's: Vital Signs Temp Pulse Resp BP Pulse Ox 36.9 C 148 H 36 H 123/97 H 92 06/01/18 04:00 06/01/18 07:05 06/01/18 07:05 06/01/18 07:00 06/01/18 07:05 Oxygen Flow Rate (L/min) 10 Oxygen Delivery Method Mechanical Ventilator Weight: 86.7 kg Body Mass Index (BMI) 31.6 Finger Stick Blood Glucose 132 Intake and Output for Last 24 Hours 05/30/18 05/31/18 06/01/18 23:59 23:59 23:59 Intake Total 2667 / 2667 2559.6 / 2559.6 813.2 / 813.2 Output Total 1400 / 1400 1700 / 1700 450 / 450 Balance 1267 / 1267 859.6 / 859.6 363.2 / 363.2 General: - - Listless. On ventilator. HEENT: Atraumatic, Normocephalic Oral: Moist Mucosa, No Gingival or Mucosal Lesions/ Ulcerations Neck: - - Tracheostomy in place Lungs: - - Coarse breath sounds. Upper respiratory wheeze. Cardiovascular: Normal S1, Normal S2, Tachycardic Abdomen: Bowel Sounds Present, Soft, Non Tender, Non-Distended Extremities: No Calf Tenderness, Edema, - - extremities are cool to touch. Skin: - - Taut lower extremity edema. Edema involving the lower abdomen. Cyanosis of her feet as well as mottling of her lower extremities and lower abdomen. Musculoskeletal: No Tenderness to Palpation of Joints or Extremities, No Muscle Wasting Neurological: - - No clonus. Diminished DTRs. Microbiology Past 72 Hours 05/27/18 09:15 Wound - Sacral Gram Stain - Final 05/27/18 09:15 Wound - Sacral Wound Culture - Final Meth. resistant Staph. aureus Providencia stuartii Escherichia coli 05/27/18 09:15 Wound - Sacral Anaerobic Culture - Final Prevotella melaninogenica 05/26/18 12:25 Blood Culture (Wb) - Left Hand Blood Culture - Final No growth in 5 days. 05/26/18 12:25 Blood Culture (Wb) - Left Wrist Blood Culture - Final No growth in 5 days. 05/27/18 09:40 Sputum, Tracheal Aspirate Gram Stain - Final 05/27/18 09:40 Sputum, Tracheal Aspirate Respiratory Culture - Final Burkholderia cepacia Meth. resistant Staph. aureus Corynebacterium striatum 05/26/18 14:04 Urine, Catheterized Urine Culture - Final Escherichia coli#2 Escherichia coli Laboratory Results 05/27/18 09:15: S.aureus Protein A PCR POSITIVE H, MRSA (PCR) POSITIVE H 05/30/18 03:45: Diff Path Review Reviewed 05/31/18 08:00: Cortisol 31.20 H 05/31/18 11:52: POC Glucose 150 H 05/31/18 18:11: POC Glucose 121 H 06/01/18 00:03: POC Glucose 144 H 06/01/18 04:20: WBC 23.2 H, RBC 4.49, Hgb 12.3, Hct 36.3 L, MCV 80.8 L, MCH 27.4, MCHC 33.9, RDW 17.0 H, RDW Differential 47.0 H, Plt Count 201, MPV 10.8, Neut % (Auto) Not Reportable, Absolute Neuts (auto) 19.4 H, Absolute Lymphs (auto) 2.55, Total Counted 100, Neutrophils % (Manual) 84 H, Lymphocytes % (Manual) 11 L, Monocytes % (Manual) 4, Metamyelocytes % 1, Diff Path Review May , Platelet Estimate ADEQUATE, RBC Morphology NORM C+C 06/01/18 04:20: PT 19.8 H, INR 1.7 06/01/18 04:20: Sodium 146 H, Potassium 4.0, Chloride 114 H, Carbon Dioxide 18.0 L, Anion Gap 14, BUN 54 H, Creatinine 0.91, Estim Creat Clear Calc 46.80, Est GFR (MDRD) Af Amer 79, Est GFR (MDRD) Non-Af 66, BUN/Creatinine Ratio 59.6 H, Glucose 149 H, Calcium 7.5 L, Phosphorus 4.6, Magnesium 1.9 06/01/18 05:58: POC Glucose 139 H 06/01/18 07:15: Specimen Type ART, Sample Site R Radial, pH 7.49 H, Bicarbonate Actual 11.6 L, POC Total CO2 12, Base Excess -12 L, O2 Saturation 96, O2 % 30, ABG pCO2 15.2 L*, ABG pO2 73 L, Respiration Rate 14, O2 Delivery Device Vent, Vent Mode A-C, Tidal Volume 450, POC PEEP 5, Blood Gas Notified Whom ICU MD, Blood Gas Notified Time 714 Current Medications Acetaminophen (Tylenol) 650 mg RECTAL Q6H PRN PRN PRN Reason: FEVER Albuterol Sulfate (Ventolin Aerosols) 2.5 mg INHALATION Q4H PRN PRN PRN Reason: SOB &/OR WHEEZING Albuterol/Ipratropium (Duoneb) 3 ml INHALATION Q6HWA.RT [facility] Last Admin: 06/01/18 07:06 Dose: 3 ml Bisacodyl (Dulcolax) 10 mg RECTAL DAILY PRN PRN Reason: Constipation Chlorhexidine Gluconate () 15 ml PO BID [facility] Last Admin: 05/31/18 23:18 Dose: 15 ml Chlorhexidine Gluconate () 1 each TOPICAL DAILY [facility] Last Admin: 06/01/18 06:00 Dose: 1 each Heparin Sodium (Porcine) (Heparin Na) 5,000 unit SC Q8 [facility] Last Admin: 06/01/18 06:00 Dose: Not Given Vancomycin IV Pharmacy to Dose (1 ea/ Sodium Chloride) 500 mls @ 250 mls/hr IV PRN PRN; Protocol PRN Reason: Rx to Dose Vancomycin HCl 750 mg/ Sodium (Chloride) 265 mls @ 250 mls/hr IV Q24H [facility] Last Admin: 05/31/18 14:38 Dose: 250 mls/hr Pantoprazole Sodium 40 mg/ (Sodium Chloride) 110 mls @ 330 mls/hr IV Q12 [facility] Last Admin: 05/31/18 22:06 Dose: 330 mls/hr Norepinephrine Bitartrate 8 mg (/ Dextrose) 258 mls @ 9.68 mls/hr IV .[id number] [facility] Last Admin: 06/01/18 02:25 Dose: 9.68 mls/hr Meropenem 500 mg/ Sodium (Chloride) 60 mls @ 100 mls/hr IV Q8 [facility] Last Admin: 06/01/18 06:00 Dose: 100 mls/hr Sodium Chloride () 250 mls @ 15 mls/hr IV .[id number] PRN PRN Reason: SALINE FLUSH Last Admin: 06/01/18 00:05 Dose: 15 mls/hr Tigecycline 50 mg/ Sodium (Chloride) 105 mls @ 105 mls/hr IV Q12 [facility] Last Admin: 05/31/18 22:48 Dose: Not Given Insulin Human Lispro (Humalog Kwikpen (Bkc)) 0 unit SC Q6 [facility]; Protocol Last Admin: 06/01/18 06:00 Dose: Not Given Morphine Sulfate () 1 - 2 mg IV Q4H PRN PRN PRN Reason: PAIN Last Admin: 05/31/18 00:54 Dose: 1 mg Nystatin (Mycostatin Powder) 1 applic TOPICAL BID [facility]; Protocol Last Admin: 05/31/18 22:16 Dose: 1 applicatio Sodium Chloride () 5 - 30 ml IV UD PRN PRN Reason: SALINE FLUSH Last Admin: 05/31/18 07:56 Dose: 10 ml Medical Necessity - Tobacco Use Smoking Status: Never smoker Tobacco Use: Non-smoker Assessment/Plan All Active Problems Anasarca (Acute) Gram-negative pneumonia (Acute) UTI due to extended-spectrum beta lactamase (ESBL) producing Escherichia coli (Acute) Septic shock (Acute) Chronic anticoagulation (Acute) MANUEL (acute kidney injury) (Resolved) Sepsis (Acute) Altered mental status (Resolved) Aspiration pneumonia (Acute) Pseudomonas urinary tract infection (Acute) Hypokalemia (Acute) MRSA pneumonia (Acute) Shortness of breath (Acute) Ulcer of heel (Acute) Fever (Acute) Acute and chronic respiratory failure (Acute) 1. Septic shock Worse due to UTI and gram-negative pneumonia Still requiring pressor support with norepinephrine No adrenal insufficiency with normal cortisol Echocardiogram from the showed normal left ventricular size, wall motion and systolic function. Complicated by the patient's anasarca 2. Gram negative and MRSA pneumonia [id number] organism with Burkholderia On meropenem and vancomycin Infectious disease following 3. ESBL E. coli urinary tract infection On meropenem Infectious disease following Shortage on tigecycline. 4. Acute hypoxic on chronic respiratory failure Secondary to pneumonia Patient already with a trach Vent management per the pulmonary service 5. Thrush Continue with nystatin 6. Dysphagia PEG tube was previously removed prior to this hospitalization Patient seen by general surgery, and the plan is to replace it on the 7. Anasarca Complicating care Abdomen is 1.3 Optimize nutritional status when able 8. DVT prophylaxis with heparin 9. Prognosis Clinically worse today guarded to poor Patient indicated to me that she wishes to continue with aggressive measures Consider hospice at the point when the patient deteriorates, whether that would be during this hospitalization or later point after discharge. Apparently there will be a family meeting today to discuss the patient's current status. Hopefully at that time patient could be transitioned over to hospice as I do not anticipate any improvement for the patient. Code Visit Inpatient E&M: 42735 Subs Hosp L3
[2018-06-01] MEDS: Acetaminophen 650 MG Suppository RECTAL (08:45)
--- NOTE | 2018-06-01 08:45 | NURSING ---
Dr. Watts present in pt room. Defib pads to chest, cooling blanket placed under pt.
--- NOTE | 2018-06-01 08:50 | PN_ITS ---
Patient Problems: Active and Suspected Problems Anasarca (Acute) Gram-negative pneumonia (Acute) UTI due to extended-spectrum beta lactamase (ESBL) producing Escherichia coli (Acute) Septic shock (Acute) Subjective: Fever of 105.5 ?F, rectally. Decreased blood pressures, increased levo fed. Tachycardic. Vitals/I&O's: Vital Signs Temp Pulse Resp BP Pulse Ox 36.9 C 148 H 36 H 123/97 H 92 06/01/18 04:00 06/01/18 07:05 06/01/18 07:05 06/01/18 07:00 06/01/18 07:05 Oxygen Flow Rate (L/min) 10 Oxygen Delivery Method Mechanical Ventilator Weight: 86.7 kg Body Mass Index (BMI) 31.6 Finger Stick Blood Glucose 132 Intake and Output for Last 24 Hours 05/30/18 05/31/18 06/01/18 23:59 23:59 23:59 Intake Total 2667 / 2667 2559.6 / 2559.6 813.2 / 813.2 Output Total 1400 / 1400 1700 / 1700 450 / 450 Balance 1267 / 1267 859.6 / 859.6 363.2 / 363.2 General: - - Listless. On ventilator. HEENT: Atraumatic, Normocephalic Oral: Moist Mucosa, No Gingival or Mucosal Lesions/ Ulcerations Neck: - - Tracheostomy in place Lungs: - - Coarse breath sounds. Upper respiratory wheeze. Cardiovascular: Normal S1, Normal S2, Tachycardic Abdomen: Bowel Sounds Present, Soft, Non Tender, Non-Distended Extremities: No Calf Tenderness, Edema, - - extremities are cool to touch. Skin: - - Taut lower extremity edema. Edema involving the lower abdomen. Cyanosis of her feet as well as mottling of her lower extremities and lower abdomen. Musculoskeletal: No Tenderness to Palpation of Joints or Extremities, No Muscle Wasting Neurological: - - No clonus. Diminished DTRs. Microbiology Past 72 Hours 05/27/18 09:15 Wound - Sacral Gram Stain - Final 05/27/18 09:15 Wound - Sacral Wound Culture - Final Meth. resistant Staph. aureus Providencia stuartii Escherichia coli 05/27/18 09:15 Wound - Sacral Anaerobic Culture - Final Prevotella melaninogenica 05/26/18 12:25 Blood Culture (Wb) - Left Hand Blood Culture - Final No growth in 5 days. 05/26/18 12:25 Blood Culture (Wb) - Left Wrist Blood Culture - Final No growth in 5 days. 05/27/18 09:40 Sputum, Tracheal Aspirate Gram Stain - Final 05/27/18 09:40 Sputum, Tracheal Aspirate Respiratory Culture - Final Burkholderia cepacia Meth. resistant Staph. aureus Corynebacterium striatum 05/26/18 14:04 Urine, Catheterized Urine Culture - Final Escherichia coli#2 Escherichia coli Laboratory Results 05/27/18 09:15: S.aureus Protein A PCR POSITIVE H, MRSA (PCR) POSITIVE H 05/30/18 03:45: Diff Path Review Reviewed 05/31/18 08:00: Cortisol 31.20 H 05/31/18 11:52: POC Glucose 150 H 05/31/18 18:11: POC Glucose 121 H 06/01/18 00:03: POC Glucose 144 H 06/01/18 04:20: WBC 23.2 H, RBC 4.49, Hgb 12.3, Hct 36.3 L, MCV 80.8 L, MCH 27.4, MCHC 33.9, RDW 17.0 H, RDW Differential 47.0 H, Plt Count 201, MPV 10.8, Neut % (Auto) Not Reportable, Absolute Neuts (auto) 19.4 H, Absolute Lymphs (auto) 2.55, Total Counted 100, Neutrophils % (Manual) 84 H, Lymphocytes % (Manual) 11 L, Monocytes % (Manual) 4, Metamyelocytes % 1, Diff Path Review May , Platelet Estimate ADEQUATE, RBC Morphology NORM C+C 06/01/18 04:20: PT 19.8 H, INR 1.7 06/01/18 04:20: Sodium 146 H, Potassium 4.0, Chloride 114 H, Carbon Dioxide 18.0 L, Anion Gap 14, BUN 54 H, Creatinine 0.91, Estim Creat Clear Calc 46.80, Est GFR (MDRD) Af Amer 79, Est GFR (MDRD) Non-Af 66, BUN/Creatinine Ratio 59.6 H, Glucose 149 H, Calcium 7.5 L, Phosphorus 4.6, Magnesium 1.9 06/01/18 05:58: POC Glucose 139 H 06/01/18 07:15: Specimen Type ART, Sample Site R Radial, pH 7.49 H, Bicarbonate Actual 11.6 L, POC Total CO2 12, Base Excess -12 L, O2 Saturation 96, O2 % 30, ABG pCO2 15.2 L*, ABG pO2 73 L, Respiration Rate 14, O2 Delivery Device Vent, Vent Mode A-C, Tidal Volume 450, POC PEEP 5, Blood Gas Notified Whom ICU MD, Blood Gas Notified Time 714 Current Medications Acetaminophen (Tylenol) 650 mg RECTAL Q6H PRN PRN PRN Reason: FEVER Albuterol Sulfate (Ventolin Aerosols) 2.5 mg INHALATION Q4H PRN PRN PRN Reason: SOB &/OR WHEEZING Albuterol/Ipratropium (Duoneb) 3 ml INHALATION Q6HWA.RT [facility] Last Admin: 06/01/18 07:06 Dose: 3 ml Bisacodyl (Dulcolax) 10 mg RECTAL DAILY PRN PRN Reason: Constipation Chlorhexidine Gluconate () 15 ml PO BID [facility] Last Admin: 05/31/18 23:18 Dose: 15 ml Chlorhexidine Gluconate () 1 each TOPICAL DAILY [facility] Last Admin: 06/01/18 06:00 Dose: 1 each Heparin Sodium (Porcine) (Heparin Na) 5,000 unit SC Q8 [facility] Last Admin: 06/01/18 06:00 Dose: Not Given Vancomycin IV Pharmacy to Dose (1 ea/ Sodium Chloride) 500 mls @ 250 mls/hr IV PRN PRN; Protocol PRN Reason: Rx to Dose Vancomycin HCl 750 mg/ Sodium (Chloride) 265 mls @ 250 mls/hr IV Q24H [facility] Last Admin: 05/31/18 14:38 Dose: 250 mls/hr Pantoprazole Sodium 40 mg/ (Sodium Chloride) 110 mls @ 330 mls/hr IV Q12 [facility] Last Admin: 05/31/18 22:06 Dose: 330 mls/hr Norepinephrine Bitartrate 8 mg (/ Dextrose) 258 mls @ 9.68 mls/hr IV .[id number] [facility] Last Admin: 06/01/18 02:25 Dose: 9.68 mls/hr Meropenem 500 mg/ Sodium (Chloride) 60 mls @ 100 mls/hr IV Q8 [facility] Last Admin: 06/01/18 06:00 Dose: 100 mls/hr Sodium Chloride () 250 mls @ 15 mls/hr IV .[id number] PRN PRN Reason: SALINE FLUSH Last Admin: 06/01/18 00:05 Dose: 15 mls/hr Tigecycline 50 mg/ Sodium (Chloride) 105 mls @ 105 mls/hr IV Q12 [facility] Last Admin: 05/31/18 22:48 Dose: Not Given Insulin Human Lispro (Humalog Kwikpen (Bkc)) 0 unit SC Q6 [facility]; Protocol Last Admin: 06/01/18 06:00 Dose: Not Given Morphine Sulfate () 1 - 2 mg IV Q4H PRN PRN PRN Reason: PAIN Last Admin: 05/31/18 00:54 Dose: 1 mg Nystatin (Mycostatin Powder) 1 applic TOPICAL BID [facility]; Protocol Last Admin: 05/31/18 22:16 Dose: 1 applicatio Sodium Chloride () 5 - 30 ml IV UD PRN PRN Reason: SALINE FLUSH Last Admin: 05/31/18 07:56 Dose: 10 ml Medical Necessity - Tobacco Use Smoking Status: Never smoker Tobacco Use: Non-smoker Assessment/Plan All Active Problems Anasarca (Acute) Gram-negative pneumonia (Acute) UTI due to extended-spectrum beta lactamase (ESBL) producing Escherichia coli (Acute) Septic shock (Acute) Chronic anticoagulation (Acute) MANUEL (acute kidney injury) (Resolved) Sepsis (Acute) Altered mental status (Resolved) Aspiration pneumonia (Acute) Pseudomonas urinary tract infection (Acute) Hypokalemia (Acute) MRSA pneumonia (Acute) Shortness of breath (Acute) Ulcer of heel (Acute) Fever (Acute) Acute and chronic respiratory failure (Acute) 1. Septic shock * Worse * due to UTI and gram-negative pneumonia * Still requiring pressor support with norepinephrine * No adrenal insufficiency with normal cortisol * Echocardiogram from the 25th showed normal left ventricular size, wall motion and systolic function. * Complicated by the patient's anasarca 2. Gram negative and MRSA pneumonia * Dueli-gavh-ldwgftscz organism with Burkholderia * On meropenem and vancomycin * Infectious disease following 3. ESBL E. coli urinary tract infection * On meropenem * Infectious disease following * Shortage on tigecycline. 4. Acute hypoxic on chronic respiratory failure * Secondary to pneumonia * Patient already with a trach * Vent management per the pulmonary service 5. Thrush * Continue with nystatin 6. Dysphagia * PEG tube was previously removed prior to this hospitalization * Patient seen by general surgery, and the plan is to replace it on the 7. Anasarca * Complicating care * Abdomen is 1.3 * Optimize nutritional status when able 8. DVT prophylaxis with heparin 9. Prognosis * Clinically worse today * guarded to poor * Patient indicated to me that she wishes to continue with aggressive measures * Consider hospice at the point when the patient deteriorates, whether that would be during this hospitalization or later point after discharge. * Apparently there will be a family meeting today to discuss the patient's current status. Hopefully at that time patient could be transitioned over to hospice as I do not anticipate any improvement for the patient. Code Visit Inpatient E&M: 47511 [facility] Hosp L3
--- NOTE | 2018-06-01 09:08 | PN_ITS ---
Progress Note I discussed the patient's case with Dr. Watts and Dr. López. Patient appears to be more tachycardic and Levophed requirements have gone up. There is concerned that her condition is worsening. I will delay PEG tube until the patient is more stable. Aashish Dee MD Pager: [facility] [address] [place] [address], [address] [place] [phone] Office:
--- NOTE | 2018-06-01 09:08 | PCM.PN.BLA ---
Progress Note I discussed the patient's case with Dr. Watts and Dr. López. Patient appears to be more tachycardic and Levophed requirements have gone up. There is concerned that her condition is worsening. I will delay PEG tube until the patient is more stable. Aashish Dee MD Pager: [facility] [address] [place] [address], [address] [place] [phone] Office:
--- NOTE | 2018-06-01 09:16 | NURSING ---
Pt not doing well at this time. did not turn patient to assess wound. JACKLYN Zuñiga states that patient's wound are somewhat improved. less periwound moisture noted per JACKLYN Zuñiga. will follow as needed.
--- NOTE | 2018-06-01 09:50 | PCM.PN.ID ---
Patient Problems: Active and Suspected Problems Anasarca (Acute) Gram-negative pneumonia (Acute) UTI due to extended-spectrum beta lactamase (ESBL) producing Escherichia coli (Acute) Septic shock (Acute) Subjective: Worsened BP, not feeling well. - Physical Exam General: - - ill appearing Lungs: Diminished Cardiovascular: Tachycardic Abdomen: Soft, Non Tender Extremities: Edema - diffuse mottling and anasarca Skin: No rashes Vital Signs Temp Pulse Resp BP Pulse Ox 98.4 F 149 H 36 H 74/0 L 100 06/01/18 04:00 06/01/18 09:37 06/01/18 09:37 06/01/18 09:45 06/01/18 09:37 Oxygen Flow Rate (L/min) 10 Oxygen Delivery Method Mechanical Ventilator Weight: 86.7 kg Body Mass Index (BMI) 31.6 Finger Stick Blood Glucose 132 Intake and Output for Last 24 Hours 05/30/18 05/31/18 06/01/18 23:59 23:59 23:59 Intake Total 2667 / 2667 2559.6 / 2559.6 813.2 / 813.2 Output Total 1400 / 1400 1700 / 1700 450 / 450 Balance 1267 / 1267 859.6 / 859.6 363.2 / 363.2 Microbiology Past 72 Hours 05/27/18 09:15 Gram Stain - Final Wound - Sacral Wound Culture - Final Meth. resistant Staph. aureus Providencia stuartii Escherichia coli Anaerobic Culture - Final Prevotella melaninogenica 05/26/18 12:25 Blood Culture - Final Blood Culture (Wb) - Left Hand No growth in 5 days. 05/26/18 12:25 Blood Culture - Final Blood Culture (Wb) - Left Wrist No growth in 5 days. 05/27/18 09:40 Gram Stain - Final Sputum, Tracheal Aspirate Respiratory Culture - Final Burkholderia cepacia Meth. resistant Staph. aureus Corynebacterium striatum 05/26/18 14:04 Urine Culture - Final Urine, Catheterized Escherichia coli#2 Escherichia coli Laboratory Tests Past 24 Hrs 05/27/18 05/30/18 06/01/18 09:15 03:45 04:20 WBC 23.2 H RBC 4.49 Hgb 12.3 Hct 36.3 L MCV 80.8 L MCH 27.4 MCHC 33.9 RDW 17.0 H RDW Differential 47.0 H Plt Count 201 MPV 10.8 Neut % (Auto) Not Reportable Absolute Neuts (auto) 19.4 H Absolute Lymphs (auto) 2.55 Total Counted 100 Neutrophils % (Manual) 84 H Lymphocytes % (Manual) 11 L Monocytes % (Manual) 4 Metamyelocytes % 1 Diff Path Review Reviewed May foll Platelet Estimate ADEQUATE RBC Morphology NORM C+C PT INR Specimen Type Sample Site pH Bicarbonate Actual POC Total CO2 Base Excess O2 Saturation O2 % ABG pCO2 ABG pO2 Respiration Rate O2 Delivery Device Vent Mode Tidal Volume POC PEEP Blood Gas Notified Whom Blood Gas Notified Time Sodium Potassium Chloride Carbon Dioxide Anion Gap BUN Creatinine Estim Creat Clear Calc Est GFR (MDRD) Af Amer Est GFR (MDRD) Non-Af BUN/Creatinine Ratio Glucose Calcium Phosphorus Magnesium S.aureus Protein A PCR POSITIVE H MRSA (PCR) POSITIVE H 06/01/18 06/01/18 06/01/18 04:20 04:20 07:15 WBC RBC Hgb Hct MCV MCH MCHC RDW RDW Differential Plt Count MPV Neut % (Auto) Absolute Neuts (auto) Absolute Lymphs (auto) Total Counted Neutrophils % (Manual) Lymphocytes % (Manual) Monocytes % (Manual) Metamyelocytes % Diff Path Review Platelet Estimate RBC Morphology PT 19.8 H INR 1.7 Specimen Type ART Sample Site R Radial pH 7.49 H Bicarbonate Actual 11.6 L POC Total CO2 12 Base Excess -12 L O2 Saturation 96 O2 % 30 ABG pCO2 15.2 L* ABG pO2 73 L Respiration Rate 14 O2 Delivery Device Vent Vent Mode A-C Tidal Volume 450 POC PEEP 5 Blood Gas Notified Whom ICU MD Blood Gas Notified Time 714 Sodium 146 H Potassium 4.0 Chloride 114 H Carbon Dioxide 18.0 L Anion Gap 14 BUN 54 H Creatinine 0.91 Estim Creat Clear Calc 46.80 Est GFR (MDRD) Af Amer 79 Est GFR (MDRD) Non-Af 66 BUN/Creatinine Ratio 59.6 H Glucose 149 H Calcium 7.5 L Phosphorus 4.6 Magnesium 1.9 S.aureus Protein A PCR MRSA (PCR) POC Glucose 06/01/18 06/01/18 05/31/18 05:58 00:03 18:11 POC Glucose 139 H 144 H 121 H 05/31/18 11:52 POC Glucose 150 H Medical Necessity - Tobacco Use Smoking Status: Never smoker Tobacco Use: Non-smoker Route of nutrition/ use of supplements: [] Nutritional Intake: [] IV Site: [] Donahue Catheter: [] - Assessment/Plan Antibiotics: [] Assessment/Plan: [] Active and Suspected Problems Chronic anticoagulation (Acute) MANUEL (acute kidney injury) (Acute) Altered mental status (Acute) Hypokalemia (Acute) Septic shock with MANUEL - 05/11 Ucx with ESBL ecoli, treated with nitrofurantoin. 05/11 sputum cx with PsA, R to imipenem, treated with levaquin which it was sensitive to. CXR clear, low suspicion for pneumonia. Sputum grew XDR Burkholderia, MRSA, and corynebacterium. Pressors have increased and wbc rising despite vanc/meropenem and addition of tigecycline. Requested minocycline testing for the burkholderia. Will follow. Overall very poor prognosis, appears like she will not survive long. D/w Dr. Watts.
[2018-06-01] MEDS: Morphine 4 MG/ML Syringe IV ×9 (10:26→22:34)
[2018-06-01] MEDS: LORazepam 2 MG/ML Syringe IV ×9 (10:28→22:34)
--- NOTE | 2018-06-01 10:29 | NURSING ---
family at bedside pt reassurance/comfort given, questions answered. levo dc, all other IVs also.
--- NOTE | 2018-06-01 10:35 | NURSING ---
Addendum entered by Ariadna Delgado 06/01/18 10:37: actual time 1005 Original Note: family at bedside, careful explaination of pt cond by this RN. family indicates they now wish her to be made comfortable'. Dr. Watts to bedside, spoke w/ family re pt condition, the inevitability of pt cont decline and . They again states they wish her to be made comfortable. orders recd.
--- NOTE | 2018-06-01 13:34 | CASEMGMT ---
RUTH checked in on family to see how they are doing. Patient's daughter and her significant other were in the room. They said they are doing fine and thanked RUTH for checking. SW went to check on patient's son in the other room, but he was on the phone. SW available for support. Solange CHRISTINA MSW
[2018-06-01] MEDS: 0.9% NaCl Peripheral Flush Adult/Peds IV ×7 (14:50→22:34)
--- NOTE | 2018-06-01 15:13 | CHAPLAIN ---
Type of Pastoral Visit ___ Initial Visit _x__ Follow-up Visit ___ On-call Visit ___ General Patient Visit ___ Spiritual Assessment ___ Family Conference ___ Bereavement ___ Rapid Response ___ Code Blue _x__ Other (describe below) Pastoral Care Referral From ___ Patient _x__ Family ___ Nurse ___ Physician ___ Pot Puncher ___ Digital Product Manager ___ Other (describe below) Sacrament/Intervention ___ Active listening ___ Anointing ___ Rastafarian ___ Bereavement ___ Communion ___ Jessica exploration ___ ___ Life review _x__ Prayer ___ Reconciliation ___ Sacrament of Sick _x__ Supportive presence ___ Wedding ___ Other (describe below) Pastoral Comments patient has been discontinued from extraordinary measures of curative treatment; family members are gathered with her in room; spoke directly to pt and to family about spiritual support and presence; offered prayer; local biodiesel engineering manager for patient has been available and present to pt; family does not seek other support at this time
[2018-06-02] VITALS: PULSE 99; RESP 12; TEMP 36.3; O2SAT 81
[2018-06-02] MEDS: LORazepam 2 MG/ML Syringe IV ×6 (01:15→09:21)
[2018-06-02] MEDS: 0.9% NaCl Peripheral Flush Adult/Peds IV ×6 (01:15→09:21)
[2018-06-02] MEDS: Morphine 4 MG/ML Syringe IV ×6 (01:15→09:21)
[2018-06-02 06:00] VITALS: PULSE 95; RESP 20; TEMP 36.2; O2SAT 93
--- NOTE | 2018-06-02 07:01 | CPS ---
vent on standby, pt on 30% cool aerosol via trach collar at this time, pt resting comfortably.
[2018-06-02 07:37] VITALS: O2SAT 30
[2018-06-02 07:48] VITALS: PULSE 94; RESP 16
--- NOTE | 2018-06-02 08:45 | PCM.PN.HOSP ---
Patient Problems: Active and Suspected Problems Anasarca (Acute) Gram-negative pneumonia (Acute) UTI due to extended-spectrum beta lactamase (ESBL) producing Escherichia coli (Acute) Septic shock (Acute) Subjective: Patient made DNRCC yesterday. Taken off vent and has been on trach mask. Decreased responsiveness. Tachypneic. Vitals/I&O's: Vital Signs Temp Pulse Resp BP Pulse Ox 36.2 C L 94 16 95/0 L 30 06/02/18 06:00 06/02/18 07:48 06/02/18 07:48 06/01/18 10:05 06/02/18 07:37 Oxygen Flow Rate (L/min) 8 Oxygen Delivery Method Trach Collar Weight: 86.7 kg Body Mass Index (BMI) 31.6 Finger Stick Blood Glucose 132 Intake and Output for Last 24 Hours 05/31/18 06/01/18 06/02/18 23:59 23:59 23:59 Intake Total 2559.6 / 2559.6 813.2 / 813.2 Output Total 1700 / 1700 500 / 500 0 / 0 Balance 859.6 / 859.6 313.2 / 313.2 0 / 0 General: - - unresponsive to noxious stimuli. HEENT: Atraumatic, Normocephalic Lungs: - - tachypneic. short shallow breaths. Cardiovascular: No murmurs, Tachycardic Abdomen: Non Tender, Hypoactive Bowel Sounds, Distended Extremities: Cool, Edema Skin: - - mottling. Microbiology Past 72 Hours 05/27/18 09:15 Wound - Sacral Gram Stain - Final 05/27/18 09:15 Wound - Sacral Wound Culture - Final Meth. resistant Staph. aureus Providencia stuartii Escherichia coli 05/27/18 09:15 Wound - Sacral Anaerobic Culture - Final Prevotella melaninogenica 05/26/18 12:25 Blood Culture (Wb) - Left Hand Blood Culture - Final No growth in 5 days. 05/26/18 12:25 Blood Culture (Wb) - Left Wrist Blood Culture - Final No growth in 5 days. 05/27/18 09:40 Sputum, Tracheal Aspirate Gram Stain - Final 05/27/18 09:40 Sputum, Tracheal Aspirate Respiratory Culture - Final Burkholderia cepacia Meth. resistant Staph. aureus Corynebacterium striatum 05/26/18 14:04 Urine, Catheterized Urine Culture - Final Escherichia coli#2 Escherichia coli Current Medications Acetaminophen (Tylenol) 650 mg RECTAL Q6H PRN PRN PRN Reason: FEVER Last Admin: 06/01/18 08:45 Dose: 650 mg Albuterol Sulfate (Ventolin Aerosols) 2.5 mg INHALATION Q4H PRN PRN PRN Reason: SOB &/OR WHEEZING Bisacodyl (Dulcolax) 10 mg RECTAL DAILY PRN PRN Reason: Constipation Chlorhexidine Gluconate () 15 ml PO BID [facility] Last Admin: 06/01/18 20:01 Dose: Not Given Lorazepam (Ativan) 2 - 10 mg IV Q10M PRN PRN Reason: ANXIETY Last Admin: 06/02/18 06:25 Dose: 2 mg Morphine Sulfate () 2 - 10 mg IV Q10M PRN PRN Reason: PAIN Last Admin: 06/02/18 06:25 Dose: 4 mg Nystatin (Mycostatin Powder) 1 applic TOPICAL BID [facility]; Protocol Last Admin: 06/01/18 20:01 Dose: Not Given Sodium Chloride () 5 - 30 ml IV UD PRN PRN Reason: SALINE FLUSH Last Admin: 06/02/18 06:25 Dose: 20 ml Medical Necessity - Tobacco Use Smoking Status: Never smoker Tobacco Use: Non-smoker Assessment/Plan All Active Problems Anasarca (Acute) Gram-negative pneumonia (Acute) UTI due to extended-spectrum beta lactamase (ESBL) producing Escherichia coli (Acute) Septic shock (Acute) Chronic anticoagulation (Acute) MANUEL (acute kidney injury) (Resolved) Sepsis (Acute) Altered mental status (Resolved) Aspiration pneumonia (Acute) Pseudomonas urinary tract infection (Acute) Hypokalemia (Acute) MRSA pneumonia (Acute) Shortness of breath (Acute) Ulcer of heel (Acute) Fever (Acute) Acute and chronic respiratory failure (Acute) 1. Septic shock Worse due to UTI and gram-negative pneumonia Still requiring pressor support with norepinephrine No adrenal insufficiency with normal cortisol Echocardiogram from the showed normal left ventricular size, wall motion and systolic function. Complicated by the patient's anasarca now DNRCC. 2. Gram negative and MRSA pneumonia Iumrr-zdhi-mtnsehmbx organism with Burkholderia abx discontinued. 3. ESBL E. coli urinary tract infection antibiotics discontinued 4. Acute hypoxic on chronic respiratory failure Secondary to pneumonia Patient already with a trach Vent management per the pulmonary service 5. Thrush 6. Dysphagia PEG tube was previously removed prior to this hospitalization Given that patient is actively dying, PEG tube has been aborted. 7. Anasarca Complicating care albumin is 1.3 8. Prognosis actively dying comfort measures given MRDOs, plan is for patient to stay at [facility] until her demise. Code Visit Inpatient E&M: 73183 Subs Hosp L2
--- NOTE | 2018-06-02 08:49 | PN_ITS ---
Patient Problems: Active and Suspected Problems Anasarca (Acute) Gram-negative pneumonia (Acute) UTI due to extended-spectrum beta lactamase (ESBL) producing Escherichia coli (Acute) Septic shock (Acute) Subjective: Patient made DNRCC yesterday. Taken off vent and has been on trach mask. Decreased responsiveness. Tachypneic. Vitals/I&O's: Vital Signs Temp Pulse Resp BP Pulse Ox 36.2 C L 94 16 95/0 L 30 06/02/18 06:00 06/02/18 07:48 06/02/18 07:48 06/01/18 10:05 06/02/18 07:37 Oxygen Flow Rate (L/min) 8 Oxygen Delivery Method Trach Collar Weight: 86.7 kg Body Mass Index (BMI) 31.6 Finger Stick Blood Glucose 132 Intake and Output for Last 24 Hours 05/31/18 06/01/18 06/02/18 23:59 23:59 23:59 Intake Total 2559.6 / 2559.6 813.2 / 813.2 Output Total 1700 / 1700 500 / 500 0 / 0 Balance 859.6 / 859.6 313.2 / 313.2 0 / 0 General: - - unresponsive to noxious stimuli. HEENT: Atraumatic, Normocephalic Lungs: - - tachypneic. short shallow breaths. Cardiovascular: No murmurs, Tachycardic Abdomen: Non Tender, Hypoactive Bowel Sounds, Distended Extremities: Cool, Edema Skin: - - mottling. Microbiology Past 72 Hours 05/27/18 09:15 Wound - Sacral Gram Stain - Final 05/27/18 09:15 Wound - Sacral Wound Culture - Final Meth. resistant Staph. aureus Providencia stuartii Escherichia coli 05/27/18 09:15 Wound - Sacral Anaerobic Culture - Final Prevotella melaninogenica 05/26/18 12:25 Blood Culture (Wb) - Left Hand Blood Culture - Final No growth in 5 days. 05/26/18 12:25 Blood Culture (Wb) - Left Wrist Blood Culture - Final No growth in 5 days. 05/27/18 09:40 Sputum, Tracheal Aspirate Gram Stain - Final 05/27/18 09:40 Sputum, Tracheal Aspirate Respiratory Culture - Final Burkholderia cepacia Meth. resistant Staph. aureus Corynebacterium striatum 05/26/18 14:04 Urine, Catheterized Urine Culture - Final Escherichia coli#2 Escherichia coli Current Medications Acetaminophen (Tylenol) 650 mg RECTAL Q6H PRN PRN PRN Reason: FEVER Last Admin: 06/01/18 08:45 Dose: 650 mg Albuterol Sulfate (Ventolin Aerosols) 2.5 mg INHALATION Q4H PRN PRN PRN Reason: SOB &/OR WHEEZING Bisacodyl (Dulcolax) 10 mg RECTAL DAILY PRN PRN Reason: Constipation Chlorhexidine Gluconate () 15 ml PO BID SELVIN Last Admin: 06/01/18 20:01 Dose: Not Given Lorazepam (Ativan) 2 - 10 mg IV Q10M PRN PRN Reason: ANXIETY Last Admin: 06/02/18 06:25 Dose: 2 mg Morphine Sulfate () 2 - 10 mg IV Q10M PRN PRN Reason: PAIN Last Admin: 06/02/18 06:25 Dose: 4 mg Nystatin (Mycostatin Powder) 1 applic TOPICAL BID [facility]; Protocol Last Admin: 06/01/18 20:01 Dose: Not Given Sodium Chloride () 5 - 30 ml IV UD PRN PRN Reason: SALINE FLUSH Last Admin: 06/02/18 06:25 Dose: 20 ml Medical Necessity - Tobacco Use Smoking Status: Never smoker Tobacco Use: Non-smoker Assessment/Plan All Active Problems Anasarca (Acute) Gram-negative pneumonia (Acute) UTI due to extended-spectrum beta lactamase (ESBL) producing Escherichia coli (Acute) Septic shock (Acute) Chronic anticoagulation (Acute) MANUEL (acute kidney injury) (Resolved) Sepsis (Acute) Altered mental status (Resolved) Aspiration pneumonia (Acute) Pseudomonas urinary tract infection (Acute) Hypokalemia (Acute) MRSA pneumonia (Acute) Shortness of breath (Acute) Ulcer of heel (Acute) Fever (Acute) Acute and chronic respiratory failure (Acute) 1. Septic shock * Worse * due to UTI and gram-negative pneumonia * Still requiring pressor support with norepinephrine * No adrenal insufficiency with normal cortisol * Echocardiogram from the showed normal left ventricular size, wall motion and systolic function. * Complicated by the patient's anasarca * now DNRCC. 2. Gram negative and MRSA pneumonia * Udawt-kbqw-mxawgmhap organism with Burkholderia * abx discontinued. 3. ESBL E. coli urinary tract infection * antibiotics discontinued 4. Acute hypoxic on chronic respiratory failure * Secondary to pneumonia * Patient already with a trach * Vent management per the pulmonary service 5. Thrush 6. Dysphagia * PEG tube was previously removed prior to this hospitalization * Given that patient is actively dying, PEG tube has been aborted. 7. Anasarca * Complicating care * albumin is 1.3 8. Prognosis * actively dying * comfort measures * given MRDOs, plan is for patient to stay at [facility] until her demise. Code Visit Inpatient E&M: 60601 Subs Hosp L2
--- NOTE | 2018-06-02 10:05 | CASEMGMT ---
RUTH spoke w/Zara from [facility], updated her on pt. If pt were able, she could return to the facility on hospice. RUTH will keep Zara informed of pt's condition. LORE Ring, ACTION FINISHER
[2018-06-02 12:37] LABS: Pathologist Review Reviewed
[2018-06-02 12:49] LABS: Pathologist Review Reviewed
--- NOTE | 2018-06-02 14:20 | NURSING ---
pt heart rate 50s, son at bedside, CHANGER FIXER's in attendance, support given.
--- NOTE | 2018-06-02 14:46 | NURSING ---
apneic. no audible heart rate x1 minute. Dr. López notified. Lethal exodus.
--- NOTE | 2018-06-02 14:51 | PCM.DEATH ---
Preliminary Cause of Pneumonia Date of Admission: 05/26/18 Date of : 06/02/18 - Principle Diagnosis 1. Septic shock Worse due to UTI and gram-negative pneumonia Still requiring pressor support with norepinephrine No adrenal insufficiency with normal cortisol Echocardiogram from the showed normal left ventricular size, wall motion and systolic function. Complicated by the patient's anasarca now DNRCC. 2. Gram negative and MRSA pneumonia Mjzxc-odas-iheuyadgs organism with Burkholderia abx discontinued. 3. ESBL E. coli urinary tract infection antibiotics discontinued 4. Acute hypoxic on chronic respiratory failure Secondary to pneumonia Patient already with a trach Vent management per the pulmonary service 5. Thrush 6. Dysphagia PEG tube was previously removed prior to this hospitalization Given that patient is actively dying, PEG tube has been aborted. 7. Anasarca Complicating care albumin is 1.3 Problem List: Active and Suspected Problems Septic shock (Acute) Hospital Course Is a 67-year-old white female presents with change in mental status. Patient presents with septic shock due to pneumonia as well as urinary tract infection. 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 The Burkholderia was resistant to all available antibiotics. Patient's urinary tract infection was an ESBL E. coli. Patient was seen in consultations by ICU infectious disease. Patient was put on pressor support with levo fed. Despite aggressive measures with antibiotics and pressors, patient's condition continued to deteriorate. Patient and family were wishing to do aggressive measures throughout the hospitalization but on the , patient was febrile with a temperature of 105.5 Fahrenheit but had cool extremities. Decision was made after family meeting to make the patient hospice and comfortable. The patient was taken off the ventilator and taken off pressors and pursue comfort measures. It was felt initially, the patient's would be imminent, however, patient did survive to the following day. Patient's time of was 1446 on June 02, 2018. Code Visit Inpatient E&M: [id number] [facility] Hosp
--- NOTE | 2018-06-02 14:55 | EXP.PCM_ITS ---
Preliminary Cause of Pneumonia Date of Admission: 05/26/18 Date of : 06/02/18 - Principle Diagnosis 1. Septic shock * Worse * due to UTI and gram-negative pneumonia * Still requiring pressor support with norepinephrine * No adrenal insufficiency with normal cortisol * Echocardiogram from the showed normal left ventricular size, wall motion and systolic function. * Complicated by the patient's anasarca * now DNRCC. 2. Gram negative and MRSA pneumonia * Lmgmt-yqzo-wetrozsft organism with Burkholderia * abx discontinued. 3. ESBL E. coli urinary tract infection * antibiotics discontinued 4. Acute hypoxic on chronic respiratory failure * Secondary to pneumonia * Patient already with a trach * Vent management per the pulmonary service 5. Thrush 6. Dysphagia * PEG tube was previously removed prior to this hospitalization * Given that patient is actively dying, PEG tube has been aborted. 7. Anasarca * Complicating care * albumin is 1.3 Problem List: Active and Suspected Problems Septic shock (Acute) Hospital Course Is a 67-year-old white female presents with change in mental status. Patient presents with septic shock due to pneumonia as well as urinary tract infection. 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 The Burkholderia was resistant to all available antibiotics. Patient's urinary tract infection was an ESBL E. coli. Patient was seen in consultations by ICU infectious disease. Patient was put on pressor support with levo fed. Despite aggressive measures with antibiotics and pressors, patient's condition continued to deteriorate. Patient and family were wishing to do aggressive measures throughout the hospitalization but on the , patient was febrile with a temperature of 105.5 Fahrenheit but had cool extremities. Decision was made after family meeting to make the patient hospice and comfortable. The patient was taken off the ventilator and taken off pressors and pursue comfort measures. It was felt initially, the patient's would be imminent, however, patient did survive to the following day. Patient's time of was 1446 on June 02, 2018. Code Visit Inpatient E&M: 83999 Disch Hosp
--- NOTE | 2018-06-02 15:25 | CHAPLAIN ---
Type of Pastoral Visit ___ Initial Visit _x__ Follow-up Visit ___ On-call Visit ___ General Patient Visit ___ Spiritual Assessment ___ Family Conference ___ Bereavement ___ Rapid Response ___ Code Blue _x__ Other (describe below) Pastoral Care Referral From ___ Patient _x__ Family _x__ Nurse ___ Physician ___ Aviculturist ___ Paper Spooler ___ Other (describe below) Sacrament/Intervention _x__ Active listening ___ Anointing ___ Evangelical _x__ Bereavement ___ Communion ___ Jessica exploration ___ _x__ Life review _x__ Prayer ___ Reconciliation ___ Sacrament of Sick _x__ Supportive presence ___ Wedding ___ Other (describe below) Pastoral Comments patient is continuing to decline and is unresponsive; son of pt is only family member in room at this time; sat with son and listened to his personal thoughts and feelings; son requested this drip box tender to stay with the pt while he took a break and this request was granted; son also requested a prayer for the pt; time given to presence for family;
== END 2018-06-02 14:46 | DRG 871 ==
LOC: ED 13:31 → ICU 14:41
PROVIDERS: Family Medicine; Internal Medicine; Internal Medicine Critical Care Medicine; Admitting Provider Student in an Organized Health Care Education/Training Program; Emergency Provider Emergency Medicine
DX: A41.9 Sepsis, unspecified organism (principal); L89.153 Pressure ulcer of sacral region, stage 3; R65.21 Severe sepsis with septic shock; G93.41 Metabolic encephalopathy; J96.20 Acute and chronic respiratory failure, unspecified whether with hypoxia or hypercapnia; J15.6 Pneumonia due to other Gram-negative bacteria; J15.212 Pneumonia due to Methicillin resistant Staphylococcus aureus; G82.20 Paraplegia, unspecified; N17.9 Acute kidney failure, unspecified; E87.1 Hypo-osmolality and hyponatremia; N39.0 Urinary tract infection, site not specified; Z93.0 Tracheostomy status; Z99.81 Dependence on supplemental oxygen; Z79.01 Long term (current) use of anticoagulants; B96.20 Unspecified Escherichia coli [E. coli] as the cause of diseases classified elsewhere; B37.9 Candidiasis, unspecified
CPT/HCPCS: 31720; 36415; 36556; 36600; 71045; 80048; 80053; 80202; 81001; 82330; 82533; 82550; 82803; 82962; 83605; 83735; 84100; 84443; 84484; 85025; 85610; 85730; 87040; 87070; 87075; 87077; 87086; 87088; 87184; 87186; 87205; 87640; 92522; 92526; 93005; 93306; 94002; 94003; 94640; 94762; 94770; 97163; 97165; 97530; 97802; 99284; J2185; J2997; J7030; J7040; J7050; J7120; A4216; C1751; J3243; J7799